=== PATIENT | female | born 1955 | race Caucasian/White ===

== ENCOUNTER → 2016-07-31 | Outpatient (CLI) | payer MEDICARE, BC ==
[2016-07-31 10:52] LABS: Basophils % (A) 1 %; CH 30.1; CHCM 34.2; Eosinophils # (A) 0.4 k/uL (0-0.7); Eosinophils % (A) 6 %; HDW 2.97; HGB 13.2 gm/dL (11.4-16.0); Luc # (Auto) 0.14; Luc % (Auto) 2; Lymphocytes # (A) 2.1 k/uL (1.0-4.8); Lymphocytes % (A) 29 %; MCH 29.8 pg (25.0-35.0); MCHC 33.7 g/dL (31.0-37.0); MCV 88.4 fL (80.0-100.0); Mean Platelet Volume 8.1; Monocytes # (A) 0.2 k/uL (0-1.0); Monocytes % (A) 3 %; Neutrophils # (A) 4.4 k/uL (1.3-7.7); Neutrophils % (A) 60 %; RBC 4.42 m/uL (3.80-5.40); RDW 14.3 % (11.5-15.5); WBC 7.4 k/uL (3.8-10.6); WBC (Perox) 8.04
[2016-07-31 11:22] LABS: ALT 29 U/L (9-52); AST 20 U/L (14-36); Alkaline Phosphatase 95 U/L (38-126); Anion Gap 12 mmol/L; Blood Urea Nitrogen 9 mg/dL (7-17); Calcium 9.2 mg/dL (8.4-10.2); Carbon Dioxide 29 mmol/L (22-30); Chloride 101 mmol/L (98-107); Cholesterol 177 mg/dL (<200); Glucose 114 mg/dL (74-99); HDL Cholesterol 38 mg/dL (40-60); Non-African American GFR(MDRD) >60 (>60 ml/min/1.73 sqM); Potassium 4.4 mmol/L (3.5-5.1); Sodium 142 mmol/L (137-145); Total Bilirubin 0.4 mg/dL (0.2-1.3); Total Protein 6.4 g/dL (6.3-8.2); Triglycerides 484 mg/dL (<150)
== END | disposition home or self-care (01) ==
LOC: LABWHC1 10:14
PROVIDERS: ATTEND Physician Assistant Medical
DX: M79.89 Other specified soft tissue disorders (principal); E11.40 Type 2 diabetes mellitus with diabetic neuropathy, unspecified; Z79.4 Long term (current) use of insulin; E03.9 Hypothyroidism, unspecified; K21.0 Gastro-esophageal reflux disease with esophagitis; I10 Essential (primary) hypertension; J02.9 Acute pharyngitis, unspecified; E55.9 Vitamin D deficiency, unspecified
CPT/HCPCS: 36415; 80053; 80061; 82306; 84439; 84443; 85025

== ENCOUNTER → 2016-08-27 | Outpatient (CLI) | payer MEDICARE, BC ==
[2016-08-27 14:16] LABS: Blood Urea Nitrogen 16 mg/dL (7-17); Non-African American GFR(MDRD) >60 (>60 ml/min/1.73 sqM)
--- NOTE | 2016-08-27 14:58 | CT ---
EXAMINATION TYPE: CT abdomen pelvis w con DATE OF EXAM: 08/27/2016 2:52 PM COMPARISON: 06/20/2015 HISTORY: 60-year-old female with right lower quadrant pain TECHNIQUE: Contiguous axial scanning of the abdomen and pelvis following administration of 100 ml Omn ipaque 300 IV contrast. Delayed images through the kidneys and coronal/sagittal reconstructions perf ormed. CT DLP: 1517.3 mGycm Automated exposure control for dose reduction was used. FINDINGS: Heart is upper limits of normal in size without pericardial effusion. Strandy atelectasis in the lowe r lungs without pleural effusion. The liver is enlarged measuring 27 cm craniocaudal, possibly secondary to a Kirit's lobe. No focal l iver lesion or biliary ductal dilatation. Portal venous system is patent. Cholecystectomy clips. Adrenal glands, kidneys, and pancreas show no gross abnormality. Spleen remains mildly enlarged measuring 14.4 cm, this is slightly improved from prior where it measu red 15.7 cm. Scattered nonenlarged mesenteric lymph nodes are present. Incidental circumaortic left renal vein. No dilated small bowel, free fluid, or free air. While the appendix is not clearly visualized, no focal inflammatory changes seen within the right low er quadrant. Oral contrast has progressed to the mid transverse colon. There is mild stool burden. No pericolonic inflammatory change seen. Limited visualization of the pelvis due to prominent metal hardware artifact related to the patient's left hip total arthroplasty. Numerous phleboliths are present. Bladder incompletely distended. Bones: Mild degenerative changes at the right hip. Additional degenerative changes mid to lower lumba r spine. No osseous destructive process. Asymmetric atrophy of the left iliopsoas musculature and elva e of the left-sided lateral gluteal musculature as well. IMPRESSION: 1. APPARENT HEPATOMEGALY MAY BE SECONDARY TO A KIRIT'S LOBE. CORRELATE TO EXCLUDE ANY UNDERLYING HEP ATOCELLULAR DISEASE. 2. MILD SPLENOMEGALY SHOW SOME IMPROVEMENT FROM 06/20/2015. 3. NO ACUTE INFLAMMATORY PROCESS IDENTIFIED TO EXPLAIN THE PATIENT'S SYMPTOMS.
== END | disposition home or self-care (01) ==
LOC: RADCTMAIN 12:40
PROVIDERS: ATTEND Physician Assistant Medical
DX: R16.1 Splenomegaly, not elsewhere classified (principal); R10.31 Right lower quadrant pain; R11.2 Nausea with vomiting, unspecified; R19.7 Diarrhea, unspecified; R10.829 Rebound abdominal tenderness, unspecified site
CPT/HCPCS: 82565; 84520; 74177; 36415; Q9967

== ENCOUNTER 2016-09-16 15:37 | Emergency (ER) | payer MEDICARE, BC ==
[2016-09-16 16:04] VITALS: BP 135/61; PULSE 57; RESP 18; TEMP 98.9
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
--- NOTE | 2016-09-16 16:33 | XR ---
EXAMINATION TYPE: XR finger RT DATE OF EXAM: 09/16/2016 4:29 PM COMPARISON: NONE HISTORY: Pain TECHNIQUE: 3 views FINDINGS: There is some spurring at the IP joints. I see no fracture nor dislocation. There are no er osions. There is calcification posterior to the DIP joint of the ring finger consistent with old inju ry. IMPRESSION: Osteoarthritis. No acute abnormality.
== END 2016-09-16 16:55 | disposition home or self-care (01) ==
LOC: EC 15:37
DX: S63.614A Unspecified sprain of right ring finger, initial encounter (principal); E11.9 Type 2 diabetes mellitus without complications; K21.9 Gastro-esophageal reflux disease without esophagitis; I10 Essential (primary) hypertension; E07.9 Disorder of thyroid, unspecified; Z87.891 Personal history of nicotine dependence; Z91.048 Other nonmedicinal substance allergy status; Z88.5 Allergy status to narcotic agent; Z91.018 Allergy to other foods; Z88.8 Allergy status to other drugs, medicaments and biological substances; Z79.4 Long term (current) use of insulin; Z79.84 Long term (current) use of oral hypoglycemic drugs; Z79.899 Other long term (current) drug therapy; W01.0XXA Fall on same level from slipping, tripping and stumbling without subsequent striking against object, initial encounter
CPT/HCPCS: 99283

== ENCOUNTER → 2016-10-23 | Outpatient (CLI) | payer MEDICARE, BC ==
[2016-10-23 09:48] LABS: Basophils # (A) 0.1 k/uL (0-0.2); Basophils % (A) 1 %; CH 31.2; CHCM 33.6; Eosinophils # (A) 0.5 k/uL (0-0.7); Eosinophils % (A) 6 %; HCT 41.6 % (34.0-46.0); HDW 2.72; HGB 13.7 gm/dL (11.4-16.0); Luc # (Auto) 0.25; Luc % (Auto) 3; Lymphocytes # (A) 2.9 k/uL (1.0-4.8); Lymphocytes % (A) 33 %; MCH 30.6 pg (25.0-35.0); MCHC 32.9 g/dL (31.0-37.0); MCV 93.2 fL (80.0-100.0); Mean Platelet Volume 9.2; Monocytes # (A) 0.3 k/uL (0-1.0); Monocytes % (A) 3 %; Neutrophils # (A) 4.9 k/uL (1.3-7.7); Neutrophils % (A) 55 %; RBC 4.46 m/uL (3.80-5.40); RDW 13.6 % (11.5-15.5); WBC 8.9 k/uL (3.8-10.6); WBC (Perox) 9.34
[2016-10-23 10:11] LABS: ALT 30 U/L (9-52); AST 25 U/L (14-36); Alkaline Phosphatase 96 U/L (38-126); Anion Gap 12 mmol/L; Blood Urea Nitrogen 14 mg/dL (7-17); Calcium 9.6 mg/dL (8.4-10.2); Carbon Dioxide 30 mmol/L (22-30); Chloride 100 mmol/L (98-107); Cholesterol 222 mg/dL (<200); Creatine Kinase 77 U/L (30-135); Glucose 112 mg/dL (74-99); HDL Cholesterol 48 mg/dL (40-60); Non-African American GFR(MDRD) >60 (>60 ml/min/1.73 sqM); Potassium 4.6 mmol/L (3.5-5.1); Sodium 142 mmol/L (137-145); Total Bilirubin 0.6 mg/dL (0.2-1.3); Total Protein 6.8 g/dL (6.3-8.2); Triglycerides 378 mg/dL (<150); Uric Acid 5.2 mg/dL (3.7-7.4)
== END | disposition home or self-care (01) ==
LOC: LABWHC1 09:13
PROVIDERS: ATTEND Family Medicine
DX: E03.9 Hypothyroidism, unspecified (principal); I10 Essential (primary) hypertension; E11.40 Type 2 diabetes mellitus with diabetic neuropathy, unspecified; E55.9 Vitamin D deficiency, unspecified; E11.65 Type 2 diabetes mellitus with hyperglycemia; D86.0 Sarcoidosis of lung; G47.33 Obstructive sleep apnea (adult) (pediatric); M10.9 Gout, unspecified; Z79.4 Long term (current) use of insulin
CPT/HCPCS: 36415; 80053; 80061; 82550; 84439; 84443; 84550; 85025

== ENCOUNTER 2017-01-10 09:34 | Emergency (ER) | payer MEDICARE, BC ==
[2017-01-10 09:51] VITALS: RESP 18
[2017-01-10 10:26] LABS: Appearance,Urine Clear (Clear); Bacteria,Urine Rare /hpf; Bilirubin,Urine Negative (Negative); Glucose,Urine (UA) Negative (Negative); Ketones,Urine Negative (Negative); Leukocyte Esterase,Urine Small (Negative); Mucus,Urine Rare /hpf; Nitrite,Urine Negative (Negative); Particle Count 386; Protein,Urine Negative (Negative); RBC,Urine <1 /hpf (0-5); Specific Gravity,Urine 1.005 (1.001-1.035); UA Billing (MACRO vs. MICRO) MICRO; Urobilinogen,Urine <2.0 mg/dL (<2.0); WBC,Urine 8 /hpf (0-5)
[2017-01-10] MEDS ORDERED: ACETAMINOPHEN IV (For NPO) 1,000 MG in SALINE 100 100ML.BAG IVPB STA (10:41)
[2017-01-10] MEDS ORDERED: ONDANSETRON 4 MG/2 ML VIAL IVP STA (10:41)
[2017-01-10 10:57] LABS: Basophils # (A) 0.1 k/uL (0-0.2); Basophils % (A) 1 %; CH 29.7; CHCM 33.9; Eosinophils # (A) 0.3 k/uL (0-0.7); Eosinophils % (A) 3 %; HCT 38.8 % (34.0-46.0); HDW 2.72; HGB 13.5 gm/dL (11.4-16.0); Luc # (Auto) 0.19; Luc % (Auto) 1; Lymphocytes # (A) 3.6 k/uL (1.0-4.8); Lymphocytes % (A) 27 %; MCH 30.5 pg (25.0-35.0); MCHC 34.7 g/dL (31.0-37.0); MCV 87.9 fL (80.0-100.0); Mean Platelet Volume 8.3; Monocytes # (A) 0.6 k/uL (0-1.0); Monocytes % (A) 4 %; Neutrophils # (A) 8.5 k/uL (1.3-7.7); Neutrophils % (A) 64 %; RBC 4.41 m/uL (3.80-5.40); RDW 12.9 % (11.5-15.5); WBC 13.2 k/uL (3.8-10.6)
[2017-01-10 11:06] LABS: ALT 26 U/L (9-52); AST 16 U/L (14-36); Alkaline Phosphatase 106 U/L (38-126); Anion Gap 8 mmol/L; Blood Urea Nitrogen 14 mg/dL (7-17); Calcium 9.3 mg/dL (8.4-10.2); Carbon Dioxide 33 mmol/L (22-30); Chloride 98 mmol/L (98-107); Glucose 125 mg/dL (74-99); Non-African American GFR(MDRD) >60 (>60 ml/min/1.73 sqM); Potassium 4.3 mmol/L (3.5-5.1); Sodium 139 mmol/L (137-145); Total Bilirubin 0.3 mg/dL (0.2-1.3); Total Protein 6.2 g/dL (6.3-8.2)
--- NOTE | 2017-01-10 11:15 | XR ---
EXAMINATION TYPE: XR KUB DATE OF EXAM: 01/10/2017 11:04 AM CLINICAL HISTORY: Difficulty urinating and abdominal pain. TECHNIQUE: 2 upright KUB images of the abdomen are obtained. COMPARISON: CT abdomen and pelvis August 27, 2016.. FINDINGS: There is some paucity of bowel gas. Visualized gas is noted in nondistended small and large bowel loops scattered throughout the abdomen and pelvis. Cardiomegaly is redemonstrated. Cholecystectomy clips are again seen. There is slight scoliotic curva ture with multilevel spurring and disc space narrowing throughout the visualized thoracolumbar spine. There are scattered pelvic phleboliths. Prominent right lobe of liver is redemonstrated. Metallic fontana rdware from left hip surgery is partially imaged. IMPRESSION: Overall nonspecific strongly favor nonobstructive bowel gas pattern. No significant change from prior CT.
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
[2017-01-10 12:15] VITALS: BP 150/67; PULSE 60; TEMP 97.1
== END 2017-01-10 12:14 | disposition home or self-care (01) ==
LOC: EC 09:34
DX: N39.0 Urinary tract infection, site not specified (principal); R10.9 Unspecified abdominal pain; R11.2 Nausea with vomiting, unspecified; J45.909 Unspecified asthma, uncomplicated; E11.9 Type 2 diabetes mellitus without complications; K21.9 Gastro-esophageal reflux disease without esophagitis; I10 Essential (primary) hypertension; M19.90 Unspecified osteoarthritis, unspecified site; E07.9 Disorder of thyroid, unspecified; H91.3 Deaf nonspeaking, not elsewhere classified; Z87.891 Personal history of nicotine dependence; Z90.49 Acquired absence of other specified parts of digestive tract; Z79.4 Long term (current) use of insulin; Z79.1 Long term (current) use of non-steroidal anti-inflammatories (NSAID); Z79.891 Long term (current) use of opiate analgesic; Z79.899 Other long term (current) drug therapy; Z88.5 Allergy status to narcotic agent; Z88.6 Allergy status to analgesic agent; Z88.8 Allergy status to other drugs, medicaments and biological substances; Z91.018 Allergy to other foods; Z91.048 Other nonmedicinal substance allergy status
CPT/HCPCS: 36415; 80053; 83690; 85025; 81001; 87086; 74000; 99284; 96365; 96367; 96375; J2405; J0696; J0131

== ENCOUNTER 2017-02-01 07:23 | Day surgery (SDC) | payer MEDICARE, BC ==
[2017-01-29 11:31] VITALS: BMI 37.1
[~2017-02-01 07:23] MED LIST: LACTATED RINGERS 1,000 ML IV SCH; LIDOCAINE 1% 20 ML VIAL (10MG/ML) FOR IV START INTRADERMA PRN
[2017-02-01] MEDS ORDERED: LACTATED RINGERS 1,000 ML IV ONE (07:50)
[2017-02-01 08:03] LABS: Glucose,Whole Blood 150 mg/dL (75-99)
[2017-02-01 08:07] VITALS: TEMP 97.4
[2017-02-01] MEDS ORDERED: LIDOCAINE 1% INJ 10MG/ML (20 ML MDV) ONE (08:38)
[2017-02-01] MEDS ORDERED: PROPOFOL 10 MG/ML 20 ML VIAL IV ONE (08:38)
[2017-02-01] MEDS ORDERED: ONDANSETRON 4 MG/2 ML VIAL ONE (08:38)
[2017-02-01] MEDS ORDERED: MIDAZOLAM 2 MG/2 ML VIAL ONE (08:38)
[2017-02-01] MEDS ORDERED: IV FLUID CONTINUATION 550 ML IV ONE (08:56)
[2017-02-01 08:58] VITALS: RESP 18
--- NOTE | 2017-02-01 09:08 | P.PCN ---
Date of Procedure: 02/01/17 Procedure(s) Performed: Procedure: Esophagogastroduodenoscopy and biopsy. Preoperative diagnosis: Vomiting and diarrhea, patient has history of reflux disease. Postoperative diagnosis: 1. Very small sliding hiatal hernia with no obvious esophagitis or complicated reflux disease. 2. Mild antral gastritis. 3. Multiple biopsies obtained from the duodenum, antrum and esophagus. Preparation sedation: Was provided by anesthesia. Brief clinical history: The patient is a 61-year-old female with history of chronic reflux who was evaluated in the past, there is no referred for vomiting and diarrhea. The patient is legally deaf/mute. This evaluation is to assess for complicated reflux disease or other pathology. Procedure: With the patient on her left lateral decubitus position and after informed consent and adequate sedation, I passed the Olympus-GIF 160 video upper endoscope through the cricopharyngeus down the esophagus. GE junction was around 40 cm from the incisors and there was a very small sliding hiatal hernia. There was no obvious esophagitis or complicated reflux disease. The endoscope was then passed into the stomach which was insufflated with air and inspected in detail including the retroflex view in the cardia. There was some mottling and erythema in the antrum but no ulcers or erosions. Pyloric channel , duodenal bulb, post bulbar area and descending duodenum appeared within normal limits. Because of her symptoms, I obtained biopsies from the duodenum, antrum and esophagus then the endoscope was withdrawn. The patient tolerated the procedure well. Plan: The patient was reassured. I discussed with her sister. Will await biopsy results. She will follow-up with you as planned and we would be happy to see in the future if her symptoms persist.
[2017-02-01 09:14] VITALS: BP 126/71; PULSE 62
== END 2017-02-01 09:50 | disposition home or self-care (01) ==
LOC: ORWHC2ENDO 07:23
DX: K29.50 Unspecified chronic gastritis without bleeding (principal); K21.0 Gastro-esophageal reflux disease with esophagitis; K44.9 Diaphragmatic hernia without obstruction or gangrene; H91.3 Deaf nonspeaking, not elsewhere classified; I25.10 Atherosclerotic heart disease of native coronary artery without angina pectoris; I10 Essential (primary) hypertension; J45.909 Unspecified asthma, uncomplicated; G47.33 Obstructive sleep apnea (adult) (pediatric); E07.9 Disorder of thyroid, unspecified; M19.90 Unspecified osteoarthritis, unspecified site; E11.9 Type 2 diabetes mellitus without complications; Z79.4 Long term (current) use of insulin; Z79.899 Other long term (current) drug therapy; Z88.5 Allergy status to narcotic agent; Z88.8 Allergy status to other drugs, medicaments and biological substances
CPT/HCPCS: 88305; 88342; 43239; J2250; J2405; J2001; J2704

== ENCOUNTER 2017-03-26 18:47 | Emergency (ER) | payer MEDICARE, BC ==
[2017-03-26 19:06] VITALS: RESP 18
[2017-03-26] MEDS ORDERED: DIAZEPAM 5 MG TAB PO STA (20:06)
[2017-03-26] MEDS ORDERED: MORPHINE SULFATE 4 MG/ML SYRINGE IV STA (20:06)
[2017-03-26] MEDS ORDERED: MORPHINE SULFATE 4 MG/ML SYRINGE IM STA ×2 (20:20→22:15)
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
--- NOTE | 2017-03-26 20:41 | XR ---
EXAMINATION TYPE: XR cervical spine comp DATE OF EXAM: 03/26/2017 COMPARISON: 01/09/2015 HISTORY: Neck pain TECHNIQUE: 6 views FINDINGS: There is old anterior cervical fusion at C4 C5 C6. Vertebra have normal alignment. Atlantoa xial facet joint is normal. There are no cervical ribs. Posterior elements appear intact. IMPRESSION: Previous surgery. No acute abnormality of the cervical spine. No change.
--- NOTE | 2017-03-26 21:48 | CT ---
EXAMINATION TYPE: CT brain cspine wo con DATE OF EXAM: 03/26/2017 COMPARISON: Head CT scan 01/18/2011. HISTORY: Patient woke up with stiffness to back of neck and headache. CT DLP: 1681.00 mGycm Automated exposure control for dose reduction was used. TECHNIQUE: CT scan of the head and cervical spine are performed without contrast. FINDINGS: Ventricles have normal size. There is no mass effect nor midline shift. There is no sign of intracranial hemorrhage. The calvarium is intact. There is old anterior fusion surgery at C4 C5 C6. There is narrowing of disc spaces from C3 to T1. Th ere is spurring of the endplates. Posterior elements appear intact. The skull base appears intact. Th ere is no evidence of a fracture. IMPRESSION: Negative CT scan of the brain. No change compared to old exam. Spondylotic changes in the cervical spine with multilevel fusion surgery. No fracture.
[2017-03-26] MEDS ORDERED: KETOROLAC 60 MG/2 ML VIAL IM STA (22:15)
[2017-03-26] MEDS ORDERED: diphenhydrAMINE 50 MG CAP PO STA (23:01)
[2017-03-26] MEDS ORDERED: METOCLOPRAMIDE 10 MG TAB PO STA (23:01)
[2017-03-26] MEDS ORDERED: methylPREDNISolone SOD SUCCI 125 MG/2 ML VIAL IM STA (23:01)
[2017-03-27 00:46] VITALS: BP 123/56; PULSE 69; TEMP 98.4
== END 2017-03-27 00:45 | disposition home or self-care (01) ==
LOC: EC 18:47
DX: S29.012A Strain of muscle and tendon of back wall of thorax, initial encounter (principal); R51 Headache; M54.2 Cervicalgia; G89.29 Other chronic pain; E11.9 Type 2 diabetes mellitus without complications; K21.9 Gastro-esophageal reflux disease without esophagitis; I10 Essential (primary) hypertension; E07.9 Disorder of thyroid, unspecified; M10.9 Gout, unspecified; Z98.1 Arthrodesis status; Z53.8 Procedure and treatment not carried out for other reasons; Z88.1 Allergy status to other antibiotic agents; Z88.5 Allergy status to narcotic agent; Z88.8 Allergy status to other drugs, medicaments and biological substances; Z91.048 Other nonmedicinal substance allergy status; Z91.018 Allergy to other foods; Z91.013 Allergy to seafood; Z79.4 Long term (current) use of insulin; Z79.84 Long term (current) use of oral hypoglycemic drugs; Z79.899 Other long term (current) drug therapy; X58.XXXA Exposure to other specified factors, initial encounter
CPT/HCPCS: 99284; 96372 ×4; 72050; 72125; 70450; J2270; J2930; J1885

== ENCOUNTER → 2017-04-08 | Outpatient (CLI) | payer MEDICARE, BC ==
[2017-04-08 17:19] LABS: Appearance,Urine Clear (Clear); Bacteria,Urine Rare /hpf; Bilirubin,Urine Negative (Negative); Glucose,Urine (UA) Negative (Negative); Ketones,Urine Negative (Negative); Leukocyte Esterase,Urine Trace (Negative); Mucus,Urine Rare /hpf; Nitrite,Urine Negative (Negative); Particle Count 1148; Protein,Urine 1+ (Negative); RBC,Urine 1 /hpf (0-5); Specific Gravity,Urine 1.018 (1.001-1.035); Squamous Epithelial Cell,Urine 3 /hpf (0-4); UA Billing (MACRO vs. MICRO) MICRO; Urobilinogen,Urine <2.0 mg/dL (<2.0); WBC,Urine 2 /hpf (0-5)
[2017-04-08 17:35] LABS: Partial Thromboplastin Time 23.2 sec (22.0-30.0)
[2017-04-08 17:58] LABS: Anion Gap 9 mmol/L; Blood Urea Nitrogen 11 mg/dL (7-17); Calcium 9.4 mg/dL (8.4-10.2); Carbon Dioxide 27 mmol/L (22-30); Chloride 101 mmol/L (98-107); Glucose 168 mg/dL (74-99); Non-African American GFR(MDRD) >60 (>60 ml/min/1.73 sqM); Potassium 4.6 mmol/L (3.5-5.1); Sodium 137 mmol/L (137-145)
[2017-04-08 18:01] LABS: Basophils % (A) 1 %; CH 28.9; CHCM 33.2; Eosinophils # (A) 0.3 k/uL (0-0.7); Eosinophils % (A) 4 %; HCT 39.3 % (34.0-46.0); HDW 2.83; Luc # (Auto) 0.19; Luc % (Auto) 3; Lymphocytes # (A) 1.7 k/uL (1.0-4.8); Lymphocytes % (A) 22 %; MCV 87.7 fL (80.0-100.0); Mean Platelet Volume 8.6; Monocytes # (A) 0.3 k/uL (0-1.0); Monocytes % (A) 4 %; Neutrophils # (A) 5.1 k/uL (1.3-7.7); Neutrophils % (A) 67 %; RBC 4.48 m/uL (3.80-5.40); RDW 13.3 % (11.5-15.5); WBC 7.7 k/uL (3.8-10.6); WBC (Perox) 8.22
== END | disposition home or self-care (01) ==
LOC: LABWHC1 16:38
PROVIDERS: ATTEND Orthopaedic Surgery
DX: Z01.812 Encounter for preprocedural laboratory examination (principal)
CPT/HCPCS: 36415; 80048; 81001; 85025; 85610; 85730; 87077; 87086; 87186

== ENCOUNTER → 2017-05-25 | Outpatient (CLI) | payer MEDICARE, BC ==
[2017-05-25 09:33] LABS: Blood Urea Nitrogen 16 mg/dL (7-17)
== END | disposition home or self-care (01) ==
LOC: LABWHC1 08:28
PROVIDERS: ATTEND Orthopaedic Surgery
DX: N28.9 Disorder of kidney and ureter, unspecified (principal)
CPT/HCPCS: 36415; 82565; 84520

== ENCOUNTER → 2017-09-08 | Outpatient (CLI) | payer MEDICARE, BC ==
[2017-09-08 11:10] LABS: Basophils # (A) 0.1 k/uL (0-0.2); Basophils % (A) 1 %; Eosinophils # (A) 0.4 k/uL (0-0.7); Eosinophils % (A) 5 %; HGB 12.8 gm/dL (11.4-16.0); Lymphocytes # (A) 2.8 k/uL (1.0-4.8); Lymphocytes % (A) 35 %; MCH 28.9 pg (25.0-35.0); MCHC 33.6 g/dL (31.0-37.0); MCV 85.8 fL (80.0-100.0); Mean Platelet Volume 8.6; Monocytes # (A) 0.3 k/uL (0-1.0); Monocytes % (A) 4 %; Neutrophils # (A) 4.1 k/uL (1.3-7.7); Neutrophils % (A) 53 %; Platelet Count 202 k/uL (150-450); RBC 4.42 m/uL (3.80-5.40); RDW 13.8 % (11.5-15.5); WBC 7.8 k/uL (3.8-10.6)
[2017-09-08 11:29] LABS: ALT 22 U/L (9-52); AST 26 U/L (14-36); Albumin 4.2 g/dL (3.5-5.0); Alkaline Phosphatase 98 U/L (38-126); Anion Gap 15 mmol/L; Blood Urea Nitrogen 15 mg/dL (7-17); Calcium 9.1 mg/dL (8.4-10.2); Carbon Dioxide 28 mmol/L (22-30); Chloride 103 mmol/L (98-107); Cholesterol 170 mg/dL (<200); Creatine Kinase 168 U/L (30-135); Glucose 133 mg/dL (74-99); HDL Cholesterol 39 mg/dL (40-60); LDL Cholesterol,Calculated 71 mg/dL (0-99); Potassium 4.5 mmol/L (3.5-5.1); Sodium 146 mmol/L (137-145); Total Bilirubin 0.2 mg/dL (0.2-1.3); Total Protein 6.3 g/dL (6.3-8.2); Triglycerides 300 mg/dL (<150); Uric Acid 4.1 mg/dL (3.7-7.4)
== END | disposition home or self-care (01) ==
LOC: LABWHC1 10:16
PROVIDERS: ATTEND Physician Assistant Medical
DX: E11.65 Type 2 diabetes mellitus with hyperglycemia (principal); E78.2 Mixed hyperlipidemia; I10 Essential (primary) hypertension; E55.9 Vitamin D deficiency, unspecified; G47.00 Insomnia, unspecified; M1A.00X0 Idiopathic chronic gout, unspecified site, without tophus (tophi); E03.9 Hypothyroidism, unspecified; D86.9 Sarcoidosis, unspecified
CPT/HCPCS: 36415; 80053; 80061; 82306; 82550; 84439; 84443; 84550; 85025

== ENCOUNTER → 2017-10-22 | Outpatient (CLI) | payer MEDICARE, BC ==
--- NOTE | 2017-10-23 03:41 | MR ---
EXAMINATION TYPE: MR brain wo/w con DATE OF EXAM: 10/22/2017 COMPARISON: NONE HISTORY: Rt sided chest/arm pain, TIA TECHNIQUE: Multiplanar, multisequence images of the brain and brainstem is performed without and with IV contras t, utilizing 10 mL intravenous Gadavist . FINDINGS: Ventricles of normal size. There is no mass effect nor midline shift. There is no sign of intracrania l hemorrhage. On the FLAIR images there are scattered foci of increased signal at the crowell-white tolu er junction of both parietal lobes. The largest measures 1 cm. Total number is less than 20. Most of these measure less than 5 mm. The brainstem is intact. Cerebellum appears normal. Sella turcica appea rs normal. Corpus callosum appears normal. The contrast images show no pathologic enhancement. IMPRESSION: Bilateral parietal white matter changes. This probably relates to small vessel ischemia. Demyelinating disease is less likely. No evidence of cortical infarct.
== END | disposition home or self-care (01) ==
LOC: RADMRIMAIN 16:49
PROVIDERS: ATTEND Family Medicine
DX: R90.89 Other abnormal findings on diagnostic imaging of central nervous system (principal)
CPT/HCPCS: 70553; A9581

== ENCOUNTER 2017-12-04 22:08 | Emergency (ER) | payer MEDICARE, BC ==
[2017-12-04 22:29] VITALS: RESP 20
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
[2017-12-04 22:52] LABS: Basophils # (A) 0.1 k/uL (0-0.2); Basophils % (A) 1 %; Eosinophils # (A) 0.4 k/uL (0-0.7); Eosinophils % (A) 4 %; HCT 38.5 % (34.0-46.0); HGB 12.7 gm/dL (11.4-16.0); Lymphocytes # (A) 3.6 k/uL (1.0-4.8); Lymphocytes % (A) 31 %; MCV 87.7 fL (80.0-100.0); Mean Platelet Volume 8.1; Monocytes # (A) 0.3 k/uL (0-1.0); Monocytes % (A) 3 %; Neutrophils # (A) 6.8 k/uL (1.3-7.7); Neutrophils % (A) 60 %; Platelet Count 223 k/uL (150-450); RBC 4.39 m/uL (3.80-5.40); RDW 13.8 % (11.5-15.5); WBC 11.3 k/uL (3.8-10.6)
[2017-12-04 23:07] LABS: ALT 31 U/L (9-52); AST 26 U/L (14-36); Albumin 4.4 g/dL (3.5-5.0); Alkaline Phosphatase 93 U/L (38-126); Amylase 73 U/L (30-110); Anion Gap 13 mmol/L; Blood Urea Nitrogen 21 mg/dL (7-17); Carbon Dioxide 25 mmol/L (22-30); Chloride 102 mmol/L (98-107); Glucose 149 mg/dL (74-99); Lipase 160 U/L (23-300); Magnesium 1.4 mg/dL (1.6-2.3); Potassium 4.2 mmol/L (3.5-5.1); Sodium 140 mmol/L (137-145); Total Bilirubin 0.2 mg/dL (0.2-1.3); Total Protein 6.7 g/dL (6.3-8.2)
[2017-12-04 23:08] LABS: INR 0.9 (<1.2); Partial Thromboplastin Time 23.1 sec (22.0-30.0); Prothrombin Time 9.3 sec (9.0-12.0)
--- NOTE | 2017-12-04 23:11 | XR ---
EXAMINATION TYPE: XR chest 1V portable DATE OF EXAM: 12/04/2017 COMPARISON: 01/20/2016 HISTORY: Chest pain TECHNIQUE: Single frontal view of the chest is obtained. FINDINGS: Heart and mediastinum are normal. Lungs are clear. Diaphragm is normal. There are chest le ads. IMPRESSION: Normal chest. There is clearing of mild interstitial density compared to old exam.
[2017-12-04 23:14] LABS: Creatine Kinase 83 U/L (30-135)
[2017-12-04 23:16] LABS: D-Dimer 0.77 mg/L FEU (<0.60)
[2017-12-04] MEDS ORDERED: MAGNESIUM SULFATE-D5W PMX 1 GM in DEXTROSE/WATER 1 100ML.BAG IVPB ONE (23:17)
[2017-12-04 23:26] LABS: Creatine Kinase MB 0.6 ng/mL (0.0-2.4); Troponin I <0.012 ng/mL (0.000-0.034)
--- NOTE | 2017-12-04 23:58 | CT ---
EXAMINATION TYPE: CT chest angio for PE DATE OF EXAM: 12/04/2017 COMPARISON: None HISTORY: chest pain that goes into right arm and dizziness all day today, elevated d-dimer R/O PE, hi story of angina, asthma, hypertension and DM CT DLP: 564.50 mGycm Automated exposure control for dose reduction was used. CONTRAST: CT Chest for pulmonary embolism performed with with IV Contrast, patient injected with 80 mL of Isovu e 370. FINDINGS: There are 3-D post processed images. The lungs are clear of consolidation. There is no evidence of a pulmonary mass. There is no pleural e ffusion. Heart appears slightly enlarged. There is no pericardial effusion. Thoracic aorta appears normal without evidence of aneurysm or disse ction. There is normal contrast opacification of the pulmonary arteries. I see no filling defect. The re is no mediastinal adenopathy. There are no hilar masses. The bony thorax is intact. IMPRESSION: Borderline cardiomegaly. No evidence of pulmonary embolism.
[2017-12-05 01:44] VITALS: BP 144/100; PULSE 71; TEMP 97.8
== END 2017-12-05 01:44 | disposition home or self-care (01) ==
LOC: EC 22:08
DX: E83.42 Hypomagnesemia (principal); R07.2 Precordial pain; I20.9 Angina pectoris, unspecified; E11.9 Type 2 diabetes mellitus without complications; K21.9 Gastro-esophageal reflux disease without esophagitis; H91.90 Unspecified hearing loss, unspecified ear; I10 Essential (primary) hypertension; M19.90 Unspecified osteoarthritis, unspecified site; G47.30 Sleep apnea, unspecified; E07.9 Disorder of thyroid, unspecified; M10.9 Gout, unspecified; Z99.89 Dependence on other enabling machines and devices; Z96.642 Presence of left artificial hip joint; Z96.651 Presence of right artificial knee joint; Z98.1 Arthrodesis status; Z98.890 Other specified postprocedural states; Z79.4 Long term (current) use of insulin; Z79.891 Long term (current) use of opiate analgesic; Z79.899 Other long term (current) drug therapy; Z88.1 Allergy status to other antibiotic agents; Z88.5 Allergy status to narcotic agent; Z88.6 Allergy status to analgesic agent; Z88.8 Allergy status to other drugs, medicaments and biological substances; Z91.013 Allergy to seafood; Z91.018 Allergy to other foods; Z91.048 Other nonmedicinal substance allergy status
CPT/HCPCS: 36415; 93005; 85379; 80053; 82150; 82550; 82553; 83690; 83735; 84484; 85025; 85610; 85730; 71045; 71275; 99285; 96365; J3475; Q9967

== ENCOUNTER → 2017-12-20 | Day surgery (SDC) | payer MEDICARE, BC ==
[2017-12-16 14:46] VITALS: BMI 38.0
[~2017-12-20] MED LIST changes: +ALPRAZolam 0.25 MG TAB PO PRN; +ALPRAZolam 0.5 MG TAB PO PRN; +ASPIRIN 325 MG TAB PO ONE; +ATORVASTATIN 20 MG TAB PO SCH; +ATORVASTATIN 80 MG TAB PO ONE; +INSULIN ASPART 100 UNIT/ML 1 ML 10 ML VIAL SQ SCH; +IOPAMIDOL-370 125ML BTL INJ ONE; -LACTATED RINGERS 1,000 ML IV SCH; -LIDOCAINE 1% 20 ML VIAL (10MG/ML) FOR IV START INTRADERMA PRN; +LIDOCAINE 1% INJ 10MG/ML (20 ML MDV) SQ ONE; +MIDAZOLAM 2 MG/2 ML VIAL IV ONE; +NITROGLYCERIN SL TABS 0.4 MG TAB SUBLINGUAL PRN; +RX INFO: IV CONTRAST WAS GIVEN 1 EACH MISC MISCELLANE PRN; +SODIUM CHLORIDE 0.9% 1,000 ML IV SCH; +SODIUM CHLORIDE 0.9% 1,000 ML in EMPTY BAG 1 BAG IV ONE; +fentaNYL (PF) 50 MCG/ML 2 ML AMP IV ONE
[2017-12-20 07:19] VITALS: RESP 18; TEMP 98
[2017-12-20 07:27] LABS: Glucose,Whole Blood 182 mg/dL (75-99)
--- NOTE | 2017-12-20 08:18 | CC ---
CARDIAC CATHETERIZATION REPORT INDICATION: Chest pain with abnormal stress test. PROCEDURE NOTE: After obtaining informed consent, left heart catheterization and coronary angiogram were performed via the right femoral artery using standard Steve catheters. The patient tolerated the procedure well without any obvious immediate complications. A femoral angiogram was performed and Angio-Seal will be deployed for hemostasis. Patient received moderate conscious sedation and total sedation time was 19 minutes. FINDINGS: 1. HEMODYNAMICS: Left ventricular end-diastolic pressure is 12 to 14 mm. There is no significant gradient across the aortic valve. 2. LEFT VENTRICULOGRAM: Left ventriculogram is not performed. 3. ANGIOGRAPHIC DATA: 4. Left main coronary artery: Left main coronary artery is a normal-sized vessel and is free of stenosis. Divides into left anterior descending coronary artery and circumflex coronary artery. LAD shows a mild atherosclerotic plaque in its midportion. There are no focal hemodynamically significant lesions. Circumflex coronary artery and the distal AV groove circumflex shows a 60% to 70% focal stenosis, but past the stenosis there is a very small area that the vessel is actually supplying. Right coronary artery is a large dominant vessel shows a mild atherosclerotic sclerotic plaque in the midportion. CONCLUSIONS: A single-vessel coronary artery disease as described above. While patient has coronary risk factors and symptoms, the area of ischemia does not correlate with the lesion noted in the cardiac cath and the circumflex itself is a very small vessel. I reviewed angiographic data with Dr. Jake Braxton the on-call turf manager and the patient was advised medical therapy at this time. The patient has speech impairment and I have communicated through patient's sister. Will treat with optimal and aggressive medical therapy. MMODL / IJN: [id number] /
[2017-12-20 11:42] VITALS: PULSE 60
[2017-12-20 12:09] LABS: Glucose,Whole Blood 218 mg/dL (75-99)
[2017-12-20 13:18] VITALS: BP 135/62
== END ==
LOC: CATHCVL 06:38
PROVIDERS: ATTEND Internal Medicine Cardiovascular Disease
DX: I25.10 Atherosclerotic heart disease of native coronary artery without angina pectoris (principal); I10 Essential (primary) hypertension; E11.9 Type 2 diabetes mellitus without complications; Z79.4 Long term (current) use of insulin; Z79.890 Hormone replacement therapy; Z79.51 Long term (current) use of inhaled steroids; Z79.899 Other long term (current) drug therapy; Z88.5 Allergy status to narcotic agent; Z88.8 Allergy status to other drugs, medicaments and biological substances
CPT/HCPCS: 93458; C1760; C1894; C1769; J2250; J2001; J3010; Q9967

== ENCOUNTER → 2018-01-13 | Outpatient (CLI) | payer MEDICARE, BC ==
[2018-01-13 11:54] LABS: HCT 36.3 % (34.0-46.0); MCH 28.9 pg (25.0-35.0); MCV 87.7 fL (80.0-100.0); Mean Platelet Volume 8.5; Platelet Count 175 k/uL (150-450); RBC 4.14 m/uL (3.80-5.40); RDW 13.6 % (11.5-15.5)
[2018-01-13 12:18] LABS: Anion Gap 11 mmol/L; Blood Urea Nitrogen 16 mg/dL (7-17); Carbon Dioxide 30 mmol/L (22-30); Chloride 99 mmol/L (98-107); Glucose 248 mg/dL (74-99); Potassium 4.6 mmol/L (3.5-5.1); Sodium 140 mmol/L (137-145)
== END | disposition home or self-care (01) ==
LOC: LABPAT 11:25
PROVIDERS: ATTEND Internal Medicine Interventional Cardiology
DX: Z01.812 Encounter for preprocedural laboratory examination (principal); I25.118 Atherosclerotic heart disease of native coronary artery with other forms of angina pectoris; I10 Essential (primary) hypertension; E11.8 Type 2 diabetes mellitus with unspecified complications
CPT/HCPCS: 36415; 80051; 82565; 82947; 84520; 85027

== ENCOUNTER 2018-01-16 17:50 | Inpatient (IN) | payer MEDICARE, BC ==
[2018-01-16] MEDS ORDERED: NITROGLYCERIN OINT 1 INCH/GM PACKET TOPICAL STA (18:04)
[2018-01-16] MEDS ORDERED: ASPIRIN 81 MG PO STA (18:04)
--- NOTE | 2018-01-16 18:08 | ED ---
General Adult HPI - General Chief complaint: Chest Pain Stated complaint: Chest Pain Time Seen by Provider: 01/16/18 17:50 Source: patient, RN notes reviewed Mode of arrival: wheelchair Limitations: language barrier - History of Present Illness Initial comments: This is a 8-year-old female with past medical history significant for coronary artery disease. Patient is deaf and MEDICATIONS are by writing. Patient states she started having chest pain at [employer] today at 12:00 then had another episode of chest pain 3 another episode at 5 and another episode when she was walking into the emergency department. Patient states all the pain goes from her chest down her arms and she's also short of breath and it occurs. Patient also states the pain lasted about 5 minutes at a time. Patient states currently she is chest pain-free. Patient states it feels like a brick is hitting her in the chest when this occurs. Patient denies any diaphoresis. Patient denies any nausea vomiting diarrhea. Patient denies any lightheadedness dizziness or nursing about so. Patient denies headache patient denies numbness weakness. Patient denies any recent fever chills or cough. Patient denies any swelling to the legs or calf tenderness. - Related Data Home Medications Medication Instructions Recorded Confirmed Allopurinol [Zyloprim] 100 mg PO BID 01/04/15 01/16/18 Bumetanide [BUMEX] 0.5 mg PO BID PRN 01/04/15 01/16/18 Gabapentin 600 mg PO BID@,2100 01/04/15 01/16/18 Potassium Chloride [Klor-Con 20] 20 meq PO DAILY PRN 01/04/15 01/16/18 Cetirizine HCl [Zyrtec] 10 mg PO BID 01/09/15 01/16/18 Latanoprost Ophth [Xalatan 0.005%] 1 drops BOTH EYES HS 06/28/15 01/16/18 INSULIN LISPRO (HumaLOG) [HumaLOG] 30 units SQ TID-W/MEALS 11/17/15 01/16/18 Ondansetron HCl [Zofran] 4 mg PO TID PRN 11/17/15 01/16/18 INSULIN LISPRO (HumaLOG) [HumaLOG] See Protocol SQ TID-W/MEALS 01/07/16 01/16/18 metFORMIN HCL 1,000 mg PO BID 01/07/16 01/16/18 Atenolol 25 mg PO HS 01/29/17 01/16/18 Hydroxychloroquine Sulfate 200 mg PO BID 01/29/17 01/16/18 [Plaquenil] Insulin Glargine [Lantus] 80 unit SQ BID 01/29/17 01/16/18 Omeprazole 20 mg PO DAILY 01/29/17 01/16/18 amLODIPine BESYLATE [Norvasc] 10 mg PO DAILY 01/29/17 01/16/18 oxyCODONE-APAP 10-325MG [Percocet 1 tab PO TID 01/29/17 01/16/18 10-325 mg] Levothyroxine Sodium [Synthroid] 200 mcg PO DAILY 03/26/17 01/16/18 Meloxicam 15 mg PO DAILY 12/20/17 01/16/18 Ergocalciferol (Vitamin D2) 50,000 unit PO Q7D 01/16/18 01/16/18 [Vitamin D2] Gabapentin 1,200 mg PO DAILY@1400 01/16/18 01/16/18 Magnesium Oxide 400 mg PO DAILY 01/16/18 01/16/18 Turmeric Root Extract [Turmeric] 500 mg PO DAILY 01/16/18 01/16/18 Vit C/Ascorb Sod/Multivit-Min 1,000 mg PO DAILY 01/16/18 01/16/18 [Emergen-C 500 mg Chewable Tab] Allergies Allergy/AdvReac Type Severity Reaction Status Date / Time albuterol Allergy Severe Chest Verified 01/16/18 18:23 Pain, left arm pain, jaw tightness adhesive tape Allergy Itching, Verified 01/16/18 18:23 RED SKIN, PAPER TAPE BEST celecoxib [From Celebrex] Allergy Anaphylaxis Verified 01/16/18 18:23 ,rash/hives ciprofloxacin [From Cipro] Allergy TENDON Verified 01/16/18 18:23 PROBLEMS hydromorphone HCl Allergy Rash/Hives Verified 01/16/18 18:23 [From Dilaudid] rofecoxib [From Vioxx] Allergy anaphylaxis,Rash/Hives, Verified 01/16/18 18:23 palpitations Fish Containing Products AdvReac Nausea & Verified 01/16/18 18:23 [Fish] Vomiting carrots AdvReac Nausea & Uncoded 01/16/18 17:55 Vomiting Review of Systems ROS Statement: Those systems with pertinent positive or pertinent negative responses have been documented in the HPI. ROS Other: All systems not noted in ROS Statement are negative. Past Medical History Past Medical History: Asthma, Chest Pain / Angina, Diabetes Mellitus, GERD/ Reflux, Hearing Disorder / Deafness, Hypertension, Osteoarthritis (OA), Renal Disease, Sleep Apnea/CPAP/BIPAP, Thyroid Disorder Additional Past Medical History / Comment(s): Hx. of Sarcoidosis- LUNG Gout, pt. is deaf, SOB WITH EXERTION, History of Any Multi-Drug Resistant Organisms: None Reported Past Surgical History: Back Surgery, Heart Catheterization, Hysterectomy, Joint Replacement Additional Past Surgical History / Comment(s): left hip(mult) and rt knee replacements, rt hip arthroscopy, jaw surgery, rt shoulder, theo oophorectomy, rt hip decompression/bone graft, left knee arthroscopy x 2, CERVICAL DECOMPRESSION AND FUSION OF C4-C6 Past Anesthesia/Blood Transfusion Reactions: Motion Sickness, Postoperative Nausea & Vomiting (PONV) Past Psychological History: No Psychological Hx Reported Smoking Status: Never smoker Past Alcohol Use History: None Reported Past Drug Use History: None Reported - Past Family History Father Family Medical History: Congestive Heart Failure (CHF), Coronary Artery Disease (CAD), Diabetes Mellitus, Liver Disease, Renal Disease Additional Family Medical History / Comment(s): CABG Mother Family Medical History: Cancer General Exam - General Exam Comments Initial Comments: GENERAL: Patient is well-developed and well-nourished. Patient is nontoxic and well- hydrated and is in mild distress. ENT: Neck is soft and supple. No significant lymphadenopathy is noted. Oropharynx is clear. Moist mucous membranes. Neck has full range of motion without eliciting any pain. EYES: The sclera were anicteric and conjunctiva were pink and moist. Extraocular movements were intact and pupils were equal round and reactive to light. Eyelids were unremarkable. PULMONARY: Unlabored respirations. Good breath sounds bilaterally. No audible rales rhonchi or wheezing was noted. CARDIOVASCULAR: There is a regular rate and rhythm without any murmurs gallops or rubs. ABDOMEN: Soft and nontender with normal bowel sounds. No palpable organomegaly was noted. There is no palpable pulsatile mass. SKIN: Skin is clear with no lesions or rashes and otherwise unremarkable. NEUROLOGIC: Patient is alert and oriented x3. Cranial nerves II through XII are grossly intact. Motor and sensory are also intact. Normal speech, volume and content. Symmetrical smile. Cerebellar exam grossly intact. MUSCULOSKELETAL: Normal extremities with adequate strength and full range of motion. No lower extremity swelling or edema. No calf tenderness. LYMPHATICS: No significant lymphadenopathy is noted PSYCHIATRIC: Normal psychiatric evaluation. Normal interpersonal interactions appears functionally intact in deals appropriately with others. No signs of depression. No signs of anxiety. Limitations: language barrier Course Vital Signs 01/16/18 17:52 Temperature 98.4 F Pulse Rate 74 Respiratory 20 Rate Blood Pressure 136/75 O2 Sat by Pulse 98 Oximetry Medical Decision Making - Medical Decision Making EKG shows normal sinus rhythm at 60 bpm MD interval 172 QRS is 80 QT interval 400 QTC is 425. Patient's EKG shows some T-wave inversions in V1 and V2 Chest x-ray shows no acute abnormality. I started the patient heparin because patient states she supposed be getting a stent in the near future. And her clinical symptoms indicates she was having unstable angina. I spoke with Dr. Lawrence he agreed to admit the patient. I admitted the patient to Dr. Sharp in. I consult cardiology. I continued heparin and aspirin and Nitropaste on the floor. Critical Care Time Critical Care Time: Yes Total Critical Care Time: 35 Disposition Clinical Impression: Unstable angina pectoris Disposition: ADMITTED IP TO THIS HOSP Referrals: Nonstaff,Physician [Primary Care Provider] - 1-2 days Time of Disposition: 18:35
[2018-01-16] MEDS ORDERED: HEPARIN SOD,PORK IN 0.45% NACL 25,000 UNIT in 0.45% NACL 1 500ML.BAG IV SCH (18:30)
[2018-01-16] MEDS ORDERED: HEPARIN SODIUM,PORCINE 5,000 UNIT/ML 1 ML VIAL IV ONE (18:30)
[2018-01-16] MEDS ORDERED: NITROGLYCERIN SL TABS 0.4 MG TAB SUBLINGUAL PRN (18:35)
[2018-01-16 18:49] LABS: Basophils # (A) 0.1 k/uL (0-0.2); Basophils % (A) 1 %; Eosinophils # (A) 0.3 k/uL (0-0.7); Eosinophils % (A) 3 %; HCT 36.1 % (34.0-46.0); HGB 12.3 gm/dL (11.4-16.0); Lymphocytes # (A) 3.2 k/uL (1.0-4.8); Lymphocytes % (A) 31 %; MCH 29.2 pg (25.0-35.0); MCV 85.7 fL (80.0-100.0); Mean Platelet Volume 8.5; Monocytes # (A) 0.4 k/uL (0-1.0); Monocytes % (A) 4 %; Neutrophils % (A) 59 %; Platelet Count 198 k/uL (150-450); RBC 4.21 m/uL (3.80-5.40); RDW 13.6 % (11.5-15.5); WBC 10.1 k/uL (3.8-10.6)
--- NOTE | 2018-01-16 18:51 | XR ---
EXAMINATION TYPE: XR chest 2V DATE OF EXAM: 01/16/2018 COMPARISON: Chest x-ray and CT chest December 04, 2017. HISTORY: Chest and left arm pain today. TECHNIQUE: Frontal and lateral views of the chest are obtained. FINDINGS: There is no focal air space opacity, pleural effusion, or pneumothorax seen. The cardiac silhouette size is enlarged. Anterior fusion plate lower cervical spine is redemonstrated. Cholecyste ctomy clips are seen on the lateral view. IMPRESSION: Cardiomegaly without acute pulmonary process.
[2018-01-16 19:10] LABS: ALT 31 U/L (9-52); AST 27 U/L (14-36); Alkaline Phosphatase 106 U/L (38-126); Anion Gap 10 mmol/L; Blood Urea Nitrogen 21 mg/dL (7-17); Calcium 9.4 mg/dL (8.4-10.2); Carbon Dioxide 27 mmol/L (22-30); Chloride 102 mmol/L (98-107); Glucose 147 mg/dL (74-99); INR 0.9 (<1.2); Magnesium 1.4 mg/dL (1.6-2.3); Partial Thromboplastin Time 22.8 sec (22.0-30.0); Potassium 4.6 mmol/L (3.5-5.1); Prothrombin Time 9.4 sec (9.0-12.0); Sodium 139 mmol/L (137-145); Total Bilirubin 0.3 mg/dL (0.2-1.3); Total Protein 6.4 g/dL (6.3-8.2)
[2018-01-16 19:19] LABS: Creatine Kinase 104 U/L (30-135)
[2018-01-16 19:32] LABS: Creatine Kinase MB 0.8 ng/mL (0.0-2.4); Troponin I <0.012 ng/mL (0.000-0.034)
[2018-01-16 21:48] LABS: Glucose,Whole Blood 150 mg/dL (75-99)
[2018-01-16] MEDS ORDERED: BUMETANIDE 0.5 MG TABLET PO PRN (22:00)
[2018-01-16] MEDS ORDERED: ONDANSETRON 4 MG TAB PO PRN (22:00)
[2018-01-16] MEDS: oxyCODONE-APAP 10-325MG 1 EACH TAB PO SCH (22:16)
[2018-01-16] MEDS ORDERED: HEPARIN SODIUM,PORCINE 5,000 UNIT/ML 1 ML VIAL IV PRN (22:41)
[2018-01-16] MEDS: INSULIN DETEMIR 100 UNIT/ML 10 ML VIAL SQ SCH (23:14)
[2018-01-16] MEDS: HYDROXYCHLOROQUINE SULFATE 200 MG TAB PO SCH (23:20)
[2018-01-16] MEDS: GABAPENTIN 300 MG CAP PO SCH (23:20)
[2018-01-16] MEDS: ALLOPURINOL 100 MG TAB PO SCH (23:20)
[2018-01-16] MEDS: ATENOLOL 25 MG TAB PO SCH (23:21)
[2018-01-17] MEDS: LATANOPROST 0.005% OPHTH DROPS 2.5 ML BTL BOTH EYES SCH ×2 (01:30→21:15)
[2018-01-17 01:55] LABS: Creatine Kinase 105 U/L (30-135)
[2018-01-17 02:08] LABS: Creatine Kinase MB 0.9 ng/mL (0.0-2.4); Troponin I <0.012 ng/mL (0.000-0.034)
[2018-01-17] MEDS: NITROGLYCERIN OINT 1 INCH/GM PACKET TOPICAL SCH ×4 (04:31→18:53)
[2018-01-17] MEDS: LEVOTHYROXINE 100 MCG TAB PO SCH (06:49)
[2018-01-17 06:59] LABS: Glucose,Whole Blood 115 mg/dL (75-99)
[2018-01-17 07:56] LABS: Cholesterol 219 mg/dL (<200); HDL Cholesterol 35 mg/dL (40-60)
[2018-01-17 07:58] LABS: Creatine Kinase 104 U/L (30-135)
[2018-01-17 08:05] LABS: Triglycerides 1046 mg/dL (<150)
[2018-01-17 08:10] LABS: Creatine Kinase MB 0.8 ng/mL (0.0-2.4); Troponin I <0.012 ng/mL (0.000-0.034)
[2018-01-17] MEDS ORDERED: SODIUM CHLORIDE 0.9% 1,000 ML in EMPTY BAG 1 BAG IV ONE (09:00)
[2018-01-17] MEDS ORDERED: ASPIRIN 325 MG TAB PO SCH (09:00)
[2018-01-17] MEDS: INSULIN ASPART 100 UNIT/ML 1 ML 10 ML VIAL SQ SCH ×4 (10:14→21:15)
[2018-01-17] MEDS: ASPIRIN 81 MG PO SCH (10:18)
[2018-01-17] MEDS: ALLOPURINOL 100 MG TAB PO SCH ×2 (10:18→21:14)
[2018-01-17] MEDS: GABAPENTIN 300 MG CAP PO SCH ×2 (10:18→21:14)
[2018-01-17] MEDS: oxyCODONE-APAP 10-325MG 1 EACH TAB PO SCH ×2 (10:19→18:17)
[2018-01-17] MEDS: FENOFIBRATE 54 MG TAB PO SCH (11:28)
[2018-01-17] MEDS: ATORVASTATIN 40 MG TAB PO SCH (11:28)
[2018-01-17] MEDS: HYDROXYCHLOROQUINE SULFATE 200 MG TAB PO SCH ×2 (11:29→21:14)
[2018-01-17] MEDS: INSULIN DETEMIR 100 UNIT/ML 10 ML VIAL SQ SCH ×2 (11:29→21:14)
[2018-01-17] MEDS ORDERED: Magnesium Replacement Protocol 1 EACH MISC MISCELLANE PRN (11:32)
--- NOTE | 2018-01-17 11:35 | P.CRDCN ---
History of Present Illness History of present illness: Mrs. Montes is a pleasant 62-year-old female past medical history significant for hypertension, diabetes mellitus, hypertriglyceridemia, sarcoidosis, sleep apnea and she is deaf. She follows with Dr. Blas in the office. We have been asked to see her in consultation for chest pain. She underwent a diagnostic catheterization 12/20/17 that revealed a 60-70% focal stenosis of circumflex artery which is very small and non-dominant. At the time medical management was recommended. Since that time she has been having increased pain in the chest with radiation down the arms and into the neck and jaw. She has seen Dr. Braxton in consultation and he has set her up for angioplasty of the circumflex lesion tomorrow as an outpatient. However, over the weekend her symptoms of chest pain have become much more frequent occurring 5-6 times yesterday at [employer]. She also felt more short of breath recently. Her pain is continuing to radiate down the left arm and into the neck and her jaw feels sore. She denies dizziness, nausea, vomiting, diaphoresis or palpitations. EKG reveals sinus mechanism with non-specific T-wave flattening noted. Chest xray negative for an acute cardiopulmonary process. Laboratory data reviewed, hemoglobin 12.3, platelets 198, sodium 139, potassium 4.6, magnesium 1.4, creatinine 0.71, cardiac enzymes negative 3, triglycerides 1046, HDL 35. Current cardiac medications include atenolol 25 mg daily, Bumex 0.5 mg twice a day when necessary, amlodipine 10 mg daily. She also takes Percocet, metformin , tumor, Zofran, omeprazole, meloxicam, Synthroid, Xalatan, insulin, Plaquenil, gabapentin, Zyrtec and allopurinol. Most recent echo in the office 12/16/2017 reveals preserved LV systolic function with EF 55%, mild LVH, mildly dilated LA and mild MR. Review of Systems At the time of my exam: CONSTITUTIONAL: Denies fever. Denies chills. EYES: Denies blurred vision. Denies vision changes. Denies eye pain. EARS, NOSE, MOUTH & THROAT: Denies headache. Denies sore throat. Denies ear pain. CARDIOVASCULAR: Denies chest pain. Denies shortness of breath. Denies orthopnea. Denies PND. Denies palpitations. RESPIRATORY: Denies cough. GASTROINTESTINAL: Denies abdominal pain. Denies diarrhea. Denies constipation. Denies nausea. Denies vomiting. MUSCULOSKELETAL: Denies myalgias. INTEGUMENTARY: Denies pruitis. Denies rash. NEUROLOGIC: Denies numbness. Denies tingling. Denies weakness. PSYCHIATRIC: Denies anxiety. Denies depression. ENDOCRINE: Denies fatigue. Denies weight change. Denies polydipsia. Denies polyurina. GENITOURINARY: Denies burning, hematuria or urgency with micturation. HEMATOLOGIC: Denies history of anemia. Denies bleeding. Past Medical History Past Medical History: Asthma, Chest Pain / Angina, Diabetes Mellitus, GERD/ Reflux, Hearing Disorder / Deafness, Hypertension, Osteoarthritis (OA), Sleep Apnea/CPAP/BIPAP, Thyroid Disorder Additional Past Medical History / Comment(s): Hx. of Sarcoidosis- LUNG Gout, pt. is deaf, SOB WITH EXERTION, History of Any Multi-Drug Resistant Organisms: None Reported Past Surgical History: Back Surgery, Heart Catheterization, Hysterectomy, Joint Replacement Additional Past Surgical History / Comment(s): left hip(mult) and rt knee replacements, rt hip arthroscopy, jaw surgery, rt shoulder, theo oophorectomy, rt hip decompression/bone graft, left knee arthroscopy x 2, CERVICAL DECOMPRESSION AND FUSION OF C4-C6 Past Anesthesia/Blood Transfusion Reactions: Motion Sickness, Postoperative Nausea & Vomiting (PONV) Past Psychological History: No Psychological Hx Reported Smoking Status: Never smoker Past Alcohol Use History: None Reported Additional Past Alcohol Use History / Comment(s): social smoker as a teenager 20 or 21. Past Drug Use History: None Reported Additional Drug Use History / Comment(s): EDIBLE MARIJUANA- PRN PAIN, INSTRUCTED TO HOLD 24 HRS PRIOR TO PROCEDURE - Past Family History Father Family Medical History: Congestive Heart Failure (CHF), Coronary Artery Disease (CAD), Diabetes Mellitus, Liver Disease, Renal Disease Additional Family Medical History / Comment(s): CABG Mother Family Medical History: Cancer Medications and Allergies Home Medications Medication Instructions Recorded Confirmed Type Allopurinol [Zyloprim] 100 mg PO BID 01/04/15 01/16/18 History Bumetanide [BUMEX] 0.5 mg PO BID PRN 01/04/15 01/16/18 History Gabapentin 600 mg PO BID@01/04/1501/16/18 History Potassium Chloride [Klor-Con 20] 20 meq PO DAILY PRN 01/04/15 01/16/18 History Cetirizine HCl [Zyrtec] 10 mg PO BID 01/09/15 01/16/18 History Latanoprost Ophth [Xalatan 0.005%] 1 drops BOTH EYES HS 06/28/15 01/16/18 History INSULIN LISPRO (HumaLOG) [HumaLOG] 30 units SQ TID-W/MEALS 11/17/15 01/16/18 History Ondansetron HCl [Zofran] 4 mg PO TID PRN 11/17/15 01/16/18 History INSULIN LISPRO (HumaLOG) [HumaLOG] See Protocol SQ TID-W/MEALS 01/07/16 History metFORMIN HCL 1,000 mg PO BID 01/07/16 01/16/18 History Atenolol 25 mg PO HS 01/29/17 01/16/18 History Hydroxychloroquine Sulfate 200 mg PO BID 01/29/17 01/16/18 History [Plaquenil] Insulin Glargine [Lantus] 80 unit SQ BID 01/29/17 01/16/18 History Omeprazole 20 mg PO DAILY 01/29/17 01/16/18 History amLODIPine BESYLATE [Norvasc] 10 mg PO DAILY 01/29/17 01/16/18 History oxyCODONE-APAP 10-325MG [Percocet 1 tab PO TID 01/29/17 01/16/18 History 10-325 mg] Levothyroxine Sodium [Synthroid] 200 mcg PO DAILY 03/26/17 01/16/18 History Meloxicam 15 mg PO DAILY 12/20/17 01/16/18 History Ergocalciferol (Vitamin D2) 50,000 unit PO Q7D 01/16/18 01/16/18 History [Vitamin D2] Gabapentin 1,200 mg PO DAILY@1400 01/16/18 01/16/18 History Magnesium Oxide 400 mg PO DAILY 01/16/18 01/16/18 History Turmeric Root Extract [Turmeric] 500 mg PO DAILY 01/16/18 01/16/18 History Vit C/Ascorb Sod/Multivit-Min 1,000 mg PO DAILY 01/16/18 01/16/18 History [Emergen-C 500 mg Chewable Tab] Allergies Allergy/AdvReac Type Severity Reaction Status Date / Time albuterol Allergy Severe Chest Verified 01/16/18 18:23 Pain, left arm pain, jaw tightness adhesive tape Allergy Itching, Verified 01/16/18 18:23 RED SKIN, PAPER TAPE BEST celecoxib [From Celebrex] Allergy Anaphylaxis Verified 01/16/18 18:23 ,rash/hives ciprofloxacin [From Cipro] Allergy TENDON Verified 01/16/18 18:23 PROBLEMS hydromorphone HCl Allergy Rash/Hives Verified 01/16/18 18:23 [From Dilaudid] rofecoxib [From Vioxx] Allergy anaphylaxis,Rash/Hives, Verified 01/16/18 18:23 palpitations Fish Containing Products AdvReac Nausea & Verified 01/16/18 18:23 [Fish] Vomiting carrots AdvReac Nausea & Uncoded 01/16/18 17:55 Vomiting Physical Exam Vitals: Vital Signs Temp Pulse Pulse Resp BP BP BP 01/17/18 08:00 98.3 F 61 16 126/67 01/17/18 04:28 58 L 16 01/17/18 04:06 97.7 F 59 L 16 132/66 01/17/18 00:34 98.1 F 66 16 147/88 01/16/18 22:00 57 L 16 01/16/18 21:06 97.5 F L 89 16 165/100 01/16/18 19:09 65 18 132/61 01/16/18 18:39 71 18 175/81 01/16/18 17:52 98.4 F 74 20 136/75 Pulse Ox 01/17/18 08:00 98 01/17/18 04:28 01/17/18 04:06 93 L 01/17/18 00:34 94 L 01/16/18 22:00 01/16/18 21:06 98 01/16/18 19:09 67 L 01/16/18 18:39 100 01/16/18 17:52 98 Intake and Output 01/16/18 01/17/18 01/17/18 22:59 06:59 14:59 Intake Total 150 190.676 Balance 150 190.676 Intake: Amount of Fluid Infused ( 150 ml) Intake, IV Titration 190.676 Amount Heparin Sod,Pork in 0.45% 190.676 NaCl 25,000 unit In 0.45 % NaCl 1 500ml.bag @ 9 UNITS/KG/HR 19.59 mls/hr IV .Q24H [facility] Rx#: [id number] Other: Voiding Method Toilet Toilet Weight 108.862 kg Blood pressure 126/67 heart rate 61 afebrile maintaining oxygen saturation on room air GENERAL: This is a 62-year-old female in no apparent distress at the time of my examination. HEENT: Head is atraumatic, normocephalic. Pupils are equal, round. Sclerae anicteric. Conjunctivae are clear. Mucous membranes of the mouth are moist. Neck is supple. There is no jugular venous distention. No carotid bruit is heard. LUNGS: Clear to auscultation no wheezes, rales or rhonchi. No chest wall tenderness is noted on palpation or with deep breathing. HEART: Regular rate and rhythm without murmurs, rubs or gallops. S1 and S2 heard. ABDOMEN: Soft, nontender. Bowel sounds are heard. No organomegaly noted. EXTREMITIES: No evidence of peripheral edema and no calf tenderness noted. VASCULAR: Radial and dorsalis pedis pulses palpated, no evidence of clubbing. NEUROLOGIC: Patient is awake, alert and oriented x3. Results 01/16/18 18:33 01/16/18 18:33 Cardiac Enzymes 01/16/18 01/16/18 01/17/18 Range/Units 18:33 18:33 00:41 AST 27 (14-36) U/L CK-MB (CK-2) 0.8 0.9 (0.0-2.4) ng/mL Troponin I <0.012 <0.012 (0.000-0.034) ng/mL 01/17/18 Range/Units 06:43 AST (14-36) U/L CK-MB (CK-2) 0.8 (0.0-2.4) ng/mL Troponin I <0.012 (0.000-0.034) ng/mL Coagulation 01/16/18 01/17/18 Range/Units 18:33 00:41 PT 9.4 (9.0-12.0) sec APTT 22.8 27.2 (22.0-30.0) sec Lipids 01/17/18 Range/Units 06:43 Triglycerides 1046 H (<150) mg/dL Cholesterol 219 H (<200) mg/dL HDL Cholesterol 35 L (40-60) mg/dL CBC 01/16/18 Range/Units 18:33 WBC 10.1 (3.8-10.6) k/uL RBC 4.21 (3.80-5.40) m/uL Hgb 12.3 (11.4-16.0) gm/dL Hct 36.1 (34.0-46.0) % Plt Count 198 (150-450) k/uL Comprehensive Metabolic Panel 01/16/18 Range/Units 18:33 Sodium 139 (137-145) mmol/L Potassium 4.6 (3.5-5.1) mmol/L Chloride 102 (98-107) mmol/L Carbon Dioxide 27 (22-30) mmol/L BUN 21 H (7-17) mg/dL Creatinine 0.71 (0.52-1.04) mg/dL Glucose 147 H (74-99) mg/dL Calcium 9.4 (8.4-10.2) mg/dL AST 27 (14-36) U/L ALT 31 (9-52) U/L Alkaline Phosphatase 106 (38-126) U/L Total Protein 6.4 (6.3-8.2) g/dL Albumin 4.0 (3.5-5.0) g/dL Current Medications Generic Name Dose Route Start Last Admin Trade Name Freq PRN Reason Stop Dose Admin Allopurinol 100 mg 01/16/18 22:15 01/16/18 23:20 Zyloprim PO 100 mg BID LILY Administration Aspirin 81 mg 01/17/18 09:00 Aspirin PO DAILY [facility] Atenolol 25 mg 01/16/18 22:15 01/16/18 23:21 Tenormin PO 25 mg HS LILY Administration Bumetanide 0.5 mg 01/16/18 22:00 Bumetanide PO BID PRN Edema Gabapentin 600 mg 01/16/18 22:15 01/16/18 23:20 Neurontin PO 600 mg BID@09,2100 LILY Administration Gabapentin 1,200 mg 01/17/18 14:00 Neurontin PO DAILY@1400 [facility] Heparin Sodium (Porcine) 0 unit 01/16/18 22:41 01/17/18 04:49 Heparin IV 4,000 unit PER PROTOCOL PRN Administration Low PTT Protocol Hydroxychloroquine Sulfate 200 mg 01/16/18 22:15 01/16/18 23:20 Plaquenil PO 200 mg BID LILY Administration Heparin Sodium/Sodium Chloride 500 mls @ 19.59 mls/hr 01/16/18 18:30 04:50 25,000 unit/ Sodium Chloride IV 12.03 units/kg/hr .Q24H LILY 26.2 mls/hr Titration Protocol 9 UNITS/KG/HR Insulin Aspart 0 unit 01/17/18 07:30 Novolog SQ ACHS LILY Protocol Insulin Detemir 80 unit 01/16/18 22:15 01/16/18 23:14 Levemir SQ 64 unit BID LILY Administration Latanoprost 1 drops 01/16/18 22:15 01/17/18 01:30 Xalatan 0.005% BOTH EYES 1 drops HS [facility] Administration Levothyroxine Sodium 200 mcg 01/17/18 06:30 01/17/18 06:49 Synthroid PO 200 mcg DAILY@0630 [facility] Administration Nitroglycerin 1 inch 01/17/18 00:00 01/17/18 06:45 Nitro-Bid Oint TOPICAL Not Given Q6HR [facility] Nitroglycerin 0.4 mg 01/16/18 18:35 Nitrostat SUBLINGUAL Q5M PRN Chest Pain Ondansetron HCl 4 mg 01/16/18 22:00 Zofran PO TID PRN Nausea Oxycodone/Acetaminophen 1 each 01/16/18 22:00 01/16/18 22:16 Percocet 10-325 PO 1 each TID LILY Administration Intake and Output 01/16/18 01/17/18 01/17/18 22:59 06:59 14:59 Intake Total 150 190.676 Balance 150 190.676 Intake: Amount of Fluid Infused ( 150 ml) Intake, IV Titration 190.676 Amount Heparin Sod,Pork in 0.45% 190.676 NaCl 25,000 unit In 0.45 % NaCl 1 500ml.bag @ 9 UNITS/KG/HR 19.59 mls/hr IV .Q24H [facility] Rx#: [id number] Other: Voiding Method Toilet Toilet Weight 108.862 kg 01/16/18 18:33 01/16/18 18:33 Assessment and Plan Assessment: ASSESSMENT Unstable angina Coronary artery disease with lesion in circumflex artery Hypomagnesemia Hypertension Dyslipidemia Hypertriglyceridemia Diabetes mellitus PLAN We will continue the patient on IV heparin infusion and prepare for planned intervention of circumflex artery per Dr. Braxton tomorrow morning at 1030. Replace magnesium per protocol. Add on fenofibrate 54 mg daily and atorvastatin 40 mg daily. Orders have been placed for procedure tomorrow. Thank you kindly for this consultation. Nurse Practitioner note has been reviewed, I agree with a documented findings and plan of care. Patient was seen and examined.
[2018-01-17 12:21] LABS: Glucose,Whole Blood 177 mg/dL (75-99)
[2018-01-17] MEDS: MAGNESIUM SULFATE-D5W PMX 1 GM in DEXTROSE/WATER 1 100ML.BAG IVPB SCH ×3 (12:39→15:24)
--- NOTE | 2018-01-17 12:40 | P.HPIM ---
History of Present Illness This is a pleasant 62 years old female with past medical history of asthma, angina, diabetes mellitus, GERD, hearing disorder/deafness using the sign language. Hypertension. Osteoarthritis. Sleep apnea on BiPAP. Hypothyroidism. History of sarcoidosis including pulmonary disease. History of gout. She's the patient DR. Ramsay. Patient uses the sign language, medication was done with the help of the sister at bedside using the sign language. Patient presents with progressively worsening chest pain over the weekend. Patient has recent cath on 12/2017 showing less than 70% stenosis and no stent was placed at that time. However another small artery was thought to be 90% narrowed, so the plan for her to have stent placement tomorrow as an outpatient by Dr. Braxton , however patient was developing more severe chest pain over the weekend so she was admitted to the hospital. Patient has evaluated by vulcanized fiber unit operator already plan for cardiac cath on 01/18/2018. Lipid profile showing significantly elevated lipids, therapy was started with Lipitor and fenofibrate as per cardiology. Currently she is chest pain is/10 in severity, improved Patient suffered from a few scratches in the lower extremity which were mild, about 4 on both legs with no surrounding cellulitis or lymphadenopathy, healing Review of Systems CONSTITUTIONAL: No fever, no malaise, no fatigue. HEENT: No recent visual problems or hearing problems. Denied any sore throat. CARDIOVASCULAR: No orthopnea, PND, no palpitations, no syncope. PULMONARY: No shortness of breath, no cough, no hemoptysis. GASTROINTESTINAL: No diarrhea, no nausea, no vomiting, no abdominal pain. Normoactive bowel sounds. NEUROLOGICAL: No headaches, no weakness, no numbness. HEMATOLOGICAL: Denies any bleeding or petechiae. GENITOURINARY: Denies any burning micturition, frequency, or urgency. MUSCULOSKELETAL/RHEUMATOLOGICAL: Denies any joint pain, swelling, or any muscle pain. ENDOCRINE: Denies any polyuria or polydipsia. Past Medical History Past Medical History: Asthma, Chest Pain / Angina, Diabetes Mellitus, GERD/ Reflux, Hearing Disorder / Deafness, Hypertension, Osteoarthritis (OA), Sleep Apnea/CPAP/BIPAP, Thyroid Disorder Additional Past Medical History / Comment(s): Hx. of Sarcoidosis- LUNG Gout, pt. is deaf, SOB WITH EXERTION, History of Any Multi-Drug Resistant Organisms: None Reported Past Surgical History: Back Surgery, Heart Catheterization, Hysterectomy, Joint Replacement Additional Past Surgical History / Comment(s): left hip(mult) and rt knee replacements, rt hip arthroscopy, jaw surgery, rt shoulder, theo oophorectomy, rt hip decompression/bone graft, left knee arthroscopy x 2, CERVICAL DECOMPRESSION AND FUSION OF C4-C6 Past Anesthesia/Blood Transfusion Reactions: Motion Sickness, Postoperative Nausea & Vomiting (PONV) Past Psychological History: No Psychological Hx Reported Smoking Status: Never smoker Past Alcohol Use History: None Reported Additional Past Alcohol Use History / Comment(s): social smoker as a teenager 20 or 21. Past Drug Use History: None Reported Additional Drug Use History / Comment(s): EDIBLE MARIJUANA- PRN PAIN, INSTRUCTED TO HOLD 24 HRS PRIOR TO PROCEDURE - Past Family History Father Family Medical History: Congestive Heart Failure (CHF), Coronary Artery Disease (CAD), Diabetes Mellitus, Liver Disease, Renal Disease Additional Family Medical History / Comment(s): CABG Mother Family Medical History: Cancer Medications and Allergies Home Medications Medication Instructions Recorded Confirmed Type Allopurinol [Zyloprim] 100 mg PO BID 01/04/15 01/16/18 History Bumetanide [BUMEX] 0.5 mg PO BID PRN 01/04/15 01/16/18 History Gabapentin 600 mg PO BID@01/04/15 01/16/18 History Potassium Chloride [Klor-Con 20] 20 meq PO DAILY PRN 01/04/15 01/16/18 History Cetirizine HCl [Zyrtec] 10 mg PO BID 01/09/15 01/16/18 History Latanoprost Ophth [Xalatan 0.005%] 1 drops BOTH EYES HS 06/28/15 01/16/18 History INSULIN LISPRO (HumaLOG) [HumaLOG] 30 units SQ TID-W/MEALS 11/17/15 01/16/18 History Ondansetron HCl [Zofran] 4 mg PO TID PRN 11/17/15 01/16/18 History INSULIN LISPRO (HumaLOG) [HumaLOG] See Protocol SQ TID-W/MEALS 01/07/16 History metFORMIN HCL 1,000 mg PO BID 01/07/16 01/16/18 History Atenolol 25 mg PO HS 01/29/17 01/16/18 History Hydroxychloroquine Sulfate 200 mg PO BID 01/29/17 01/16/18 History [Plaquenil] Insulin Glargine [Lantus] 80 unit SQ BID 01/29/17 01/16/18 History Omeprazole 20 mg PO DAILY 01/29/17 01/16/18 History amLODIPine BESYLATE [Norvasc] 10 mg PO DAILY 01/29/17 01/16/18 History oxyCODONE-APAP 10-325MG [Percocet 1 tab PO TID 01/29/17 01/16/18 History 10-325 mg] Levothyroxine Sodium [Synthroid] 200 mcg PO DAILY 03/26/17 01/16/18 History Meloxicam 15 mg PO DAILY 12/20/17 01/16/18 History Ergocalciferol (Vitamin D2) 50,000 unit PO Q7D 01/16/18 01/16/18 History [Vitamin D2] Gabapentin 1,200 mg PO DAILY@1400 01/16/18 01/16/18 History Magnesium Oxide 400 mg PO DAILY 01/16/18 01/16/18 History Turmeric Root Extract [Turmeric] 500 mg PO DAILY 01/16/18 01/16/18 History Vit C/Ascorb Sod/Multivit-Min 1,000 mg PO DAILY 01/16/18 01/16/18 History [Emergen-C 500 mg Chewable Tab] Allergies Allergy/AdvReac Type Severity Reaction Status Date / Time albuterol Allergy Severe Chest Verified 01/16/18 18:23 Pain, left arm pain, jaw tightness adhesive tape Allergy Itching, Verified 01/16/18 18:23 RED SKIN, PAPER TAPE BEST celecoxib [From Celebrex] Allergy Anaphylaxis Verified 01/16/18 18:23 ,rash/hives ciprofloxacin [From Cipro] Allergy TENDON Verified 01/16/18 18:23 PROBLEMS hydromorphone HCl Allergy Rash/Hives Verified 01/16/18 18:23 [From Dilaudid] rofecoxib [From Vioxx] Allergy anaphylaxis,Rash/Hives, Verified 01/16/18 18:23 palpitations Fish Containing Products AdvReac Nausea & Verified 01/16/18 18:23 [Fish] Vomiting carrots AdvReac Nausea & Uncoded 01/16/18 17:55 Vomiting Physical Exam Vitals: Vital Signs Temp Pulse Pulse Resp BP BP BP 01/17/18 08:59 01/17/18 08:00 98.3 F 61 16 126/67 01/17/18 04:28 58 L 16 01/17/18 04:06 97.7 F 59 L 16 132/66 01/17/18 00:34 98.1 F 66 16 147/88 01/16/18 22:00 57 L 16 01/16/18 21:06 97.5 F L 89 16 165/100 01/16/18 19:09 65 18 132/61 01/16/18 18:39 71 18 175/81 01/16/18 17:52 98.4 F 74 20 136/75 Pulse Ox 01/17/18 08:59 96 01/17/18 08:00 98 01/17/18 04:28 01/17/18 04:06 93 L 01/17/18 00:34 94 L 01/16/18 22:00 01/16/18 21:06 98 01/16/18 19:09 67 L 01/16/18 18:39 100 01/16/18 17:52 98 Intake and Output 01/16/18 01/17/18 01/17/18 22:59 06:59 14:59 Intake Total 150 190.676 Balance 150 190.676 Intake: Amount of Fluid Infused ( 150 ml) Intake, IV Titration 190.676 Amount Heparin Sod,Pork in 0.45% 190.676 NaCl 25,000 unit In 0.45 % NaCl 1 500ml.bag @ 9 UNITS/KG/HR 19.59 mls/hr IV .Q24H [facility] Rx#: [id number] Other: Voiding Method Toilet Toilet Toilet Weight 108.862 kg GENERAL: The patient is alert and oriented x3, not in any acute distress. Well developed, well nourished. HEENT: Pupils are round and equally reacting to light. EOMI. No scleral icterus. No conjunctival pallor. Normocephalic, atraumatic. No pharyngeal erythema. No thyromegaly. CARDIOVASCULAR: S1 and S2 present. No murmurs, rubs, or gallops. PULMONARY: Chest is clear to auscultation, no wheezing or crackles. ABDOMEN: Soft, nontender, nondistended, normoactive bowel sounds. No palpable organomegaly. MUSCULOSKELETAL: No joint swelling or deformity. EXTREMITIES: No cyanosis, clubbing, or pedal edema. NEUROLOGICAL: Gross neurological examination did not reveal any focal deficits. SKIN: No rashes. Results CBC & Chem 7: 01/16/18 18:33 01/16/18 18:33 Labs: Abnormal Lab Results - Last 24 Hours (Table) 01/16/18 01/16/18 01/17/18 Range/Units 18:33 21:44 06:37 BUN 21 H (7-17) mg/dL Glucose 147 H (74-99) mg/dL POC Glucose (mg/dL) 150 H 115 H (75-99) mg/dL Magnesium 1.4 L (1.6-2.3) mg/dL Triglycerides (<150) mg/dL Cholesterol (<200) mg/dL HDL Cholesterol (40-60) mg/dL 01/17/18 Range/Units 06:43 BUN (7-17) mg/dL Glucose (74-99) mg/dL POC Glucose (mg/dL) (75-99) mg/dL Magnesium (1.6-2.3) mg/dL Triglycerides 1046 H (<150) mg/dL Cholesterol 219 H (<200) mg/dL HDL Cholesterol 35 L (40-60) mg/dL Thrombosis Risk Factor Assmnt - Choose All That Apply Each Factor Represents 1 point: Age 41-60 years Thrombosis Risk Factor Assessment Total Risk Factor Score: 1 Thrombosis Risk Factor Assessment Level: Low Risk Assessment and Plan Assessment: Chest pain, rule out cardiac cause. Patient is going for a heart cath on 2017 asthma History of CAD diabetes mellitus GERD hearing disorder/deafness using the sign language Hypertension Osteoarthritis Sleep apnea on BiPAP Hypothyroidism History of sarcoidosis including pulmonary disease History of gout Plan: This is a pleasant 62 years old female who presents with chest pain, and going for cardiac cath on 01/18/2018. Continue same treatment. Continue symptomatic treatment. Patient is already on aspirin. Cardiology consultation is appreciated. Continue with insulin. Metformin was put on HOLD ON ADMISSION GI and DVT prophylaxis. Monitor lytes and vitals. Further recommendations based on the clinical course of the patient DVT prophylaxis subcutaneous heparin GI prophylaxis on omeprazole Patient needs bedrest for now Prognosis is guarded
[2018-01-17] MEDS: HEPARIN SODIUM,PORCINE 5,000 UNIT/ML 1 ML VIAL SQ SCH ×2 (13:25→21:15)
[2018-01-17] MEDS: GABAPENTIN 400 MG CAP PO SCH (13:27)
[2018-01-17 13:42] LABS: Hemoglobin A1C 7.8 % (4.0-6.0)
--- NOTE | 2018-01-17 16:50 | PN ---
PROGRESS NOTE CHIEF COMPLAINT: Chest pain. HISTORY OF PRESENT ILLNESS: This lady is currently doing very well. She is not having any chest pain. She has been seen by Cardiology and she may be going for a cardiac cath which was scheduled for tomorrow. PHYSICAL EXAM: Cardiac exam seems normal. The chest is clear. The abdomen is soft. IMPRESSION: Chest pain-probable angina pectoris. PLAN: 1. Cardiac cath by Cardiology. 2. She apparently has a different primary and will be transferred to that service today. MMODL / IJN: [id number] /
[2018-01-17 18:10] LABS: Glucose,Whole Blood 244 mg/dL (75-99)
--- NOTE | 2018-01-17 19:14 | HP ---
HISTORY AND PHYSICAL CHIEF COMPLAINT: Chest pain. HISTORY OF PRESENT ILLNESS: This is apparently another admission for this 62-year-old female who is deaf. She was to come in on the for cardiac cath. She started to have pain again and she was brought in and admitted. Review of systems obtained with family. She apparently did not have diaphoresis, nausea, significant shortness of breath, etc. REVIEW OF SYSTEMS: Not additionally obtained. She has had no vomiting. She has apparently otherwise been healthy. She does have a history of diabetes, hypertension, asthma, and sarcoid. Medications can be found in the medication list in the record. ALLERGIES: SHE IS ALLERGIC TO BIAXIN, ALBUTEROL AND CELEBREX. PHYSICAL EXAMINATION: Blood pressure 143/85 with an 88, pulse and 30, respiration. She is afebrile. In general, she appeared to be well developed, well nourished and overweight. Skin color is normal. Skin is warm, dry. Head, ears, eyes, nose, mouth, and throat were normal. Chest is clear. Cardiac exam demonstrated sinus rhythm and no murmur or extra sounds being heard. Abdomen is soft, nontender. EXTREMITIES: Normal and other than her deafness, she is intact. IMPRESSION: 1. Unstable angina pectoris. 2. Coronary artery disease. 3. Diabetes mellitus. 4. Hypertension. 5. Asthmatic bronchitis. 6. Sarcoid. PLAN: 1. Bed rest. 2. IV fluids. 3. Cardiology consult. HUGO / JOE: [id number] /
[2018-01-17 20:34] LABS: Glucose,Whole Blood 256 mg/dL (75-99)
[2018-01-17] MEDS: ATENOLOL 25 MG TAB PO SCH (21:14)
[2018-01-17 22:54] LABS: Amorphous Sediment,Urine Rare /hpf; Appearance,Urine Cloudy (Clear); Bacteria,Urine Few /hpf; Bilirubin,Urine Negative (Negative); Blood,Urine Negative (Negative); Color,Urine Yellow; Glucose,Urine (UA) Trace (Negative); Ketones,Urine Negative (Negative); Leukocyte Esterase,Urine Large (Negative); Mucus,Urine Rare /hpf; Nitrite,Urine Positive (Negative); Protein,Urine Trace (Negative); RBC,Urine 9 /hpf (0-5); Specific Gravity,Urine 1.015 (1.001-1.035); Squamous Epithelial Cell,Urine 1 /hpf (0-4); Urobilinogen,Urine <2.0 mg/dL (<2.0); WBC,Urine 181 /hpf (0-5)
[2018-01-18] MEDS: oxyCODONE-APAP 10-325MG 1 EACH TAB PO SCH ×4 (01:31→21:03)
[2018-01-18] MEDS: NITROGLYCERIN OINT 1 INCH/GM PACKET TOPICAL SCH ×4 (06:35→18:02)
[2018-01-18 06:43] LABS: Glucose,Whole Blood 139 mg/dL (75-99)
[2018-01-18] MEDS ORDERED: ASPIRIN 325 MG TAB PO STA (06:51)
[2018-01-18] MEDS: GABAPENTIN 300 MG CAP PO SCH ×2 (07:16→21:03)
[2018-01-18] MEDS: FENOFIBRATE 54 MG TAB PO SCH (07:16)
[2018-01-18] MEDS: HYDROXYCHLOROQUINE SULFATE 200 MG TAB PO SCH ×2 (07:16→21:03)
[2018-01-18] MEDS: ALLOPURINOL 100 MG TAB PO SCH ×2 (07:16→21:03)
[2018-01-18] MEDS: LEVOTHYROXINE 100 MCG TAB PO SCH (07:16)
[2018-01-18] MEDS: ATORVASTATIN 40 MG TAB PO SCH (07:16)
[2018-01-18] MEDS: HEPARIN SODIUM,PORCINE 5,000 UNIT/ML 1 ML VIAL SQ SCH ×2 (07:17→21:03)
[2018-01-18] MEDS: INSULIN DETEMIR 100 UNIT/ML 10 ML VIAL SQ SCH ×2 (07:17→21:05)
[2018-01-18] MEDS: INSULIN ASPART 100 UNIT/ML 1 ML 10 ML VIAL SQ SCH ×4 (07:18→22:17)
[2018-01-18] MEDS ORDERED: PANTOPRAZOLE 40 MG TABLET PO SCH (07:30)
[2018-01-18 08:55] LABS: Anion Gap 8 mmol/L; Blood Urea Nitrogen 17 mg/dL (7-17); Carbon Dioxide 28 mmol/L (22-30); Chloride 105 mmol/L (98-107); Glucose 120 mg/dL (74-99); Magnesium 1.8 mg/dL (1.6-2.3); Potassium 4.6 mmol/L (3.5-5.1); Sodium 141 mmol/L (137-145)
[2018-01-18] MEDS: ASPIRIN 81 MG PO SCH (11:00)
[2018-01-18] MEDS ORDERED: LIDOCAINE 1% INJ 10MG/ML (20 ML MDV) SQ ONE (11:38)
[2018-01-18] MEDS ORDERED: MIDAZOLAM 2 MG/2 ML VIAL IVP ONE (11:41)
[2018-01-18] MEDS ORDERED: diphenhydrAMINE 50 MG/ML 1 ML VIAL IVP ONE (11:42)
[2018-01-18] MEDS ORDERED: MIDAZOLAM 2 MG/2 ML VIAL IV ONE (11:44)
[2018-01-18] MEDS ORDERED: VERAPAMIL SYRINGE (5 MG/10 ML) INTRAARTER ONE (11:44)
[2018-01-18] MEDS ORDERED: BIVALIRUDIN BOLUS 250 MG/50 ML IV ONE (12:01)
[2018-01-18] MEDS ORDERED: IV FLUID CONTINUATION 1,000 ML IV ONE (12:01)
[2018-01-18] MEDS ORDERED: BIVALIRUDIN 250 MG in SODIUM CHLORIDE 0.9% 50 ML IV ONE (12:02)
[2018-01-18] MEDS ORDERED: IOPAMIDOL-370 100ML BTL INJ ONE (12:11)
[2018-01-18] MEDS ORDERED: NITROGLYCERIN 1000MCG/10ML SYRINGE INTRACORON ONE (12:14)
[2018-01-18] MEDS ORDERED: MORPHINE SULFATE 4 MG/ML SYRINGE IV ONE (12:19)
[2018-01-18] MEDS ORDERED: IOPAMIDOL-300 50ML BTL INJ ONE (12:20)
[2018-01-18] MEDS ORDERED: TICAGRELOR 90 MG TAB PO ONE (12:31)
[2018-01-18] MEDS ORDERED: RX INFO: IV CONTRAST WAS GIVEN 1 EACH MISC MISCELLANE PRN (13:11)
--- NOTE | 2018-01-18 15:54 | CC ---
CARDIAC CATHETERIZATION REPORT DATE OF SERVICE: 01/18/2018 PROCEDURE PERFORMED: PTCA and stenting of mid circumflex coronary artery. PERFORMED BY: Dr. Deon Braxton. ANESTHESIA: Moderate conscious sedation time was 46 minutes. Patient was administered Benadryl and Versed and her oxygen saturation and hemodynamics were monitored closely. CLINICAL INFORMATION: Mrs. Ruth Montes is a 62-year-old lady with type 2 diabetes, hypertension, hyperlipidemia, who is very hard of hearing and communicates by sign language and therefore we needed her sister to be in the room to help facilitate the procedure. She has significant symptoms of angina with a significant lesion of 70-80 percent involving the mid circumflex after a good-sized obtuse marginal branch. The amount of myocardium is moderate and she was advised medical therapy, but in spite of medical therapy, she continued to have chest pain and therefore she was advised intervention of this vessel after due discussion with the patient and daughter and her sister regarding risks, benefits, and options. PROCEDURE NOTE: Under local anesthesia and strict aseptic precautions, a 6-Kyrgyz introducer was placed in the right radial artery. There was extreme tortuosity involving the arch of the aorta and therefore I used a Glidewire and a right diagnostic catheter. With this, I was able to get into the ascending aorta. I then over a long regular wire, I switched over to a JL3.5 catheter. This catheter was used to cannulate the left coronary artery. This was a 3.5 left Steve guide catheter. I used a Whisper wire to cross the lesion and wire was kept distally. Predilatation of the lesion was performed with a 2.25 caliber 8 mm long Trek balloon at 8 atmospheres. I then deployed a 12 mm long 2.25 caliber Xience stent at 12 atmospheres. Patient had chest pain, but no EKG changes. Excellent angiographic result was achieved. No complications were noted. Results were excellent. The pictures were reviewed with the patient and her sister. She had mild chest discomfort that seemed to persist for a while, but EKG was unremarkable. Angiogram revealed widely patent vessel. Finally symptoms were resolved in about 10 minutes. The patient is asymptomatic. Good EKG. No symptoms and hemodynamically stable. She was sent to the room in a stable condition after taking the sheath out and applying a TR band as per protocol. The saturation in the fingers of the right hand of 97%. Results were discussed with the patient and I also reviewed the findings with the patient's sister as well. I expect that she will be discharged later on today and she will see Dr. Blas on this Wednesday at 10:45 am. Discharge instructions regarding activity, diet and medications were also given. HUGO / JOE: [id number] /
[2018-01-18 16:14] LABS: Glucose,Whole Blood 253 mg/dL (75-99)
[2018-01-18] MEDS: GABAPENTIN 400 MG CAP PO SCH (16:26)
[2018-01-18] MEDS: SODIUM CHLORIDE 0.9% 1,000 ML IV SCH (16:26)
[2018-01-18 21:06] LABS: Glucose,Whole Blood 158 mg/dL (75-99)
--- NOTE | 2018-01-18 21:47 | P.PN ---
Subjective This is a pleasant 62 years old female with past medical history of asthma, angina, diabetes mellitus, GERD, hearing disorder/deafness using the sign language. Hypertension. Osteoarthritis. Sleep apnea on BiPAP. Hypothyroidism. History of sarcoidosis including pulmonary disease. History of gout. She's the patient DR. Ramsay. Patient uses the sign language, medication was done with the help of the sister at bedside using the sign language. Patient presents with progressively worsening chest pain over the weekend. Patient has recent cath on 12/2017 showing less than 70% stenosis and no stent was placed at that time. However another small artery was thought to be 90% narrowed, so the plan for her to have stent placement tomorrow as an outpatient by Dr. Braxton , however patient was developing more severe chest pain over the weekend so she was admitted to the hospital. Patient has evaluated by speaking unit assembler already plan for cardiac cath on 01/18/2018. Lipid profile showing significantly elevated lipids, therapy was started with Lipitor and fenofibrate as per cardiology. Currently she is chest pain is/10 in severity, improved 01/18/2018 pt presents with chest pain , which was progressive prior to admission . pt is status post cardiac cath today. pt has UA that is suspicious for infection , send UC and start ceftriaxone. pt has some lower abd pressure and discomfort upon urination. pt also complaint from dyspnea and epigastric discomfort , pt is on protnoix, we will check CXR. cardiology team are following the pt cardiology team put discharge order by mistake , discussed with staff to DC this order and hold any discharge Objective - Vital Signs Vital signs: Vital Signs Temp 97.9 F 01/18/18 16:00 Pulse 63 01/18/18 16:00 Resp 16 01/18/18 16:00 BP 130/79 01/18/18 16:00 Pulse Ox 98 01/18/18 16:00 Intake & Output 01/18/18 01/18/18 01/19/18 06:59 18:59 06:59 Intake Total 357 Balance 357 Intake: IV 135 Oral 222 Other: Voiding Method Toilet Toilet # Voids 1 1 - Exam GENERAL: The patient is alert and oriented x3, not in any acute distress. Well developed, well nourished. HEENT: Pupils are round and equally reacting to light. EOMI. No scleral icterus. No conjunctival pallor. Normocephalic, atraumatic. No pharyngeal erythema. No thyromegaly. CARDIOVASCULAR: S1 and S2 present. No murmurs, rubs, or gallops. PULMONARY: Chest is clear to auscultation, no wheezing or crackles. ABDOMEN: Soft, nontender, nondistended, normoactive bowel sounds. No palpable organomegaly. MUSCULOSKELETAL: No joint swelling or deformity. EXTREMITIES: No cyanosis, clubbing, or pedal edema. NEUROLOGICAL: Gross neurological examination did not reveal any focal deficits. SKIN: No rashes. - Labs CBC & Chem 7: 01/16/18 18:33 01/18/18 07:44 Labs: Abnormal Lab Results - Last 24 Hours (Table) 01/17/18 01/18/18 01/18/18 Range/Units 22:40 06:33 07:44 Glucose 120 H (74-99) mg/dL POC Glucose (mg/dL) 139 H (75-99) mg/dL Urine Appearance Cloudy H (Clear) Urine Protein Trace H (Negative) Urine Glucose (UA) Trace H (Negative) Urine Nitrite Positive H (Negative) Ur Leukocyte Esterase Large H (Negative) Urine RBC 9 H (0-5) /hpf Urine WBC 181 H (0-5) /hpf Urine WBC Clumps Many H (None) /hpf Amorphous Sediment Rare H (None) /hpf Urine Bacteria Few H (None) /hpf Urine Mucus Rare H (None) /hpf 01/18/18 01/18/18 Range/Units 16:12 21:04 Glucose (74-99) mg/dL POC Glucose (mg/dL) 253 H 158 H (75-99) mg/dL Urine Appearance (Clear) Urine Protein (Negative) Urine Glucose (UA) (Negative) Urine Nitrite (Negative) Ur Leukocyte Esterase (Negative) Urine RBC (0-5) /hpf Urine WBC (0-5) /hpf Urine WBC Clumps (None) /hpf Amorphous Sediment (None) /hpf Urine Bacteria (None) /hpf Urine Mucus (None) /hpf Assessment and Plan Assessment: Chest pain, rule out cardiac cause. s/p heart cath on 01/18/2018 UTI asthma History of CAD diabetes mellitus GERD hearing disorder/deafness using the sign language Hypertension Osteoarthritis Sleep apnea on BiPAP Hypothyroidism History of sarcoidosis including pulmonary disease History of gout Plan: This is a pleasant 62 years old female who presents with chest pain, and going for cardiac cath on 01/18/2018. Continue same treatment. Continue symptomatic treatment. Patient is already on aspirin. Cardiology consultation is appreciated. Continue with insulin. Metformin was put on HOLD ON ADMISSION GI and DVT prophylaxis. Monitor lytes and vitals. Further recommendations based on the clinical course of the patient start ceftriaxone . DVT prophylaxis subcutaneous heparin GI prophylaxis on omeprazole Patient needs bedrest for now Prognosis is guarded
[2018-01-18] MEDS ORDERED: cefTRIAXone IN SWFI 1,000 MG/10 ML SYRINGE IVP SCH (22:00)
--- NOTE | 2018-01-18 22:18 | XR ---
EXAMINATION TYPE: XR chest 2V DATE OF EXAM: 01/18/2018 COMPARISON: 01/16/2018 HISTORY: Short of breath TECHNIQUE: Frontal and lateral views of the chest are obtained. FINDINGS: There is no heart failure nor confluent pneumonic infiltrate. Heart and mediastinum are no rmal. There are chest leads. Bony thorax appears intact. IMPRESSION: Normal chest. No change.
[2018-01-18] MEDS: PANTOPRAZOLE 40 MG/10 ML VIAL IVP SCH (22:21)
[2018-01-18] MEDS: TICAGRELOR 90 MG TAB PO SCH (22:28)
[2018-01-18] MEDS: ATENOLOL 25 MG TAB PO SCH (22:28)
[2018-01-18] MEDS: LATANOPROST 0.005% OPHTH DROPS 2.5 ML BTL BOTH EYES SCH (22:29)
[2018-01-19] MEDS: NITROGLYCERIN OINT 1 INCH/GM PACKET TOPICAL SCH ×2 (00:05→06:04)
[2018-01-19] MEDS: LEVOTHYROXINE 100 MCG TAB PO SCH (06:04)
[2018-01-19] MEDS: SODIUM CHLORIDE 0.9% 1,000 ML IV SCH (06:04)
[2018-01-19 06:08] LABS: Glucose,Whole Blood 151 mg/dL (75-99)
[2018-01-19 06:32] LABS: Basophils % (A) 1 %; Eosinophils # (A) 0.3 k/uL (0-0.7); Eosinophils % (A) 3 %; HCT 38.2 % (34.0-46.0); Lymphocytes # (A) 2.4 k/uL (1.0-4.8); Lymphocytes % (A) 27 %; MCHC 31.4 g/dL (31.0-37.0); MCV 89.2 fL (80.0-100.0); Mean Platelet Volume 8.1; Monocytes # (A) 0.4 k/uL (0-1.0); Monocytes % (A) 4 %; Neutrophils # (A) 5.5 k/uL (1.3-7.7); Neutrophils % (A) 63 %; Platelet Count 181 k/uL (150-450); RBC 4.29 m/uL (3.80-5.40); RDW 13.8 % (11.5-15.5); WBC 8.7 k/uL (3.8-10.6)
[2018-01-19 06:44] LABS: Anion Gap 10 mmol/L; Blood Urea Nitrogen 13 mg/dL (7-17); Calcium 9.3 mg/dL (8.4-10.2); Carbon Dioxide 29 mmol/L (22-30); Chloride 102 mmol/L (98-107); Glucose 151 mg/dL (74-99); Potassium 4.3 mmol/L (3.5-5.1); Sodium 141 mmol/L (137-145)
[2018-01-19] MEDS: INSULIN ASPART 100 UNIT/ML 1 ML 10 ML VIAL SQ SCH (06:59)
[2018-01-19] MEDS: PANTOPRAZOLE 40 MG/10 ML VIAL IVP SCH (08:23)
[2018-01-19] MEDS: TICAGRELOR 90 MG TAB PO SCH (08:24)
[2018-01-19] MEDS: ATORVASTATIN 40 MG TAB PO SCH ×2 (08:24→09:27)
[2018-01-19] MEDS: HYDROXYCHLOROQUINE SULFATE 200 MG TAB PO SCH ×2 (08:24→09:25)
[2018-01-19] MEDS: FENOFIBRATE 54 MG TAB PO SCH ×2 (08:24→09:26)
[2018-01-19] MEDS: GABAPENTIN 300 MG CAP PO SCH ×2 (08:24→09:26)
[2018-01-19] MEDS: amLODIPine 10 MG TAB PO SCH ×2 (08:24→09:26)
[2018-01-19] MEDS: HEPARIN SODIUM,PORCINE 5,000 UNIT/ML 1 ML VIAL SQ SCH (08:24)
[2018-01-19] MEDS: ALLOPURINOL 100 MG TAB PO SCH ×2 (08:24→09:26)
[2018-01-19] MEDS: ASPIRIN 81 MG PO SCH ×2 (08:24→09:26)
[2018-01-19] MEDS: oxyCODONE-APAP 10-325MG 1 EACH TAB PO SCH (08:38)
[2018-01-19] MEDS ORDERED: CLOPIDOGREL 75 MG TAB PO SCH (09:00)
[2018-01-19] MEDS ORDERED: ATENOLOL 25 MG TAB PO SCH (09:00)
[2018-01-19] MEDS: INSULIN DETEMIR 100 UNIT/ML 10 ML VIAL SQ SCH (09:25)
[2018-01-19 09:33] VITALS: BP 145/85; PULSE 59; RESP 20; TEMP 98.1
[2018-01-19 10:58] VITALS: BMI 38.9
[2018-01-19] MEDS ORDERED: FLUCONAZOLE 150 MG TAB PO STA (11:14)
[2018-01-19 11:29] LABS: Glucose,Whole Blood 213 mg/dL (75-99)
--- NOTE | 2018-01-19 12:31 | PN ---
PROGRESS NOTE Mrs. Montes is doing well today. She stayed back yesterday with some shortness of breath, probably related to Brilinta. I will switch her to Plavix 75 mg daily, aspirin 81 mg daily. She is not comfortable taking Lipitor. She had myalgias. We will try Crestor 5 mg daily. Increase activity. Her right radial cath site is clean and dry with a good pulse. We will increase activity and see if she can be discharged today and see Dr. Blas this Wednesday at 10:45. Vitals are stable. S1, S2 heard normally. Lungs are clear. Abdomen and lower extremity exam unchanged. EKG and labs are good. MMODL / IJN: [id number] /
--- NOTE | 2018-01-19 19:52 | P.DS ---
Providers Date of admission: 01/17/18 18:30 Attending physician: Marcela Lawrence Consults: 01/16/18 18:35 Consult Physician Urgent Consulting Provider: Cardiology Izabela Consult Reason/Comments: Unstable angina Do you want consulting provider notified?: Yes 01/18/18 13:12 Consult Physician Routine Consulting Provider: Eulalia Gurrola Consult Reason/Comments: Post Interventional patient Do you want consulting provider notified?: Already Contacted Primary care physician: [facility] Course: This is a pleasant 62 years old female with past medical history of asthma, angina, diabetes mellitus, GERD, hearing disorder/deafness using the sign language. Hypertension. Osteoarthritis. Sleep apnea on BiPAP. Hypothyroidism. History of sarcoidosis including pulmonary disease. History of gout. She's the patient DR. Ramsay. Patient uses the sign language, communication was done with the help of the sister at bedside using the sign language. Patient presents with progressively worsening chest pain over the weekend. Patient has recent cath on 12/2017 showing less than 70% stenosis and no stent was placed at that time. However another small artery was thought to be 90% narrowed, so the plan for her to have stent placement tomorrow as an outpatient by Dr. Braxton , however patient was developing more severe chest pain over the weekend so she was admitted to the hospital. Patient has evaluated by office services representative with cardiac cath on 01/18/2018. Lipid profile showing significantly elevated lipids, therapy was started with Lipitor and fenofibrate as per cardiology.on the day of discharge she is significantly improved and y she is chest pain free. no dyspena , no change in urine or bowel habits , no fever. pt also found to have UTI, and was started on ceftriaxone yesterday and she felt some improvement today. UC is pending , pt with without fever, or leukocytosis. pt did not want to wait for the culture resutls , pt is DC on keflex which has taken before but cause her fungal infection so fluconazole one dose is provided for the pt I reviewed the medicaion with the pt one by one in the presence of her sister. she agreed to all medications including lipitor and fenofibrate and keflex, pt informed to take asa and plavix together and f/u with cardiology and she agrees. pt was cleared by cardiology team for discharged Pt was instructed about the problems and management plan and Pt verbalized understanding and acceptance Pt is found stable and can be discharged to the community but needs follow up as outpt. pt agrees to the appointments and their timing CARDIOVASCULAR: S1 and S2 present. No murmurs, rubs, or gallops. PULMONARY: Chest is clear to auscultation, no wheezing or crackles. ABDOMEN: Soft, nontender, nondistended, normoactive bowel sounds. No palpable organomegaly. MUSCULOSKELETAL: No joint swelling or deformity. EXTREMITIES: No cyanosis, clubbing, or pedal edema. NEUROLOGICAL: Gross neurological examination did not reveal any focal deficits. SKIN: No rashes. time spent more than 35 min Plan - Discharge Summary New Discharge Prescriptions: New Aspirin 81 mg PO DAILY chew Atorvastatin [Lipitor] 40 mg PO DAILY #0 tab Clopidogrel [Plavix] 75 mg PO DAILY #30 tablet Cephalexin [Keflex] 500 mg PO Q6HR 7 Days #28 cap Fenofibrate [Lofibra] 54 mg PO DAILY #30 tab Nitroglycerin Sl Tabs [Nitrostat] 0.4 mg SUBLINGUAL Q5M PRN tab PRN Reason: Chest Pain Clopidogrel [Plavix] 75 mg PO DAILY #30 tab Rosuvastatin Calcium [Crestor] 5 mg PO DAILY #30 tab Continue Potassium Chloride [Klor-Con 20] 20 meq PO DAILY PRN PRN Reason: "WHEN TAKING WATER PILL" Allopurinol [Zyloprim] 100 mg PO BID Bumetanide [BUMEX] 0.5 mg PO BID PRN PRN Reason: Edema Gabapentin 600 mg PO BID@,2100 Cetirizine HCl [Zyrtec] 10 mg PO BID Latanoprost Ophth [Xalatan 0.005%] 1 drops BOTH EYES HS INSULIN LISPRO (HumaLOG) [humaLOG] 30 units SQ TID-W/MEALS INSULIN LISPRO (HumaLOG) [humaLOG] See Protocol SQ TID-W/MEALS Insulin Glargine [Lantus] 80 unit SQ BID oxyCODONE-APAP 10-325MG [Percocet 10-325 mg] 1 tab PO TID Omeprazole 20 mg PO DAILY Hydroxychloroquine Sulfate [Plaquenil] 200 mg PO BID amLODIPine BESYLATE [Norvasc] 10 mg PO DAILY Levothyroxine Sodium [Synthroid] 200 mcg PO DAILY Magnesium Oxide 400 mg PO DAILY Ergocalciferol (Vitamin D2) [Vitamin D2] 50,000 unit PO Q7D Vit C/Ascorb Sod/Multivit-Min [Emergen-C 500 mg Chewable Tab] 1,000 mg PO DAILY Gabapentin 1,200 mg PO DAILY@1400 Turmeric Root Extract [Turmeric] 500 mg PO DAILY metFORMIN HCL 1,000 mg PO BID #0 Changed Atenolol 25 mg PO BID #0 Discontinued Ondansetron HCl [Zofran] 4 mg PO TID PRN PRN Reason: Nausea Meloxicam 15 mg PO DAILY Discharge Medication List Allopurinol [Zyloprim] 100 mg PO BID 01/04/15 [History] Bumetanide [BUMEX] 0.5 mg PO BID PRN 01/04/15 [History] Gabapentin 600 mg PO BID@01/04/15 [History] Potassium Chloride [Klor-Con 20] 20 meq PO DAILY PRN 01/04/15 [History] Cetirizine HCl [Zyrtec] 10 mg PO BID 01/09/15 [History] Latanoprost Ophth [Xalatan 0.005%] 1 drops BOTH EYES HS 06/28/15 [History] INSULIN LISPRO (HumaLOG) [humaLOG] 30 units SQ TID-W/MEALS 11/17/15 [History] INSULIN LISPRO (HumaLOG) [humaLOG] See Protocol SQ TID-W/MEALS 01/07/16 [History ] Hydroxychloroquine Sulfate [Plaquenil] 200 mg PO BID 01/29/17 [History] Insulin Glargine [Lantus] 80 unit SQ BID 01/29/17 [History] Omeprazole 20 mg PO DAILY 01/29/17 [History] amLODIPine BESYLATE [Norvasc] 10 mg PO DAILY 01/29/17 [History] oxyCODONE-APAP 10-325MG [Percocet 10-325 mg] 1 tab PO TID 01/29/17 [History] Levothyroxine Sodium [Synthroid] 200 mcg PO DAILY 03/26/17 [History] Ergocalciferol (Vitamin D2) [Vitamin D2] 50,000 unit PO Q7D 01/16/18 [History] Gabapentin 1,200 mg PO DAILY@1400 01/16/18 [History] Magnesium Oxide 400 mg PO DAILY 01/16/18 [History] Turmeric Root Extract [Turmeric] 500 mg PO DAILY 01/16/18 [History] Vit C/Ascorb Sod/Multivit-Min [Emergen-C 500 mg Chewable Tab] 1,000 mg PO DAILY 01/16/18 [History] Aspirin 81 mg PO DAILY chew 01/18/18 [Rx] Atenolol 25 mg PO BID #0 01/18/18 [Rx] Atorvastatin [Lipitor] 40 mg PO DAILY #0 tab 01/18/18 [Rx] Clopidogrel [Plavix] 75 mg PO DAILY #30 tablet 01/18/18 [Rx] metFORMIN HCL 1,000 mg PO BID #0 01/18/18 [Rx] Cephalexin [Keflex] 500 mg PO Q6HR 7 Days #28 cap 01/19/18 [Rx] Clopidogrel [Plavix] 75 mg PO DAILY #30 tab 01/19/18 [Rx] Fenofibrate [Lofibra] 54 mg PO DAILY #30 tab 01/19/18 [Rx] Nitroglycerin Sl Tabs [Nitrostat] 0.4 mg SUBLINGUAL Q5M PRN tab 01/19/18 [Rx] Rosuvastatin Calcium [Crestor] 5 mg PO DAILY #30 tab 01/19/18 [Rx] Follow up Appointment(s)/Referral(s): Nonstaff,Physician [REFERRING] - 1-2 days Jaswant Witt DO [Primary Care Provider] - 01/21/18 2:20 pm (your appointment is with Inge this time please follow up your urine culture ) Quincy lBas MD [STAFF PHYSICIAN] - 01/21/18 10:45 am (Wednesday) Patient Instructions/Handouts: *Surgery [facility] - After Heart Catheterization - Plaster Tender Instructions, Left Heart Catheterization (DC) Activity/Diet/Wound Care/Special Instructions: diet: cardiac and diabetic [address] per day activity: limited till follow up with your doctor Discharge Disposition: HOME SELF-CARE
--- NOTE | 2018-01-20 15:13 | P.EN ---
i called and spoke with Inge the events and promotions assistant for , and discussed the case with her. With recommendation to follow-up urine culture which is so far showing only gram-negative bacilli with no sensitivity. I informed Inge that she's been discharged on Keflex and she currently took note of that
== END 2018-01-19 13:22 | disposition home or self-care (01) | DRG 247 ==
LOC: EC 17:50 → 3OBS 18:35 → OBSVTOIN 01-17 18:30 → 6SEL 01-18 11:11
PROVIDERS: ADMIT Hospitalist; ATTEND Hospitalist
PROC: 027034Z Dilation of Coronary Artery, One Artery with Drug-eluting Intraluminal Device, Percutaneous Approach (ICD-10-PCS; principal; 2018-01-18 11:00)
DX: I25.110 Atherosclerotic heart disease of native coronary artery with unstable angina pectoris (principal); N39.0 Urinary tract infection, site not specified; D86.9 Sarcoidosis, unspecified; E03.9 Hypothyroidism, unspecified; E11.9 Type 2 diabetes mellitus without complications; E78.1 Pure hyperglyceridemia; E78.5 Hyperlipidemia, unspecified; E83.42 Hypomagnesemia; G47.30 Sleep apnea, unspecified; H91.93 Unspecified hearing loss, bilateral; I10 Essential (primary) hypertension; J45.909 Unspecified asthma, uncomplicated; K21.9 Gastro-esophageal reflux disease without esophagitis; M19.90 Unspecified osteoarthritis, unspecified site; M10.9 Gout, unspecified; Z79.4 Long term (current) use of insulin; Z79.899 Other long term (current) drug therapy; Z79.890 Hormone replacement therapy; Z88.1 Allergy status to other antibiotic agents; Z88.8 Allergy status to other drugs, medicaments and biological substances; Z88.5 Allergy status to narcotic agent; Z91.013 Allergy to seafood; Z91.018 Allergy to other foods; Z87.891 Personal history of nicotine dependence; Z90.710 Acquired absence of both cervix and uterus; Z90.722 Acquired absence of ovaries, bilateral; Z96.642 Presence of left artificial hip joint; Z96.651 Presence of right artificial knee joint; Z98.1 Arthrodesis status; Z82.49 Family history of ischemic heart disease and other diseases of the circulatory system; Z83.3 Family history of diabetes mellitus; Z80.9 Family history of malignant neoplasm, unspecified; Z80.51 Family history of malignant neoplasm of kidney
CPT/HCPCS: 36415; 71046; 80048; 80053; 80061; 81001; 82550; 82553; 83036; 83735; 84484; 85025; 85610; 85730; 87077; 87086; 87186; 93005; 96365; 96366; 96376; 99291

== ENCOUNTER → 2018-09-27 | Outpatient (CLI) | payer MEDICARE, BC ==
[2018-09-27 14:46] LABS: Basophils # (A) 0.1 k/uL (0-0.2); Basophils % (A) 1 %; Eosinophils # (A) 0.3 k/uL (0-0.7); Eosinophils % (A) 3 %; HCT 36.2 % (34.0-46.0); HGB 11.6 gm/dL (11.4-16.0); Hypochromasia Slight; Lymphocytes # (A) 2.9 k/uL (1.0-4.8); Lymphocytes % (A) 32 %; MCH 26.7 pg (25.0-35.0); MCV 83.5 fL (80.0-100.0); Monocytes # (A) 0.4 k/uL (0-1.0); Monocytes % (A) 4 %; Neutrophils # (A) 5.2 k/uL (1.3-7.7); Neutrophils % (A) 59 %; Platelet Count 216 k/uL (150-450); RBC 4.34 m/uL (3.80-5.40); RDW 14.5 % (11.5-15.5); WBC 8.9 k/uL (3.8-10.6)
[2018-09-27 15:51] LABS: Erythrocyte Sedimentation Rate 11 mm/hr (0-20)
[2018-09-27 21:04] LABS: C Reactive Protein 0.9 mg/dL (0.0-0.8); Uric Acid 4.1 mg/dL (2.9-7.7)
== END | disposition home or self-care (01) ==
LOC: LABWHC1 13:43
PROVIDERS: ATTEND Orthopaedic Surgery
DX: E11.9 Type 2 diabetes mellitus without complications (principal); M25.571 Pain in right ankle and joints of right foot; M25.572 Pain in left ankle and joints of left foot; M76.61 Achilles tendinitis, right leg; M76.62 Achilles tendinitis, left leg; M76.71 Peroneal tendinitis, right leg; M76.72 Peroneal tendinitis, left leg; G89.4 Chronic pain syndrome; R26.89 Other abnormalities of gait and mobility; G57.90 Unspecified mononeuropathy of unspecified lower limb; M24.576 Contracture, unspecified foot
CPT/HCPCS: 36415; 82550; 84550; 85025; 85652; 86140

== ENCOUNTER → 2018-10-04 | Outpatient (CLI) | payer MEDICARE, BC ==
[2018-10-04 12:18] LABS: Basophils # (A) 0.1 k/uL (0-0.2); Basophils % (A) 1 %; Eosinophils # (A) 0.3 k/uL (0-0.7); Eosinophils % (A) 4 %; HCT 37.3 % (34.0-46.0); HGB 11.8 gm/dL (11.4-16.0); Hypochromasia Slight; Lymphocytes # (A) 2.3 k/uL (1.0-4.8); Lymphocytes % (A) 29 %; MCH 26.3 pg (25.0-35.0); MCHC 31.7 g/dL (31.0-37.0); MCV 82.9 fL (80.0-100.0); Mean Platelet Volume 8.9; Monocytes # (A) 0.3 k/uL (0-1.0); Monocytes % (A) 3 %; Neutrophils # (A) 4.7 k/uL (1.3-7.7); Neutrophils % (A) 61 %; Platelet Count 204 k/uL (150-450); RBC 4.49 m/uL (3.80-5.40); RDW 14.4 % (11.5-15.5); WBC 7.7 k/uL (3.8-10.6)
[2018-10-04 15:58] LABS: Albumin 4.6 g/dL (3.80-4.90); Albumin/Globulin Ratio 3.07 (1.60-3.17); Anion Gap 7.4 mmol/L (4.00-12.00); Calcium 9.8 mg/dL (8.7-10.3); Carbon Dioxide 29.6 mmol/L (21.6-31.8); Globulin 1.5 g/dL (1.6-3.3); LDL Cholesterol,Calculated 105.2 mg/dL (0.0-131.0); Potassium 4.8 mmol/L (3.5-5.5); Total Bilirubin 0.3 mg/dL (0.2-1.2); Total Protein 6.1 g/dL (6.2-8.2); Uric Acid 3.8 mg/dL (2.9-7.7); VLDL Calculation 31.8 mg/dL (5.00-40.00)
[2018-10-04 16:04] LABS: T4, Free (Free Thyroxine) 1.1 ng/dL (0.80-1.80)
== END | disposition home or self-care (01) ==
LOC: LABWHC1 10:09
PROVIDERS: ATTEND Family Medicine
DX: E11.65 Type 2 diabetes mellitus with hyperglycemia (principal); E78.2 Mixed hyperlipidemia; E55.9 Vitamin D deficiency, unspecified; G47.00 Insomnia, unspecified; I10 Essential (primary) hypertension; E03.9 Hypothyroidism, unspecified; D86.9 Sarcoidosis, unspecified; M1A.00X0 Idiopathic chronic gout, unspecified site, without tophus (tophi)
CPT/HCPCS: 36415; 80053; 80061; 82306; 82550; 84439; 84443; 84550; 85025

== ENCOUNTER → 2018-12-08 | Outpatient (CLI) | payer MEDICARE, BC ==
[~2018-12-08] MED LIST changes: -ALPRAZolam 0.25 MG TAB PO PRN; -ALPRAZolam 0.5 MG TAB PO PRN; -ASPIRIN 325 MG TAB PO ONE; -ATORVASTATIN 20 MG TAB PO SCH; -ATORVASTATIN 80 MG TAB PO ONE; -INSULIN ASPART 100 UNIT/ML 1 ML 10 ML VIAL SQ SCH; +IODINE/POTASS IOD (LUGOLS) 8 ML BTL TOPICAL ONE; -IOPAMIDOL-370 125ML BTL INJ ONE; -LIDOCAINE 1% INJ 10MG/ML (20 ML MDV) SQ ONE; -MIDAZOLAM 2 MG/2 ML VIAL IV ONE; -NITROGLYCERIN SL TABS 0.4 MG TAB SUBLINGUAL PRN; -RX INFO: IV CONTRAST WAS GIVEN 1 EACH MISC MISCELLANE PRN; -SODIUM CHLORIDE 0.9% 1,000 ML IV SCH; -SODIUM CHLORIDE 0.9% 1,000 ML in EMPTY BAG 1 BAG IV ONE; -fentaNYL (PF) 50 MCG/ML 2 ML AMP IV ONE
[2018-12-08 11:02] LABS: HCT 35.3 % (34.0-46.0); HGB 11.3 gm/dL (11.4-16.0); MCH 26.6 pg (25.0-35.0); MCV 82.9 fL (80.0-100.0); Mean Platelet Volume 8.9; Platelet Count 207 k/uL (150-450); RBC 4.26 m/uL (3.80-5.40); RDW 14.4 % (11.5-15.5); WBC 8.4 k/uL (3.8-10.6)
[2018-12-08 11:20] LABS: ALT 23 U/L (9-52); AST 31 U/L (14-36); African American GFR (CKD) >90 (>60 ml/min/1.73 sqM); Albumin 4.1 g/dL (3.5-5.0); Alkaline Phosphatase 99 U/L (38-126); Anion Gap 10 mmol/L; Blood Urea Nitrogen 18 mg/dL (7-17); Calcium 9.5 mg/dL (8.4-10.2); Carbon Dioxide 29 mmol/L (22-30); Chloride 101 mmol/L (98-107); Glucose 230 mg/dL (74-99); Potassium 4.7 mmol/L (3.5-5.1); Sodium 140 mmol/L (137-145); Total Bilirubin 0.2 mg/dL (0.2-1.3); Total Protein 6.4 g/dL (6.3-8.2)
[2018-12-08 11:35] LABS: T4, Free (Free Thyroxine) 1.19 ng/dL (0.78-2.19)
--- NOTE | 2018-12-09 09:03 | NM ---
EXAMINATION TYPE: NM DatScan Brain SPECT DATE OF EXAM: 12/08/2018 COMPARISON: NONE HISTORY: Tremors TECHNIQUE: 10 drops of Lugol's solution was administered 1 hour prior to injection as a thyroid bloc isabel agent. After the administration of 4.02 mCi I-123 Ioflupane DaTscan. Images obtained 3 hours p ost injection. SPECT images of the brain were acquired with axial and coronal reconstructions. FINDINGS: The axial SPECT images demonstrate normal background activity. Accounting for head tilt, t here appears to be slight asymmetrically blunted comma-shaped appearance of the left corpus striatum. IMPRESSION: Slightly blunted striatal activity on the left may indicate early changes of idiopathic P arkinson's disease or Parkinsonian syndrome.
== END | disposition home or self-care (01) ==
LOC: RADNMMAIN 10:29
PROVIDERS: ATTEND Psychiatry & Neurology Neurology
DX: R25.1 Tremor, unspecified (principal); E03.9 Hypothyroidism, unspecified; E11.9 Type 2 diabetes mellitus without complications
CPT/HCPCS: 84207; 84439; 84481; 80053; 82607; 84443; 85027; 78607; A9584

== ENCOUNTER 2019-01-31 18:55 | Observation (INO) | payer MEDICARE, BC ==
[2019-01-31] MEDS ORDERED: NALOXONE 0.4 MG/ML 1 ML VIAL IV PRN (21:39)
[2019-01-31] MEDS ORDERED: ACETAMINOPHEN TAB 500 MG TAB PO STA (23:50)
[2019-02-01] MEDS ORDERED: POTASSIUM CHLORIDE ER 20 MEQ TAB.ER PO PRN (00:55)
[2019-02-01] MEDS ORDERED: LEVALBUTEROL INHALATION PRN (00:55)
[2019-02-01] MEDS ORDERED: ONDANSETRON ODT 4 MG TAB PO PRN (00:55)
[2019-02-01] MEDS ORDERED: BUMETANIDE 0.5 MG TABLET PO PRN (00:55)
[2019-02-01] MEDS ORDERED: ASPIRIN 81 MG PO SCH (01:00)
[2019-02-01] MEDS ORDERED: GABAPENTIN 300 MG CAP PO STA (01:09)
[2019-02-01] MEDS: ATENOLOL 25 MG TAB PO SCH ×5 (01:26→21:20)
[2019-02-01] MEDS: CLOTRIMAZOLE 1% CREAM 15 GM TUBE TOPICAL SCH ×2 (01:27→11:20)
[2019-02-01] MEDS: LORATADINE 10 MG TAB PO SCH ×3 (01:27→21:20)
[2019-02-01] MEDS: AMITRIPTYLINE HCL 25 MG TAB PO SCH ×2 (01:35→21:20)
[2019-02-01] MEDS: HYDROXYCHLOROQUINE SULFATE 200 MG TAB PO SCH ×3 (01:35→21:20)
[2019-02-01] MEDS: oxyCODONE-APAP 10-325MG 1 EACH TAB PO SCH ×4 (01:37→21:21)
[2019-02-01] MEDS: LATANOPROST 0.005% OPHTH DROPS 2.5 ML BTL BOTH EYES SCH (01:38)
--- NOTE | 2019-02-01 01:42 | ED ---
Neuro HPI - General Chief Complaint: Neuro Symptoms/Deficit Stated Complaint: facial numbness, blurred vision Time Seen by Provider: 01/31/19 19:10 Source: patient Mode of arrival: wheelchair Limitations: physical limitation - History of Present Illness Is the patient presenting with stroke symptoms?: Yes Initial Comments: The patient is a 63-year-old female who presents to the emergency room as a transfer from [facility]. The history is provided by the patient's family, with her permission, as she is deaf. Family reports that the patient had onset of left-sided facial numbness and tingling which started around 8 PM last night. The patient also reports to blurred vision in her left eye. She denies any numbness or tingling in her upper or lower extremity. She does report to weakness in her left lower extremity which is chronic from previous surgery. There is no reported confusion or altered consciousness from the patient. She does see Dr. Bush for chronic pain management. She was at his office today and he did recommend that she go to the emergency room for evaluation. At [facility] she did have laboratory studies conduct as well as a CT of her brain. Everything was unremarkable however they did recommend that she be evaluated by neurology and therefore was sent to our hospital for further evaluation. She denies any nausea or vomiting. No chest pain or shortness of breath. No fevers, chills or neck pain. There are no other alleviating, precipitating or modifying factors - Related Data Home Medications: Home Medications Medication Instructions Recorded Confirmed Allopurinol [Zyloprim] 100 mg PO BID 01/04/15 01/31/19 Gabapentin 600 mg PO BID@0900,2100 01/04/15 01/31/19 Potassium Chloride [Klor-Con 20] 20 meq PO DAILY PRN 01/04/15 01/31/19 Cetirizine HCl [Zyrtec] 10 mg PO BID 01/09/15 01/31/19 Latanoprost Ophth [Xalatan 0.005%] 1 drops BOTH EYES HS 06/28/15 01/31/19 INSULIN LISPRO (HumaLOG) [humaLOG] 30 units SQ TID-W/MEALS 11/17/15 01/31/19 INSULIN LISPRO (HumaLOG) [humaLOG] See Protocol SQ TID-W/MEALS 01/07/16 01/31/19 Hydroxychloroquine Sulfate 200 mg PO BID 01/29/17 01/31/19 [Plaquenil] Insulin Glargine [Lantus] 80 unit SQ BID 01/29/17 01/31/19 Omeprazole 20 mg PO BID 01/29/17 01/31/19 oxyCODONE-APAP 10-325MG [Percocet 1 tab PO TID 01/29/17 01/31/19 10-325 mg] Levothyroxine Sodium [Synthroid] 200 mcg PO DAILY@0700 03/26/17 01/31/19 Ergocalciferol (Vitamin D2) 50,000 unit PO Q7D 01/16/18 01/31/19 [Vitamin D2] Gabapentin 1,200 mg PO DAILY@1400 01/16/18 01/31/19 Magnesium Oxide 400 mg PO DAILY 01/16/18 01/31/19 Vit C/Ascorb Sod/Multivit-Min 1,000 mg PO DAILY 01/16/18 01/31/19 [Emergen-C 500 mg Chewable Tab] Amitriptyline HCl 25 mg PO HS 01/31/19 01/31/19 Ketoconazole 2% Cream [Nizoral 2%] 1 applic TOPICAL BID 01/31/19 01/31/19 Levalbuterol Hfa Inhaler [Xopenex 1 puff INHALATION Q6HR PRN 01/31/19 01/31/19 Hfa Inhaler] Meloxicam 15 mg PO DAILY 01/31/19 01/31/19 Ondansetron HCl [Zofran] 4 mg PO TID PRN 01/31/19 01/31/19 Previous Rx's Medication Instructions Recorded Atenolol 25 mg PO BID #0 01/18/18 metFORMIN HCL 1,000 mg PO BID #0 01/18/18 Fenofibrate [Lofibra] 54 mg PO DAILY #30 tab 01/19/18 Aspirin 325 mg PO DAILY 30 Days #30 tab 02/02/19 Allergies/Adverse Reactions: Allergies Allergy/AdvReac Type Severity Reaction Status Date / Time albuterol Allergy Severe Chest Verified 01/31/19 21:53 Pain, left arm pain, jaw tightness adhesive tape Allergy Itching, Verified 01/31/19 21:53 RED SKIN, PAPER TAPE BEST celecoxib [From Celebrex] Allergy Anaphylaxis Verified 01/31/19 21:53 ,rash/hives ciprofloxacin [From Cipro] Allergy TENDON Verified 01/31/19 21:53 PROBLEMS diphenhydramine Allergy Itching Verified 01/31/19 21:53 [From Benadryl] hydromorphone HCl Allergy Rash/Hives Verified 01/31/19 21:53 [From Dilaudid] rofecoxib [From Vioxx] Allergy anaphylaxis,Rash/Hives, Verified 01/31/19 21:53 palpitations Fish Containing Products AdvReac Nausea & Verified 01/31/19 21:53 [Fish] Vomiting carrots AdvReac Nausea & Uncoded 01/16/18 17:55 Vomiting Review of Systems ROS Statement: Those systems with pertinent positive or pertinent negative responses have been documented in the HPI. ROS Other: All systems not noted in ROS Statement are negative. General Exam Limitations: physical limitation General appearance: alert, in no apparent distress Head exam: Present: atraumatic, normocephalic, normal inspection Eye exam: Present: normal appearance, PERRL, EOMI. Absent: scleral icterus, conjunctival injection, periorbital swelling ENT exam: Present: normal exam, mucous membranes moist Neck exam: Present: normal inspection. Absent: tenderness, meningismus, lymphadenopathy Respiratory exam: Present: normal lung sounds bilaterally. Absent: respiratory distress, wheezes, rales, rhonchi, stridor Cardiovascular Exam: Present: regular rate, normal rhythm, normal heart sounds. Absent: systolic murmur, diastolic murmur, rubs, gallop, clicks GI/Abdominal exam: Present: soft, normal bowel sounds. Absent: distended, tenderness, guarding, rebound, rigid Extremities exam: Present: normal inspection, full ROM, normal capillary refill, other (4/5 muscle strength in lle which patient states is chronic). Absent: tenderness, pedal edema, joint swelling, calf tenderness Back exam: Present: normal inspection Neurological exam: Present: alert, oriented X3, CN II-XII intact Psychiatric exam: Present: normal affect, normal mood Skin exam: Present: warm, dry, intact, normal color. Absent: rash Stroke MDM - Lab Data Result diagrams: 02/01/19 06:32 02/01/19 06:32 - Medical Decision Making Upon arrival the patient is placed into room 2. A thorough history and physical exam is performed. I did perform NIH stroke scaling on the patient. She does receive a score of 1 because of her sensory deficit. I did review the patient's packet. She did have laboratory studies completed. White blood cell count 8.9, hemoglobin 11.7, hematocrit 35.5, platelets 219. Sodium was 144, potassium prolonged, chloride 106, CO2 26.8, feeling 15, creatinine 2.9, glucose 94, lipase 164, troponin less than 0.017. Chest x-ray demonstrates heart size mildly prominent. Pulmonary vasculature normal. No suspicious infiltrates. CT of the brain demonstrates no acute findings. I did discuss the diagnosis, differential treatment options. I did recommend that the patient be hospitalized for neurology evaluation she still has persistent symptoms. Patient did agree to this. Bridging orders were placed. The patient is awaiting bed on the floor Past Medical History Past Medical History: Asthma, Chest Pain / Angina, Diabetes Mellitus, GERD/Reflux, Hearing Disorder / Deafness, Hypertension, Osteoarthritis (OA), Sleep Apnea/CPAP/BIPAP, Thyroid Disorder Additional Past Medical History / Comment(s): Hx. of Sarcoidosis- LUNG Gout, pt. is deaf, SOB WITH EXERTION, History of Any Multi-Drug Resistant Organisms: None Reported Past Surgical History: Back Surgery, Heart Catheterization, Hysterectomy, Joint Replacement Additional Past Surgical History / Comment(s): left hip(mult) and rt knee replac ements, rt hip arthroscopy, jaw surgery, rt shoulder, theo oophorectomy, rt hip decompression/bone graft, left knee arthroscopy x 2, CERVICAL DECOMPRESSION AND FUSION OF C4-C6 Past Anesthesia/Blood Transfusion Reactions: Motion Sickness, Postoperative Nausea & Vomiting (PONV) Past Psychological History: No Psychological Hx Reported Smoking Status: Never smoker Past Alcohol Use History: None Reported Past Drug Use History: Marijuana - Past Family History Father Family Medical History: Congestive Heart Failure (CHF), Coronary Artery Disease (CAD), Diabetes Mellitus, Liver Disease, Renal Disease Additional Family Medical History / Comment(s): CABG Mother Family Medical History: Cancer Course Vital Signs 01/31/19 01/31/19 01/31/19 19:06 23:13 23:44 Temperature 98.6 F 98 F Pulse Rate 63 64 59 L Respiratory 18 16 18 Rate Blood Pressure 117/61 122/78 103/50 O2 Sat by Pulse 95 99 98 Oximetry 09/02/01/19 02/01/19 06:41 09:00 11:00 Temperature 98 F 97.9 F Pulse Rate 55 L 60 68 Respiratory 18 18 18 Rate Blood Pressure 115/57 126/68 118/57 O2 Sat by Pulse 94 L 96 97 Oximetry Disposition Clinical Impression: Left facial numbness Disposition: ADMITTED IP TO THIS HOSP Condition: Stable Is patient prescribed a controlled substance at d/c from ED?: No Decision to Admit Reason: Admit from EC Decision Date: 02/01/19 Decision Time: 18:00
[2019-02-01 01:55] LABS: Glucose,Whole Blood 194 mg/dL (75-99)
[2019-02-01] MEDS: ALLOPURINOL 100 MG TAB PO SCH ×3 (02:04→21:20)
[2019-02-01 06:39] LABS: Basophils # (A) 0.1 k/uL (0-0.2); Basophils % (A) 1 %; Eosinophils # (A) 0.4 k/uL (0-0.7); Eosinophils % (A) 4 %; HCT 33.4 % (34.0-46.0); HGB 10.9 gm/dL (11.4-16.0); Hypochromasia Slight; Lymphocytes # (A) 3.4 k/uL (1.0-4.8); Lymphocytes % (A) 40 %; MCH 26.3 pg (25.0-35.0); MCHC 32.6 g/dL (31.0-37.0); MCV 80.7 fL (80.0-100.0); Mean Platelet Volume 9.3; Monocytes # (A) 0.3 k/uL (0-1.0); Monocytes % (A) 4 %; Neutrophils # (A) 4.3 k/uL (1.3-7.7); Neutrophils % (A) 50 %; Platelet Count 211 k/uL (150-450); RBC 4.14 m/uL (3.80-5.40); RDW 15.5 % (11.5-15.5); WBC 8.7 k/uL (3.8-10.6)
[2019-02-01 06:58] LABS: African American GFR (CKD) >90 (>60 ml/min/1.73 sqM); Anion Gap 10 mmol/L; Blood Urea Nitrogen 16 mg/dL (7-17); Calcium 9.1 mg/dL (8.4-10.2); Carbon Dioxide 27 mmol/L (22-30); Chloride 102 mmol/L (98-107); Glucose 168 mg/dL (74-99); Non-African American GFR(CKD) >90 (>60 ml/min/1.73 sqM); Potassium 4.2 mmol/L (3.5-5.1); Sodium 139 mmol/L (137-145)
[2019-02-01] MEDS: INSULIN ASPART (NovoLOG) 100 UNIT/ML VIAL SQ SCH ×3 (08:01→18:49)
[2019-02-01] MEDS: INSULIN DETEMIR (LEVEMIR) 100 UNIT/ML SYR SQ SCH ×2 (08:02→21:21)
[2019-02-01] MEDS: PANTOPRAZOLE 40 MG TABLET PO SCH (08:04)
[2019-02-01] MEDS: LEVOTHYROXINE 100 MCG TAB PO SCH (08:04)
[2019-02-01] MEDS ORDERED: amLODIPine 10 MG TAB PO SCH (09:00)
[2019-02-01] MEDS: GABAPENTIN 300 MG CAP PO SCH ×2 (09:05→21:20)
[2019-02-01] MEDS: FENOFIBRATE 54 MG TAB PO SCH (09:05)
[2019-02-01] MEDS: MAGNESIUM OXIDE 400 MG TAB PO SCH (09:06)
[2019-02-01] MEDS: MELOXICAM 7.5 MG TAB PO SCH (09:06)
[2019-02-01 12:43] LABS: Glucose,Whole Blood 150 mg/dL (75-99)
[2019-02-01] MEDS ORDERED: CLOPIDOGREL 75 MG TAB PO SCH (12:45)
--- NOTE | 2019-02-01 12:57 | P.CNNES ---
History of Present Illness Consult date: 02/01/19 Requesting physician: Carmen Monzon Reason for Consult: CVA Chief complaint: Left facial numbness and droop History of Present Illness: This is a 63 RH female whose main vascular risk factor is DM. There is no report of HTN, HL or tobacco use. Patient yesterday had abrupt onset of left facial nu mbness and droop and blurred vision in the left eye at 8pm 01/31/19. Of note, her outpatient neurologist is Dr. Lowe who manages her chronic pain. She initially presented to [facility] where CT Head was negative. She was not deemed an acute vascular intervention candidate, and was transferred to our facility for a neurological evaluation. Patient states she had been compliant with aspirin 81mg/day prior to her neuro symptoms above. Neurologically, denies decreased level or loss of consciousness, headache, diplopia, vertigo, dysphagia, other focal numbness/weaknes not mentioned above, tremors, bowel/bladder incontinence or ataxia. Review of Systems I have performed a 14-point organ ROS with patient; pertinents are as per HPI. Past Medical History Past Medical History: Asthma, Chest Pain / Angina, Diabetes Mellitus, Eye Disorder, GERD/Reflux, Hearing Disorder / Deafness, Hypertension, Liver Disease, Osteoarthritis (OA), Respiratory Disorder, Sleep Apnea/CPAP/BIPAP, Thyroid Disorder Additional Past Medical History / Comment(s): Pt recently admitted to [facility] [place] with bilateral foot infection. Other hx: Pt is deaf/communicates with sign language, IDDM type II, neuropathy bilateral feet, chronic generalized pain-sees Dr. 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 History of Any Multi-Drug Resistant Organisms: None Reported Past Surgical History: Back Surgery, Bladder Surgery, Cholecystectomy, Heart Catheterization, Heart Catheterization With Stent, Hysterectomy, Joint Replacement, Orthopedic Surgery, Tonsillectomy Additional Past Surgical History / Comment(s): Total L hip with 2 bone grafts, L total hip replacements/locking devices, total R knee replacements, back surgery L4/L5, cervical fusion C4-C6 and bone graft, R distal clavicle excision/repair, jaw surgery with 3 screws each side, R rotator cuff repair, R hip decompressed with 2 bone grafts d/t necrosis, L knee arthroscopy, R hip arthroscopy, R knee arthroscopies, L ovary removed/scar tissue removed and bladder sling, R ovary removed, bilateral cataract removals, L eye retinal membrane repair, EGD, colonoscopy, cardiac cath with stent. Past Anesthesia/Blood Transfusion Reactions: Motion Sickness, Postoperative Nausea & Vomiting (PONV) Date of Last Stent Placement:: 01/17/18 Smoking Status: Never smoker - Past Family History Father Family Medical History: Congestive Heart Failure (CHF), Coronary Artery Disease (CAD), Diabetes Mellitus, Liver Disease, Renal Disease Additional Family Medical History / Comment(s): CABG Mother Family Medical History: Cancer Medications and Allergies Home Medications Medication Instructions Recorded Confirmed Type Allopurinol [Zyloprim] 100 mg PO BID 01/04/15 01/31/19 History Bumetanide [BUMEX] 0.5 mg PO BID PRN 01/04/15 01/31/19 History Gabapentin 600 mg PO BID@0900,2100 01/04/15 01/31/19 History Potassium Chloride [Klor-Con 20] 20 meq PO DAILY PRN 01/04/15 01/31/19 History Cetirizine HCl [Zyrtec] 10 mg PO BID 01/09/15 01/31/19 History Latanoprost Ophth [Xalatan 0.005%] 1 drops BOTH EYES HS 06/28/15 01/31/19 History INSULIN LISPRO (HumaLOG) [humaLOG] 30 units SQ TID-W/MEALS 11/17/15 01/31/19 History INSULIN LISPRO (HumaLOG) [humaLOG] See Protocol SQ TID-W/MEALS 01/07/16 01/31/19 History Hydroxychloroquine Sulfate 200 mg PO BID 01/29/17 01/31/19 History [Plaquenil] Insulin Glargine [Lantus] 80 unit SQ BID 01/29/17 01/31/19 History Omeprazole 20 mg PO BID 01/29/17 01/31/19 History amLODIPine BESYLATE [Norvasc] 10 mg PO DAILY 01/29/17 01/31/19 History oxyCODONE-APAP 10-325MG [Percocet 1 tab PO TID 01/29/17 01/31/19 History 10-325 mg] Levothyroxine Sodium [Synthroid] 200 mcg PO DAILY@0700 03/26/17 01/31/19 History Ergocalciferol (Vitamin D2) 50,000 unit PO Q7D 01/16/18 01/31/19 History [Vitamin D2] Gabapentin 1,200 mg PO DAILY@1400 01/16/18 01/31/19 History Magnesium Oxide 400 mg PO DAILY 01/16/18 01/31/19 History Vit C/Ascorb Sod/Multivit-Min 1,000 mg PO DAILY 01/16/18 01/31/19 History [Emergen-C 500 mg Chewable Tab] Atenolol 25 mg PO BID #0 01/18/18 01/31/19 Rx metFORMIN HCL 1,000 mg PO BID #0 01/18/18 01/31/19 Rx Fenofibrate [Lofibra] 54 mg PO DAILY #30 tab 01/19/18 01/31/19 Rx Amitriptyline HCl 25 mg PO HS 01/31/19 01/31/19 History Aspirin 81 mg PO HS 01/31/19 01/31/19 History Ketoconazole 2% Cream [Nizoral 2%] 1 applic TOPICAL BID 01/31/19 01/31/19 History Levalbuterol Hfa Inhaler [Xopenex 1 puff INHALATION Q6HR PRN 01/31/19 01/31/19 History Hfa Inhaler] Meloxicam 15 mg PO DAILY 01/31/19 01/31/19 History Ondansetron HCl [Zofran] 4 mg PO TID PRN 01/31/19 01/31/19 History Allergies Allergy/AdvReac Type Severity Reaction Status Date / Time albuterol Allergy Severe Chest Verified 01/31/19 21:53 Pain, left arm pain, jaw tightness adhesive tape Allergy Itching, Verified 01/31/19 21:53 RED SKIN, PAPER TAPE BEST celecoxib [From Celebrex] Allergy Anaphylaxis Verified 01/31/19 21:53 ,rash/hives ciprofloxacin [From Cipro] Allergy TENDON Verified 01/31/19 21:53 PROBLEMS diphenhydramine Allergy Itching Verified 01/31/19 21:53 [From Benadryl] hydromorphone HCl Allergy Rash/Hives Verified 01/31/19 21:53 [From Dilaudid] rofecoxib [From Vioxx] Allergy anaphylaxis,Rash/Hives, Verified 01/31/19 21:53 palpitations Fish Containing Products AdvReac Nausea & Verified 01/31/19 21:53 [Fish] Vomiting carrots AdvReac Nausea & Uncoded 01/16/18 17:55 Vomiting Physical Examination - Vital Signs Vital Signs: Vital Signs Temp Pulse Resp BP Pulse Ox 02/01/19 11:00 97.9 F 68 18 118/57 97 02/01/19 09:00 60 18 126/68 96 02/01/19 06:41 98 F 55 L 18 115/57 94 L 01/31/19 23:44 98 F 59 L 18 103/50 98 01/31/19 23:13 64 16 122/78 99 01/31/19 19:06 98.6 F 63 18 117/61 95 Intake and Output 01/31/19 02/01/19 02/01/19 22:59 06:59 14:59 Other: Weight 114.759 kg Gen NAD Pleasant and cooperative HEENT NCAT Sclera without icterus O/P clear Neck Supple No carotid bruit Cor RRR no m/r/g Lungs CTAB Abd Soft NTND +BS Ext Warm to touch No edema Neuro MS A+Ox4 Patient is deaf and non-verbal She is able to communicate fully via writing and sign language CN PERRL VFF no APD EOMI no nystagmus or CINTHYA Decreased sensation to LT left V1-3 No facial asymmetry Smile is symmetric Masseter's symmetric Hearing intact to normal voice bilaterally No speech output Equal elevation of palate Tongue midline Sym shrug and SCM bilaterally Motor Normal bulk/tone No pronator or leg drift No tremors Strength 5/5 sym throughout Sens Intact to LT x4 No neglect Coord No dysmetria on FTN bilaterally DTRs Tr to 1+/4 sym throughout Toes downgoing bilaterally No clonus at achilles Gait Able to stand up without assistance She is unable to stand with her feet together and eyes closed NIHSS 8=1 total 1 Results - Laboratory Findings CBC and BMP: 02/01/19 06:32 02/01/19 06:32 Abnormal Lab Findings: Abnormal Labs 02/01/19 02/01/19 02/01/19 01:48 06:32 06:32 Hgb 10.9 L Hct 33.4 L Glucose 168 H POC Glucose (mg/dL) 194 H - Diagnostic Findings Additional findings: CT Head wo cont 01/31/19. No ICH. Nil acute. Assessment and Plan Assessment: Left facial numbness and droop. Motor deficit has resolved but sensory deficit remains, concerning for small vessel CVA given her long-term DM. Plan: -Since she had been on aspirin prior to her CVA sx, will switch to clopidogrel 75mg/day -Permissive HTN <220/120 for another day then may treat BP to normotensirve range but avoid hypotension -MRI Brain, CTA Head/Neck and TTE already ordered by primary team; will follow up -Fasting lipids in am goal LDL <70 -PT/OT/SP per protocol -Stroke education given to patient -DVT prophylaxis -d/w patient and RN in detail. All questions answered. Thank you for this consultation. Please call with ?. Time with Patient: Greater than 30 (Time spent in direct patient care, greater than 50% of which was spent in [id number] counseling and coordination of care: 70 minutes)
--- NOTE | 2019-02-01 13:50 | P.HPIM ---
History of Present Illness 63-year-old pleasant female came in with complaints of numbness on the rest of the face along with facial droop facial droop resolved. Patient weakness resolved but she still has numbness on the left side of the face patient does fontana ve some chronic weakness. Minimal on the left hand and leg since her cervical spine surgery. Patient did take 81 mg of aspirin at home. Patient denied any fever chills patient denied any other neuro deficits denied any headache or diplopia vertigo patient does have some blurry vision in the left eye as well. Patient was admitted for workup for CVA we'll obtain a CT angios the head and neck along with the [place] of the brain echocardiogram in the LDL levels. Patient was switched to Plavix amlodipine and Bumex will be held for permissive hypertension for stroke although beta alma will be continued to avoid reflex tachycardia. Review of Systems REVIEW OF SYSTEMS: CONSTITUTIONAL: No fever, no malaise, no fatigue. HEENT: No recent visual problems or hearing problems. Denied any sore throat. CARDIOVASCULAR: No chest pain, orthopnea, PND, no palpitations, no syncope. PULMONARY: No shortness of breath, no cough, no hemoptysis. GASTROINTESTINAL: No diarrhea, no nausea, no vomiting, no abdominal pain. NEUROLOGICAL: As mentioned above HEMATOLOGICAL: Denies any bleeding or petechiae. GENITOURINARY: Denies any burning micturition, frequency, or urgency. MUSCULOSKELETAL/RHEUMATOLOGICAL: Denies any joint pain, swelling, or any muscle pain. ENDOCRINE: Denies any polyuria or polydipsia. The rest of the 14-point review of systems is negative. Past Medical History Past Medical History: Asthma, Chest Pain / Angina, Diabetes Mellitus, Eye Disorder, GERD/Reflux, Hearing Disorder / Deafness, Hypertension, Liver Disease, Osteoarthritis (OA), Respiratory Disorder, Sleep Apnea/CPAP/BIPAP, Thyroid Disorder Additional Past Medical History / Comment(s): Pt recently admitted to [facility] with bilateral foot infection. Other hx: Pt is deaf/communicates with sign language, IDDM type II, neuropathy bilateral feet, chronic generalized pain-sees Dr. 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 History of Any Multi-Drug Resistant Organisms: None Reported Past Surgical History: Back Surgery, Bladder Surgery, Cholecystectomy, Heart Catheterization, Heart Catheterization With Stent, Hysterectomy, Joint Replacement, Orthopedic Surgery, Tonsillectomy Additional Past Surgical History / Comment(s): Total L hip with 2 bone grafts, L total hip replacements/locking devices, total R knee replacements, back surgery L4/L5, cervical fusion C4-C6 and bone graft, R distal clavicle excision/repair, jaw surgery with 3 screws each side, R rotator cuff repair, R hip decompressed with 2 bone grafts d/t necrosis, L knee arthroscopy, R hip arthroscopy, R knee arthroscopies, L ovary removed/scar tissue removed and bladder sling, R ovary removed, bilateral cataract removals, L eye retinal membrane repair, EGD, colonoscopy, cardiac cath with stent. Past Anesthesia/Blood Transfusion Reactions: Motion Sickness, Postoperative Nausea & Vomiting (PONV) Date of Last Stent Placement:: 01/17/18 Smoking Status: Never smoker - Past Family History Father Family Medical History: Congestive Heart Failure (CHF), Coronary Artery Disease (CAD), Diabetes Mellitus, Liver Disease, Renal Disease Additional Family Medical History / Comment(s): CABG Mother Family Medical History: Cancer Medications and Allergies Home Medications Medication Instructions Recorded Confirmed Type Allopurinol [Zyloprim] 100 mg PO BID 01/04/15 01/31/19 History Bumetanide [BUMEX] 0.5 mg PO BID PRN 01/04/15 01/31/19 History Gabapentin 600 mg PO BID@0900,2100 01/04/15 01/31/19 History Potassium Chloride [Klor-Con 20] 20 meq PO DAILY PRN 01/04/15 01/31/19 History Cetirizine HCl [Zyrtec] 10 mg PO BID 01/09/15 01/31/19 History Latanoprost Ophth [Xalatan 0.005%] 1 drops BOTH EYES HS 06/28/15 01/31/19 History INSULIN LISPRO (HumaLOG) [humaLOG] 30 units SQ TID-W/MEALS 11/17/15 01/31/19 History INSULIN LISPRO (HumaLOG) [humaLOG] See Protocol SQ TID-W/MEALS 01/07/16 01/31/19 History Hydroxychloroquine Sulfate 200 mg PO BID 01/29/17 01/31/19 History [Plaquenil] Insulin Glargine [Lantus] 80 unit SQ BID 01/29/17 01/31/19 History Omeprazole 20 mg PO BID 01/29/17 01/31/19 History amLODIPine BESYLATE [Norvasc] 10 mg PO DAILY 01/29/17 01/31/19 History oxyCODONE-APAP 10-325MG [Percocet 1 tab PO TID 01/29/17 01/31/19 History 10-325 mg] Levothyroxine Sodium [Synthroid] 200 mcg PO DAILY@0700 03/26/17 01/31/19 History Ergocalciferol (Vitamin D2) 50,000 unit PO Q7D 01/16/18 01/31/19 History [Vitamin D2] Gabapentin 1,200 mg PO DAILY@1400 01/16/18 01/31/19 History Magnesium Oxide 400 mg PO DAILY 01/16/18 01/31/19 History Vit C/Ascorb Sod/Multivit-Min 1,000 mg PO DAILY 01/16/18 01/31/19 History [Emergen-C 500 mg Chewable Tab] Atenolol 25 mg PO BID #0 01/18/18 01/31/19 Rx metFORMIN HCL 1,000 mg PO BID #0 01/18/18 01/31/19 Rx Fenofibrate [Lofibra] 54 mg PO DAILY #30 tab 01/19/18 01/31/19 Rx Amitriptyline HCl 25 mg PO HS 01/31/19 01/31/19 History Aspirin 81 mg PO HS 01/31/19 01/31/19 History Ketoconazole 2% Cream [Nizoral 2%] 1 applic TOPICAL BID 01/31/19 01/31/19 History Levalbuterol Hfa Inhaler [Xopenex 1 puff INHALATION Q6HR PRN 01/31/19 01/31/19 History Hfa Inhaler] Meloxicam 15 mg PO DAILY 01/31/19 01/31/19 History Ondansetron HCl [Zofran] 4 mg PO TID PRN 01/31/19 01/31/19 History Allergies Allergy/AdvReac Type Severity Reaction Status Date / Time albuterol Allergy Severe Chest Verified 01/31/19 21:53 Pain, left arm pain, jaw tightness adhesive tape Allergy Itching, Verified 01/31/19 21:53 RED SKIN, PAPER TAPE BEST celecoxib [From Celebrex] Allergy Anaphylaxis Verified 01/31/19 21:53 ,rash/hives ciprofloxacin [From Cipro] Allergy TENDON Verified 01/31/19 21:53 PROBLEMS diphenhydramine Allergy Itching Verified 01/31/19 21:53 [From Benadryl] hydromorphone HCl Allergy Rash/Hives Verified 01/31/19 21:53 [From Dilaudid] rofecoxib [From Vioxx] Allergy anaphylaxis,Rash/Hives, Verified 01/31/19 21:53 palpitations Fish Containing Products AdvReac Nausea & Verified 01/31/19 21:53 [Fish] Vomiting carrots AdvReac Nausea & Uncoded 01/16/18 17:55 Vomiting Physical Exam Vitals: Vital Signs Temp Pulse Resp BP Pulse Ox 02/01/19 11:00 97.9 F 68 18 118/57 97 02/01/19 09:00 60 18 126/68 96 02/01/19 06:41 98 F 55 L 18 115/57 94 L 01/31/19 23:44 98 F 59 L 18 103/50 98 01/31/19 23:13 64 16 122/78 99 01/31/19 19:06 98.6 F 63 18 117/61 95 Intake and Output 01/31/19 02/01/19 02/01/19 22:59 06:59 14:59 Other: Weight 114.759 kg PHYSICAL EXAMINATION: GENERAL: The patient is alert and oriented x3, not in any acute distress. Well developed, well nourished. HEENT: Pupils are round and equally reacting to light. EOMI. No scleral icterus. No conjunctival pallor. Normocephalic, atraumatic. No pharyngeal erythema. No thyromegaly. CARDIOVASCULAR: S1 and S2 present. No murmurs, rubs, or gallops. PULMONARY: Chest is clear to auscultation, no wheezing or crackles. ABDOMEN: Soft, nontender, nondistended, normoactive bowel sounds. No palpable organomegaly. MUSCULOSKELETAL: No joint swelling or deformity. EXTREMITIES: No cyanosis, clubbing, or pedal edema. NEUROLOGICAL: Sensory deficits in the left side of the face as mentioned above SKIN: No rashes. Results CBC & Chem 7: 02/01/19 06:32 02/01/19 06:32 Labs: Abnormal Lab Results - Last 24 Hours (Table) 02/01/19 02/01/19 02/01/19 Range/Units 01:48 06:32 06:32 Hgb 10.9 L (11.4-16.0) gm/dL Hct 33.4 L (34.0-46.0) % Glucose 168 H (74-99) mg/dL POC Glucose (mg/dL) 194 H (75-99) mg/dL 02/01/19 Range/Units 12:42 Hgb (11.4-16.0) gm/dL Hct (34.0-46.0) % Glucose (74-99) mg/dL POC Glucose (mg/dL) 150 H (75-99) mg/dL Thrombosis Risk Factor Assmnt - Choose All That Apply Any of the Below Risk Factors Present?: Yes Each Factor Represents 1 point: Obesity (BMI >25) Other Risk Factors: Yes Each Risk Factor Represents 2 Points: Age 61-74 years Other congenital or acquired thrombophilia - If yes, enter type in comment: No Thrombosis Risk Factor Assessment Total Risk Factor Score: 3 Thrombosis Risk Factor Assessment Level: Moderate Risk Assessment and Plan Plan: Possible cerebrovascular accident ischemic small vessel disease: Stroke workup as mentioned above and patient will be monitored with neuro checks. -Hypertension: will hold amlodipine and Bumex because of her possible CVA. Continuous beta alma as mentioned above -Type 2 diabetes mellitus patient will be resumed on home regimen along with sliding scale depending on her blood sugars were titrate insulin -Asthma without any acute exacerbation -Gastroesophageal reflux disease -Obstructive sleep apnea obesity: Continue CPAP machine -Hypothyroidism
[2019-02-01] MEDS ORDERED: GABAPENTIN 300 MG CAP PO SCH (14:00)
[2019-02-01 17:13] LABS: Glucose,Whole Blood 219 mg/dL (75-99)
--- NOTE | 2019-02-01 18:30 | MR ---
EXAMINATION TYPE: MR brain wo con DATE OF EXAM: 02/01/2019 COMPARISON: CT angiotech head and neck of the same date and outside CT dated 01/31/2019 HISTORY: CVA. Altered mental status. TECHNIQUE: Multiplanar, multisequence images of the brain and brainstem is performed without intravenous contras t. FINDINGS: Diffusion weighted images demonstrate no evidence of a recent infarct or other diffusion ab normality. There is no extra-axial fluid collection. There are few scattered foci of T2/FLAIR hyperi ntensity within the periventricular and subcortical white matter. Overall there is moderate burden fo r the patient's age. These are predominantly periventricular and juxtacortical. The ventricular syste m and cisternal spaces are normal in size and appearance. The brain volume is age appropriate. A nor mal variant tiny cavum septum pellucidum is seen. Small Rathke cleft cyst is also incidentally noted. Midline structures demonstrate normal morphology. The craniocervical junction appears within normal limits.. The globes are symmetric. Nasal turbinate mucosal hypertrophy is seen on the left. Scant muc osal thickening of the ethmoid sinuses. Paranasal sinuses and mastoid air cells are well aerated. IMPRESSION: 1. No acute infarct, midline shift or mass effect. 2. Moderate burden nonspecific white matter change. Considerations in this patient's age or prior for chronic microangiopathy or demyelinating disease given the distribution.
[2019-02-01 18:41] LABS: Glucose,Whole Blood 161 mg/dL (75-99)
[2019-02-01 20:15] LABS: Glucose,Whole Blood 184 mg/dL (75-99)
--- NOTE | 2019-02-01 20:36 | CT ---
EXAMINATION TYPE: CT angio head neck DATE OF EXAM: 02/01/2019 HISTORY: Neurologic defects. Altered mental status. COMPARISON: MRA brain dated 10/27/2017 CT DLP: 410.8 mGycm. Automated Exposure Control for Dose Reduction was Utilized. TECHNIQUE: CTA scan of the neck is performed with IV Contrast, patient injected with 65cc mL of Isov ue 370, axial images are obtained, coronal and sagittal reformatted images are reviewed. Three-D milagros nstructed images are created on an independent workstation and reviewed. FINDINGS: Carotid/Vascular Structures: The vertebral arteries are patent and vertebral basilar system also appe ars patent. There is a normal variant bovine aortic arch. Vertebral arteries have normal anatomic origins. There appears to be luminal narrowing of the common carotid artery secondary to eccentric soft plaquing how ever this appears to occupy less than 50% of the luminal diameter bilaterally is opacification is sim ilar but limited secondary to spray artifact from the cervical fusion device. Within the left common carotid artery and proximal left internal carotid artery there is some calcific atheromatous plaquing although this is less than 50% stenosis. Within the proximal right internal carotid artery there is also calcific plaquing that is less than 50% stenosis. No right posterior communicating artery is seen and there is a tortuous P1 segment on the right. Othe rwise major intracranial vasculature versus an unremarkable and appear patent. Some atherosclerosis i s seen of the cavernous and supraclinoid portions of the internal carotid arteries. Other: Geographic groundglass opacities in the lung apices favor fluid overload. This also can be see n in atypical pneumonitis. Extensive spray artifact is generated from multiple dental fillings and fr om an anterior cervical fusion device limiting visualization of the surrounding structures. Moderate multilevel degenerative disc disease of the cervical spine. IMPRESSION: 1. No hemodynamically significant stenosis within the major arterial vasculature of the head and neck . Multifocal calcific atherosclerosis is seen of the left carotid bulb, bilateral proximal internal c arotid arteries, bilateral cavernous portions of the internal carotid arteries, and bilateral supracl inoid portions of the internal carotid arteries that is less than 50%. 2. Groundglass opacities within the lung apices that can be seen and fluid overload or atypical pneum onitis.
[2019-02-02] MEDS: CLOTRIMAZOLE 1% CREAM 15 GM TUBE TOPICAL SCH ×2 (00:29→09:22)
[2019-02-02] MEDS: LATANOPROST 0.005% OPHTH DROPS 2.5 ML BTL BOTH EYES SCH (00:29)
[2019-02-02] MEDS ORDERED: INSULIN DETEMIR (LEVEMIR) 100 UNIT/ML SYR SQ SCH (06:06)
[2019-02-02 06:49] LABS: Glucose,Whole Blood 168 mg/dL (75-99)
[2019-02-02] MEDS: PANTOPRAZOLE 40 MG TABLET PO SCH (06:51)
[2019-02-02] MEDS: LEVOTHYROXINE 100 MCG TAB PO SCH (06:51)
[2019-02-02] MEDS: INSULIN ASPART (NovoLOG) 100 UNIT/ML VIAL SQ SCH (06:52)
[2019-02-02 07:07] LABS: Cholesterol 177 mg/dL (<200); HDL Cholesterol 38 mg/dL (40-60); LDL Cholesterol,Calculated 107 mg/dL (0-99); Triglycerides 159 mg/dL (<150)
--- NOTE | 2019-02-02 08:04 | P.PN ---
Subjective Progress Note Date: 02/02/19 Principal diagnosis: Left facial numbness and droop MRI Brain. CTA Head/Neck. Facial droop resolved. Numbness and swelling have improved according to patient. No new neuro c/o. Yesterday I attempted to switch her antiplatelet to clopidogrel but patient c/o arthralgias with previous clopidogrel use, so she was maintained on aspirin only. Objective - Vital Signs Vital signs: Vital Signs Temp 96.2 F L 02/02/19 04:00 Pulse 55 L 02/02/19 04:00 Resp 18 02/02/19 04:00 BP 122/58 02/02/19 04:00 Pulse Ox 97 02/02/19 04:00 Intake & Output 02/01/19 02/02/19 02/02/19 18:59 06:59 18:59 Intake Total 200 Balance 200 Weight 113.8 kg Intake: Oral 200 Other: Voiding Method Toilet # Voids 2 1 - Exam Gen NAD Pleasant and cooperative MS A+Ox4 Non-verbal but able to communicate fully via writing CN Decreased sensation to LT in left V2-3 no decreased NLF or other facial asymmetry smile is symmetric with equal elevation of eyebrows Motor Normal bulk/tone No tremors Strength 5/5 sym throughout Sens Intact to LT x4 Coord No dysmetria on FTN bilaterally DTRs 1+/4 sym throughout Gait Deferred NIHSS 8=1 total 1 - Labs CBC & Chem 7: 02/01/19 06:32 02/01/19 06:32 Labs: Abnormal Lab Results - Last 24 Hours (Table) 02/01/19 02/01/19 02/01/19 Range/Units 12:42 16:58 18:38 POC Glucose (mg/dL) 150 H 219 H 161 H (75-99) mg/dL Triglycerides (<150) mg/dL LDL Cholesterol, Calc (0-99) mg/dL HDL Cholesterol (40-60) mg/dL 02/01/19 02/02/19 02/02/19 Range/Units 20:13 06:00 06:47 POC Glucose (mg/dL) 184 H 168 H (75-99) mg/dL Triglycerides 159 H (<150) mg/dL LDL Cholesterol, Calc 107 H (0-99) mg/dL HDL Cholesterol 38 L (40-60) mg/dL - Imaging and Cardiology MRI Brain wo khalif 02/01/19. No area of restricted diffusion to suggest ongoing acute intracranial ischemia. Moderate vascular burden/chronic microvascular disease. No ICH. No other acute intracranial abnormalities. CTA Head/Neck 02/01/19. BICA <50% stenosis. No LVO. I have reviewed neuroimages myself. Assessment and Plan Assessment: Left facial numbness and droop. Motor deficit has resolved but sensory deficit remains. I would still be concerned about a small vessel TIA given her moderate vascular burden on MRI. There is no facial droop that would have point towards LMN facial droop/Dotson's palsy as the other main differential consideration. Plan: -Continue aspirin given adverse reaction to clopidogrel in the past -May treat BP to normotensive range -LDL >70; would suggest starting atorvastatin 10mg po qhs after clarifying with patient via inside sales advertising executive whether she has previous adverse reaction to statin. She is on fenofibrate as well -TTE pending -PT/OT/SP per protocol -Stroke education given to patient -DVT prophylaxis -d/w patient (via writing) and RN in detail. All questions answered -May discharge from acute neuro standpoint after TTE and plan for outpatient neuro follow-up in 1-2 weeks. Thank you again for this consultation. Please call with ?. Time with Patient: Less than 30 (Time spent in direct patient care, greater than 50% of which was spent in [id number] counseling and coordination of care: 25 minutes)
[2019-02-02] MEDS: LORATADINE 10 MG TAB PO SCH (08:54)
[2019-02-02] MEDS: MAGNESIUM OXIDE 400 MG TAB PO SCH (08:56)
[2019-02-02] MEDS: ATENOLOL 25 MG TAB PO SCH (08:56)
[2019-02-02] MEDS: GABAPENTIN 300 MG CAP PO SCH (08:56)
[2019-02-02] MEDS: ALLOPURINOL 100 MG TAB PO SCH (08:56)
[2019-02-02] MEDS: MELOXICAM 7.5 MG TAB PO SCH (08:57)
[2019-02-02] MEDS: FENOFIBRATE 54 MG TAB PO SCH (08:57)
[2019-02-02] MEDS: oxyCODONE-APAP 10-325MG 1 EACH TAB PO SCH (08:58)
[2019-02-02] MEDS: HYDROXYCHLOROQUINE SULFATE 200 MG TAB PO SCH (08:59)
[2019-02-02] MEDS ORDERED: ASPIRIN 325 MG TAB PO SCH (09:00)
--- NOTE | 2019-02-02 11:16 | ECHOF ---
Referral Reason:cva MEASUREMENTS -------- HEIGHT: 167.6 cm WEIGHT: 114.8 kg BP: RVIDd: 3.8 cm (< 3.3) IVSd: 1.7 cm (0.6 - 1.1) LVIDd: 4.5 cm (3.9 - 5.3) LVPWd: 1.4 cm (0.6 - 1.1) IVSs: 2.2 cm LVIDs: 2.8 cm LVPWs: 2.0 cm LAESV Index (A-L): 30.61 ml/m Ao Diam: 3.5 cm (2.0 - 3.7) AV Cusp: 2.4 cm (1.5 - 2.6) LA Diam: 5.4 cm (2.7 - 3.8) MV E Sage: 1.13 m/s MV DecT: 261 ms MV A Sage: 0.75 m/s MV E/A Ratio: 1.51 RAP: 5.00 mmHg RVSP: 41.12 mmHg FINDINGS -------- Sinus rhythm. This was a technically adequate study. The left ventricular size is normal. There is moderate concentric left ventricular hypertrophy. O verall left ventricular systolic function is normal with, an EF between 55 - 60 %. The right ventricle is mildly enlarged. Left atrium is mildly dilated by volume. The right atrial size is normal. Interatrial and interventricular septum intact. The aortic valve is trileaflet, and appears structurally normal. No aortic stenosis or regurgitation. The mitral valve leaflets are mildly thickened. There is trace to mild mitral regurgitation. Mild tricuspid regurgitation present. There is mild pulmonary hypertension. The right ventricular systolic pressure, as measured by Doppler, is 41.12mmHg. The pulmonic valve was not well visualized. There is no pulmonic regurgitation present. The aortic root size is normal. IVC not well visualized There is no pericardial effusion. CONCLUSIONS -------- 1. Sinus rhythm. 2. The left ventricular size is normal. 3. There is moderate concentric left ventricular hypertrophy. 4. Overall left ventricular systolic function is normal with, an EF between 55 - 60 %. 5. The right ventricle is mildly enlarged. 6. Left atrium is mildly dilated by volume. 7. The aortic valve is trileaflet, and appears structurally normal. No aortic stenosis or regurgitati on. 8. The mitral valve leaflets are mildly thickened. 9. There is trace to mild mitral regurgitation. 10. Mild tricuspid regurgitation present. 11. There is mild pulmonary hypertension. 12. There is no pulmonic regurgitation present. 13. The aortic root size is normal. 14. IVC not well visualized 15. There is no pericardial effusion. SOCK MENDER: Tami Collins RDCS
[2019-02-02 11:41] LABS: Glucose,Whole Blood 163 mg/dL (75-99)
[2019-02-02 12:11] VITALS: BP 97/52; PULSE 92; RESP 20; TEMP 97.9
--- NOTE | 2019-02-02 16:03 | P.DS ---
Providers Date of admission: 01/31/19 21:39 Expected date of discharge: 02/02/19 Attending physician: Marcela Lawrence Consults: 01/31/19 21:40 Consult Physician Urgent Consulting Provider: Ministerio Dorantes Consult Reason/Comments: possible CVA/TIA Do you want consulting provider notified?: Yes Primary care physician: [facility] Course: Final diagnosis -Possible cerebrovascular accident ischemic small vessel disease -Hypertension -Type 2 diabetes mellitus -Asthma without any acute exacerbation -Gastroesophageal reflux disease -Obstructive sleep apnea -Hypothyroidism Discharge disposition Patient is being discharged in a stable condition with guarded prognosis to home and will follow-up with her neurologist Dr. Bush in one week. Patient is continue taking her aspirin and fenofibrate she is unable to tolerate a statin and Plavix. Will discuss this with neurologist upon follow-up appointment. Total time taken is 35 minutes. History of present illness As is a 63-year-old female who was recently admitted for numbness and facial droop of the left side and was being closely monitored. Patient also experienced some weakness that it resolved prior to coming to the ER. Neurology was following. Patient underwent an MRI of the brain showing no acute infarct, midline shift, or mass effect. Patient states that she is unable to take Plavix as she has tried in the past and causes too many body aches and joint aches as well as a statin. Patient an echo done during hospitalization showing an EF of 55-60%. Patient is taking aspirin and will continue upon discharge as well as her fenofibrate that she has been taking. She will follow-up with her neurologist in 1-2 weeks time. Patient would like to be discharged today she has an appointment with her clasp machine operator at 1:30 PM. Patient denies any chest pain, shortness of breath, or palpitations at this time. Patient does have some left-sided facial numbness of the cheek but states it has improved since yesterday. Patient denies any nausea or vomiting and has been tolerating diet. Currently patient's condition is stable and able for discharge today. On exam vital signs are stable. Temp is 97.6F, pulse is 60, respirations are 18, blood pressure is 120/60, oxygen saturation is 96% on room air. Cardio S1 and S2 are heard. Respiratory system shows clear to auscultation. Abdomen is soft, obese, nontender. Nervous system shows no focal deficits and gait is steady. Please refer to medication reconciliation sheet for a list of medications. Patient Condition at Discharge: Stable Plan - Discharge Summary Discharge Rx Participant: No New Discharge Prescriptions: New Aspirin 325 mg PO DAILY 30 Days #30 tab Continue Potassium Chloride [Klor-Con 20] 20 meq PO DAILY PRN PRN Reason: "WHEN TAKING WATER PILL" Allopurinol [Zyloprim] 100 mg PO BID Gabapentin 600 mg PO BID@0900,2100 Cetirizine HCl [Zyrtec] 10 mg PO BID Latanoprost Ophth [Xalatan 0.005%] 1 drops BOTH EYES HS INSULIN LISPRO (HumaLOG) [humaLOG] 30 units SQ TID-W/MEALS INSULIN LISPRO (HumaLOG) [humaLOG] See Protocol SQ TID-W/MEALS Insulin Glargine [Lantus] 80 unit SQ BID oxyCODONE-APAP 10-325MG [Percocet 10-325 mg] 1 tab PO TID Omeprazole 20 mg PO BID Hydroxychloroquine Sulfate [Plaquenil] 200 mg PO BID Levothyroxine Sodium [Synthroid] 200 mcg PO DAILY@0700 Magnesium Oxide 400 mg PO DAILY Ergocalciferol (Vitamin D2) [Vitamin D2] 50,000 unit PO Q7D Vit C/Ascorb Sod/Multivit-Min [Emergen-C 500 mg Chewable Tab] 1,000 mg PO DAILY Gabapentin 1,200 mg PO DAILY@1400 Atenolol 25 mg PO BID #0 metFORMIN HCL 1,000 mg PO BID #0 Fenofibrate [Lofibra] 54 mg PO DAILY #30 tab Levalbuterol Hfa Inhaler [Xopenex Hfa Inhaler] 1 puff INHALATION Q6HR PRN PRN Reason: Shortness Of Breath Ketoconazole 2% Cream [Nizoral 2%] 1 applic TOPICAL BID Ondansetron HCl [Zofran] 4 mg PO TID PRN PRN Reason: Nausea Meloxicam 15 mg PO DAILY Amitriptyline HCl 25 mg PO HS Discontinued Bumetanide [BUMEX] 0.5 mg PO BID PRN PRN Reason: Edema amLODIPine BESYLATE [Norvasc] 10 mg PO DAILY Aspirin 81 mg PO HS Discharge Medication List Allopurinol [Zyloprim] 100 mg PO BID 01/04/15 [History] Gabapentin 600 mg PO BID@0900,2100 01/04/15 [History] Potassium Chloride [Klor-Con 20] 20 meq PO DAILY PRN 01/04/15 [History] Cetirizine HCl [Zyrtec] 10 mg PO BID 01/09/15 [History] Latanoprost Ophth [Xalatan 0.005%] 1 drops BOTH EYES HS 06/28/15 [History] INSULIN LISPRO (HumaLOG) [humaLOG] 30 units SQ TID-W/MEALS 11/17/15 [History] INSULIN LISPRO (HumaLOG) [humaLOG] See Protocol SQ TID-W/MEALS 01/07/16 [History] Hydroxychloroquine Sulfate [Plaquenil] 200 mg PO BID 01/29/17 [History] Insulin Glargine [Lantus] 80 unit SQ BID 01/29/17 [History] Omeprazole 20 mg PO BID 01/29/17 [History] oxyCODONE-APAP 10-325MG [Percocet 10-325 mg] 1 tab PO TID 01/29/17 [History] Levothyroxine Sodium [Synthroid] 200 mcg PO DAILY@0700 03/26/17 [History] Ergocalciferol (Vitamin D2) [Vitamin D2] 50,000 unit PO Q7D 01/16/18 [History] Gabapentin 1,200 mg PO DAILY@1400 01/16/18 [History] Magnesium Oxide 400 mg PO DAILY 01/16/18 [History] Vit C/Ascorb Sod/Multivit-Min [Emergen-C 500 mg Chewable Tab] 1,000 mg PO DAILY 01/16/18 [History] Atenolol 25 mg PO BID #0 01/18/18 [Rx] metFORMIN HCL 1,000 mg PO BID #0 01/18/18 [Rx] Fenofibrate [Lofibra] 54 mg PO DAILY #30 tab 01/19/18 [Rx] Amitriptyline HCl 25 mg PO HS 01/31/19 [History] Ketoconazole 2% Cream [Nizoral 2%] 1 applic TOPICAL BID 01/31/19 [History] Levalbuterol Hfa Inhaler [Xopenex Hfa Inhaler] 1 puff INHALATION Q6HR PRN 01/31/19 [History] Meloxicam 15 mg PO DAILY 01/31/19 [History] Ondansetron HCl [Zofran] 4 mg PO TID PRN 01/31/19 [History] Aspirin 325 mg PO DAILY 30 Days #30 tab 02/02/19 [Rx] Follow up Appointment(s)/Referral(s): Jenni Bush MD [Medical Doctor] - 1 Week (Neurologist.) Jaswant Witt DO [Primary Care Provider] - 02/09/19 2:20 pm Patient Instructions/Handouts: Transient Ischemic Attack (DC), Heart Healthy Diet (DC) Activity/Diet/Wound Care/Special Instructions: Activity limited until follow up continue heart healthy/diabetic diet continue with Aspirin 325mg until follow up with neurologist follow up with neuro in one week follow up with pcp this week Discharge Disposition: HOME SELF-CARE
== END 2019-02-02 12:35 | disposition home or self-care (01) ==
LOC: EC 18:55 → 1SOBS 21:39 → 3SCARD 02-01 06:22
PROVIDERS: ADMIT Hospitalist; ATTEND Hospitalist
DX: R20.0 Anesthesia of skin (principal); R20.2 Paresthesia of skin; R29.810 Facial weakness; R53.1 Weakness; H53.8 Other visual disturbances; H91.90 Unspecified hearing loss, unspecified ear; J45.909 Unspecified asthma, uncomplicated; K21.9 Gastro-esophageal reflux disease without esophagitis; E11.40 Type 2 diabetes mellitus with diabetic neuropathy, unspecified; G47.33 Obstructive sleep apnea (adult) (pediatric); M10.9 Gout, unspecified; E03.9 Hypothyroidism, unspecified; T45.526A Underdosing of antithrombotic drugs, initial encounter; E66.9 Obesity, unspecified; Z68.41 Body mass index [BMI] 40.0-44.9, adult; I11.9 Hypertensive heart disease without heart failure; R29.701 NIHSS score 1; M19.90 Unspecified osteoarthritis, unspecified site; G89.29 Other chronic pain; K76.0 Fatty (change of) liver, not elsewhere classified; H40.9 Unspecified glaucoma; M50.21 Other cervical disc displacement, high cervical region; Z99.89 Dependence on other enabling machines and devices; Z90.49 Acquired absence of other specified parts of digestive tract; Z95.5 Presence of coronary angioplasty implant and graft; Z98.1 Arthrodesis status; Z79.899 Other long term (current) drug therapy; Z79.4 Long term (current) use of insulin; Z79.890 Hormone replacement therapy; Z79.891 Long term (current) use of opiate analgesic; Z79.82 Long term (current) use of aspirin; Z79.1 Long term (current) use of non-steroidal anti-inflammatories (NSAID); Z88.1 Allergy status to other antibiotic agents; Z88.5 Allergy status to narcotic agent; Z91.013 Allergy to seafood; Z88.8 Allergy status to other drugs, medicaments and biological substances; Z91.018 Allergy to other foods; Z88.6 Allergy status to analgesic agent; Z91.048 Other nonmedicinal substance allergy status; Z83.3 Family history of diabetes mellitus; Z82.49 Family history of ischemic heart disease and other diseases of the circulatory system; Z84.1 Family history of disorders of kidney and ureter; Z83.49 Family history of other endocrine, nutritional and metabolic diseases; Z80.9 Family history of malignant neoplasm, unspecified
CPT/HCPCS: 99285; 93306; 97161; 97165; 92610; 80048; 80061; 85025; 70496; 70498; 70551; G0378 ×4; Q9967

== ENCOUNTER 2019-04-25 18:41 | Emergency (ER) | payer MEDICARE, BC ==
[2019-04-25 18:52] VITALS: TEMP 98.2
[2019-04-25] MEDS ORDERED: KETOROLAC 30 MG/ML 1 ML VIAL IVP STA (19:06)
[2019-04-25] MEDS ORDERED: ONDANSETRON 4 MG/2 ML VIAL IVP STA ×2 (19:06→21:58)
[2019-04-25] MEDS ORDERED: SODIUM CHLORIDE 0.9% 1,000 ML IV STA (19:06)
--- NOTE | 2019-04-25 19:46 | ED ---
General Adult HPI - General Chief complaint: Abdominal Pain Stated complaint: vomiting/diarrhea Time Seen by Provider: 04/25/19 18:53 Source: patient, family, RN notes reviewed Mode of arrival: wheelchair - History of Present Illness Initial comments: 63-year-old female with a past medical history of diabetes mellitus, GERD, hysterectomy, cholecystectomy presents to the emergency department for nausea vomiting diarrhea. Patient has had nausea vomiting diarrhea for about 4 hours. States that she has had right sided abdominal pain as well. States that this comes and goes and is sharp in nature. Denies fevers or chills. Denies any other sick contacts. Patient denies melena or hematochezia. Patient has no other complaints at this time including shortness of breath, chest pain, headache, or visual changes. - Related Data Home Medications Medication Instructions Recorded Confirmed Allopurinol [Zyloprim] 100 mg PO BID 01/04/15 01/31/19 Gabapentin 600 mg PO BID@0900,2100 01/04/15 01/31/19 Potassium Chloride [Klor-Con 20] 20 meq PO DAILY PRN 01/04/15 01/31/19 Cetirizine HCl [Zyrtec] 10 mg PO BID 01/09/15 01/31/19 Latanoprost Ophth [Xalatan 0.005%] 1 drops BOTH EYES HS 06/28/15 01/31/19 INSULIN LISPRO (HumaLOG) [humaLOG] 30 units SQ TID-W/MEALS 11/17/15 01/31/19 INSULIN LISPRO (HumaLOG) [humaLOG] See Protocol SQ TID-W/MEALS 01/07/16 01/31/19 Hydroxychloroquine Sulfate 200 mg PO BID 01/29/17 01/31/19 [Plaquenil] Insulin Glargine [Lantus] 80 unit SQ BID 01/29/17 01/31/19 Omeprazole 20 mg PO BID 01/29/17 01/31/19 oxyCODONE-APAP 10-325MG [Percocet 1 tab PO TID 01/29/17 01/31/19 10-325 mg] Levothyroxine Sodium [Synthroid] 200 mcg PO DAILY@0700 03/26/17 01/31/19 Ergocalciferol (Vitamin D2) 50,000 unit PO Q7D 01/16/18 01/31/19 [Vitamin D2] Gabapentin 1,200 mg PO DAILY@1400 01/16/18 01/31/19 Magnesium Oxide 400 mg PO DAILY 01/16/18 01/31/19 Vit C/Ascorb Sod/Multivit-Min 1,000 mg PO DAILY 01/16/18 01/31/19 [Emergen-C 500 mg Chewable Tab] Amitriptyline HCl 25 mg PO HS 01/31/19 01/31/19 Ketoconazole 2% Cream [Nizoral 2%] 1 applic TOPICAL BID 01/31/19 01/31/19 Levalbuterol Hfa Inhaler [Xopenex 1 puff INHALATION Q6HR PRN 01/31/19 01/31/19 Hfa Inhaler] Meloxicam 15 mg PO DAILY 01/31/19 01/31/19 Ondansetron HCl [Zofran] 4 mg PO TID PRN 01/31/19 01/31/19 Previous Rx's Medication Instructions Recorded Atenolol 25 mg PO BID #0 01/18/18 metFORMIN HCL 1,000 mg PO BID #0 01/18/18 Fenofibrate [Lofibra] 54 mg PO DAILY #30 tab 01/19/18 Aspirin 325 mg PO DAILY 30 Days #30 tab 02/02/19 Cephalexin [Keflex] 500 mg PO Q6HR 7 Days #28 cap 04/25/19 Ondansetron [Zofran ODT] 4 mg PO Q8HR PRN #15 tab 04/25/19 Allergies Allergy/AdvReac Type Severity Reaction Status Date / Time albuterol Allergy Severe Chest Verified 04/25/19 18:47 Pain, left arm pain, jaw tightness adhesive tape Allergy Itching, Verified 04/25/19 18:47 RED SKIN, PAPER TAPE BEST celecoxib [From Celebrex] Allergy Anaphylaxis Verified 04/25/19 18:47 ,rash/hives ciprofloxacin [From Cipro] Allergy TENDON Verified 04/25/19 18:47 PROBLEMS diphenhydramine Allergy Itching Verified 04/25/19 18:47 [From Benadryl] hydromorphone HCl Allergy Rash/Hives Verified 04/25/19 18:47 [From Dilaudid] rofecoxib [From Vioxx] Allergy anaphylaxis,Rash/Hives, Verified 04/25/19 18:47 palpitations Fish Containing Products AdvReac Nausea & Verified 04/25/19 18:47 [Fish] Vomiting carrots AdvReac Nausea & Uncoded 04/25/19 18:47 Vomiting Review of Systems ROS Statement: Those systems with pertinent positive or pertinent negative responses have been documented in the HPI. ROS Other: All systems not noted in ROS Statement are negative. Past Medical History Past Medical History: Asthma, Chest Pain / Angina, Diabetes Mellitus, GERD/Reflux, Hearing Disorder / Deafness, Hypertension, Osteoarthritis (OA), Sleep Apnea/CPAP/BIPAP, Thyroid Disorder Additional Past Medical History / Comment(s): Hx. of Sarcoidosis- LUNG Gout, pt. is deaf, SOB WITH EXERTION, History of Any Multi-Drug Resistant Organisms: None Reported Past Surgical History: Back Surgery, Cholecystectomy, Heart Catheterization, Hysterectomy, Joint Replacement Additional Past Surgical History / Comment(s): left hip(mult) and rt knee replacements, rt hip arthroscopy, jaw surgery, rt shoulder, theo oophorectomy, rt hip decompression/bone graft, left knee arthroscopy x 2, CERVICAL DECOMPRESSION AND FUSION OF C4-C6 Past Anesthesia/Blood Transfusion Reactions: Motion Sickness, Postoperative Nausea & Vomiting (PONV) Date of Last Stent Placement:: 01/17/18 Past Psychological History: No Psychological Hx Reported Smoking Status: Never smoker Past Alcohol Use History: None Reported Past Drug Use History: Marijuana - Past Family History Father Family Medical History: Congestive Heart Failure (CHF), Coronary Artery Disease (CAD), Diabetes Mellitus, Liver Disease, Renal Disease Additional Family Medical History / Comment(s): CABG Mother Family Medical History: Cancer General Exam General appearance: alert, in no apparent distress Head exam: Present: atraumatic, normocephalic, normal inspection Eye exam: Present: normal appearance, PERRL, EOMI. Absent: scleral icterus, conjunctival injection, periorbital swelling ENT exam: Present: normal exam, mucous membranes moist Neck exam: Present: normal inspection. Absent: tenderness, meningismus, lymphadenopathy Respiratory exam: Present: normal lung sounds bilaterally. Absent: respiratory distress, wheezes, rales, rhonchi, stridor Cardiovascular Exam: Present: regular rate, normal rhythm, normal heart sounds. Absent: systolic murmur, diastolic murmur, rubs, gallop, clicks GI/Abdominal exam: Present: soft, tenderness (Tenderness noted to the right mid and right lower abdomen. Epigastric palpation elicits nausea but no pain. No left-sided abdominal tenderness. No guarding or rebound.), normal bowel sounds. Absent: distended, guarding, rebound, rigid Neurological exam: Present: alert Course Vital Signs 04/25/19 04/25/19 04/25/19 18:47 18:52 19:35 Temperature 98.2 F Pulse Rate 64 64 Respiratory 18 18 Rate Blood Pressure 139/75 O2 Sat by Pulse 97 97 97 Oximetry 04/25/19 04/25/19 04/25/19 19:40 19:50 19:52 Temperature Pulse Rate 70 Respiratory 18 Rate Blood Pressure 140/66 140/66 139/75 O2 Sat by Pulse 97 95 97 Oximetry 04/25/19 04/25/19 04/25/19 20:00 20:10 20:20 Temperature Pulse Rate Respiratory Rate Blood Pressure 140/66 138/58 138/58 O2 Sat by Pulse 95 95 95 Oximetry 04/25/19 04/25/19 04/25/19 20:30 20:40 20:50 Temperature Pulse Rate Respiratory Rate Blood Pressure 138/58 O2 Sat by Pulse 92 L 91 L 91 L Oximetry 04/25/19 04/25/19 04/25/19 20:52 21:00 22:00 Temperature Pulse Rate 72 Respiratory 18 18 18 Rate Blood Pressure O2 Sat by Pulse 97 97 97 Oximetry 04/25/19 22:11 Temperature Pulse Rate 67 Respiratory 20 Rate Blood Pressure 130/78 O2 Sat by Pulse Oximetry EKG Findings - EKG Comments: EKG Findings:: Normal sinus rhythm, ventricular rate 67, DC int 74, QTC 416 Medical Decision Making - Medical Decision Making 63-year-old female presents to the emergency department for a chief complaint of nausea vomiting diarrhea. This has only been ongoing for a few hours now. Vitals are stable. Patient is afebrile. She has not had any episodes of vomiting here in the emergency department. She was given Zofran for nausea which did help. CBC was obtained which did show white count of 18, this could be secondary to vomiting. CMP obtained showed mild dehydration, patient was given fluids. She also had a potassium of 5.8 which was treated. There is mild limitation in lipase and amylase however not 3 times normal limit at this point. CT was obtained which shows decreased contrast and renal collecting systems however GFR is within normal limits. There is new subcutaneous edema over the anterior mid abdomen compared to old exam. No evidence for cellulitis on physical exam however patient does have small contusions due to subcutaneous injections. I did offer patient admission to the hospital however she adamantly does not want to stay. I discussed that I could possibly repeat her potassium to make sure it is going down and she would prefer to do this Potassium was repeated and is 4.7. Possible hemolysis on prior draw. There is a possible urinary tract infection with positive nitrites. Culture is pending however patient will be started on Keflex. Recommended she follow up with pr imary care in 1-2 days for repeat blood work including repeat amylase and lipase as well as white blood cell count. I discussed strict return parameters because this could worsen and lipase could increase. She is aware of this and will return if she has worsening symptoms. Patient tolerating oral intake and feeling much better prior to discharge. - Lab Data Result diagrams: 04/25/19 19:40 04/25/19 Unknown Lab Results 04/25/19 04/25/19 04/25/19 Range/Units 19:40 19:40 21:17 WBC 18.0 H (3.8-10.6) k/uL RBC 4.77 (3.80-5.40) m/uL Hgb 12.6 (11.4-16.0) gm/dL Hct 38.6 (34.0-46.0) % MCV 81.0 (80.0-100.0) fL MCH 26.4 (25.0-35.0) pg MCHC 32.6 (31.0-37.0) g/dL RDW 14.6 (11.5-15.5) % Plt Count 280 (150-450) k/uL Neutrophils % 90 % Lymphocytes % 4 % Monocytes % 3 % Eosinophils % 2 % Basophils % 1 % Neutrophils # 16.3 H (1.3-7.7) k/uL Lymphocytes # 0.6 L (1.0-4.8) k/uL Monocytes # 0.6 (0-1.0) k/uL Eosinophils # 0.3 (0-0.7) k/uL Basophils # 0.2 (0-0.2) k/uL Hypochromasia Moderate Sodium 139 (137-145) mmol/L Potassium 5.8 H (3.5-5.1) mmol/L Chloride 98 (98-107) mmol/L Carbon Dioxide 28 (22-30) mmol/L Anion Gap 13 mmol/L BUN 22 H (7-17) mg/dL Creatinine 0.97 (0.52-1.04) mg/dL Est GFR (CKD-EPI)AfAm 73 (>60 ml/min/1.73 sqM) Est GFR (CKD-EPI)NonAf 64 (>60 ml/min/1.73 sqM) Glucose 170 H (74-99) mg/dL Calcium 10.2 (8.4-10.2) mg/dL Total Bilirubin 0.5 (0.2-1.3) mg/dL AST 36 (14-36) U/L ALT 22 (4-34) U/L Alkaline Phosphatase 111 (38-126) U/L Total Protein 8.0 (6.3-8.2) g/dL Albumin 5.0 (3.5-5.0) g/dL Amylase 136 H (30-110) U/L Lipase 645 H (23-300) U/L Urine Color Yellow Urine Appearance Clear (Clear) Urine pH 5.5 (5.0-8.0) Ur Specific [place] 1.017 (1.001-1.035) Urine Protein Trace H (Negative) Urine Glucose (UA) Negative (Negative) Urine Ketones Negative (Negative) Urine Blood Negative (Negative) Urine Nitrite Positive H (Negative) Urine Bilirubin Negative (Negative) Urine Urobilinogen <2.0 (<2.0) mg/dL Ur Leukocyte Esterase Small H (Negative) Urine RBC 1 (0-5) /hpf Urine WBC 4 (0-5) /hpf Ur Squamous Epith Cells 1 (0-4) /hpf Urine Bacteria Moderate H (None) /hpf Urine Mucus Rare H (None) /hpf 04/25/ Range/Units Unknown WBC (3.8-10.6) k/uL RBC (3.80-5.40) m/uL Hgb (11.4-16.0) gm/dL Hct (34.0-46.0) % MCV (80.0-100.0) fL MCH (25.0-35.0) pg MCHC (31.0-37.0) g/dL RDW (11.5-15.5) % Plt Count (150-450) k/uL Neutrophils % % Lymphocytes % % Monocytes % % Eosinophils % % Basophils % % Neutrophils # (1.3-7.7) k/uL Lymphocytes # (1.0-4.8) k/uL Monocytes # (0-1.0) k/uL Eosinophils # (0-0.7) k/uL Basophils # (0-0.2) k/uL Hypochromasia Sodium (137-145) mmol/L Potassium 4.7 (3.5-5.1) mmol/L Chloride (98-107) mmol/L Carbon Dioxide (22-30) mmol/L Anion Gap mmol/L BUN (7-17) mg/dL Creatinine (0.52-1.04) mg/dL Est GFR (CKD-EPI)AfAm (>60 ml/min/1.73 sqM) Est GFR (CKD-EPI)NonAf (>60 ml/min/1.73 sqM) Glucose (74-99) mg/dL Calcium (8.4-10.2) mg/dL Total Bilirubin (0.2-1.3) mg/dL AST (14-36) U/L ALT (4-34) U/L Alkaline Phosphatase (38-126) U/L Total Protein (6.3-8.2) g/dL Albumin (3.5-5.0) g/dL Amylase (30-110) U/L Lipase (23-300) U/L Urine Color Urine Appearance (Clear) Urine pH (5.0-8.0) Ur Specific [place] (1.001-1.035) Urine Protein (Negative) Urine Glucose (UA) (Negative) Urine Ketones (Negative) Urine Blood (Negative) Urine Nitrite (Negative) Urine Bilirubin (Negative) Urine Urobilinogen (<2.0) mg/dL Ur Leukocyte Esterase (Negative) Urine RBC (0-5) /hpf Urine WBC (0-5) /hpf Ur Squamous Epith Cells (0-4) /hpf Urine Bacteria (None) /hpf Urine Mucus (None) /hpf Disposition Clinical Impression: Abdominal pain, Elevated lipase, Nausea vomiting and diarrhea Disposition: HOME SELF-CARE Condition: Good Instructions (If sedation given, give patient instructions): Abdominal Pain (ED), Acute Nausea and Vomiting (ED) Additional Instructions: Please take antibiotics as directed. Take Zofran as needed for nausea. Please follow-up with primary care provider as soon as possible. You need to repeat your pancreatic enzymes as well as white blood cell count. If you have any worsening symptoms return to the emergency department for further evaluation. Prescriptions: Cephalexin [Keflex] 500 mg PO Q6HR 7 Days #28 cap Ondansetron [Zofran ODT] 4 mg PO Q8HR PRN #15 tab PRN Reason: Nausea Is patient prescribed a controlled substance at d/c from ED?: No Referrals: Jaswant Witt DO [Primary Care Provider] - 1-2 days Time of Disposition: 23:18
[2019-04-25 19:51] LABS: Basophils # (A) 0.2 k/uL (0-0.2); Basophils % (A) 1 %; Eosinophils # (A) 0.3 k/uL (0-0.7); Eosinophils % (A) 2 %; HCT 38.6 % (34.0-46.0); HGB 12.6 gm/dL (11.4-16.0); Hypochromasia Moderate; Lymphocytes # (A) 0.6 k/uL (1.0-4.8); Lymphocytes % (A) 4 %; MCH 26.4 pg (25.0-35.0); MCHC 32.6 g/dL (31.0-37.0); Mean Platelet Volume 9.7; Monocytes # (A) 0.6 k/uL (0-1.0); Monocytes % (A) 3 %; Neutrophils # (A) 16.3 k/uL (1.3-7.7); Neutrophils % (A) 90 %; Platelet Count 280 k/uL (150-450); RBC 4.77 m/uL (3.80-5.40); RDW 14.6 % (11.5-15.5)
[2019-04-25 20:00] LABS: Calcium 10.2 mg/dL (8.4-10.2); Potassium 5.8 mmol/L (3.5-5.1); Total Bilirubin 0.5 mg/dL (0.2-1.3)
[2019-04-25] MEDS ORDERED: INSULIN REGULAR 100 UNIT/ML VIAL IV ONE (20:30)
[2019-04-25] MEDS ORDERED: DEXTROSE 50% SYRINGE 50 ML IVP STA (20:31)
[2019-04-25] MEDS ORDERED: FUROSEMIDE 10 MG/ML 2 ML VIAL IV STA (20:31)
[2019-04-25] MEDS ORDERED: SODIUM CHLORIDE 0.9% 500 ML 500 ML IV STA (20:32)
[2019-04-25 21:46] LABS: Appearance,Urine Clear (Clear); Bacteria,Urine Moderate /hpf; Bilirubin,Urine Negative (Negative); Blood,Urine Negative (Negative); Color,Urine Yellow; Glucose,Urine (UA) Negative (Negative); Ketones,Urine Negative (Negative); Leukocyte Esterase,Urine Small (Negative); Mucus,Urine Rare /hpf; Nitrite,Urine Positive (Negative); PH, Urine 5.5 (5.0-8.0); Protein,Urine Trace (Negative); RBC,Urine 1 /hpf (0-5); Specific Gravity,Urine 1.017 (1.001-1.035); Squamous Epithelial Cell,Urine 1 /hpf (0-4); Urobilinogen,Urine <2.0 mg/dL (<2.0); WBC,Urine 4 /hpf (0-5)
--- NOTE | 2019-04-25 22:04 | CT ---
EXAMINATION TYPE: CT abdomen pelvis w con DATE OF EXAM: 04/25/2019 COMPARISON: 08/27/2016 HISTORY: abdominal pain and vomiting CT DLP: 2475.4 mGycm Automated exposure control for dose reduction was used. CONTRAST: Performed with IV Contrast, patient injected with 100 mL of Isovue 300. There is some mild atelectasis at the lung bases. Heart appears enlarged. There is no pleural effusio n. There is no pericardial effusion. There are clips from cholecystectomy. Liver spleen pancreas appe ar normal. Stomach is intact. Bile ducts are not dilated. There is no adrenal mass. Kidneys show no hydronephrosis. There is left psoas muscle significant atro phy. Ureters are not dilated. There is no retroperitoneal adenopathy. There is left hip prosthesis. B ladder distends smoothly. There is no inguinal hernia. There is no free fluid in the pelvis. Appendix is not seen. There is no sign of thickened appendix. There is no evidence of a bowel obstruction. There is no mesenteric edema. There is no ascites or reyna e air. There is multilevel degenerative disc narrowing in the lumbar spine from L2 to L5. There is right-sabino ed L4 laminectomy defect. There is mild spinal stenosis at L4-5 and L5-S1. There is no compression fr acture. I see no bony destructive process. Liver is enlarged and measures 29 cm in length. IMPRESSION: No evidence of renal stone or obstruction. Decreased contrast in the renal collecting systems on the delayed images suggestive of some degree of renal failure. No hydronephrosis. Cardiomegaly. Moderate hepatomegaly. Borderline splenomegaly. There is new subcutaneous edema over the anterior mid abdomen compared to old exam and could relate t o focal cellulitis. There is mild lateral abdominal subcutaneous edema that is increased compared to old exam.
[2019-04-25 22:11] VITALS: BP 130/78; PULSE 67; RESP 20
[2019-04-25] MEDS ORDERED: CEPHALEXIN 500MG STARTER PACK 4 CAP BTL PO STA (23:19)
[2019-04-25] MEDS ORDERED: ONDANSETRON 4 MG ODT STARTER PACK 2 TAB BTL PO STA (23:19)
== END 2019-04-25 23:38 | disposition home or self-care (01) ==
LOC: EC 18:41
DX: R74.8 Abnormal levels of other serum enzymes (principal); R10.9 Unspecified abdominal pain; R11.2 Nausea with vomiting, unspecified; R19.7 Diarrhea, unspecified; E86.0 Dehydration; R60.0 Localized edema; T14.8XXA Other injury of unspecified body region, initial encounter; E11.9 Type 2 diabetes mellitus without complications; I10 Essential (primary) hypertension; M19.90 Unspecified osteoarthritis, unspecified site; G47.30 Sleep apnea, unspecified; E07.9 Disorder of thyroid, unspecified; M10.9 Gout, unspecified; Z79.4 Long term (current) use of insulin; Z79.1 Long term (current) use of non-steroidal anti-inflammatories (NSAID); Z79.899 Other long term (current) drug therapy; Z79.890 Hormone replacement therapy; Z96.651 Presence of right artificial knee joint; Z88.8 Allergy status to other drugs, medicaments and biological substances; Z91.048 Other nonmedicinal substance allergy status; Z88.6 Allergy status to analgesic agent; Z88.1 Allergy status to other antibiotic agents; Z88.5 Allergy status to narcotic agent; Z91.013 Allergy to seafood; Z91.018 Allergy to other foods; Z99.89 Dependence on other enabling machines and devices; Z96.642 Presence of left artificial hip joint; X58.XXXA Exposure to other specified factors, initial encounter
CPT/HCPCS: 99284; 96374; 96375 ×3; 96376; 96361 ×4; 36415; 93005; 80053; 82150; 83690; 84132; 85025; 81001; 87086; 74177; J1940; J2405; J1885; S0119; 87077; 87186

== ENCOUNTER → 2019-05-29 | Outpatient (CLI) | payer MEDICARE, BC ==
[2019-05-30 01:34] LABS: ALT 21 U/L (8-44); AST 23 U/L (13-35); Albumin/Globulin Ratio 3.54 (1.60-3.17); Alkaline Phosphatase 94 U/L (41-126); Amylase 57 U/L (23-121); Bilirubin, Conjugated <0.20 mg/dL (0.20-0.40); Globulin 1.3 g/dL (1.6-3.3); Total Bilirubin 0.2 mg/dL (0.2-1.2); Total Protein 5.9 g/dL (6.2-8.2)
== END | disposition home or self-care (01) ==
LOC: LABWHC1 15:36
PROVIDERS: ATTEND Family Medicine
DX: K85.80 Other acute pancreatitis without necrosis or infection (principal)
CPT/HCPCS: 36415; 80076; 82150; 83690

== ENCOUNTER → 2019-06-06 | Outpatient (CLI) | payer MEDICARE, BC ==
--- NOTE | 2019-06-06 15:16 | XR ---
AP pelvis HISTORY: Trauma and pain Single frontal view the pelvis Degenerative disc changes are noted at the lower lumbar spine. Patient is status post left hip arthro plasty. Bone mineralization is reduced. Alignment is maintained. There may be spinal curvature of the patient may be rotated. Probable vascular calcifications are present within the pelvis. Indeterminat e calcification of the left iliac wing is crescentic and may be due to injection granuloma or possibl y calcified diverticulum. IMPRESSION: No fracture or dislocation is evident.
--- NOTE | 2019-06-06 15:18 | XR ---
Left ankle HISTORY: Trauma and pain 3 views of the left ankle Bone mineralization, joint spaces and alignment are maintained. Enthesophyte present at the insertion of the Achilles tendon. Minimal plantar calcaneal spur present. There is mild soft tissue swelling p resent. IMPRESSION: No fracture or dislocation.
--- NOTE | 2019-06-06 15:21 | XR ---
Cervical spine HISTORY: Trauma and pain 5 views of the cervical spine, comparison prior exam 03/26/2017 Postop changes are noted incidentally in the interval. Patient is status post anterior cervical fusio n and discectomy at C4-C6. Multilevel facet arthropathy changes present. Gastrohepatic vascular calci fications noted distribution of the carotid arteries. Foraminal encroachment on the right suspected C3-4, C4-5 and C5-6, foraminal encroachment is suspecte d on the left at C4-5, C5-6, C6-7. C7-T1 is not included on lateral exam. IMPRESSION: No acute fracture or subluxation. Postop changes.. Spondylosis noted anteriorly at C3 is loss of disc height C3-4. Minimal anterolisthesis grade 1 C3-4. Limited exam.
== END | disposition home or self-care (01) ==
LOC: RADXRYALE 08:57
PROVIDERS: ATTEND Family Medicine
DX: M43.12 Spondylolisthesis, cervical region (principal); M47.812 Spondylosis without myelopathy or radiculopathy, cervical region; M25.572 Pain in left ankle and joints of left foot; M25.551 Pain in right hip; W01.10XA Fall on same level from slipping, tripping and stumbling with subsequent striking against unspecified object, initial encounter; Z98.890 Other specified postprocedural states
CPT/HCPCS: 72050; 72170

== ENCOUNTER 2019-11-23 19:34 | Inpatient (IN) | payer MEDICARE, BC ==
--- NOTE | 2019-11-23 20:21 | ED ---
SOB HPI - General Source: patient, manager planning Mode of arrival: ambulatory Limitations: language barrier <Stevie Lenz - Last Filed: 11/23/19 23:11> <Fabio Llanos - Last Filed: 11/24/19 01:40> - General Chief Complaint: Shortness of Breath Stated Complaint: Chest Pain,Diff Breathing Time Seen by Provider: 11/23/19 19:50 - History of Present Illness Initial Comments: Patient is 63-year-old male presenting to the emergency department with a chief complaint of shortness of breath. Patient states she's had a productive cough for the past 3 days. States this morning she woke up with shortness of breath and pleuritic chest pain that is exacerbated on full inspiration. Patient states the pain is located in her "left lung". States it is mostly located in the midsternal region and under her left breast. Patient does have history of angioplasty that was performed by Dr. Braxton approximately 2 years ago. She reports history of pneumonia and states this feels like it. She denies any night sweats or chills. Denies direct exposure to known Covid patient. (Stevie Lenz) - Related Data Home Medications Medication Instructions Recorded Confirmed Allopurinol [Zyloprim] 100 mg PO BID 01/04/15 11/23/19 Gabapentin 600 mg PO BID@0900,2100 01/04/15 11/23/19 Potassium Chloride [Klor-Con 20] 20 meq PO DAILY PRN 01/04/15 11/23/19 Cetirizine HCl [Zyrtec] 10 mg PO BID 01/09/15 11/23/19 Latanoprost Ophth [Xalatan 0.005%] 1 drops BOTH EYES HS 06/28/15 11/23/19 INSULIN LISPRO (HumaLOG) [humaLOG] 30 units SQ TID-W/MEALS 11/17/15 11/23/19 INSULIN LISPRO (HumaLOG) [humaLOG] See Protocol SQ TID-W/MEALS 01/07/16 11/23/19 Hydroxychloroquine Sulfate 200 mg PO BID 01/29/17 11/23/19 [Plaquenil] Insulin Glargine [Lantus] 80 unit SQ BID 01/29/17 11/23/19 oxyCODONE-APAP 10-325MG [Percocet 1 tab PO TID 01/29/17 11/23/19 10-325 mg] Levothyroxine Sodium [Synthroid] 200 mcg PO DAILY@0700 03/26/17 11/23/19 Ergocalciferol (Vitamin D2) 50,000 unit PO Q7D 01/16/18 11/23/19 [Vitamin D2] Gabapentin 1,200 mg PO DAILY@1400 01/16/18 11/23/19 Magnesium Oxide 400 mg PO DAILY 01/16/18 11/23/19 Vit C/Ascorb Sod/Multivit-Min 1,000 mg PO DAILY 01/16/18 11/23/19 [Emergen-C 500 mg Chewable Tab] Amitriptyline HCl 25 mg PO HS 01/31/19 11/23/19 Levalbuterol Hfa Inhaler [Xopenex 1 puff INHALATION RT-QID PRN 01/31/19 11/23/19 Hfa Inhaler] Meloxicam 15 mg PO DAILY 01/31/19 11/23/19 Atenolol [Tenormin] 50 mg PO BID 11/23/19 11/23/19 Baclofen 10 mg PO TID 11/23/19 11/23/19 Bumetanide [BUMEX] 0.5 mg PO BID PRN 11/23/19 11/23/19 Omeprazole [PriLOSEC] 40 mg PO BID 11/23/19 11/23/19 amLODIPine [Norvasc] 10 mg PO DAILY 11/23/19 11/23/19 Previous Rx's Medication Instructions Recorded metFORMIN HCL 1,000 mg PO BID #0 01/18/18 Fenofibrate [Lofibra] 54 mg PO DAILY #30 tab 01/19/18 Aspirin 325 mg PO DAILY 30 Days #30 tab 02/02/19 Ondansetron [Zofran ODT] 4 mg PO Q8HR PRN #15 tab 04/25/19 Allergies Allergy/AdvReac Type Severity Reaction Status Date / Time albuterol Allergy Severe Chest Verified 11/23/19 21:42 Pain, left arm pain, jaw tightness adhesive tape Allergy Itching, Verified 11/23/19 21:42 RED SKIN, PAPER TAPE BEST celecoxib [From Celebrex] Allergy Anaphylaxis Verified 11/23/19 21:42 ,rash/hives ciprofloxacin [From Cipro] Allergy TENDON Verified 11/23/19 21:42 PROBLEMS diphenhydramine Allergy Itching Verified 11/23/19 21:42 [From Benadryl] hydromorphone HCl Allergy Rash/Hives Verified 11/23/19 21:42 [From Dilaudid] rofecoxib [From Vioxx] Allergy anaphylaxis,Rash/Hives, Verified 11/23/19 21:42 palpitations Fish Containing Products AdvReac Nausea & Verified 11/23/19 21:42 [Fish] Vomiting carrots AdvReac Nausea & Uncoded 11/23/19 19:45 Vomiting Review of Systems ROS Other: All systems not noted in ROS Statement are negative. <Stevie Lenz - Last Filed: 11/23/19 23:11> ROS Other: All systems not noted in ROS Statement are negative. <Fabio Llanos - Last Filed: 11/24/19 01:40> ROS Statement: Those systems with pertinent positive or pertinent negative responses have been documented in the HPI. Past Medical History Past Medical History: Asthma, Chest Pain / Angina, Diabetes Mellitus, GERD/Reflux, Hearing Disorder / Deafness, Hypertension, Osteoarthritis (OA), Sleep Apnea/CPAP/BIPAP, Thyroid Disorder Additional Past Medical History / Comment(s): Hx. of Sarcoidosis- LUNG Gout, pt. is deaf, SOB WITH EXERTION. IRON DEFICIENCY ANEMIA. History of Any Multi-Drug Resistant Organisms: ESBL Date of last positivie culture/infection: 07/25/19 MDRO Source:: ESBL URINE Past Surgical History: Back Surgery, Cholecystectomy, Heart Catheterization, Hysterectomy, Joint Replacement Additional Past Surgical History / Comment(s): left hip(mult) and rt knee replacements, rt hip arthroscopy, jaw surgery, rt shoulder, theo oophorectomy, rt hip decompression/bone graft, left knee arthroscopy x 2, CERVICAL DECOMPRESSION AND FUSION OF C4-C6 Past Anesthesia/Blood Transfusion Reactions: Motion Sickness, Postoperative Nausea & Vomiting (PONV) Date of Last Stent Placement:: 01/17/18 Past Psychological History: No Psychological Hx Reported Smoking Status: Former smoker Past Alcohol Use History: None Reported Past Drug Use History: Marijuana - Past Family History Father Family Medical History: Congestive Heart Failure (CHF), Coronary Artery Disease (CAD), Diabetes Mellitus, Liver Disease, Renal Disease Additional Family Medical History / Comment(s): CABG Mother Family Medical History: Cancer, CVA/TIA Additional Family Medical History / Comment(s): Mother is . She had cervical cancer <Stevie Lenz - Last Filed: 11/23/19 23:11> General Exam Limitations: language barrier <Stevie Lenz - Last Filed: 11/23/19 23:11> Course Vital Signs 11/23/19 11/23/19 11/23/19 19:40 20:00 22:00 Temperature 99 F Pulse Rate 59 L 56 L Respiratory 18 18 18 Rate Blood Pressure 114/56 O2 Sat by Pulse 95 91 L Oximetry 11/23/19 23:44 Temperature 97.6 F Pulse Rate 62 Respiratory 18 Rate Blood Pressure 142/69 O2 Sat by Pulse 96 Oximetry Medical Decision Making - Lab Data Result diagrams: 11/23/19 20:24 11/23/19 20:24 <Stevie Lenz - Last Filed: 11/23/19 23:11> - Lab Data Result diagrams: 11/23/19 20:24 11/23/19 20:24 <Fabio Llanos - Last Filed: 11/24/19 01:40> - Medical Decision Making Patient is 63-year-old female presenting to emergency Department with chief complaint of shortness of breath. She does have history of angioplasty, diabetes, obesity, sarcoidosis which is currently in remission. Pleuritic chest pain localized to the left side. Patient does not have leukocytosis. Patient does use oxygen at home. Troponin negative. D-dimer elevated. CT angiogram performed shows no signs of a PE, however it is positive for bilateral interstitial pneumonia with groundglass opacities. I do suspect: This patient considering she has had a nonproductive cough for the past 3 days. Covid testing pending. EKG shows sinus bradycardia. O2 saturation at 91. Considering her risk factors, Patient will be admitted for further medical management. Delay in reading of the computed tomography scan due to technological error, delayed the admission time. Case discussed with . Abdomen physician is Patient is deaf and she is requesting her to be present as an int erpreter. (Stevie Lenz) I saw this patient in conjunction with the physician triage assistant. I performed independent history and physical exam. Agree with case management. (Fabio Llanos) - Lab Data Lab Results 11/23/19 11/23/19 11/23/19 Range/Units 20:24 20:24 20:24 WBC 9.1 (3.8-10.6) k/uL RBC 4.13 (3.80-5.40) m/uL Hgb 10.3 L (11.4-16.0) gm/dL Hct 33.1 L (34.0-46.0) % MCV 80.0 (80.0-100.0) fL MCH 24.9 L (25.0-35.0) pg MCHC 31.2 (31.0-37.0) g/dL RDW 19.2 H (11.5-15.5) % Plt Count 198 (150-450) k/uL Neutrophils % 58 % Lymphocytes % 33 % Monocytes % 3 % Eosinophils % 4 % Basophils % 1 % Neutrophils # 5.3 (1.3-7.7) k/uL Lymphocytes # 3.0 (1.0-4.8) k/uL Monocytes # 0.3 (0-1.0) k/uL Eosinophils # 0.4 (0-0.7) k/uL Basophils # 0.0 (0-0.2) k/uL Hypochromasia Marked Anisocytosis Slight Microcytosis Slight PT 9.6 (9.0-12.0) sec INR 0.9 (<1.2) APTT 23.0 (22.0-30.0) sec D-Dimer 1.03 H (<0.60) mg/L FEU Sodium 138 (137-145) mmol/L Potassium 4.3 (3.5-5.1) mmol/L Chloride 103 (98-107) mmol/L Carbon Dioxide 27 (22-30) mmol/L Anion Gap 8 mmol/L BUN 19 H (7-17) mg/dL Creatinine 0.70 (0.52-1.04) mg/dL Est GFR (CKD-EPI)AfAm >90 (>60 ml/min/1.73 sqM) Est GFR (CKD-EPI)NonAf >90 (>60 ml/min/1.73 sqM) Glucose 231 H (74-99) mg/dL Calcium 9.2 (8.4-10.2) mg/dL Total Bilirubin 0.3 (0.2-1.3) mg/dL AST 38 H (14-36) U/L ALT 24 (4-34) U/L Alkaline Phosphatase 88 (38-126) U/L Troponin I (0.000-0.034) ng/mL Total Protein 6.3 (6.3-8.2) g/dL Albumin 4.3 (3.5-5.0) g/dL 11/23/19 Range/Units 20:24 WBC (3.8-10.6) k/uL RBC (3.80-5.40) m/uL Hgb (11.4-16.0) gm/dL Hct (34.0-46.0) % MCV (80.0-100.0) fL MCH (25.0-35.0) pg MCHC (31.0-37.0) g/dL RDW (11.5-15.5) % Plt Count (150-450) k/uL Neutrophils % % Lymphocytes % % Monocytes % % Eosinophils % % Basophils % % Neutrophils # (1.3-7.7) k/uL Lymphocytes # (1.0-4.8) k/uL Monocytes # (0-1.0) k/uL Eosinophils # (0-0.7) k/uL Basophils # (0-0.2) k/uL Hypochromasia Anisocytosis Microcytosis PT (9.0-12.0) sec INR (<1.2) APTT (22.0-30.0) sec D-Dimer (<0.60) mg/L FEU Sodium (137-145) mmol/L Potassium (3.5-5.1) mmol/L Chloride (98-107) mmol/L Carbon Dioxide (22-30) mmol/L Anion Gap mmol/L BUN (7-17) mg/dL Creatinine (0.52-1.04) mg/dL Est GFR (CKD-EPI)AfAm (>60 ml/min/1.73 sqM) Est GFR (CKD-EPI)NonAf (>60 ml/min/1.73 sqM) Glucose (74-99) mg/dL Calcium (8.4-10.2) mg/dL Total Bilirubin (0.2-1.3) mg/dL AST (14-36) U/L ALT (4-34) U/L Alkaline Phosphatase (38-126) U/L Troponin I <0.012 (0.000-0.034) ng/mL Total Protein (6.3-8.2) g/dL Albumin (3.5-5.0) g/dL Disposition Is patient prescribed a controlled substance at d/c from ED?: No Time of Disposition: 23:21 <Stevie Lenz - Last Filed: 11/23/19 23:11> <Fabio Llanos - Last Filed: 11/24/19 01:40> Clinical Impression: Shortness of breath, Nonproductive cough Disposition: ADMITTED IP TO THIS HOSP Condition: Good
[2019-11-23 20:39] LABS: Anisocytosis Slight; Basophils % (A) 1 %; Eosinophils # (A) 0.4 k/uL (0-0.7); Eosinophils % (A) 4 %; HCT 33.1 % (34.0-46.0); HGB 10.3 gm/dL (11.4-16.0); Hypochromasia Marked; Lymphocytes % (A) 33 %; MCH 24.9 pg (25.0-35.0); MCHC 31.2 g/dL (31.0-37.0); Microcytosis Slight; Monocytes # (A) 0.3 k/uL (0-1.0); Monocytes % (A) 3 %; Neutrophils # (A) 5.3 k/uL (1.3-7.7); Neutrophils % (A) 58 %; Platelet Count 198 k/uL (150-450); RBC 4.13 m/uL (3.80-5.40); RDW 19.2 % (11.5-15.5); WBC 9.1 k/uL (3.8-10.6)
[2019-11-23 20:46] LABS: ALT 24 U/L (4-34); AST 38 U/L (14-36); African American GFR (CKD) >90 (>60 ml/min/1.73 sqM); Albumin 4.3 g/dL (3.5-5.0); Alkaline Phosphatase 88 U/L (38-126); Anion Gap 8 mmol/L; Blood Urea Nitrogen 19 mg/dL (7-17); Calcium 9.2 mg/dL (8.4-10.2); Carbon Dioxide 27 mmol/L (22-30); Chloride 103 mmol/L (98-107); Glucose 231 mg/dL (74-99); Non-African American GFR(CKD) >90 (>60 ml/min/1.73 sqM); Potassium 4.3 mmol/L (3.5-5.1); Sodium 138 mmol/L (137-145); Total Bilirubin 0.3 mg/dL (0.2-1.3); Total Protein 6.3 g/dL (6.3-8.2)
[2019-11-23 20:52] LABS: INR 0.9 (<1.2); Prothrombin Time 9.6 sec (9.0-12.0)
[2019-11-23 20:55] LABS: D-Dimer 1.03 mg/L FEU (<0.60)
--- NOTE | 2019-11-23 21:05 | XR ---
EXAMINATION TYPE: XR chest 2V DATE OF EXAM: 11/23/2019 COMPARISON: Prior chest x-ray dated 01/18/2018 HISTORY: Difficulty breathing, chest pain and shortness of breath TECHNIQUE: Frontal and lateral views of the chest are obtained. FINDINGS: There is no focal air space opacity, pleural effusion, or pneumothorax seen. The cardiac silhouette size is stable. The osseous structures are intact. IMPRESSION: No acute cardiopulmonary disease
--- NOTE | 2019-11-23 22:42 | CT ---
EXAMINATION TYPE: CT chest angio for PE DATE OF EXAM: 11/23/2019 COMPARISON: 11/26/2017 HISTORY: Elevated D-dimer, KEYONNA, chest pain. Hx angina, HTN, asthma. CT DLP: 661.8 mGycm Automated exposure control for dose reduction was used. CONTRAST: Performed with IV Contrast, patient injected with 100 mL of Isovue 370. There are 3-D post processed images. There is some patchy groundglass interstitial infiltrate in both lungs. Heart is enlarged. There is n o pericardial effusion. There is no pleural effusion. There is no evidence of a pulmonary mass. Upper abdominal soft tissues are intact. There are no hilar masses. There is no mediastinal adenopathy. There is normal contrast opacification of the pulmonary arteries. There are no filling defects. Thora cic aorta shows no sign of aneurysm or dissection. The ascending aorta measures 3.6 cm. Thoracic vertebra have fairly normal alignment. There is no compression fracture. There is mild spurr ing of the endplates in the thoracic spine. The ribs appear intact. Sternum is intact. IMPRESSION: No evidence of pulmonary embolism. Patchy groundglass pulmonary interstitial pneumonia. Cardiomegaly. Interstitial pneumonia appears new compared to old exam.
[2019-11-24] MEDS ORDERED: POTASSIUM CHLORIDE ER 20 MEQ TAB.ER PO PRN (01:04)
[2019-11-24] MEDS ORDERED: ONDANSETRON ODT 4 MG TAB PO PRN (01:04)
[2019-11-24] MEDS ORDERED: LEVALBUTEROL INHALATION PRN (01:04)
[2019-11-24] MEDS ORDERED: BUMETANIDE 0.5 MG TABLET PO PRN (01:04)
[2019-11-24] MEDS ORDERED: PNEUMONIA PROTOCOL UTILIZED 1 EACH MISC PO PRN (01:08)
[2019-11-24] MEDS ORDERED: AZITHROMYCIN 500 MG TAB PO STA (01:13)
[2019-11-24] MEDS: SODIUM CHLORIDE 0.9% 1,000 ML IV SCH (01:44)
[2019-11-24] MEDS: MAGNESIUM OXIDE 400 MG TAB PO SCH (07:44)
[2019-11-24] MEDS: LEVOTHYROXINE 100 MCG TAB PO SCH (07:44)
[2019-11-24] MEDS: ATENOLOL 50 MG TAB PO SCH ×2 (07:44→20:45)
[2019-11-24] MEDS: amLODIPine 10 MG TAB PO SCH (07:44)
[2019-11-24] MEDS: PANTOPRAZOLE 40 MG TABLET PO SCH ×2 (07:44→20:45)
[2019-11-24] MEDS: BACLOFEN 10 MG TAB PO SCH ×3 (07:44→21:41)
[2019-11-24] MEDS: ALLOPURINOL 100 MG TAB PO SCH ×2 (07:44→20:45)
[2019-11-24] MEDS: GABAPENTIN 300 MG CAP PO SCH ×2 (07:44→20:45)
[2019-11-24] MEDS: metFORMIN 500 MG TAB PO SCH ×2 (07:44→20:45)
[2019-11-24] MEDS: ASPIRIN 81 MG PO SCH (07:44)
[2019-11-24] MEDS: MELOXICAM 7.5 MG TAB PO SCH (07:44)
[2019-11-24] MEDS: oxyCODONE-APAP 10-325MG 1 EACH TAB PO SCH ×3 (07:46→21:40)
[2019-11-24] MEDS: FENOFIBRATE 54 MG TAB PO SCH (08:19)
[2019-11-24 08:32] LABS: Glucose,Whole Blood 243 mg/dL (75-99)
[2019-11-24] MEDS ORDERED: HYDROXYCHLOROQUINE SULFATE 200 MG TAB PO SCH (09:00)
[2019-11-24 09:30] LABS: Anisocytosis Slight; Basophils % (A) 1 %; Eosinophils # (A) 0.3 k/uL (0-0.7); Eosinophils % (A) 4 %; HCT 30.4 % (34.0-46.0); HGB 9.4 gm/dL (11.4-16.0); Hypochromasia Marked; Lymphocytes % (A) 30 %; MCH 24.9 pg (25.0-35.0); MCHC 30.9 g/dL (31.0-37.0); MCV 80.5 fL (80.0-100.0); Mean Platelet Volume 10.4; Microcytosis Slight; Monocytes # (A) 0.3 k/uL (0-1.0); Monocytes % (A) 4 %; Neutrophils # (A) 4.1 k/uL (1.3-7.7); Neutrophils % (A) 60 %; Platelet Count 165 k/uL (150-450); RBC 3.78 m/uL (3.80-5.40); RDW 19.4 % (11.5-15.5); WBC 6.7 k/uL (3.8-10.6)
[2019-11-24 09:46] LABS: African American GFR (CKD) >90 (>60 ml/min/1.73 sqM); Anion Gap 7 mmol/L; Blood Urea Nitrogen 17 mg/dL (7-17); C Reactive Protein 18.9 mg/L (<10.0); Carbon Dioxide 28 mmol/L (22-30); Chloride 102 mmol/L (98-107); Glucose 220 mg/dL (74-99); LDH 352 U/L (313-618); Non-African American GFR(CKD) >90 (>60 ml/min/1.73 sqM); Potassium 4.4 mmol/L (3.5-5.1); Sodium 137 mmol/L (137-145)
[2019-11-24] MEDS: INSULIN DETEMIR (LEVEMIR) 100 UNIT/ML SYR SQ SCH ×2 (11:19→20:45)
[2019-11-24 12:22] LABS: Glucose,Whole Blood 155 mg/dL (75-99)
--- NOTE | 2019-11-24 13:14 | P.HPIM ---
History of Present Illness this is a pleasant 63 years old female with past medical history of asthma, diabetes mellitus, GERD, hypertension, osteoarthritis, sleep apnea on CPAP/BiPAP, hypothyroidism, history of sarcoidosis . she is a patient of Dr. Witt.presents because of dyspneaat coughing for 3 days duration. She is diabetic with history of osteoarthritis status post hip and knee surgery and replacement, she is having increasing shortness of breath with intermittent cough with clear phlegm but no chest pain, she does not seem in significant re spiratory distress. She is deaf and her to staff as well but there is electronic able seaman at bedside on admission she is afebrile and she saturating 96% on room air, rest of vital signs stable.d-dimer is elevated at 1.0, BMP unremarkable, AST is mildly high at 38, rest of liver tests is unremarkable. We checked inflammatory markers showing increased C-reactive protein of 18.9, lactate dehydrogenase normal 355, ferritin still pending. D-dimer is elevated as above Troponin is less than 0.012, EKG: Sinus bradycardia at 57, no ST T changes, QTC 4:30 chest x-ray no acute process, CTA of the chest: No PE, patchy ground glass interstitial infiltrates in both lung, no evidence of a mass on admission she was started on Zithromax and Rocephin Review of Systems CONSTITUTIONAL: No fever, no malaise, no fatigue. HEENT: No recent visual problems or hearing problems. Denied any sore throat. CARDIOVASCULAR: No orthopnea, PND, no palpitations, no syncope. PULMONARY: No shortness of breath, no cough, no hemoptysis. GASTROINTESTINAL: No diarrhea, no nausea, no vomiting, no abdominal pain. Normoactive bowel sounds. NEUROLOGICAL: No headaches, no weakness, no numbness. HEMATOLOGICAL: Denies any bleeding or petechiae. GENITOURINARY: Denies any burning micturition, frequency, or urgency. MUSCULOSKELETAL/RHEUMATOLOGICAL: Denies any joint pain, swelling, or any muscle pain. ENDOCRINE: Denies any polyuria or polydipsia. Past Medical History Past Medical History: Asthma, Chest Pain / Angina, Diabetes Mellitus, GERD/Reflux, Hearing Disorder / Deafness, Hypertension, Osteoarthritis (OA), Sleep Apnea/CPAP/BIPAP, Thyroid Disorder Additional Past Medical History / Comment(s): Hx. of Sarcoidosis- LUNG Gout, pt. is deaf, SOB WITH EXERTION. IRON DEFICIENCY ANEMIA. History of Any Multi-Drug Resistant Organisms: ESBL Date of last positivie culture/infection: 07/25/19 MDRO Source:: ESBL URINE Past Surgical History: Back Surgery, Cholecystectomy, Heart Catheterization, Hysterectomy, Joint Replacement Additional Past Surgical History / Comment(s): left hip(mult) and rt knee replacements, rt hip arthroscopy, jaw surgery, rt shoulder, theo oophorectomy, r t hip decompression/bone graft, left knee arthroscopy x 2, CERVICAL DECOMPRESSION AND FUSION OF C4-C6 Past Anesthesia/Blood Transfusion Reactions: Motion Sickness, Postoperative Nausea & Vomiting (PONV) Date of Last Stent Placement:: 01/17/18 Past Psychological History: No Psychological Hx Reported Additional Psychological History / Comment(s): Pt resides with her spouse who is also deaf. She uses a walker if she needs to walk distances. She drives. Smoking Status: Former smoker Past Alcohol Use History: None Reported Additional Past Alcohol Use History / Comment(s): social smoker as a teenager 20 or 21. Past Drug Use History: Marijuana Additional Drug Use History / Comment(s): EDIBLE MARIJUANA- PRN PAIN, - Past Family History Father Family Medical History: Congestive Heart Failure (CHF), Coronary Artery Disease (CAD), Diabetes Mellitus, Liver Disease, Renal Disease Additional Family Medical History / Comment(s): CABG Mother Family Medical History: Cancer, CVA/TIA Additional Family Medical History / Comment(s): Mother is . She had cervical cancer Medications and Allergies Home Medications Medication Instructions Recorded Confirmed Type Allopurinol [Zyloprim] 100 mg PO BID 01/04/15 11/23/19 History Gabapentin 600 mg PO BID@0900,2100 01/04/15 11/23/19 History Potassium Chloride [Klor-Con 20] 20 meq PO DAILY PRN 01/04/15 11/23/19 History Cetirizine HCl [Zyrtec] 10 mg PO BID 01/09/15 11/23/19 History Latanoprost Ophth [Xalatan 0.005%] 1 drops BOTH EYES HS 06/28/15 11/23/19 History INSULIN LISPRO (HumaLOG) [humaLOG] 30 units SQ TID-W/MEALS 11/17/15 11/23/19 History INSULIN LISPRO (HumaLOG) [humaLOG] See Protocol SQ TID-W/MEALS 01/07/16 11/23/19 History Hydroxychloroquine Sulfate 200 mg PO BID 01/29/17 11/23/19 History [Plaquenil] Insulin Glargine [Lantus] 80 unit SQ BID 01/29/17 11/23/19 History oxyCODONE-APAP 10-325MG [Percocet 1 tab PO TID 01/29/17 11/23/19 History 10-325 mg] Levothyroxine Sodium [Synthroid] 200 mcg PO DAILY@0700 03/26/17 11/23/19 History Ergocalciferol (Vitamin D2) 50,000 unit PO Q7D 01/16/18 11/23/19 History [Vitamin D2] Gabapentin 1,200 mg PO DAILY@1400 01/16/18 11/23/19 History Magnesium Oxide 400 mg PO DAILY 01/16/18 11/23/19 History Vit C/Ascorb Sod/Multivit-Min 1,000 mg PO DAILY 01/16/18 11/23/19 History [Emergen-C 500 mg Chewable Tab] metFORMIN HCL 1,000 mg PO BID #0 01/18/18 11/23/19 Rx Fenofibrate [Lofibra] 54 mg PO DAILY #30 tab 01/19/18 11/23/19 Rx Amitriptyline HCl 25 mg PO HS 01/31/19 11/23/19 History Levalbuterol Hfa Inhaler [Xopenex 1 puff INHALATION RT-QID PRN 01/31/19 11/23/19 History Hfa Inhaler] Meloxicam 15 mg PO DAILY 01/31/19 11/23/19 History Aspirin 325 mg PO DAILY 30 Days #30 tab 02/02/19 11/23/19 Rx Ondansetron [Zofran ODT] 4 mg PO Q8HR PRN #15 tab 04/25/19 11/23/19 Rx Atenolol [Tenormin] 50 mg PO BID 11/23/19 11/23/19 History Baclofen 10 mg PO TID 11/23/19 11/23/19 History Bumetanide [BUMEX] 0.5 mg PO BID PRN 11/23/19 11/23/19 History Omeprazole [PriLOSEC] 40 mg PO BID 11/23/19 11/23/19 History amLODIPine [Norvasc] 10 mg PO DAILY 11/23/19 11/23/19 History Allergies Allergy/AdvReac Type Severity Reaction Status Date / Time albuterol Allergy Severe Chest Verified 11/23/19 21:42 Pain, left arm pain, jaw tightness adhesive tape Allergy Itching, Verified 11/23/19 21:42 RED SKIN, PAPER TAPE BEST celecoxib [From Celebrex] Allergy Anaphylaxis Verified 11/23/19 21:42 ,rash/hives ciprofloxacin [From Cipro] Allergy TENDON Verified 11/23/19 21:42 PROBLEMS diphenhydramine Allergy Itching Verified 11/23/19 21:42 [From Benadryl] hydromorphone HCl Allergy Rash/Hives Verified 11/23/19 21:42 [From Dilaudid] rofecoxib [From Vioxx] Allergy anaphylaxis,Rash/Hives, Verified 11/23/19 21:42 palpitations Fish Containing Products AdvReac Nausea & Verified 11/23/19 21:42 [Fish] Vomiting carrots AdvReac Nausea & Uncoded 11/23/19 19:45 Vomiting Physical Exam Vitals: Vital Signs Temp Pulse Pulse Resp BP BP Pulse Ox 11/24/19 11:55 16 11/24/19 10:55 98 F 53 L 18 116/69 96 11/24/19 10:38 97.7 F 58 L 18 125/54 100 11/24/19 08:00 97.4 F L 69 18 115/60 97 11/24/19 01:45 62 19 133/66 98 11/23/19 23:44 97.6 F 62 18 142/69 96 11/23/19 22:00 56 L 18 91 L 11/23/19 20:00 18 11/23/19 19:40 99 F 59 L 18 114/56 95 Intake and Output 11/23/19 11/24/19 11/24/19 22:59 06:59 14:59 Other: Weight 117.934 kg 117.934 kg GENERAL: The patient is alert and oriented x3, not in any acute distress. Well developed, well nourished. HEENT: Pupils are round and equally reacting to light. EOMI. No scleral icterus. No conjunctival pallor. Normocephalic, atraumatic. No pharyngeal erythema. No thyromegaly. CARDIOVASCULAR: S1 and S2 present. No murmurs, rubs, or gallops. -PULMONARY: Chest is clear to auscultation, no wheezing or crackles. scattered rales ABDOMEN: Soft, nontender, nondistended, normoactive bowel sounds. No palpable organomegaly. MUSCULOSKELETAL: No joint swelling or deformity. EXTREMITIES: No cyanosis, clubbing, or pedal edema. NEUROLOGICAL: Gross neurological examination did not reveal any focal deficits. SKIN: No rashes. No petechiae Results CBC & Chem 7: 11/24/19 09:08 11/24/19 09:08 Labs: Abnormal Lab Results - Last 24 Hours (Table) 11/23/19 11/23/19 11/23/19 Range/Units 20:24 20:24 20:24 RBC (3.80-5.40) m/uL Hgb 10.3 L (11.4-16.0) gm/dL Hct 33.1 L (34.0-46.0) % MCH 24.9 L (25.0-35.0) pg MCHC (31.0-37.0) g/dL RDW 19.2 H (11.5-15.5) % D-Dimer 1.03 H (<0.60) mg/L FEU BUN 19 H (7-17) mg/dL Glucose 231 H (74-99) mg/dL POC Glucose (mg/dL) (75-99) mg/dL AST 38 H (14-36) U/L C-Reactive Protein (<10.0) mg/L 11/24/19 11/24/19 11/24/19 Range/Units 08:24 09:08 09:08 RBC 3.78 L (3.80-5.40) m/uL Hgb 9.4 L (11.4-16.0) gm/dL Hct 30.4 L (34.0-46.0) % MCH 24.9 L (25.0-35.0) pg MCHC 30.9 L (31.0-37.0) g/dL RDW 19.4 H (11.5-15.5) % D-Dimer 0.70 H (<0.60) mg/L FEU BUN (7-17) mg/dL Glucose (74-99) mg/dL POC Glucose (mg/dL) 243 H (75-99) mg/dL AST (14-36) U/L C-Reactive Protein (<10.0) mg/L 11/24/19 11/24/19 Range/Units 09:08 12:20 RBC (3.80-5.40) m/uL Hgb (11.4-16.0) gm/dL Hct (34.0-46.0) % MCH (25.0-35.0) pg MCHC (31.0-37.0) g/dL RDW (11.5-15.5) % D-Dimer (<0.60) mg/L FEU BUN (7-17) mg/dL Glucose 220 H (74-99) mg/dL POC Glucose (mg/dL) 155 H (75-99) mg/dL AST (14-36) U/L C-Reactive Protein 18.9 H (<10.0) mg/L Thrombosis Risk Factor Assmnt - Choose All That Apply Any of the Below Risk Factors Present?: Yes Each Factor Represents 1 point: Obesity (BMI >25) Other Risk Factors: Yes Each Risk Factor Represents 2 Points: Age 61-74 years Thrombosis Risk Factor Assessment Total Risk Factor Score: 3 Thrombosis Risk Factor Assessment Level: Moderate Risk Assessment and Plan Assessment: bilateral interstitial pneumonia with groundglass appearance, rule out covert, could be related to sarcoidosis Diabetes mellitus Hypertension GERD/asthma Osteoarthritisstatus post knee and hip arthroplasty Sleep apnea on CPAP/BiPAP Hypothyroidism History of sarcoidosis Plan: this is a pleasant 63 years old female who presented for pneumonia with suspected, bit. Continue with Zithromax and Rocephin, follow-up culture results. And consult pulmonary service, continue with oxygen bronchodilator as needed Labs and medication were reviewed.. Continue same treatment. Continue with symptomatic treatment. Resume home medication. Monitor lytes and vitals. DVT and GI prophylaxis. Further recommendations of the clinical course of the patient DVT prophylaxis: Subcutaneous Lovenox GI Prophylaxis: Pepcid Prognosis is guarded
[2019-11-24] MEDS ORDERED: FAMOTIDINE 20 MG/2 ML VIAL IV SCH (13:15)
[2019-11-24] MEDS: INSULIN ASPART (NovoLOG) 100 UNIT/ML VIAL SQ SCH ×5 (13:23→21:26)
--- NOTE | 2019-11-24 13:30 | P.CNPUL ---
History of Present Illness Consult date: 11/24/19 Reason for consult: dyspnea History of present illness: 63-year-old female patient, obese, mute and deaf, has history of sarcoidosis and has history of Perthes disease in addition multiple other comorbidities including diabetes mellitus, obstructive sleep apnea maintained on CPAP, hypertension and hypothyroidism and acid reflux. The patient came into the hospital because of daily work of increased shortness of breath and cough. No documented fever. On admission, the patient was afebrile and the patient's pulse ox was 96% on room air oxygen. A computed tomography scan of the chest was done in the emergency department that showed some diffuse bilateral ground glass pulmonary infiltrates and for that reason the patient was started on antibiotics and the patient was admitted to the hospital for further evaluation. EKG showed sinus bradycardia with a heart rate of 57. Troponins of 0.012. C- reactive protein was 18.9. LDH was 355. Ferritin is still pending for now. D- dimer is elevated mildly at 1.03. The patient was a count is at 9.1 with a hemoglobin of 10.3. No significant lymphopenia. The alston virus Covid 19 evaluation still pending for now. He went, the patient was given accommodation of Rocephin and Zithromax and she was admitted to the floor for further evaluation. Currently she is in droplet isolation. Review of Systems CONSTITUTIONAL: No fever, no malaise, no fatigue. HEENT: No recent visual problems or hearing problems. Denied any sore throat. CARDIOVASCULAR: No orthopnea, PND, no palpitations, no syncope. PULMONARY: No shortness of breath, no cough, no hemoptysis. GASTROINTESTINAL: No diarrhea, no nausea, no vomiting, no abdominal pain. Normoactive bowel sounds. NEUROLOGICAL: No headaches, no weakness, no numbness. HEMATOLOGICAL: Denies any bleeding or petechiae. GENITOURINARY: Denies any burning micturition, frequency, or urgency. MUSCULOSKELETAL/RHEUMATOLOGICAL: Denies any joint pain, swelling, or any muscle pain. ENDOCRINE: Denies any polyuria or polydipsia. Past Medical History Past Medical History: Asthma, Chest Pain / Angina, Diabetes Mellitus, GERD/Reflux, Hearing Disorder / Deafness, Hypertension, Osteoarthritis (OA), Sleep Apnea/CPAP/BIPAP, Thyroid Disorder Additional Past Medical History / Comment(s): Hx. of Sarcoidosis- LUNG Gout, pt. is deaf, SOB WITH EXERTION. IRON DEFICIENCY ANEMIA. History of Any Multi-Drug Resistant Organisms: ESBL Date of last positivie culture/infection: 07/25/19 MDRO Source:: ESBL URINE Past Surgical History: Back Surgery, Cholecystectomy, Heart Catheterization, Hysterectomy, Joint Replacement Additional Past Surgical History / Comment(s): left hip(mult) and rt knee replacements, rt hip arthroscopy, jaw surgery, rt shoulder, theo oophorectomy, rt hip decompression/bone graft, left knee arthroscopy x 2, CERVICAL DECOMPRESSION AND FUSION OF C4-C6 Past Anesthesia/Blood Transfusion Reactions: Motion Sickness, Postoperative Nausea & Vomiting (PONV) Date of Last Stent Placement:: 01/17/18 Past Psychological History: No Psychological Hx Reported Additional Psychological History / Comment(s): Pt resides with her spouse who is also deaf. She uses a walker if she needs to walk distances. She drives. Smoking Status: Former smoker Past Alcohol Use History: None Reported Additional Past Alcohol Use History / Comment(s): social smoker as a teenager 20 or 21. Past Drug Use History: Marijuana Additional Drug Use History / Comment(s): EDIBLE MARIJUANA- PRN PAIN, - Past Family History Father Family Medical History: Congestive Heart Failure (CHF), Coronary Artery Disease (CAD), Diabetes Mellitus, Liver Disease, Renal Disease Additional Family Medical History / Comment(s): CABG Mother Family Medical History: Cancer, CVA/TIA Additional Family Medical History / Comment(s): Mother is . She had cervical cancer Medications and Allergies Home Medications Medication Instructions Recorded Confirmed Type Allopurinol [Zyloprim] 100 mg PO BID 01/04/15 11/23/19 History Gabapentin 600 mg PO BID@0900,2100 01/04/15 11/23/19 History Potassium Chloride [Klor-Con 20] 20 meq PO DAILY PRN 01/04/15 11/23/19 History Cetirizine HCl [Zyrtec] 10 mg PO BID 01/09/15 11/23/19 History Latanoprost Ophth [Xalatan 0.005%] 1 drops BOTH EYES HS 06/28/15 11/23/19 History INSULIN LISPRO (HumaLOG) [humaLOG] 30 units SQ TID-W/MEALS 11/17/15 11/23/19 History INSULIN LISPRO (HumaLOG) [humaLOG] See Protocol SQ TID-W/MEALS 01/07/16 11/23/19 History Hydroxychloroquine Sulfate 200 mg PO BID 01/29/17 11/23/19 History [Plaquenil] Insulin Glargine [Lantus] 80 unit SQ BID 01/29/17 11/23/19 History oxyCODONE-APAP 10-325MG [Percocet 1 tab PO TID 01/29/17 11/23/19 History 10-325 mg] Levothyroxine Sodium [Synthroid] 200 mcg PO DAILY@0700 03/26/17 11/23/19 History Ergocalciferol (Vitamin D2) 50,000 unit PO Q7D 01/16/18 11/23/19 History [Vitamin D2] Gabapentin 1,200 mg PO DAILY@1400 01/16/18 11/23/19 History Magnesium Oxide 400 mg PO DAILY 01/16/18 11/23/19 History Vit C/Ascorb Sod/Multivit-Min 1,000 mg PO DAILY 01/16/18 11/23/19 History [Emergen-C 500 mg Chewable Tab] metFORMIN HCL 1,000 mg PO BID #0 01/18/18 11/23/19 Rx Fenofibrate [Lofibra] 54 mg PO DAILY #30 tab 01/19/18 11/23/19 Rx Amitriptyline HCl 25 mg PO HS 01/31/19 11/23/19 History Levalbuterol Hfa Inhaler [Xopenex 1 puff INHALATION RT-QID PRN 01/31/19 11/23/19 History Hfa Inhaler] Meloxicam 15 mg PO DAILY 01/31/19 11/23/19 History Aspirin 325 mg PO DAILY 30 Days #30 tab 02/02/19 11/23/19 Rx Ondansetron [Zofran ODT] 4 mg PO Q8HR PRN #15 tab 04/25/19 11/23/19 Rx Atenolol [Tenormin] 50 mg PO BID 11/23/19 11/23/19 History Baclofen 10 mg PO TID 11/23/19 11/23/19 History Bumetanide [BUMEX] 0.5 mg PO BID PRN 11/23/19 11/23/19 History Omeprazole [PriLOSEC] 40 mg PO BID 11/23/19 11/23/19 History amLODIPine [Norvasc] 10 mg PO DAILY 11/23/19 11/23/19 History Allergies Allergy/AdvReac Type Severity Reaction Status Date / Time albuterol Allergy Severe Chest Verified 11/23/19 21:42 Pain, left arm pain, jaw tightness adhesive tape Allergy Itching, Verified 11/23/19 21:42 RED SKIN, PAPER TAPE BEST celecoxib [From Celebrex] Allergy Anaphylaxis Verified 11/23/19 21:42 ,rash/hives ciprofloxacin [From Cipro] Allergy TENDON Verified 11/23/19 21:42 PROBLEMS diphenhydramine Allergy Itching Verified 11/23/19 21:42 [From Benadryl] hydromorphone HCl Allergy Rash/Hives Verified 11/23/19 21:42 [From Dilaudid] rofecoxib [From Vioxx] Allergy anaphylaxis,Rash/Hives, Verified 11/23/19 21:42 palpitations Fish Containing Products AdvReac Nausea & Verified 11/23/19 21:42 [Fish] Vomiting carrots AdvReac Nausea & Uncoded 11/23/19 19:45 Vomiting Physical Exam Vitals: Vital Signs Temp Pulse Pulse Resp BP BP Pulse Ox 11/24/19 11:55 16 11/24/19 10:55 98 F 53 L 18 116/69 96 11/24/19 10:38 97.7 F 58 L 18 125/54 100 11/24/19 08:00 97.4 F L 69 18 115/60 97 11/24/19 01:45 62 19 133/66 98 11/23/19 23:44 97.6 F 62 18 142/69 96 11/23/19 22:00 56 L 18 91 L 11/23/19 20:00 18 11/23/19 19:40 99 F 59 L 18 114/56 95 Intake and Output 11/23/19 11/24/19 11/24/19 22:59 06:59 14:59 Other: Weight 117.934 kg 117.934 kg GENERAL: The patient is alert and oriented x3, not in any acute distress. Well developed, well nourished. HEENT: Pupils are round and equally reacting to light. EOMI. No scleral icterus. No conjunctival pallor. Normocephalic, atraumatic. No pharyngeal erythema. No thyromegaly. CARDIOVASCULAR: S1 and S2 present. No murmurs, rubs, or gallops. -PULMONARY: Chest is clear to auscultation, no wheezing or crackles. scattered rales ABDOMEN: Soft, nontender, nondistended, normoactive bowel sounds. No palpable organomegaly. MUSCULOSKELETAL: No joint swelling or deformity. EXTREMITIES: No cyanosis, clubbing, or pedal edema. NEUROLOGICAL: Gross neurological examination did not reveal any focal deficits. SKIN: No rashes. No petechiae Results - Laboratory Findings CBC and BMP: 11/24/19 09:08 11/24/19 09:08 PT/INR, D-dimer PT 9.6 sec (9.0-12.0) 11/23/19 20:24 INR 0.9 (<1.2) 11/23/19 20:24 D-Dimer 0.70 mg/L FEU (<0.60) H 11/24/19 09:08 Abnormal lab findings: Abnormal Labs 11/23/19 11/23/19 11/23/19 20:24 20:24 20:24 RBC Hgb 10.3 L Hct 33.1 L MCH 24.9 L MCHC RDW 19.2 H D-Dimer 1.03 H BUN 19 H Glucose 231 H POC Glucose (mg/dL) AST 38 H C-Reactive Protein 11/24/19 11/24/19 11/24/19 08:24 09:08 09:08 RBC 3.78 L Hgb 9.4 L Hct 30.4 L MCH 24.9 L MCHC 30.9 L RDW 19.4 H D-Dimer 0.70 H BUN Glucose POC Glucose (mg/dL) 243 H AST C-Reactive Protein 11/24/19 11/24/19 09:08 12:20 RBC Hgb Hct MCH MCHC RDW D-Dimer BUN Glucose 220 H POC Glucose (mg/dL) 155 H AST C-Reactive Protein 18.9 H - Diagnostic Findings CT scan - chest: image reviewed Assessment and Plan Plan: 1 acute bilateral interstitial pneumonia with diffuse but the groundglass changes. I'll these felt to be less likely. Sarcoidosis felt to be less likely. Consider viral pneumonia. Consider alston virus Covid 19 infection of the lungs. Consider interstitial edema/CHF. 2 shortness of breath secondary to above 3 sarcoidosis by history, treated and her last CAT scan from 2018 was within normal limits 4 obstructive sleep apnea 5 diabetes mellitus 6 hypertension 7 Perthes disease 8 hypothyroidism 9 deaf and mute. Plan Check alston virus Covid 19 nasal swab Check proBNP level Check pro-calcitonin level Continue same antibiotic coverage Continue BiPAP for respiratory support Resume indications Levemir insulin in addition to sliding scale coverage We'll continue to follow
[2019-11-24] MEDS ORDERED: GABAPENTIN 300 MG CAP PO SCH (14:00)
[2019-11-24 16:06] LABS: Ferritin 542.6 ng/mL (10.0-291.0)
[2019-11-24] MEDS ORDERED: ONDANSETRON 4 MG TAB PO PRN (16:19)
[2019-11-24] MEDS ORDERED: SENNOSIDES 8.6 MG TAB PO PRN (16:20)
[2019-11-24 17:03] LABS: Glucose,Whole Blood 147 mg/dL (75-99)
[2019-11-24] MEDS ORDERED: LATANOPROST 0.005% OPHTH DROPS 2.5 ML BTL BOTH EYES SCH (21:00)
[2019-11-24] MEDS ORDERED: AMITRIPTYLINE HCL 25 MG TAB PO SCH (21:00)
[2019-11-24 21:02] LABS: Glucose,Whole Blood 187 mg/dL (75-99)
[2019-11-25 01:26] LABS: Glucose,Whole Blood 107 mg/dL (75-99)
[2019-11-25] MEDS: SODIUM CHLORIDE 0.9% 1,000 ML IV SCH (01:31)
[2019-11-25] MEDS ORDERED: AZITHROMYCIN 500 MG TAB PO SCH (02:00)
[2019-11-25 02:12] VITALS: TEMP 97.8
[2019-11-25] MEDS: LEVOTHYROXINE 100 MCG TAB PO SCH (06:06)
[2019-11-25 07:17] LABS: Glucose,Whole Blood 84 mg/dL (75-99)
[2019-11-25] MEDS: INSULIN ASPART (NovoLOG) 100 UNIT/ML VIAL SQ SCH ×4 (07:30→12:18)
[2019-11-25] MEDS: metFORMIN 500 MG TAB PO SCH (08:05)
[2019-11-25] MEDS: ASPIRIN 81 MG PO SCH (08:05)
[2019-11-25] MEDS: FENOFIBRATE 54 MG TAB PO SCH (08:05)
[2019-11-25] MEDS: oxyCODONE-APAP 10-325MG 1 EACH TAB PO SCH (08:05)
[2019-11-25] MEDS: MAGNESIUM OXIDE 400 MG TAB PO SCH (08:05)
[2019-11-25] MEDS: INSULIN DETEMIR (LEVEMIR) 100 UNIT/ML SYR SQ SCH (08:05)
[2019-11-25] MEDS: GABAPENTIN 300 MG CAP PO SCH (08:06)
[2019-11-25] MEDS: BACLOFEN 10 MG TAB PO SCH (08:06)
[2019-11-25] MEDS: MELOXICAM 7.5 MG TAB PO SCH (08:07)
[2019-11-25] MEDS: PANTOPRAZOLE 40 MG TABLET PO SCH (08:08)
[2019-11-25] MEDS: ALLOPURINOL 100 MG TAB PO SCH (08:08)
[2019-11-25] MEDS: ATENOLOL 50 MG TAB PO SCH (08:08)
[2019-11-25] MEDS: amLODIPine 10 MG TAB PO SCH (08:08)
[2019-11-25 08:18] VITALS: BP 138/73; PULSE 55; RESP 19
[2019-11-25] MEDS ORDERED: FAMOTIDINE 20 MG TAB PO SCH (09:00)
[2019-11-25] MEDS ORDERED: MULTIVITAMINS, THERA 1 EACH TAB PO SCH (09:00)
[2019-11-25 10:00] LABS: African American GFR (CKD) >90 (>60 ml/min/1.73 sqM); Anion Gap 7 mmol/L; Blood Urea Nitrogen 19 mg/dL (7-17); C Reactive Protein 19.4 mg/L (<10.0); Calcium 9.2 mg/dL (8.4-10.2); Carbon Dioxide 28 mmol/L (22-30); Chloride 101 mmol/L (98-107); Glucose 166 mg/dL (74-99); LDH 399 U/L (313-618); Non-African American GFR(CKD) 84 (>60 ml/min/1.73 sqM); Potassium 4.6 mmol/L (3.5-5.1); Sodium 136 mmol/L (137-145)
[2019-11-25 10:16] LABS: Anisocytosis Slight; Basophils % (A) 0 %; Eosinophils # (A) 0.3 k/uL (0-0.7); Eosinophils % (A) 4 %; HCT 33.1 % (34.0-46.0); HGB 10.2 gm/dL (11.4-16.0); Hypochromasia Marked; Lymphocytes # (A) 2.2 k/uL (1.0-4.8); Lymphocytes % (A) 33 %; MCHC 30.8 g/dL (31.0-37.0); MCV 81.2 fL (80.0-100.0); Mean Platelet Volume 10.2; Microcytosis Slight; Monocytes # (A) 0.3 k/uL (0-1.0); Monocytes % (A) 5 %; Neutrophils # (A) 3.7 k/uL (1.3-7.7); Neutrophils % (A) 56 %; Platelet Count 179 k/uL (150-450); RBC 4.08 m/uL (3.80-5.40); RDW 19.5 % (11.5-15.5); WBC 6.6 k/uL (3.8-10.6)
[2019-11-25 11:08] LABS: Glucose,Whole Blood 133 mg/dL (75-99)
--- NOTE | 2019-11-25 13:10 | P.PN ---
Subjective Progress Note Date: 11/25/19 Principal diagnosis: Acute bilateral interstitial pneumonia. Coronavirus ruled out 63-year-old female patient, obese, mute and deaf, has history of sarcoidosis and has history of Perthes disease in addition multiple other comorbidities including diabetes mellitus, obstructive sleep apnea maintained on CPAP, hypertension and hypothyroidism and acid reflux. The patient came into the hospital because of daily work of increased shortness of breath and cough. No documented fever. On admission, the patient was afebrile and the patient's pulse ox was 96% on room air oxygen. A computed tomography scan of the chest was done in the emergency department that showed some diffuse bilateral ground glass pulmonary infiltrates and for that reason the patient was started on antibiotics and the patient was admitted to the hospital for further evaluation. EKG showed sinus bradycardia with a heart rate of 57. Troponins of 0.012. C- reactive protein was 18.9. LDH was 355. Ferritin is still pending for now. D- dimer is elevated mildly at 1.03. The patient was a count is at 9.1 with a hemoglobin of 10.3. No significant lymphopenia. The alston virus Covid 19 evaluation still pending for now. He went, the patient was given accommodation of Rocephin and Zithromax and she was admitted to the floor for further evaluation. Currently she is in droplet isolation. The patient is seen today 11/25/2019 in follow-up on the regular medical floor. She is currently sitting up at the bedside. Her sister is with her who is interpreting for her today. She denies any worsening shortness of breath, cough or congestion. Maintaining O2 saturation in the 90s on room air. She's afebrile. Hemodynamically stable. Blood cultures reveal no growth to date. White count 6.6. Hemoglobin 10.2. Sodium 136. Potassium 4.6. Creatinine 0.77. LDH 399. C-reactive protein 19.4. Objective - Vital Signs Vital signs: Vital Signs Temp 97.8 F 11/25/19 07:00 Pulse 55 L 11/25/19 07:00 Resp 19 11/25/19 08:05 BP 138/73 11/25/19 07:00 Pulse Ox 91 L 11/25/19 07:00 Intake & Output 11/24/19 11/25/19 11/25/19 18:59 06:59 18:59 Intake Total 100 200 Balance 100 200 Intake: Intake, IV Titration 100 Amount cefTRIAXone 1 gm In 100 Sodium Chloride 0.9% 50 ml @ 100 mls/hr IVPB Q24H [facility] Rx#:[id number] Oral 200 Other: Voiding Method Toilet # Voids 1 1 - Exam GENERAL: The patient is alert and oriented x3, pleasant 63-year-old female patient, not in any acute distress. Well developed, well nourished. HEENT: Pupils are round and equally reacting to light. EOMI. No scleral icterus. No conjunctival pallor. Normocephalic, atraumatic. No pharyngeal erythema. No thyromegaly. CARDIOVASCULAR: S1 and S2 present. No murmurs, rubs, or gallops. -PULMONARY: Chest is clear to auscultation, no wheezing or crackles. Few scattered rales ABDOMEN: Soft, nontender, nondistended, normoactive bowel sounds. No palpable organomegaly. MUSCULOSKELETAL: No joint swelling or deformity. EXTREMITIES: No cyanosis, clubbing, or pedal edema. NEUROLOGICAL: Gross neurological examination did not reveal any focal deficits. SKIN: No rashes. No petechiae - Labs CBC & Chem 7: 11/25/19 09:25 11/25/19 09:25 Labs: Abnormal Lab Results - Last 24 Hours (Table) 11/24/19 11/24/19 11/24/19 Range/Units 09:08 17:01 20:12 Hgb (11.4-16.0) gm/dL Hct (34.0-46.0) % MCHC (31.0-37.0) g/dL RDW (11.5-15.5) % Sodium (137-145) mmol/L BUN (7-17) mg/dL Glucose (74-99) mg/dL POC Glucose (mg/dL) 147 H 187 H (75-99) mg/dL Ferritin 542.6 H (10.0-291.0) ng/mL C-Reactive Protein (<10.0) mg/L 11/25/19 11/25/19 11/25/19 Range/Units 01:12 09:25 09:25 Hgb 10.2 L (11.4-16.0) gm/dL Hct 33.1 L (34.0-46.0) % MCHC 30.8 L (31.0-37.0) g/dL RDW 19.5 H (11.5-15.5) % Sodium 136 L (137-145) mmol/L BUN 19 H (7-17) mg/dL Glucose 166 H (74-99) mg/dL POC Glucose (mg/dL) 107 H (75-99) mg/dL Ferritin (10.0-291.0) ng/mL C-Reactive Protein 19.4 H (<10.0) mg/L 11/25/19 Range/Units 11:03 Hgb (11.4-16.0) gm/dL Hct (34.0-46.0) % MCHC (31.0-37.0) g/dL RDW (11.5-15.5) % Sodium (137-145) mmol/L BUN (7-17) mg/dL Glucose (74-99) mg/dL POC Glucose (mg/dL) 133 H (75-99) mg/dL Ferritin (10.0-291.0) ng/mL C-Reactive Protein (<10.0) mg/L Microbiology - Last 24 Hours (Table) 11/24/19 02:01 Blood Culture - Preliminary Blood No Growth after 24 hours 11/24/19 01:34 Blood Culture - Preliminary Blood No Growth after 24 hours Assessment and Plan Assessment: 1 acute bilateral interstitial pneumonia with diffuse but the groundglass changes. I'll these felt to be less likely. Sarcoidosis felt to be less likely. Consider viral pneumonia. Coronavirus ruled out. Consider interstitial edema/CHF. 2 shortness of breath secondary to above 3 sarcoidosis by history, treated and her last CAT scan from 2018 was within normal limits 4 obstructive sleep apnea 5 diabetes mellitus 6 hypertension 7 Perthes disease 8 hypothyroidism 9 deaf and mute. Plan The patient was seen and evaluated by Dr. Haider She is cleared for discharge from the pulmonary standpoint Encouraged to self quarantine despite the negative Covid screening Complete a course of antibiotics Follow-up in our office in 1-2 weeks' time I, the cosigning physician, performed a history & physical examination of the patient. Lungs sounds are clear anteriorly with few scattered rales. Maintaining good O2 saturations in the 90s on room air. I discussed the assessment and plan of care with my nurse practitioner, Bere Ashlee. I attest to the above note as dictated by her.
--- NOTE | 2019-11-25 15:48 | P.DS ---
Providers Date of admission: 11/23/19 23:10 Attending physician: Marcela Lawrence Consults: 11/24/19 08:58 Consult Physician Routine Consulting Provider: Allan Haider Consult Reason/Comments: pna , possible covid Do you want consulting provider notified?: Yes [facility] Course: Patient with a history of obstructive sleep apnea and COPD came in with complains of shortness of breath, no significant fever may have mild low-grade fever on admission found to have groundglass T's patient the was suspected to have COVID 19 as of groundglass T is on the chest x-ray and Covid 19 was subsequently ruled out. PCR testing. Patient may have atypical pneumonia patient was treated for pneumonia patient is ALLERGIC to fluoroquinolones patient is being discharged on Ceftin and azithromycin patient is feeling better and is at her baseline. PHYSICAL EXAMINATION: GENERAL: The patient is alert and oriented x3, not in any acute distress. Obese HEENT: Pupils are round and equally reacting to light. EOMI. No scleral icterus. No conjunctival pallor. Normocephalic, atraumatic. No pharyngeal erythema. No thyromegaly. CARDIOVASCULAR: S1 and S2 present. No murmurs, rubs, or gallops. PULMONARY: Chest is clear to auscultation, no wheezing or crackles. ABDOMEN: Soft, nontender, nondistended, normoactive bowel sounds. No palpable organomegaly. MUSCULOSKELETAL: No joint swelling or deformity. EXTREMITIES: No cyanosis, clubbing, or pedal edema. NEUROLOGICAL: Gross neurological examination did not reveal any focal deficits. SKIN: No rashes. For rest of the medical problems medical problems and hospitalization course please refer to the H&P from Dr. watts Patient Condition at Discharge: Good Plan - Discharge Summary Discharge Rx Participant: No New Discharge Prescriptions: New Azithromycin [Zithromax] 500 mg PO Q24H #5 tab Cefuroxime Axetil [Ceftin] 500 mg PO BID 7 Days #14 tab Continue Potassium Chloride [Klor-Con 20] 20 meq PO DAILY PRN PRN Reason: "WHEN TAKING WATER PILL" Allopurinol [Zyloprim] 100 mg PO BID Gabapentin 600 mg PO BID@0900,2100 Cetirizine HCl [Zyrtec] 10 mg PO BID Latanoprost Ophth [Xalatan 0.005%] 1 drops BOTH EYES HS INSULIN LISPRO (HumaLOG) [humaLOG] 30 units SQ TID-W/MEALS INSULIN LISPRO (HumaLOG) [humaLOG] See Protocol SQ TID-W/MEALS Insulin Glargine [Lantus] 80 unit SQ BID oxyCODONE-APAP 10-325MG [Percocet 10-325 mg] 1 tab PO TID Hydroxychloroquine Sulfate [Plaquenil] 200 mg PO BID Levothyroxine Sodium [Synthroid] 200 mcg PO DAILY@0700 Magnesium Oxide 400 mg PO DAILY Ergocalciferol (Vitamin D2) [Vitamin D2] 50,000 unit PO Q7D Vit C/Ascorb Sod/Multivit-Min [Emergen-C 500 mg Chewable Tab] 1,000 mg PO DAILY Gabapentin 1,200 mg PO DAILY@1400 metFORMIN HCL 1,000 mg PO BID #0 Fenofibrate [Lofibra] 54 mg PO DAILY #30 tab Levalbuterol Hfa Inhaler [Xopenex Hfa Inhaler] 1 puff INHALATION RT-QID PRN PRN Reason: Shortness Of Breath Meloxicam 15 mg PO DAILY Amitriptyline HCl 25 mg PO HS Aspirin 325 mg PO DAILY 30 Days #30 tab Ondansetron [Zofran ODT] 4 mg PO Q8HR PRN #15 tab PRN Reason: Nausea Bumetanide [BUMEX] 0.5 mg PO BID PRN PRN Reason: Edema Baclofen 10 mg PO TID amLODIPine [Norvasc] 10 mg PO DAILY Omeprazole [PriLOSEC] 40 mg PO BID Atenolol [Tenormin] 50 mg PO BID Discharge Medication List Allopurinol [Zyloprim] 100 mg PO BID 01/04/15 [History] Gabapentin 600 mg PO BID@0900,2100 01/04/15 [History] Potassium Chloride [Klor-Con 20] 20 meq PO DAILY PRN 01/04/15 [History] Cetirizine HCl [Zyrtec] 10 mg PO BID 01/09/15 [History] Latanoprost Ophth [Xalatan 0.005%] 1 drops BOTH EYES HS 06/28/15 [History] INSULIN LISPRO (HumaLOG) [humaLOG] 30 units SQ TID-W/MEALS 11/17/15 [History] INSULIN LISPRO (HumaLOG) [humaLOG] See Protocol SQ TID-W/MEALS 01/07/16 [Histor y] Hydroxychloroquine Sulfate [Plaquenil] 200 mg PO BID 01/29/17 [History] Insulin Glargine [Lantus] 80 unit SQ BID 01/29/17 [History] oxyCODONE-APAP 10-325MG [Percocet 10-325 mg] 1 tab PO TID 01/29/17 [History] Levothyroxine Sodium [Synthroid] 200 mcg PO DAILY@0700 03/26/17 [History] Ergocalciferol (Vitamin D2) [Vitamin D2] 50,000 unit PO Q7D 01/16/18 [History] Gabapentin 1,200 mg PO DAILY@1400 01/16/18 [History] Magnesium Oxide 400 mg PO DAILY 01/16/18 [History] Vit C/Ascorb Sod/Multivit-Min [Emergen-C 500 mg Chewable Tab] 1,000 mg PO DAILY 01/16/18 [History] metFORMIN HCL 1,000 mg PO BID #0 01/18/18 [Rx] Fenofibrate [Lofibra] 54 mg PO DAILY #30 tab 01/19/18 [Rx] Amitriptyline HCl 25 mg PO HS 01/31/19 [History] Levalbuterol Hfa Inhaler [Xopenex Hfa Inhaler] 1 puff INHALATION RT-QID PRN 0 01/31/19 [History] Meloxicam 15 mg PO DAILY 01/31/19 [History] Aspirin 325 mg PO DAILY 30 Days #30 tab 02/02/19 [Rx] Ondansetron [Zofran ODT] 4 mg PO Q8HR PRN #15 tab 04/25/19 [Rx] Atenolol [Tenormin] 50 mg PO BID 11/23/19 [History] Baclofen 10 mg PO TID 11/23/19 [History] Bumetanide [BUMEX] 0.5 mg PO BID PRN 11/23/19 [History] Omeprazole [PriLOSEC] 40 mg PO BID 11/23/19 [History] amLODIPine [Norvasc] 10 mg PO DAILY 11/23/19 [History] Azithromycin [Zithromax] 500 mg PO Q24H #5 tab 11/25/19 [Rx] Cefuroxime Axetil [Ceftin] 500 mg PO BID 7 Days #14 tab 11/25/19 [Rx] Follow up Appointment(s)/Referral(s): Jaswant Witt DO [Primary Care Provider] - 3 Days Allan Haider MD [STAFF PHYSICIAN] - 1 Week Patient Instructions/Handouts: Viral Pneumonia (DC) Activity/Diet/Wound Care/Special Instructions: She will be admitted Discharge Disposition: HOME SELF-CARE
[2019-12-01] MEDS ORDERED: ERGOCALCIFEROL 50,000 UNIT CAP PO SCH (09:00)
== END 2019-11-25 13:38 | disposition home or self-care (01) | DRG 194 ==
LOC: EC 19:34 → 4SSUR 23:10
PROVIDERS: ADMIT Hospitalist; ATTEND Hospitalist
DX: J18.9 Pneumonia, unspecified organism (principal); J44.0 Chronic obstructive pulmonary disease with (acute) lower respiratory infection; Z20.828 Contact with and (suspected) exposure to other viral communicable diseases; D86.9 Sarcoidosis, unspecified; E03.9 Hypothyroidism, unspecified; E11.9 Type 2 diabetes mellitus without complications; E66.9 Obesity, unspecified; G47.33 Obstructive sleep apnea (adult) (pediatric); H91.3 Deaf nonspeaking, not elsewhere classified; I10 Essential (primary) hypertension; K21.9 Gastro-esophageal reflux disease without esophagitis; M91.10 Juvenile osteochondrosis of head of femur [Legg-Calve-Perthes], unspecified leg; D50.9 Iron deficiency anemia, unspecified; M10.9 Gout, unspecified; M19.90 Unspecified osteoarthritis, unspecified site; R00.1 Bradycardia, unspecified; Z79.1 Long term (current) use of non-steroidal anti-inflammatories (NSAID); Z79.4 Long term (current) use of insulin; Z79.82 Long term (current) use of aspirin; Z79.890 Hormone replacement therapy; Z79.899 Other long term (current) drug therapy; Z98.1 Arthrodesis status; Z90.710 Acquired absence of both cervix and uterus; Z87.891 Personal history of nicotine dependence; Z87.01 Personal history of pneumonia (recurrent); Z88.1 Allergy status to other antibiotic agents; Z88.5 Allergy status to narcotic agent; Z88.8 Allergy status to other drugs, medicaments and biological substances; Z91.018 Allergy to other foods; Z90.49 Acquired absence of other specified parts of digestive tract; Z96.642 Presence of left artificial hip joint; Z96.651 Presence of right artificial knee joint; Z90.722 Acquired absence of ovaries, bilateral; Z80.49 Family history of malignant neoplasm of other genital organs; Z82.49 Family history of ischemic heart disease and other diseases of the circulatory system; Z83.3 Family history of diabetes mellitus; Z82.3 Family history of stroke; Z83.79 Family history of other diseases of the digestive system; Z84.1 Family history of disorders of kidney and ureter; Z99.89 Dependence on other enabling machines and devices
CPT/HCPCS: 36415; 71046; 71275; 80048; 80053; 82728; 83615; 83880; 84145; 84484; 85025; 85379; 85610; 85730; 86140; 87040; 87070; 87205; 93005; 96361; 96365; 99285

== ENCOUNTER 2019-11-29 16:22 | Inpatient (IN) | payer MEDICARE, BC ==
--- NOTE | 2019-11-29 17:09 | ED ---
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 She also stated that she was told she probably had cold even though the test was negative. Patient states that she's got home or difficulty breathing is gotten worse since she's had some worsening chest pain with some pain down the left arm. Patient states she's also been spiking a fever since Wednesday. Patient denies any abdominal pain. Patient denies any headache patient denies numbness weakness. Patient denies any nausea vomiting however she does have diarrhea. - Related Data Home Medications Medication Instructions Recorded Confirmed Allopurinol [Zyloprim] 100 mg PO BID 01/04/15 11/23/19 Gabapentin 600 mg PO BID@0900,2100 01/04/15 11/23/19 Potassium Chloride [Klor-Con 20] 20 meq PO DAILY PRN 01/04/15 11/23/19 Cetirizine HCl [Zyrtec] 10 mg PO BID 01/09/15 11/23/19 Latanoprost Ophth [Xalatan 0.005%] 1 drops BOTH EYES HS 06/28/15 11/23/19 INSULIN LISPRO (HumaLOG) [humaLOG] 30 units SQ TID-W/MEALS 11/17/15 11/23/19 INSULIN LISPRO (HumaLOG) [humaLOG] See Protocol SQ TID-W/MEALS 01/07/16 11/23/19 Hydroxychloroquine Sulfate 200 mg PO BID 01/29/17 11/23/19 [Plaquenil] Insulin Glargine [Lantus] 80 unit SQ BID 01/29/17 11/23/19 oxyCODONE-APAP 10-325MG [Percocet 1 tab PO TID 01/29/17 11/23/19 10-325 mg] Levothyroxine Sodium [Synthroid] 200 mcg PO DAILY@0700 03/26/17 11/23/19 Ergocalciferol (Vitamin D2) 50,000 unit PO Q7D 01/16/18 11/23/19 [Vitamin D2] Gabapentin 1,200 mg PO DAILY@1400 01/16/18 11/23/19 Magnesium Oxide 400 mg PO DAILY 01/16/18 11/23/19 Vit C/Ascorb Sod/Multivit-Min 1,000 mg PO DAILY 01/16/18 11/23/19 [Emergen-C 500 mg Chewable Tab] Amitriptyline HCl 25 mg PO HS 01/31/19 11/23/19 Levalbuterol Hfa Inhaler [Xopenex 1 puff INHALATION RT-QID PRN 01/31/19 11/23/19 Hfa Inhaler] Meloxicam 15 mg PO DAILY 01/31/19 11/23/19 Baclofen 10 mg PO TID 11/23/19 11/23/19 Bumetanide [BUMEX] 0.5 mg PO BID PRN 11/23/19 11/23/19 Omeprazole [PriLOSEC] 40 mg PO BID 11/23/19 11/23/19 amLODIPine [Norvasc] 10 mg PO DAILY 11/23/19 11/23/19 atenoloL [Tenormin] 50 mg PO BID 11/23/19 11/23/19 Previous Rx's Medication Instructions Recorded metFORMIN HCL 1,000 mg PO BID #0 01/18/18 Fenofibrate [Lofibra] 54 mg PO DAILY #30 tab 01/19/18 Aspirin 325 mg PO DAILY 30 Days #30 tab 02/02/19 Ondansetron [Zofran ODT] 4 mg PO Q8HR PRN #15 tab 04/25/19 Azithromycin [Zithromax] 500 mg PO Q24H #5 tab 11/25/19 Cefuroxime Axetil [Ceftin] 500 mg PO BID 7 Days #14 tab 11/25/19 Allergies Allergy/AdvReac Type Severity Reaction Status Date / Time albuterol Allergy Severe Chest Verified 11/29/19 19:34 Pain, left arm pain, jaw tightness adhesive tape Allergy Itching, Verified 11/29/19 19:34 RED SKIN, PAPER TAPE BEST celecoxib [From Celebrex] Allergy Anaphylaxis Verified 11/29/19 19:34 ,rash/hives ciprofloxacin [From Cipro] Allergy TENDON Verified 11/29/19 19:34 PROBLEMS diphenhydramine Allergy Itching Verified 11/29/19 19:34 [From Benadryl] hydromorphone HCl Allergy Rash/Hives Verified 11/29/19 19:34 [From Dilaudid] rofecoxib [From Vioxx] Allergy anaphylaxis,Rash/Hives, Verified 11/29/19 19:34 palpitations Fish Containing Products AdvReac Nausea & Verified 11/29/19 19:34 [Fish] Vomiting carrots AdvReac Nausea & Uncoded 11/23/19 19:45 Vomiting Review of Systems ROS Statement: Those systems with pertinent positive or pertinent negative responses have been documented in the HPI. ROS Other: All systems not noted in ROS Statement are negative. Past Medical History Past Medical History: Asthma, Chest Pain / Angina, Diabetes Mellitus, GERD/Reflux, Hearing Disorder / Deafness, Hypertension, Osteoarthritis (OA), Sleep Apnea/CPAP/BIPAP, Thyroid Disorder Additional Past Medical History / Comment(s): Hx. of Sarcoidosis- LUNG Gout, pt. is deaf, SOB WITH EXERTION. IRON DEFICIENCY ANEMIA. History of Any Multi-Drug Resistant Organisms: ESBL Date of last positivie culture/infection: 07/25/19 MDRO Source:: ESBL URINE Past Surgical History: Back Surgery, Cholecystectomy, Heart Catheterization, Hysterectomy, Joint Replacement Additional Past Surgical History / Comment(s): left hip(mult) and rt knee replacements, rt hip arthroscopy, jaw surgery, rt shoulder, theo oophorectomy, rt hip decompression/bone graft, left knee arthroscopy x 2, CERVICAL DECOMPRESSION AND FUSION OF C4-C6 Past Anesthesia/Blood Transfusion Reactions: Motion Sickness, Postoperative Nausea & Vomiting (PONV) Date of Last Stent Placement:: 01/17/18 Past Psychological History: No Psychological Hx Reported Smoking Status: Former smoker Past Alcohol Use History: None Reported Past Drug Use History: Marijuana - Past Family History Father Family Medical History: Congestive Heart Failure (CHF), Coronary Artery Disease (CAD), Diabetes Mellitus, Liver Disease, Renal Disease Additional Family Medical History / Comment(s): CABG Mother Family Medical History: Cancer, CVA/TIA Additional Family Medical History / Comment(s): Mother is . She had cervical cancer General Exam - General Exam Comments Initial Comments: GENERAL: Patient is well-developed and well-nourished. Patient is nontoxic and well- hydrated and is in mild distress. ENT: Neck is soft and supple. No significant lymphadenopathy is noted. Oropharynx is clear. Moist mucous membranes. Neck has full range of motion without eliciting any pain. EYES: The sclera were anicteric and conjunctiva were pink and moist. Extraocular movements were intact and pupils were equal round and reactive to light. Eyelids were unremarkable. PULMONARY: Unlabored respirations. Good breath sounds bilaterally. No audible rales rhonchi or wheezing was noted. CARDIOVASCULAR: There is a regular rate and rhythm without any murmurs gallops or rubs. ABDOMEN: Soft and nontender with normal bowel sounds. SKIN: Skin is clear with no lesions or rashes and otherwise unremarkable. NEUROLOGIC: Patient is alert and oriented x3. Cranial nerves II through XII are grossly intact. Motor and sensory are also intact. Normal speech, volume and content. Symmetrical smile. MUSCULOSKELETAL: Normal extremities with adequate strength and full range of motion. No lower e xtremity swelling or edema. No calf tenderness. LYMPHATICS: No significant lymphadenopathy is noted PSYCHIATRIC: Normal psychiatric evaluation. Limitations: language barrier Course Vital Signs 11/29/19 11/29/19 11/29/19 16:25 17:17 18:28 Temperature 98.9 F Pulse Rate 61 53 L Pulse Rate [ 58 L On Site Services Specialist ] Respiratory 20 18 Rate Blood Pressure 142/63 124/57 O2 Sat by Pulse 93 L 99 Oximetry Medical Decision Making - Medical Decision Making EKG shows sinus bradycardia 50 bpm MS interval 188 QRS is 90 QT interval 442 QTC is 433. Patient's EKG shows no ST segment elevation or depression or T wave abnormalities are noted. CT of the chest shows no pulmonary embolism shows similar findings from the previous CT she had in her last visit. Patient continues to complain of some chest pain going down her left arm. Dr. benoit took agreed to admit the patient admitted the patient wrote admitting orders. - Lab Data Result diagrams: 11/29/19 17:35 11/29/19 17:35 Lab Results 11/29/19 11/29/19 11/29/19 Range/Units 17:35 17:35 17:35 WBC 8.6 (3.8-10.6) k/uL RBC 4.28 (3.80-5.40) m/uL Hgb 10.8 L (11.4-16.0) gm/dL Hct 35.3 (34.0-46.0) % MCV 82.6 (80.0-100.0) fL MCH 25.1 (25.0-35.0) pg MCHC 30.4 L (31.0-37.0) g/dL RDW 20.3 H (11.5-15.5) % Plt Count 187 (150-450) k/uL Neutrophils % 59 % Lymphocytes % 29 % Monocytes % 5 % Eosinophils % 5 % Basophils % 1 % Neutrophils # 5.1 (1.3-7.7) k/uL Lymphocytes # 2.5 (1.0-4.8) k/uL Monocytes # 0.4 (0-1.0) k/uL Eosinophils # 0.4 (0-0.7) k/uL Basophils # 0.1 (0-0.2) k/uL Hypochromasia Marked Anisocytosis Moderate Microcytosis Slight PT 9.6 (9.0-12.0) sec INR 0.9 (<1.2) APTT 22.9 (22.0-30.0) sec D-Dimer 0.98 H (<0.60) mg/L FEU Sodium 137 (137-145) mmol/L Potassium 4.6 (3.5-5.1) mmol/L Chloride 100 (98-107) mmol/L Carbon Dioxide 29 (22-30) mmol/L Anion Gap 8 mmol/L BUN 18 H (7-17) mg/dL Creatinine 0.78 (0.52-1.04) mg/dL Est GFR (CKD-EPI)AfAm >90 (>60 ml/min/1.73 sqM) Est GFR (CKD-EPI)NonAf 83 (>60 ml/min/1.73 sqM) Glucose 150 H (74-99) mg/dL Plasma Lactic Acid Peter (0.7-2.0) mmol/L Calcium 9.3 (8.4-10.2) mg/dL Magnesium 1.6 (1.6-2.3) mg/dL Total Bilirubin 0.2 (0.2-1.3) mg/dL AST 33 (14-36) U/L ALT 21 (4-34) U/L Alkaline Phosphatase 77 (38-126) U/L Lactate Dehydrogenase 373 (313-618) U/L C-Reactive Protein 23.2 H (<10.0) mg/L Total Protein 6.1 L (6.3-8.2) g/dL Albumin 4.1 (3.5-5.0) g/dL 11/29/19 Range/Units 17:35 WBC (3.8-10.6) k/uL RBC (3.80-5.40) m/uL Hgb (11.4-16.0) gm/dL Hct (34.0-46.0) % MCV (80.0-100.0) fL MCH (25.0-35.0) pg MCHC (31.0-37.0) g/dL RDW (11.5-15.5) % Plt Count (150-450) k/uL Neutrophils % % Lymphocytes % % Monocytes % % Eosinophils % % Basophils % % Neutrophils # (1.3-7.7) k/uL Lymphocytes # (1.0-4.8) k/uL Monocytes # (0-1.0) k/uL Eosinophils # (0-0.7) k/uL Basophils # (0-0.2) k/uL Hypochromasia Anisocytosis Microcytosis PT (9.0-12.0) sec INR (<1.2) APTT (22.0-30.0) sec D-Dimer (<0.60) mg/L FEU Sodium (137-145) mmol/L Potassium (3.5-5.1) mmol/L Chloride (98-107) mmol/L Carbon Dioxide (22-30) mmol/L Anion Gap mmol/L BUN (7-17) mg/dL Creatinine (0.52-1.04) mg/dL Est GFR (CKD-EPI)AfAm (>60 ml/min/1.73 sqM) Est GFR (CKD-EPI)NonAf (>60 ml/min/1.73 sqM) Glucose (74-99) mg/dL Plasma Lactic Acid Peter 1.7 (0.7-2.0) mmol/L Calcium (8.4-10.2) mg/dL Magnesium (1.6-2.3) mg/dL Total Bilirubin (0.2-1.3) mg/dL AST (14-36) U/L ALT (4-34) U/L Alkaline Phosphatase (38-126) U/L Lactate Dehydrogenase (313-618) U/L C-Reactive Protein (<10.0) mg/L Total Protein (6.3-8.2) g/dL Albumin (3.5-5.0) g/dL Disposition Clinical Impression: Chest pain Disposition: ADMITTED IP TO THIS HOSP Referrals: Jaswant Witt DO [Primary Care Provider] - 1-2 days Time of Disposition: 21:07
[2019-11-29] MEDS ORDERED: ONDANSETRON 4 MG/2 ML VIAL IVP STA (17:44)
[2019-11-29 17:52] LABS: Anisocytosis Moderate; Basophils # (A) 0.1 k/uL (0-0.2); Basophils % (A) 1 %; Eosinophils # (A) 0.4 k/uL (0-0.7); Eosinophils % (A) 5 %; HCT 35.3 % (34.0-46.0); HGB 10.8 gm/dL (11.4-16.0); Hypochromasia Marked; Lymphocytes # (A) 2.5 k/uL (1.0-4.8); Lymphocytes % (A) 29 %; MCH 25.1 pg (25.0-35.0); MCHC 30.4 g/dL (31.0-37.0); MCV 82.6 fL (80.0-100.0); Mean Platelet Volume 10.3; Microcytosis Slight; Monocytes # (A) 0.4 k/uL (0-1.0); Monocytes % (A) 5 %; Neutrophils # (A) 5.1 k/uL (1.3-7.7); Neutrophils % (A) 59 %; Platelet Count 187 k/uL (150-450); RBC 4.28 m/uL (3.80-5.40); RDW 20.3 % (11.5-15.5); WBC 8.6 k/uL (3.8-10.6)
[2019-11-29 18:04] LABS: ALT 21 U/L (4-34); AST 33 U/L (14-36); African American GFR (CKD) >90 (>60 ml/min/1.73 sqM); Albumin 4.1 g/dL (3.5-5.0); Alkaline Phosphatase 77 U/L (38-126); Anion Gap 8 mmol/L; Blood Urea Nitrogen 18 mg/dL (7-17); C Reactive Protein 23.2 mg/L (<10.0); Calcium 9.3 mg/dL (8.4-10.2); Carbon Dioxide 29 mmol/L (22-30); Chloride 100 mmol/L (98-107); Glucose 150 mg/dL (74-99); LDH 373 U/L (313-618); Magnesium 1.6 mg/dL (1.6-2.3); Non-African American GFR(CKD) 83 (>60 ml/min/1.73 sqM); Potassium 4.6 mmol/L (3.5-5.1); Sodium 137 mmol/L (137-145); Total Bilirubin 0.2 mg/dL (0.2-1.3); Total Protein 6.1 g/dL (6.3-8.2)
--- NOTE | 2019-11-29 18:08 | XR ---
EXAMINATION TYPE: XR chest 1V portable DATE OF EXAM: 11/29/2019 COMPARISON: 11/23/2019 HISTORY: Chest pain TECHNIQUE: Single view FINDINGS: There is no heart failure nor confluent pneumonic infiltrate. There are chest leads. Costop hrenic angles are clear. IMPRESSION: No active cardiopulmonary disease. No change.
[2019-11-29 18:17] LABS: INR 0.9 (<1.2); Partial Thromboplastin Time 22.9 sec (22.0-30.0); Prothrombin Time 9.6 sec (9.0-12.0)
[2019-11-29 18:22] LABS: D-Dimer 0.98 mg/L FEU (<0.60)
--- NOTE | 2019-11-29 20:52 | CT ---
EXAMINATION TYPE: CT chest angio for PE DATE OF EXAM: 11/29/2019 COMPARISON: 11/23/2019 HISTORY: elevated d-dimer CT DLP: 864.1 mGycm Automated exposure control for dose reduction was used. CONTRAST: Performed with IV Contrast, patient injected with 83cc mL of Isovue 370. There is some patchy groundglass interstitial infiltrates in both lungs. There is a few paratracheal lymph nodes that measure less than 1 cm. There are no hilar masses. Heart appears slightly enlarged. There is no pericardial effusion. There is some patchy atelectasis at the lung bases. There is some f atty infiltration of the liver. There is contrast reflux into the inferior vena cava. Thoracic aorta is intact. I see no aneurysm or dissection. There are no filling defects in the pulmonary arteries. B anushka thorax is intact. IMPRESSION: No evidence of pulmonary embolism. Patchy groundglass interstitial pulmonary infiltrates similar to old exam and could relate to interst itial fibrosis. Mild congestive heart failure is possible.
[2019-11-29] MEDS ORDERED: ASPIRIN 81 MG PO STA (21:08)
[2019-11-29] MEDS ORDERED: NITROGLYCERIN SL TABS 0.4 MG TAB SUBLINGUAL PRN (21:08)
[2019-11-29] MEDS ORDERED: MORPHINE SULFATE 2 MG/ML SYRINGE IVP STA (21:11)
[2019-11-29] MEDS ORDERED: LEVALBUTEROL INHALATION PRN (23:31)
[2019-11-30] MEDS ORDERED: ONDANSETRON ODT 4 MG TAB PO PRN
[2019-11-30] MEDS: oxyCODONE-APAP 10-325MG 1 EACH TAB PO PRN ×3 (00:17→21:16)
[2019-11-30] MEDS: LATANOPROST 0.005% OPHTH DROPS 2.5 ML BTL BOTH EYES SCH ×2 (00:18→22:27)
[2019-11-30 00:26] LABS: Ferritin 309.3 ng/mL (10.0-291.0)
[2019-11-30] MEDS: AMITRIPTYLINE HCL 25 MG TAB PO SCH (01:14)
[2019-11-30 02:54] LABS: Cholesterol 160 mg/dL (<200); HDL Cholesterol 36 mg/dL (40-60); LDL Cholesterol,Calculated 68 mg/dL (0-99); Triglycerides 280 mg/dL (<150)
[2019-11-30] MEDS: NITROGLYCERIN OINT 1 INCH/GM PACKET TOPICAL SCH ×2 (03:19→06:44)
[2019-11-30] MEDS: LEVOTHYROXINE 100 MCG TAB PO SCH (06:29)
[2019-11-30 06:34] LABS: Glucose,Whole Blood 106 mg/dL (75-99)
--- NOTE | 2019-11-30 07:58 | P.HPIM ---
History of Present Illness Encounter done through the video broke beater as patient is deaf and can make it through hand signs This is a pleasant 63 years old female with past medical history of chronic asthma, diabetes mellitus, sleep apnea on CPAP, GERD, hearing difficulty and , hypertension, hypothyroidism, sarcoidosis of the lung, gout she is a patient of Dr. Witt. She was recently the hospital for short stay for viral pneumonia. Presents because of chest pain. Patient states that she was sent to the hospital under the recommendation of Dr. Haider. presents because of multiple complaints, she was complaining from sore throat, multiple joint pains, nausea, headache, feeling tired, lower abdominal pain and diarrhea for 2 days Patient says that yesterday she has left chest pain radiating to the left arm with difficulty raising her left arm, the pain was not severe and is better today associated with some tenderness in the sternal area and around the left shoulder but there is no swelling or deformity, patient says that the pain increased with deep breathing Also complaining from mild lower abdominal pain and mild tenderness with no rebound tenderness, several bouts of diarrhea She denies smoking, alcohol or illicit drugs Vitals are stable, she saturating 95% on 2 L oxygen, CBC, BMP, liver enzymes were unremarkable, severe troponins are negative with less than 0.012. D-dimer is elevated at 0.98, as well as [id number] mildly high of 0.10 CTA of the chest. No PE, patchy ground glass interstitial pulmonary infiltrates similar to old exam EKG: Sinus bradycardia at [address]-T changes, QTC 433 Review of Systems CONSTITUTIONAL: No fever, no malaise, no fatigue. HEENT: No recent visual problems or hearing problems. Denied any sore throat. CARDIOVASCULAR: No orthopnea, PND, no palpitations, no syncope. PULMONARY: No shortness of breath, no cough, no hemoptysis. GASTROINTESTINAL: No diarrhea, no nausea, no vomiting, no abdominal pain. Normoactive bowel sounds. NEUROLOGICAL: No headaches, no weakness, no numbness. HEMATOLOGICAL: Denies any bleeding or petechiae. GENITOURINARY: Denies any burning micturition, frequency, or urgency. MUSCULOSKELETAL/RHEUMATOLOGICAL: Denies any joint pain, swelling, or any muscle pain. ENDOCRINE: Denies any polyuria or polydipsia. Past Medical History Past Medical History: Asthma, Chest Pain / Angina, Diabetes Mellitus, GERD/Reflux, Hearing Disorder / Deafness, Hypertension, Osteoarthritis (OA), Sleep Apnea/CPAP/BIPAP, Thyroid Disorder Additional Past Medical History / Comment(s): Hx. of Sarcoidosis- LUNG Gout, pt. is deaf, SOB WITH EXERTION. IRON DEFICIENCY ANEMIA. History of Any Multi-Drug Resistant Organisms: ESBL Date of last positivie culture/infection: 07/25/19 MDRO Source:: ESBL URINE Past Surgical History: Back Surgery, Cholecystectomy, Heart Catheterization, Hysterectomy, Joint Replacement Additional Past Surgical History / Comment(s): left hip(mult) and rt knee replacements, rt hip arthroscopy, jaw surgery, rt shoulder, theo oophorectomy, rt hip decompression/bone graft, left knee arthroscopy x 2, CERVICAL DECOMPRESSION AND FUSION OF C4-C6 Past Anesthesia/Blood Transfusion Reactions: Motion Sickness, Postoperative Nausea & Vomiting (PONV) Date of Last Stent Placement:: 01/17/18 Past Psychological History: No Psychological Hx Reported Additional Psychological History / Comment(s): Pt resides with her spouse who is also deaf. She uses a walker if she needs to walk distances. She drives. Smoking Status: Former smoker Past Alcohol Use History: None Reported Additional Past Alcohol Use History / Comment(s): social smoker as a teenager 20 or 21. Past Drug Use History: Marijuana Additional Drug Use History / Comment(s): EDIBLE MARIJUANA- PRN PAIN, - Past Family History Father Family Medical History: Congestive Heart Failure (CHF), Coronary Artery Disease (CAD), Diabetes Mellitus, Liver Disease, Renal Disease Additional Family Medical History / Comment(s): CABG Mother Family Medical History: Cancer, CVA/TIA Additional Family Medical History / Comment(s): Mother is . She had cervical cancer Medications and Allergies Home Medications Medication Instructions Recorded Confirmed Type Allopurinol [Zyloprim] 100 mg PO BID 01/04/15 11/29/19 History Gabapentin 600 mg PO BID@0900,2100 01/04/15 11/29/19 History Potassium Chloride [Klor-Con 20] 20 meq PO DAILY PRN 01/04/15 11/29/19 History Cetirizine HCl [Zyrtec] 10 mg PO BID 01/09/15 11/29/19 History Latanoprost Ophth [Xalatan 0.005%] 1 drops BOTH EYES HS 06/28/15 11/29/19 History INSULIN LISPRO (HumaLOG) [humaLOG] 30 units SQ TID-W/MEALS 11/17/15 11/29/19 History INSULIN LISPRO (HumaLOG) [humaLOG] See Protocol SQ TID-W/MEALS 01/07/16 11/29/19 History Hydroxychloroquine Sulfate 200 mg PO BID 01/29/17 11/29/19 History [Plaquenil] Insulin Glargine [Lantus] 80 unit SQ BID 01/29/17 11/29/19 History oxyCODONE-APAP 10-325MG [Percocet 1 tab PO TID 01/29/17 11/29/19 History 10-325 mg] Levothyroxine Sodium [Synthroid] 200 mcg PO DAILY@0700 03/26/17 11/29/19 History Ergocalciferol (Vitamin D2) 50,000 unit PO Q7D 01/16/18 11/29/19 History [Vitamin D2] Gabapentin 1,200 mg PO DAILY@1400 01/16/18 11/29/19 History Magnesium Oxide 400 mg PO DAILY 01/16/18 11/29/19 History Vit C/Ascorb Sod/Multivit-Min 1,000 mg PO DAILY 01/16/18 11/29/19 History [Emergen-C 500 mg Chewable Tab] metFORMIN HCL 1,000 mg PO BID #0 01/18/18 11/29/19 Rx Fenofibrate [Lofibra] 54 mg PO DAILY #30 tab 01/19/18 11/29/19 Rx Amitriptyline HCl 25 mg PO HS 01/31/19 11/29/19 History Levalbuterol Hfa Inhaler [Xopenex 1 puff INHALATION RT-QID PRN 01/31/19 11/29/19 History Hfa Inhaler] Meloxicam 15 mg PO DAILY 01/31/19 11/29/19 History Aspirin 325 mg PO DAILY 30 Days #30 tab 02/02/19 11/29/19 Rx Ondansetron [Zofran ODT] 4 mg PO Q8HR PRN #15 tab 04/25/19 11/29/19 Rx Baclofen 10 mg PO TID 11/23/19 11/29/19 History Bumetanide [BUMEX] 0.5 mg PO BID PRN 07/16/20 07/22/20 History Omeprazole [PriLOSEC] 40 mg PO BID 11/23/19 11/29/19 History amLODIPine [Norvasc] 10 mg PO DAILY 11/23/19 11/29/19 History atenoloL [Tenormin] 50 mg PO BID 11/23/19 11/29/19 History Azithromycin [Zithromax] 500 mg PO Q24H #5 tab 11/25/19 11/29/19 Rx Cefuroxime Axetil [Ceftin] 500 mg PO BID 7 Days #14 tab 11/25/19 11/29/19 Rx Allergies Allergy/AdvReac Type Severity Reaction Status Date / Time albuterol Allergy Severe Chest Verified 11/29/19 21:16 Pain, left arm pain, jaw tightness adhesive tape Allergy Itching, Verified 11/29/19 21:16 RED SKIN, PAPER TAPE BEST celecoxib [From Celebrex] Allergy Anaphylaxis Verified 11/29/19 21:16 ,rash/hives ciprofloxacin [From Cipro] Allergy TENDON Verified 11/29/19 21:16 PROBLEMS diphenhydramine Allergy Itching Verified 11/29/19 21:16 [From Benadryl] hydromorphone HCl Allergy Rash/Hives Verified 11/29/19 21:16 [From Dilaudid] rofecoxib [From Vioxx] Allergy anaphylaxis,Rash/Hives, Verified 11/29/19 21:16 palpitations Fish Containing Products AdvReac Nausea & Verified 11/29/19 21:16 [Fish] Vomiting carrots AdvReac Nausea & Uncoded 11/29/19 21:16 Vomiting Physical Exam Vitals: Vital Signs Temp Pulse Pulse Resp BP BP Pulse Ox 11/30/19 02:34 57 L 18 11/30/19 02:32 98 F 57 L 18 104/57 95 11/30/19 01:07 95 11/30/19 00:05 61 18 11/29/19 23:08 98.2 F 61 18 110/50 94 L 11/29/19 22:00 98.1 F 56 L 16 113/68 98 11/29/19 18:28 53 L 18 124/57 99 11/29/19 17:17 58 L 11/29/19 16:25 98.9 F 61 20 142/63 93 L Intake and Output 11/29/19 11/30/19 11/30/19 22:59 06:59 14:59 Other: Voiding Method Toilet # Voids 1 Weight 117.934 kg GENERAL: The patient is alert and oriented x3, not in any acute distress. Well developed, well nourished. HEENT: Pupils are round and equally reacting to light. EOMI. No scleral icterus. No conjunctival pallor. Normocephalic, atraumatic. No pharyngeal erythema. No thyromegaly. CARDIOVASCULAR: S1 and S2 present. No murmurs, rubs, or gallops. PULMONARY: Chest is clear to auscultation, no wheezing or crackles. ABDOMEN: Soft, nontender, nondistended, normoactive bowel sounds. No palpable organomegaly. MUSCULOSKELETAL: No joint swelling or deformity. EXTREMITIES: No cyanosis, clubbing, or pedal edema. NEUROLOGICAL: Gross neurological examination did not reveal any focal deficits. SKIN: No rashes. No petechiae Results CBC & Chem 7: 11/29/19 17:35 11/29/19 17:35 Labs: Abnormal Lab Results - Last 24 Hours (Table) 11/29/19 11/29/19 11/29/19 Range/Units 17:35 17:35 17:35 Hgb 10.8 L (11.4-16.0) gm/dL MCHC 30.4 L (31.0-37.0) g/dL RDW 20.3 H (11.5-15.5) % D-Dimer 0.98 H (<0.60) mg/L FEU BUN 18 H (7-17) mg/dL Glucose 150 H (74-99) mg/dL POC Glucose (mg/dL) (75-99) mg/dL Ferritin 309.3 H (10.0-291.0) ng/mL C-Reactive Protein 23.2 H (<10.0) mg/L Total Protein 6.1 L (6.3-8.2) g/dL Triglycerides (<150) mg/dL HDL Cholesterol (40-60) mg/dL Procalcitonin (0.02-0.09) ng/mL 11/29/19 11/30/19 11/30/19 Range/Units 17:35 02:11 06:28 Hgb (11.4-16.0) gm/dL MCHC (31.0-37.0) g/dL RDW (11.5-15.5) % D-Dimer (<0.60) mg/L FEU BUN (7-17) mg/dL Glucose (74-99) mg/dL POC Glucose (mg/dL) 106 H (75-99) mg/dL Ferritin (10.0-291.0) ng/mL C-Reactive Protein (<10.0) mg/L Total Protein (6.3-8.2) g/dL Triglycerides 280 H (<150) mg/dL HDL Cholesterol 36 L (40-60) mg/dL Procalcitonin 0.10 H (0.02-0.09) ng/mL Assessment and Plan Assessment: Chest pain, rule out cardiac causes Possible viral infection could be gastroenteritis or systemic viral infection, no suspicion for bacterial infection Diabetes mellitus Hypertension GERD/asthma Recent history of bilateral pneumonia Osteoarthritisstatus post knee and hip arthroplasty Sleep apnea on CPAP/BiPAP Hypothyroidism History of sarcoidosis Plan: This is a pleasant 63 years old female who presents with chest pain, we'll do serial troponins, EKG cardiology consult. Also we'll start patient on IV fluid, Augmentin and nausea medicine with Zofran . Also we'll consult pulmonary for abnormal CT of the chest findings .Check for C. diff. Also we'll check influenza and rapid strep test Labs and medication were reviewed.. Continue same treatment. Continue with symptomatic treatment. Resume home medication. Monitor lytes and vitals. DVT and GI prophylaxis. Further recommendations of the clinical course of the patient DVT prophylaxis: Subcutaneous heparin GI Prophylaxis: Pepcid
[2019-11-30] MEDS ORDERED: DEXTROSE 5%-0.45% NACL 1,000 ML IV SCH (08:00)
[2019-11-30] MEDS: INSULIN ASPART (NovoLOG) 100 UNIT/ML VIAL SQ SCH ×3 (08:37→17:07)
[2019-11-30] MEDS ORDERED: ASPIRIN 325 MG TAB PO SCH (09:00)
[2019-11-30] MEDS ORDERED: BUMETANIDE 0.5 MG TABLET PO PRN (09:00)
[2019-11-30] MEDS ORDERED: AMOXIC-POT CLAV 500-125 MG 1 EACH TAB PO SCH (09:00)
[2019-11-30] MEDS ORDERED: HEPARIN SODIUM,PORCINE 5,000 UNIT/ML 1 ML VIAL SQ SCH (09:00)
[2019-11-30] MEDS ORDERED: FAMOTIDINE 20 MG/2 ML VIAL IV SCH (09:00)
[2019-11-30] MEDS: atenoloL 50 MG TAB PO SCH ×2 (09:01→21:03)
[2019-11-30] MEDS: amLODIPine 10 MG TAB PO SCH (09:01)
[2019-11-30] MEDS: allopurinoL 100 MG TAB PO SCH ×2 (09:01→21:03)
[2019-11-30] MEDS: GABAPENTIN 300 MG CAP PO SCH ×2 (09:02→21:07)
[2019-11-30] MEDS: FENOFIBRATE 54 MG TAB PO SCH (09:03)
[2019-11-30] MEDS: HYDROXYCHLOROQUINE SULFATE 200 MG TAB PO SCH ×2 (09:03→21:11)
--- NOTE | 2019-11-30 11:13 | P.CRDCN ---
History of Present Illness History of present illness: HISTORY OF PRESENTING ILLNESS This is a pleasant 63-year-old female past medical history significant for coronary artery disease status post PCI, sarcoidosis, hypertension, diabetes mellitus, asthma, obstructive sleep apnea and she is deaf. She is follows in the office with Dr. Braxton. We have been asked to see in consultation for chest pain. Examination is completed using the bedside design engineer products. She states for the previous one week she has been experiencing body aches, cough, shortness of breath and chest discomfort. She follows regularly with Dr. Haider was sent to the hospital for further evaluation to rule out Covid. She is seen and examined resting comfortably in no acute distress. She has been initiated on IV antibiotics for bilateral pneumonia. She states her chest discomfort is in the midsternal region and is worse with breathing or deep inspiration. At times it radiates through to her back. She has some associated shortness of breath. She denies nausea, vomiting, diaphoresis or palpitations. She has been running low-grade temperatures at home. She underwent cardiac catheterization January 2018 and successful PCI of the circumflex artery at that time. Most recent echocardiogram obtained January 2019 revealed preserved LV systolic function with ejection fraction 55-60%. DIAGNOSTICS EKG reveals sinus bradycardia heart rate of 58 T-wave inversions noted in the anterior leads. Compared to previous EKGs this is a chronic finding. No acute ischemic changes noted. Chest xray negative for an acute cardiopulmonary process. CTA of the chest is negative for pulmonary embolism with evidence of patchy groundglass interstitial pulmonary infiltrates. Laboratory reviewed, WBC 8.6, hemoglobin 10.8, platelets 187, d-dimer 0.98, sodium 137, potassium 4.6, creatinine 0.78, cardiac enzymes negative 3, magnesium 1.6, C-reactive protein 23.2, lactate 373, LDL 68, pro-calcitonin 0.10. Covid pending, influenza A, B and rapid strep negative Current cardiac medications include aspirin 325 mg daily, amlodipine 10 mg daily, Bumex 0.5 mg twice a day as needed for lower extremity swelling and atenolol 50 mg twice a day. REVIEW OF SYSTEMS At the time of my exam: CONSTITUTIONAL: Denies fever or chills. CARDIOVASCULAR: Complains of shortness of breath. Denies chest pain orthopnea, PND or palpitations. RESPIRATORY: Complains of cough. GASTROINTESTINAL: Denies abdominal pain, diarrhea, constipation, nausea or vomiting. MUSCULOSKELETAL: Complains of generalized body aches. NEUROLOGIC: Denies numbness, tingling or weakness. ENDOCRINE: Denies fatigue, weight change, polydipsia or polyurina. GENITOURINARY: Denies burning, hematuria or urgency with micturation. HEMATOLOGIC: Denies history of anemia or bleeding. PHYSICAL EXAMINATION Blood pressure 104/57 heart rate 57 afebrile and maintaining oxygen saturation on nasal cannula. CONSTITUTIONAL: No apparent distress. HEENT: Head is normocephalic. Pupils are equal, round. Sclerae anicteric. Mucous membranes of the mouth are moist. No JVD. No carotid bruit. CHEST EXAMINATION: Lungs are clear to auscultation. No chest wall tenderness is noted on palpation or with deep breathing. HEART EXAMINATION: Regular rate and rhythm. S1, S2 heard. No murmurs, gallops or rub. ABDOMEN: Soft, nontender. Positive bowel sounds. EXTREMITIES: 2+ peripheral pulses, no lower extremity edema and no calf tenderness. NEUROLOGIC EXAMINATION: Patient is awake, alert and oriented x3. ASSESSMENT Chest pain, atypical for angina. Likely related to pulmonary process. An acute coronary event has been ruled out. History of coronary artery disease status post PCI of the circumflex artery in 2018 Hypertension Diabetes mellitus Obstructive sleep apnea PLAN An acute coronary event has been ruled out. Pain is atypical to be related to angina, likely secondary to underlying pulmonary process. Decrease aspirin to 81 mg daily. Initiate atorvastatin 40 mg daily. Continue ongoing medical management for pneumonia and possible suspected COVD. Nurse Practitioner note has been reviewed, I agree with a documented findings and plan of care. Patient was seen and examined. Past Medical History Past Medical History: Asthma, Chest Pain / Angina, Diabetes Mellitus, GERD/Reflux, Hearing Disorder / Deafness, Hypertension, Osteoarthritis (OA), Sle ep Apnea/CPAP/BIPAP, Thyroid Disorder Additional Past Medical History / Comment(s): Hx. of Sarcoidosis- LUNG Gout, pt. is deaf, SOB WITH EXERTION. IRON DEFICIENCY ANEMIA. History of Any Multi-Drug Resistant Organisms: ESBL Date of last positivie culture/infection: 07/25/19 MDRO Source:: ESBL URINE Past Surgical History: Back Surgery, Cholecystectomy, Heart Catheterization, Hysterectomy, Joint Replacement Additional Past Surgical History / Comment(s): left hip(mult) and rt knee replacements, rt hip arthroscopy, jaw surgery, rt shoulder, theo oophorectomy, rt hip decompression/bone graft, left knee arthroscopy x 2, CERVICAL DECOMPRESSION AND FUSION OF C4-C6 Past Anesthesia/Blood Transfusion Reactions: Motion Sickness, Postoperative Nausea & Vomiting (PONV) Date of Last Stent Placement:: 01/17/18 Past Psychological History: No Psychological Hx Reported Additional Psychological History / Comment(s): Pt resides with her spouse who is also deaf. She uses a walker if she needs to walk distances. She drives. Smoking Status: Former smoker Past Alcohol Use History: None Reported Additional Past Alcohol Use History / Comment(s): social smoker as a teenager 20 or 21. Past Drug Use History: Marijuana Additional Drug Use History / Comment(s): EDIBLE MARIJUANA- PRN PAIN, - Past Family History Father Family Medical History: Congestive Heart Failure (CHF), Coronary Artery Disease (CAD), Diabetes Mellitus, Liver Disease, Renal Disease Additional Family Medical History / Comment(s): CABG Mother Family Medical History: Cancer, CVA/TIA Additional Family Medical History / Comment(s): Mother is . She had cervical cancer Medications and Allergies Home Medications Medication Instructions Recorded Confirmed Type Allopurinol [Zyloprim] 100 mg PO BID 01/04/15 11/29/19 History Gabapentin 600 mg PO BID@0900,2100 01/04/15 11/29/19 History Potassium Chloride [Klor-Con 20] 20 meq PO DAILY PRN 01/04/15 11/29/19 History Cetirizine HCl [Zyrtec] 10 mg PO BID 01/09/15 11/29/19 History Latanoprost Ophth [Xalatan 0.005%] 1 drops BOTH EYES HS 06/28/15 11/29/19 History INSULIN LISPRO (HumaLOG) [humaLOG] 30 units SQ TID-W/MEALS 11/17/15 11/29/19 History INSULIN LISPRO (HumaLOG) [humaLOG] See Protocol SQ TID-W/MEALS 01/07/16 11/29/19 History Hydroxychloroquine Sulfate 200 mg PO BID 01/29/17 11/29/19 History [Plaquenil] Insulin Glargine [Lantus] 80 unit SQ BID 01/29/17 11/29/19 History oxyCODONE-APAP 10-325MG [Percocet 1 tab PO TID 01/29/17 11/29/19 History 10-325 mg] Levothyroxine Sodium [Synthroid] 200 mcg PO DAILY@0700 03/26/17 11/29/19 History Ergocalciferol (Vitamin D2) 50,000 unit PO Q7D 01/16/18 11/29/19 History [Vitamin D2] Gabapentin 1,200 mg PO DAILY@1400 01/16/18 11/29/19 History Magnesium Oxide 400 mg PO DAILY 01/16/18 11/29/19 History Vit C/Ascorb Sod/Multivit-Min 1,000 mg PO DAILY 01/16/18 11/29/19 History [Emergen-C 500 mg Chewable Tab] metFORMIN HCL 1,000 mg PO BID #0 01/18/18 11/29/19 Rx Fenofibrate [Lofibra] 54 mg PO DAILY #30 tab 01/19/18 11/29/19 Rx Amitriptyline HCl 25 mg PO HS 01/31/19 11/29/19 History Levalbuterol Hfa Inhaler [Xopenex 1 puff INHALATION RT-QID PRN 01/31/19 11/29/19 History Hfa Inhaler] Meloxicam 15 mg PO DAILY 01/31/19 11/29/19 History Aspirin 325 mg PO DAILY 30 Days #30 tab 02/02/19 11/29/19 Rx Ondansetron [Zofran ODT] 4 mg PO Q8HR PRN #15 tab 04/25/19 11/29/19 Rx Baclofen 10 mg PO TID 11/23/19 11/29/19 History Bumetanide [BUMEX] 0.5 mg PO BID PRN 11/23/19 11/29/19 History Omeprazole [PriLOSEC] 40 mg PO BID 11/23/19 11/29/19 History amLODIPine [Norvasc] 10 mg PO DAILY 11/23/19 11/29/19 History atenoloL [Tenormin] 50 mg PO BID 11/23/19 11/29/19 History Azithromycin [Zithromax] 500 mg PO Q24H #5 tab 11/25/19 11/29/19 Rx Cefuroxime Axetil [Ceftin] 500 mg PO BID 7 Days #14 tab 11/25/19 11/29/19 Rx Allergies Allergy/AdvReac Type Severity Reaction Status Date / Time albuterol Allergy Severe Chest Verified 11/29/19 21:16 Pain, left arm pain, jaw tightness adhesive tape Allergy Itching, Verified 11/29/19 21:16 RED SKIN, PAPER TAPE BEST celecoxib [From Celebrex] Allergy Anaphylaxis Verified 11/29/19 21:16 ,rash/hives ciprofloxacin [From Cipro] Allergy TENDON Verified 11/29/19 21:16 PROBLEMS diphenhydramine Allergy Itching Verified 11/29/19 21:16 [From Benadryl] hydromorphone HCl Allergy Rash/Hives Verified 11/29/19 21:16 [From Dilaudid] rofecoxib [From Vioxx] Allergy anaphylaxis,Rash/Hives, Verified 11/29/19 21:16 palpitations Fish Containing Products AdvReac Nausea & Verified 11/29/19 21:16 [Fish] Vomiting carrots AdvReac Nausea & Uncoded 11/29/19 21:16 Vomiting Physical Exam Vitals: Vital Signs Temp Pulse Pulse Resp BP BP Pulse Ox 11/30/19 02:34 57 L 18 11/30/19 02:32 98 F 57 L 18 104/57 95 11/30/19 01:07 95 11/30/19 00:05 61 18 11/29/19 23:08 98.2 F 61 18 110/50 94 L 11/29/19 22:00 98.1 F 56 L 16 113/68 98 11/29/19 18:28 53 L 18 124/57 99 11/29/19 17:17 58 L 11/29/19 16:25 98.9 F 61 20 142/63 93 L Intake and Output 11/29/19 11/30/19 11/30/19 22:59 06:59 14:59 Other: Voiding Method Toilet # Voids 1 Weight 117.934 kg Results 11/29/19 17:35 11/29/19 17:35 Cardiac Enzymes 11/29/19 11/29/19 11/29/19 Range/Units 17:25 17:35 22:50 AST 33 (14-36) U/L Lactate Dehydrogenase 373 (313-618) U/L Troponin I <0.012 <0.012 (0.000-0.034) ng/mL 11/30/19 Range/Units 02:11 AST (14-36) U/L Lactate Dehydrogenase (313-618) U/L Troponin I <0.012 (0.000-0.034) ng/mL Coagulation 11/29/19 Range/Units 17:35 PT 9.6 (9.0-12.0) sec APTT 22.9 (22.0-30.0) sec Lipids 11/30/19 Range/Units 02:11 Triglycerides 280 H (<150) mg/dL Cholesterol 160 (<200) mg/dL HDL Cholesterol 36 L (40-60) mg/dL CBC 11/29/19 Range/Units 17:35 WBC 8.6 (3.8-10.6) k/uL RBC 4.28 (3.80-5.40) m/uL Hgb 10.8 L (11.4-16.0) gm/dL Hct 35.3 (34.0-46.0) % Plt Count 187 (150-450) k/uL Comprehensive Metabolic Panel 11/29/19 Range/Units 17:35 Sodium 137 (137-145) mmol/L Potassium 4.6 (3.5-5.1) mmol/L Chloride 100 (98-107) mmol/L Carbon Dioxide 29 (22-30) mmol/L BUN 18 H (7-17) mg/dL Creatinine 0.78 (0.52-1.04) mg/dL Glucose 150 H (74-99) mg/dL Calcium 9.3 (8.4-10.2) mg/dL AST 33 (14-36) U/L ALT 21 (4-34) U/L Alkaline Phosphatase 77 (38-126) U/L Total Protein 6.1 L (6.3-8.2) g/dL Albumin 4.1 (3.5-5.0) g/dL Current Medications Generic Name Dose Route Start Last Admin Trade Name Freq PRN Reason Stop Dose Admin Allopurinol 100 mg 11/30/19 09:00 Zyloprim PO BID [facility] Amitriptyline HCl 25 mg 11/30/19 21:00 11/30/19 01:14 Elavil PO 25 mg HS LILY Administration Amlodipine Besylate 10 mg 11/30/19 09:00 Norvasc PO DAILY [facility] Amoxicillin/Clavulanate Potassium 1 each 11/30/19 09:00 Augmentin 500-125 Mg PO 12/05/19 09:01 BID [facility] Aspirin 325 mg 11/30/19 09:00 Aspirin PO DAILY [facility] Atenolol 50 mg 11/30/19 09:00 Tenormin PO BID [facility] Bumetanide 0.5 mg 11/30/19 09:00 Bumetanide PO BID PRN Edema Famotidine 20 mg 11/30/19 09:00 Pepcid IV Q12HR [facility] Fenofibrate 54 mg 11/30/19 09:00 Lofibra PO DAILY [facility] Gabapentin 600 mg 11/30/19 09:00 Neurontin PO BID@0900,2100 [facility] Heparin Sodium (Porcine) 5,000 unit 11/30/19 09:00 Heparin SQ Q12HR [facility] Hydroxychloroquine Sulfate 200 mg 11/30/19 09:00 Plaquenil PO BID [facility] Dextrose/Sodium Chloride 1,000 mls @ 75 mls/hr 11/30/19 08:00 Dextrose 5%-1/2ns Iv Soln IV .[id number] [facility] Insulin Aspart 30 unit 11/30/19 07:30 Novolog SQ TID-W/MEALS [facility] Insulin Detemir 80 unit 11/30/19 09:00 Levemir SQ BID [facility] Latanoprost 1 drops 11/30/19 21:00 11/30/19 00:18 Xalatan 0.005% BOTH EYES 1 drops [facility] Administration Levothyroxine Sodium 200 mcg 11/30/19 07:00 11/30/19 06:29 Synthroid PO 200 mcg DAILY@0700 [facility] Administration Metformin HCl 1,000 mg 11/30/19 09:00 Glucophage PO BID [facility] Nitroglycerin 0.4 mg 11/29/19 21:08 Nitrostat SUBLINGUAL Q5M PRN Chest Pain Nitroglycerin 1 inch 11/30/19 00:00 11/30/19 06:44 Nitro-Bid Oint TOPICAL Not Given Q6HR [facility] Non-Formulary Medication 1 puff 11/29/19 23:31 Levalbuterol Hfa Inhaler INHALATION RT-QID PRN Shortness Of Breath Ondansetron HCl 4 mg 11/30/19 00:00 Zofran Odt PO Q8HR PRN Nausea Oxycodone/Acetaminophen 1 each 11/29/19 23:31 11/30/19 00:17 Percocet 10-325 PO 1 each TID PRN Administration Pain Intake and Output 11/29/19 11/30/19 11/30/19 22:59 06:59 14:59 Other: Voiding Method Toilet # Voids 1 Weight 117.934 kg 11/29/19 17:35 11/29/19 17:35
[2019-11-30 11:46] LABS: Glucose,Whole Blood 139 mg/dL (75-99)
--- NOTE | 2019-11-30 12:00 | P.CNPUL ---
History of Present Illness Consult date: 11/30/19 Requesting physician: Christiano E Sonia Reason for consult: dyspnea, abnormal CXR/CT Chief complaint: Weakness, body aches, diarrhea History of present illness: This is a pleasant 63-year-old female patient who has history of diabetes mellitus, hypertension, hypothyroidism, acid reflux disease, multiple orthopedic surgeries, hearing disorder/deafness. She also has a history of sarcoidosis and obstructive sleep apnea and follows with Dr. Haider in our office for the same. She was recently hospitalized here with bilateral interstitial pneumonia with diffuse groundglass changes. Bacterial pneumonia was felt less likely. Sarcoidosis less likely. Consider viral pneumonia however the al[place] virus CoVID 19 infection was negative. She subsequently recovered and was discharged home on Ceftin and azithromycin on 11/25/2019. She represented here to the emergency room yesterday with complaints of increasing shortness of breath, body aches, left chest discomfort left arm discomfort, nausea, vomiting, diarrhea. Chest x-ray revealed no acute pulmonary disease. CT angiogram ruled out pul monary embolism. However there was some patchy groundglass interstitial pulmonary infiltrates similar to previous CAT scan. Interstitial fibrosis versus congestive heart failure. Influenza screen negative. Group A rapid strep test negative. White count 8.6. Hemoglobin 10.8. D-dimer 0.98. Sodium 137. Potassium 4.6. Creatinine 0.78. Ferritin 309. C-reactive protein 23. LDH 373. Troponins negative 3. Pro-calcitonin 0.10. Second alston virus screen pending. She's been initiated on Augmentin. She is on hydroxychloroquine for her sarcoidosis. She was interviewed utilizing an inte rpreter. Symptoms as noted above. Review of Systems REVIEW OF SYSTEMS: Utilizing an certified court interpreter CONSTITUTIONAL: Denies any recent significant weight loss or weight gain. EYES: Denies change in vision. EARS, NOSE, MOUTH, THROAT: Denies headaches, positive for sore throat. CARDIOVASCULAR: Positive for chest pain, no palpitations or syncopal episodes. RESPIRATORY: Positive for shortness of breath, no cough, congestion or hemoptysis. GASTROINTESTINAL: Positive for nausea, vomiting, diarrhea GENITOURINARY: Denies hematuria, denies infections. MUSKULOSKELETAL: Denies pain, denies swelling. INTEGUMENTARY: Denies rash, denies eczema. NEUROLOGICAL: Denies recent memory loss, no recent seizure activity. PSYCHIATRIC: Denies anxiety, denies depression. HEMATOLOGIC/LYMPHATIC: Denies anemia, denies enlarged lymph nodes. Past Medical History Past Medical History: Asthma, Chest Pain / Angina, Diabetes Mellitus, GERD/Reflux, Hearing Disorder / Deafness, Hypertension, Osteoarthritis (OA), Sleep Apnea/CPAP/BIPAP, Thyroid Disorder Additional Past Medical History / Comment(s): Hx. of Sarcoidosis- LUNG Gout, pt. is deaf, SOB WITH EXERTION. IRON DEFICIENCY ANEMIA. History of Any Multi-Drug Resistant Organisms: ESBL Date of last positivie culture/infection: 07/25/19 MDRO Source:: ESBL URINE Past Surgical History: Back Surgery, Cholecystectomy, Heart Catheterization, Hysterectomy, Joint Replacement Additional Past Surgical History / Comment(s): left hip(mult) and rt knee replac ements, rt hip arthroscopy, jaw surgery, rt shoulder, theo oophorectomy, rt hip decompression/bone graft, left knee arthroscopy x 2, CERVICAL DECOMPRESSION AND FUSION OF C4-C6 Past Anesthesia/Blood Transfusion Reactions: Motion Sickness, Postoperative Nausea & Vomiting (PONV) Date of Last Stent Placement:: 01/17/18 Past Psychological History: No Psychological Hx Reported Additional Psychological History / Comment(s): Pt resides with her spouse who is also deaf. She uses a walker if she needs to walk distances. She drives. Smoking Status: Former smoker Past Alcohol Use History: None Reported Additional Past Alcohol Use History / Comment(s): social smoker as a teenager 20 or 21. Past Drug Use History: Marijuana Additional Drug Use History / Comment(s): EDIBLE MARIJUANA- PRN PAIN, - Past Family History Father Family Medical History: Congestive Heart Failure (CHF), Coronary Artery Disease (CAD), Diabetes Mellitus, Liver Disease, Renal Disease Additional Family Medical History / Comment(s): CABG Mother Family Medical History: Cancer, CVA/TIA Additional Family Medical History / Comment(s): Mother is . She had cervical cancer Medications and Allergies Home Medications Medication Instructions Recorded Confirmed Type Allopurinol [Zyloprim] 100 mg PO BID 01/04/15 11/29/19 History Gabapentin 600 mg PO BID@0900,2100 01/04/15 11/29/19 History Potassium Chloride [Klor-Con 20] 20 meq PO DAILY PRN 01/04/15 11/29/19 History Cetirizine HCl [Zyrtec] 10 mg PO BID 01/09/15 11/29/19 History Latanoprost Ophth [Xalatan 0.005%] 1 drops BOTH EYES HS 06/28/15 11/29/19 H istory INSULIN LISPRO (HumaLOG) [humaLOG] 30 units SQ TID-W/MEALS 11/17/15 11/29/19 History INSULIN LISPRO (HumaLOG) [humaLOG] See Protocol SQ TID-W/MEALS 01/07/16 11/29/19 History Hydroxychloroquine Sulfate 200 mg PO BID 01/29/17 11/29/19 History [Plaquenil] Insulin Glargine [Lantus] 80 unit SQ BID 01/29/17 11/29/19 History oxyCODONE-APAP 10-325MG [Percocet 1 tab PO TID 01/29/17 11/29/19 History 10-325 mg] Levothyroxine Sodium [Synthroid] 200 mcg PO DAILY@0700 03/26/17 11/29/19 History Ergocalciferol (Vitamin D2) 50,000 unit PO Q7D 01/16/18 11/29/19 History [Vitamin D2] Gabapentin 1,200 mg PO DAILY@1400 01/16/18 11/29/19 History Magnesium Oxide 400 mg PO DAILY 01/16/18 11/29/19 History Vit C/Ascorb Sod/Multivit-Min 1,000 mg PO DAILY 01/16/18 11/29/19 History [Emergen-C 500 mg Chewable Tab] metFORMIN HCL 1,000 mg PO BID #0 01/18/18 11/29/19 Rx Fenofibrate [Lofibra] 54 mg PO DAILY #30 tab 01/19/18 11/29/19 Rx Amitriptyline HCl 25 mg PO HS 01/31/19 11/29/19 History Levalbuterol Hfa Inhaler [Xopenex 1 puff INHALATION RT-QID PRN 01/31/19 11/29/19 History Hfa Inhaler] Meloxicam 15 mg PO DAILY 01/31/19 11/29/19 History Aspirin 325 mg PO DAILY 30 Days #30 tab 02/02/19 11/29/19 Rx Ondansetron [Zofran ODT] 4 mg PO Q8HR PRN #15 tab 04/25/19 11/29/19 Rx Baclofen 10 mg PO TID 11/23/19 11/29/19 History Bumetanide [BUMEX] 0.5 mg PO BID PRN 11/23/19 11/29/19 History Omeprazole [PriLOSEC] 40 mg PO BID 11/23/19 11/29/19 History amLODIPine [Norvasc] 10 mg PO DAILY 11/23/19 11/29/19 History atenoloL [Tenormin] 50 mg PO BID 11/23/19 11/29/19 History Azithromycin [Zithromax] 500 mg PO Q24H #5 tab 11/25/19 11/29/19 Rx Cefuroxime Axetil [Ceftin] 500 mg PO BID 7 Days #14 tab 11/25/19 11/29/19 Rx Allergies Allergy/AdvReac Type Severity Reaction Status Date / Time albuterol Allergy Severe Chest Verified 11/29/19 21:16 Pain, left arm pain, jaw tightness adhesive tape Allergy Itching, Verified 11/29/19 21:16 RED SKIN, PAPER TAPE BEST celecoxib [From Celebrex] Allergy Anaphylaxis Verified 11/29/19 21:16 ,rash/hives ciprofloxacin [From Cipro] Allergy TENDON Verified 11/29/19 21:16 PROBLEMS diphenhydramine Allergy Itching Verified 11/29/19 21:16 [From Benadryl] hydromorphone HCl Allergy Rash/Hives Verified 11/29/19 21:16 [From Dilaudid] rofecoxib [From Vioxx] Allergy anaphylaxis,Rash/Hives, Verified 11/29/19 21:16 palpitations Fish Containing Products AdvReac Nausea & Verified 11/29/19 21:16 [Fish] Vomiting carrots AdvReac Nausea & Uncoded 11/29/19 21:16 Vomiting Physical Exam Vitals: Vital Signs Temp Pulse Pulse Pulse Resp BP BP 11/30/19 09:00 57 L 62 14 11/30/19 08:32 98.5 F 62 14 153/78 11/30/19 02:34 57 L 18 11/30/19 02:32 98 F 57 L 18 104/57 11/30/19 01:07 11/30/19 00:05 61 18 11/29/19 23:08 98.2 F 61 18 110/50 11/29/19 22:00 98.1 F 56 L 16 113/68 11/29/19 18:28 53 L 18 124/57 11/29/19 17:17 58 L 11/29/19 16:25 98.9 F 61 20 142/63 Pulse Ox 11/30/19 09:00 11/30/19 08:32 94 L 11/30/19 02:34 11/30/19 02:32 95 11/30/19 01:07 95 11/30/19 00:05 11/29/19 23:08 94 L 11/29/19 22:00 98 11/29/19 18:28 99 11/29/19 17:17 11/29/19 16:25 93 L Intake and Output 11/29/19 11/30/19 11/30/19 22:59 06:59 14:59 Other: Voiding Method Toilet Toilet # Voids 1 1 Weight 117.934 kg GENERAL EXAM: Alert, pleasant 63-year-old female patient, on 2 L nasal cannula, comfortable in no apparent distress. HEAD: Normocephalic. EYES: Normal reaction of pupils, equal size. NOSE: Clear with pink turbinates. THROAT: No erythema or exudates. NECK: No masses, no JVD. CHEST: No chest wall deformity. LUNGS: Equal air entry with faint crackles in the posterior bases. CVS: S1 and S2 normal with no audible murmur, regular rhythm. ABDOMEN: No hepatosplenomegaly, normal bowel sounds, no guarding or rigidity. SPINE: No scoliosis or deformity SKIN: No rashes CENTRAL NERVOUS SYSTEM: No focal deficits, tone is normal in all 4 extremities. EXTREMITIES: There is no peripheral edema. No clubbing, no cyanosis. Peripheral pulses are intact. Results - Laboratory Findings CBC and BMP: 11/29/19 17:35 11/29/19 17:35 PT/INR, D-dimer PT 9.6 sec (9.0-12.0) 11/29/19 17:35 INR 0.9 (<1.2) 11/29/19 17:35 D-Dimer 0.98 mg/L FEU (<0.60) H 11/29/19 17:35 Abnormal lab findings: Abnormal Labs 11/29/19 11/29/19 11/29/19 17:35 17:35 17:35 Hgb 10.8 L MCHC 30.4 L RDW 20.3 H D-Dimer 0.98 H BUN 18 H Glucose 150 H POC Glucose (mg/dL) Ferritin 309.3 H C-Reactive Protein 23.2 H Total Protein 6.1 L Triglycerides HDL Cholesterol Procalcitonin 11/29/19 11/30/19 11/30/19 17:35 02:11 06:28 Hgb MCHC RDW D-Dimer BUN Glucose POC Glucose (mg/dL) 106 H Ferritin C-Reactive Protein Total Protein Triglycerides 280 H HDL Cholesterol 36 L Procalcitonin 0.10 H - Diagnostic Findings Chest x-ray: image reviewed CT scan - chest: image reviewed Assessment and Plan Assessment: 1 Atypical chest pain with left arm discomfort, generalized discomfort and weakness, nausea vomiting diarrhea related to underlying suspected viral infection. Still consider COVID 19 infection. Influenza screen negative. Group A rapid strep negative. 2 Dyspnea with evidence of patchy groundglass interstitial pulmonary infiltrates, suspect secondary to Covid 19 infection 3 Recent admission for the same, Covid 19 ruled out 4 History of sarcoidosis, currently inactive in stable 5 History of deafness, utilizing an certified court interpreter 6 Obstructive sleep apnea 7 Perthes disease 8 Hypothyroidism 9 Hypertension 10 Diabetes mellitus Plan: The patient was seen and evaluated by Dr. Mathew Chest x-ray, CAT scans and labs reviewed Covid 19 screen pending Add dexamethasone Continue Pepcid Lovenox 40 mg subcu twice a day Consult infectious disease We will continue to follow and make further recommendations based on her clinical status I, the cosigning physician, performed a history & physical examination of the patient. Lungs sounds with faint crackles in the posterior bases. Maintaining good O2 saturations in the 90s on room air. I discussed the assessment and plan of care with my nurse practitioner, Bere Rosado. I attest to the above c onsultation as dictated by her. Time with Patient: Greater than 30
[2019-11-30] MEDS: dexAMETHasone 2 MG TAB PO SCH (12:04)
[2019-11-30] MEDS: metFORMIN 500 MG TAB PO SCH ×2 (12:08→21:20)
[2019-11-30 14:17] LABS: ABG Base Excess 7.1 mmol/L; ABG HCO3 32 mmol/L (21-25); ABG Oxygen Saturation 90.8 % (94-97); ABG PCO2 52 mmHg (35-45); ABG PO2 61 mmHg (83-108); ABG TCO2 34 mmol/L (19-24)
[2019-11-30 14:20] LABS: Allen Test Performed? yes
[2019-11-30] MEDS: INSULIN DETEMIR (LEVEMIR) 100 UNIT/ML SYR SQ SCH ×2 (14:37→21:11)
[2019-11-30 16:37] LABS: Glucose,Whole Blood 326 mg/dL (75-99)
[2019-11-30 21:01] LABS: Glucose,Whole Blood 339 mg/dL (75-99)
[2019-11-30] MEDS: ATORVASTATIN 40 MG TAB PO SCH (21:04)
[2019-11-30] MEDS: ENOXAPARIN 40 MG/0.4 ML SYRINGE SQ SCH (21:06)
[2019-11-30] MEDS: DOXYCYCLINE 100 MG CAP PO SCH (21:06)
[2019-11-30] MEDS: FAMOTIDINE 20 MG TAB PO SCH (21:07)
[2019-12-01 05:51] LABS: Anisocytosis Slight; Basophils % (A) 0 %; Eosinophils % (A) 0 %; HCT 33.5 % (34.0-46.0); HGB 10.5 gm/dL (11.4-16.0); Hypochromasia Marked; Lymphocytes # (A) 1.1 k/uL (1.0-4.8); Lymphocytes % (A) 15 %; MCH 25.5 pg (25.0-35.0); MCHC 31.4 g/dL (31.0-37.0); MCV 81.2 fL (80.0-100.0); Mean Platelet Volume 9.9; Microcytosis Slight; Monocytes # (A) 0.3 k/uL (0-1.0); Monocytes % (A) 4 %; Neutrophils # (A) 5.7 k/uL (1.3-7.7); Neutrophils % (A) 79 %; Platelet Count 181 k/uL (150-450); RBC 4.12 m/uL (3.80-5.40); RDW 19.8 % (11.5-15.5); WBC 7.2 k/uL (3.8-10.6)
[2019-12-01 06:13] LABS: African American GFR (CKD) >90 (>60 ml/min/1.73 sqM); Anion Gap 8 mmol/L; Blood Urea Nitrogen 17 mg/dL (7-17); C Reactive Protein 22.2 mg/L (<10.0); Calcium 9.6 mg/dL (8.4-10.2); Carbon Dioxide 30 mmol/L (22-30); Chloride 98 mmol/L (98-107); Glucose 203 mg/dL (74-99); LDH 360 U/L (313-618); Non-African American GFR(CKD) >90 (>60 ml/min/1.73 sqM); Potassium 4.6 mmol/L (3.5-5.1); Sodium 136 mmol/L (137-145)
[2019-12-01 06:33] LABS: Glucose,Whole Blood 214 mg/dL (75-99)
[2019-12-01] MEDS: oxyCODONE-APAP 10-325MG 1 EACH TAB PO PRN ×2 (06:36→17:02)
[2019-12-01] MEDS: LEVOTHYROXINE 100 MCG TAB PO SCH (06:36)
[2019-12-01] MEDS: INSULIN ASPART (NovoLOG) 100 UNIT/ML VIAL SQ SCH ×3 (06:48→17:04)
--- NOTE | 2019-12-01 07:14 | P.CONS ---
History of Present Illness - Reason for Consult Consult date: 11/30/19 Covid 19 infection Requesting physician: Devan Mathew - Chief Complaint Shortness of breath and chest pain x few days - History of Present Illness Patient is a 63-year-old female with a past medical history significant for deafness, sarcoidosis ,recent admission to the hospital and the patient was treated for bilateral pneumonia subsequent discharged home on Ceftin and Zithromax which the patient has completed, patient is currently on Plaquenil for her sarcoidosis, patient is presenting back to the hospital with a chief complaints of left-sided chest pain with some radiation to the arm more of a sharp pain with associated shortness of breath she did have a cough which is mobile in intensity and is dry in nature patient denies having any nausea vomiting however did have some diarrhea before she came to hospital no diarrhea reported in the hospital no abdominal pain with these symptoms the patient was evaluated by the ER physician on arrival to the patient has been afebrile and no fever has been reported subsequently patient chest x-ray was negative CT angiogram was negative for PE however did shows bilateral groundglass opacities similar to her previous CAT scan no worsening patient did have a normal white count no lymphopenia , liver Enzymes are normal mildly elevated CRP as well as Procalcitonin level patient did have a nasopharyngeal swab for Colon virus which came back negative infection is concerned with concern for possible Covid 19 infection, history has been obtained through [facility] Review of Systems Positive point has been mentioned in the HPI rest of the systems are negative Past Medical History Past Medical History: Asthma, Chest Pain / Angina, Diabetes Mellitus, GERD/Reflux, Hearing Disorder / Deafness, Hypertension, Osteoarthritis (OA), Sl eep Apnea/CPAP/BIPAP, Thyroid Disorder Additional Past Medical History / Comment(s): Hx. of Sarcoidosis- LUNG Gout, pt. is deaf, SOB WITH EXERTION. IRON DEFICIENCY ANEMIA. History of Any Multi-Drug Resistant Organisms: ESBL Year Discovered:: 07/25/19 MDRO Source:: ESBL URINE Past Surgical History: Back Surgery, Cholecystectomy, Heart Catheterization, Hysterectomy, Joint Replacement Additional Past Surgical History / Comment(s): left hip(mult) and rt knee replacements, rt hip arthroscopy, jaw surgery, rt shoulder, theo oophorectomy, rt hip decompression/bone graft, left knee arthroscopy x 2, CERVICAL DECOMPRESSION AND FUSION OF C4-C6 Past Anesthesia/Blood Transfusion Reactions: Motion Sickness, Postoperative Nausea & Vomiting (PONV) Date of Last Stent Placement:: 01/17/18 Past Psychological History: No Psychological Hx Reported Additional Psychological History / Comment(s): Pt resides with her spouse who is also deaf. She uses a walker if she needs to walk distances. She drives. Smoking Status: Former smoker Past Alcohol Use History: None Reported Additional Past Alcohol Use History / Comment(s): social smoker as a teenager 20 or 21. Past Drug Use History: Marijuana Additional Drug Use History / Comment(s): EDIBLE MARIJUANA- PRN PAIN, - Past Family History Father Family Medical History: Congestive Heart Failure (CHF), Coronary Artery Disease (CAD), Diabetes Mellitus, Liver Disease, Renal Disease Additional Family Medical History / Comment(s): CABG Mother Family Medical History: Cancer, CVA/TIA Additional Family Medical History / Comment(s): Mother is . She had cervical cancer Medications and Allergies Home Medications Medication Instructions Recorded Confirmed Type Allopurinol [Zyloprim] 100 mg PO BID 01/04/15 11/29/19 History Gabapentin 600 mg PO BID@0900,2100 01/04/15 11/29/19 History Potassium Chloride [Klor-Con 20] 20 meq PO DAILY PRN 01/04/15 11/29/19 History Cetirizine HCl [Zyrtec] 10 mg PO BID 01/09/15 11/29/19 History Latanoprost Ophth [Xalatan 0.005%] 1 drops BOTH EYES HS 06/28/15 11/29/19 History INSULIN LISPRO (HumaLOG) [humaLOG] 30 units SQ TID-W/MEALS 11/17/15 11/29/19 History INSULIN LISPRO (HumaLOG) [humaLOG] See Protocol SQ TID-W/MEALS 01/07/16 11/29/19 History Hydroxychloroquine Sulfate 200 mg PO BID 01/29/17 11/29/19 History [Plaquenil] Insulin Glargine [Lantus] 80 unit SQ BID 01/29/17 11/29/19 History oxyCODONE-APAP 10-325MG [Percocet 1 tab PO TID 01/29/17 11/29/19 History 10-325 mg] Levothyroxine Sodium [Synthroid] 200 mcg PO DAILY@0700 03/26/17 11/29/19 History Ergocalciferol (Vitamin D2) 50,000 unit PO Q7D 01/16/18 11/29/19 History [Vitamin D2] Gabapentin 1,200 mg PO DAILY@1400 01/16/18 11/29/19 History Magnesium Oxide 400 mg PO DAILY 01/16/18 11/29/19 History Vit C/Ascorb Sod/Multivit-Min 1,000 mg PO DAILY 01/16/18 11/29/19 History [Emergen-C 500 mg Chewable Tab] metFORMIN HCL 1,000 mg PO BID #0 01/18/18 11/29/19 Rx Fenofibrate [Lofibra] 54 mg PO DAILY #30 tab 01/19/18 11/29/19 Rx Amitriptyline HCl 25 mg PO HS 01/31/19 11/29/19 History Levalbuterol Hfa Inhaler [Xopenex 1 puff INHALATION RT-QID PRN 01/31/19 11/29/19 History Hfa Inhaler] Meloxicam 15 mg PO DAILY 01/31/19 11/29/19 History Aspirin 325 mg PO DAILY 30 Days #30 tab 02/02/19 11/29/19 Rx Ondansetron [Zofran ODT] 4 mg PO Q8HR PRN #15 tab 04/25/19 11/29/19 Rx Baclofen 10 mg PO TID 11/23/19 11/29/19 History Bumetanide [BUMEX] 0.5 mg PO BID PRN 11/23/19 11/29/19 History Omeprazole [PriLOSEC] 40 mg PO BID 11/23/19 11/29/19 History amLODIPine [Norvasc] 10 mg PO DAILY 11/23/19 11/29/19 History atenoloL [Tenormin] 50 mg PO BID 11/23/19 11/29/19 History Azithromycin [Zithromax] 500 mg PO Q24H #5 tab 11/25/19 11/29/19 Rx Cefuroxime Axetil [Ceftin] 500 mg PO BID 7 Days #14 tab 11/25/19 11/29/19 Rx Allergies Allergy/AdvReac Type Severity Reaction Status Date / Time albuterol Allergy Severe Chest Verified 11/29/19 21:16 Pain, left arm pain, jaw tightness adhesive tape Allergy Itching, Verified 11/29/19 21:16 RED SKIN, PAPER TAPE BEST celecoxib [From Celebrex] Allergy Anaphylaxis Verified 11/29/19 21:16 ,rash/hives ciprofloxacin [From Cipro] Allergy TENDON Verified 11/29/19 21:16 PROBLEMS diphenhydramine Allergy Itching Verified 11/29/19 21:16 [From Benadryl] hydromorphone HCl Allergy Rash/Hives Verified 11/29/19 21:16 [From Dilaudid] rofecoxib [From Vioxx] Allergy anaphylaxis,Rash/Hives, Verified 11/29/19 21:16 palpitations Fish Containing Products AdvReac Nausea & Verified 11/29/19 21:16 [Fish] Vomiting carrots AdvReac Nausea & Uncoded 11/29/19 21:16 Vomiting Physical Exam Vitals: Vital Signs Temp Pulse Pulse Pulse Resp BP BP 11/30/19 15:00 98.0 F 57 L 63 16 143/74 11/30/19 09:00 57 L 62 14 11/30/19 08:32 98.5 F 62 14 153/78 11/30/19 02:34 57 L 18 11/30/19 02:32 98 F 57 L 18 104/57 11/30/19 01:07 11/30/19 00:05 61 18 11/29/19 23:08 98.2 F 61 18 110/50 11/29/19 22:00 98.1 F 56 L 16 113/68 11/29/19 18:28 53 L 18 124/57 Pulse Ox 11/30/19 15:00 91 L 11/30/19 09:00 11/30/19 08:32 94 L 11/30/19 02:34 11/30/19 02:32 95 11/30/19 01:07 95 11/30/19 00:05 11/29/19 23:08 94 L 11/29/19 22:00 98 11/29/19 18:28 99 Intake and Output 11/30/19 11/30/19 11/30/19 06:59 14:59 22:59 Other: Voiding Method Toilet Toilet Toilet # Voids 1 1 4 GENERAL DESCRIPTION: Middle-aged female lying in bed, no distress. No tachypnea or accessory muscle of respiration use. HEENT: Shows Pallor , no scleral icterus. Oral mucous membrane is dry. No pharyngeal erythema or thrush NECK: Trachea central, no thyromegaly. LUNGS: Unlabored breathing. Clear to auscultation anteriorly. No wheeze or crackle. HEART: S1, S2, regular rate and rhythm. No loud murmur ABDOMEN: Soft, no tenderness , guarding or rigidity, no organomegaly EXTREMITIES: No edema of feet. SKIN: No rash, no masses palpable. NEUROLOGICAL: The patient is awake, alert, oriented x3, mood and affect normal. Results CBC & Chem 7: 12/01/19 05:11 12/01/19 05:11 Labs: Abnormal Lab Results - Last 24 Hours (Table) 11/29/19 11/29/19 11/29/19 Range/Units 17:35 17:35 17:35 Hgb 10.8 L (11.4-16.0) gm/dL MCHC 30.4 L (31.0-37.0) g/dL RDW 20.3 H (11.5-15.5) % D-Dimer 0.98 H (<0.60) mg/L FEU ABG pCO2 (35-45) mmHg ABG pO2 (83-108) mmHg ABG HCO3 (21-25) mmol/L ABG Total CO2 (19-24) mmol/L ABG O2 Saturation (94-97) % BUN 18 H (7-17) mg/dL Glucose 150 H (74-99) mg/dL POC Glucose (mg/dL) (75-99) mg/dL Ferritin 309.3 H (10.0-291.0) ng/mL C-Reactive Protein 23.2 H (<10.0) mg/L Total Protein 6.1 L (6.3-8.2) g/dL Triglycerides (<150) mg/dL HDL Cholesterol (40-60) mg/dL Procalcitonin (0.02-0.09) ng/mL 11/29/19 11/30/19 11/30/19 Range/Units 17:35 02:11 06:28 Hgb (11.4-16.0) gm/dL MCHC (31.0-37.0) g/dL RDW (11.5-15.5) % D-Dimer (<0.60) mg/L FEU ABG pCO2 (35-45) mmHg ABG pO2 (83-108) mmHg ABG HCO3 (21-25) mmol/L ABG Total CO2 (19-24) mmol/L ABG O2 Saturation (94-97) % BUN (7-17) mg/dL Glucose (74-99) mg/dL POC Glucose (mg/dL) 106 H (75-99) mg/dL Ferritin (10.0-291.0) ng/mL C-Reactive Protein (<10.0) mg/L Total Protein (6.3-8.2) g/dL Triglycerides 280 H (<150) mg/dL HDL Cholesterol 36 L (40-60) mg/dL Procalcitonin 0.10 H (0.02-0.09) ng/mL 11/30/19 11/30/19 11/30/19 Range/Units 11:44 14:11 16:36 Hgb (11.4-16.0) gm/dL MCHC (31.0-37.0) g/dL RDW (11.5-15.5) % D-Dimer (<0.60) mg/L FEU ABG pCO2 52 H (35-45) mmHg ABG pO2 61 L (83-108) mmHg ABG HCO3 32 H (21-25) mmol/L ABG Total CO2 34 H (19-24) mmol/L ABG O2 Saturation 90.8 L (94-97) % BUN (7-17) mg/dL Glucose (74-99) mg/dL POC Glucose (mg/dL) 139 H 326 H (75-99) mg/dL Ferritin (10.0-291.0) ng/mL C-Reactive Protein (<10.0) mg/L Total Protein (6.3-8.2) g/dL Triglycerides (<150) mg/dL HDL Cholesterol (40-60) mg/dL Procalcitonin (0.02-0.09) ng/mL Microbiology - Last 24 Hours (Table) 11/30/19 10:25 Group A Strep Throat Culture - Preliminary Throat Assessment and Plan Assessment: 1- patient presented to hospital with chest pain shortness of breath she did fontana ve very minimal cough patient did not have any fever during this admission her white count is normal no evidence of any lymphopenia Liver enzymes are normal, d-dimer mildly elevated LDH and normal she did have mildly elevated CRP and procalcitonin clinical suspicious is low for covid19 , underlying atypical bacterial pneumonia needs to be ruled out 2- Patient with multiple antibiotic ALLERGIES that would limit the number of antibiotic safe to use (1) Abnormal CT scan, chest Current Visit: Yes Status: Acute Code(s): R93.89 - ABNORMAL FINDINGS ON DX IMAGING OF OTH BODY STRUCTURES SNOMED Code(s): 55841422911379185 (2) Atypical pneumonia Current Visit: Yes Status: Acute Code(s): J18.9 - PNEUMONIA, UNSPECIFIED ORGANISM SNOMED Code(s): 546683527 Plan: 1- await urine for Legionella antigen 2- empirically add Rocephin and doxycycline 3- sputum cultures when available We will follow on clinical condition and cultures to further adjust medication if needed Thank you for this consultation will follow this patient with you
[2019-12-01] MEDS: INSULIN DETEMIR (LEVEMIR) 100 UNIT/ML SYR SQ SCH ×2 (09:00→21:58)
--- NOTE | 2019-12-01 09:07 | P.PN ---
Subjective This is a pleasant 63 years old female with past medical history of chronic asthma, diabetes mellitus, sleep apnea on CPAP, GERD, hearing difficulty and , hypertension, hypothyroidism, sarcoidosis of the lung, gout she is a patient of Dr. Witt. She was recently the hospital for short stay for viral pneumonia. Presents because of chest pain. Patient states that she was sent to the hospital under the recommendation of Dr. Haider. presents because of multiple complaints, she was complaining from sore throat, multiple joint pains, nausea, headache, feeling tired, lower abdominal pain and diarrhea for 2 days Patient says that yesterday she has left chest pain radiating to the left arm with difficulty raising her left arm, the pain was not severe and is better today associated with some tenderness in the sternal area and around the left shoulder but there is no swelling or deformity, patient says that the pain increased with deep breathing Also complaining from mild lower abdominal pain and mild tenderness with no rebound tenderness, several bouts of diarrhea She denies smoking, alcohol or illicit drugs Vitals are stable, she saturating 95% on 2 L oxygen, CBC, BMP, liver enzymes were unremarkable, severe troponins are negative with less than 0.012. D-dimer is elevated at 0.98, as well as [id number] mildly high of 0.10 CTA of the chest. No PE, patchy ground glass interstitial pulmonary infiltrates similar to old exam EKG: Sinus bradycardia at [address]-T changes, QTC 433 12/01/19 Patient was sitting on the side of the bed, she feels better today, her dyspnea is better today, she says that CPAP machine help her however she developed some exertional dyspnea No chest pain, no nausea vomiting, no diarrhea. She still have generalized body aches and joint aches and she has bilateral feet the Vital signs stable, labs including CBC and BMP were unremarkable from today, sugar on the high side to 14-339 but also patient is on steroids Pulmonary infectious disease on the case, currently she remains on Rocephin, doxycycline, dexamethasone and Lovenox 40 mg twice daily. Objective - Vital Signs Vital signs: Vital Signs Temp 98.6 F 12/01/19 03:05 Pulse 55 L 12/01/19 08:16 Resp 16 12/01/19 08:16 BP 154/74 12/01/19 08:16 Pulse Ox 98 12/01/19 08:16 Intake & Output 11/30/19 12/01/19 12/01/19 18:59 06:59 18:59 Other: Voiding Method Toilet Toilet # Voids 4 1 # Bowel Movements 1 - Labs CBC & Chem 7: 12/01/19 05:11 12/01/19 05:11 Labs: Abnormal Lab Results - Last 24 Hours (Table) 11/30/19 11/30/19 11/30/19 Range/Units 11:44 14:11 16:36 Hgb (11.4-16.0) gm/dL Hct (34.0-46.0) % RDW (11.5-15.5) % ABG pCO2 52 H (35-45) mmHg ABG pO2 61 L (83-108) mmHg ABG HCO3 32 H (21-25) mmol/L ABG Total CO2 34 H (19-24) mmol/L ABG O2 Saturation 90.8 L (94-97) % Sodium (137-145) mmol/L Glucose (74-99) mg/dL POC Glucose (mg/dL) 139 H 326 H (75-99) mg/dL C-Reactive Protein (<10.0) mg/L 11/30/19 12/01/19 12/01/19 Range/Units 20:59 05:11 05:11 Hgb 10.5 L (11.4-16.0) gm/dL Hct 33.5 L (34.0-46.0) % RDW 19.8 H (11.5-15.5) % ABG pCO2 (35-45) mmHg ABG pO2 (83-108) mmHg ABG HCO3 (21-25) mmol/L ABG Total CO2 (19-24) mmol/L ABG O2 Saturation (94-97) % Sodium 136 L (137-145) mmol/L Glucose 203 H (74-99) mg/dL POC Glucose (mg/dL) 339 H (75-99) mg/dL C-Reactive Protein 22.2 H (<10.0) mg/L 12/01/19 Range/Units 06:30 Hgb (11.4-16.0) gm/dL Hct (34.0-46.0) % RDW (11.5-15.5) % ABG pCO2 (35-45) mmHg ABG pO2 (83-108) mmHg ABG HCO3 (21-25) mmol/L ABG Total CO2 (19-24) mmol/L ABG O2 Saturation (94-97) % Sodium (137-145) mmol/L Glucose (74-99) mg/dL POC Glucose (mg/dL) 214 H (75-99) mg/dL C-Reactive Protein (<10.0) mg/L Microbiology - Last 24 Hours (Table) 11/29/19 17:35 Blood Culture - Preliminary Blood No Growth after 24 hours 11/30/19 10:25 Group A Strep Throat Culture - Preliminary Throat Assessment and Plan Assessment: Chest pain, unlikely cardiac causes. Consult Possible viral infection could be gastroenteritis or systemic viral infection, also from the suspicion of viral pneumonitis , rule out covert Bilateral feet. Diabetes mellitus Hypertension GERD/asthma Recent history of bilateral pneumonia Osteoarthritisstatus post knee and hip arthroplasty Sleep apnea on CPAP/BiPAP Hypothyroidism History of sarcoidosis Plan: This is a pleasant 63 years old female who presents with bilateral infections, possible viral pneumonitis. Rule out covert. Pulmonary on the case. Infectious disease on the case. Chest pain resolved. Continue with antibiotics and steroids and Lovenox as per ID and pulmonary team recommendation. We'll check Doppler of the lower extremity to rule out DVT Labs and medication were reviewed.. Continue same treatment. Continue with symptomatic treatment. Resume home medication. Monitor lytes and vitals. DVT and GI prophylaxis. Further recommendations of the clinical course of the patient DVT prophylaxis: Subcutaneous heparin GI Prophylaxis: Pepcid
[2019-12-01] MEDS: GABAPENTIN 300 MG CAP PO SCH ×2 (10:04→21:54)
[2019-12-01] MEDS: FENOFIBRATE 54 MG TAB PO SCH (10:04)
[2019-12-01] MEDS: allopurinoL 100 MG TAB PO SCH ×2 (10:04→21:56)
[2019-12-01] MEDS: HYDROXYCHLOROQUINE SULFATE 200 MG TAB PO SCH ×2 (10:04→22:01)
[2019-12-01] MEDS: ASPIRIN 81 MG PO SCH (10:04)
[2019-12-01] MEDS: atenoloL 50 MG TAB PO SCH ×2 (10:04→21:56)
[2019-12-01] MEDS: amLODIPine 10 MG TAB PO SCH (10:04)
[2019-12-01] MEDS: DOXYCYCLINE 100 MG CAP PO SCH ×2 (10:04→21:56)
[2019-12-01] MEDS: dexAMETHasone 2 MG TAB PO SCH (10:04)
[2019-12-01] MEDS: ENOXAPARIN 40 MG/0.4 ML SYRINGE SQ SCH ×2 (10:07→21:57)
[2019-12-01] MEDS: metFORMIN 500 MG TAB PO SCH ×2 (10:07→17:59)
[2019-12-01] MEDS: FAMOTIDINE 20 MG TAB PO SCH ×2 (10:07→21:54)
--- NOTE | 2019-12-01 11:34 | US ---
EXAMINATION TYPE: US venous doppler duplex LE DATE OF EXAM: 12/01/2019 10:01 AM COMPARISON: NONE CLINICAL HISTORY: Rule out DVT. right knee pain SIDE PERFORMED: bilateral TECHNIQUE: The lower extremity deep venous system is examined utilizing real time linear array sonog little with graded compression, doppler sonography and color-flow sonography. VESSELS IMAGED: External Iliac Vein (EIV) Common Femoral Vein Deep Femoral Vein Greater Saphenous Vein * Femoral Vein Popliteal Vein Small Saphenous Vein * Proximal Calf Veins (* superficial vessels) Technical limitations due to patient's body habitus Right Leg: No evidence of DVT as visualized Left Leg: No evidence of DVT as visualized IMPRESSION: 1. Limited exam demonstrates no diagnostic evidence of DVT.
--- NOTE | 2019-12-01 11:35 | P.PN ---
Subjective HISTORY OF PRESENTING ILLNESS This is a pleasant 63-year-old female past medical history significant for coronary artery disease status post PCI, sarcoidosis, hypertension, diabetes mellitus, asthma, obstructive sleep apnea and she is deaf. She is follows in the office with Dr. Braxton. Patient was seen and examined sitting up at the bed. Yard Jockey is at the bedside performing sign language. Overall the patient states she is feeling much better. She has no further achiness or discomfort in her chest. Breathing is stable. Blood pressure 154/74 heart rate 55 afebrile and maintaining oxygen saturation on room air. PHYSICAL EXAMINATION CONSTITUTIONAL: No apparent distress. HEENT: Head is normocephalic. Pupils are equal, round. Sclerae anicteric. Mucous membranes of the mouth are moist. No JVD. No carotid bruit. CHEST EXAMINATION: Lungs are clear to auscultation. No chest wall tenderness is noted on palpation or with deep breathing. HEART EXAMINATION: Regular rate and rhythm. S1, S2 heard. No murmurs, gallops or rub. EXTREMITIES: 2+ peripheral pulses, no lower extremity edema and no calf tenderness. ASSESSMENT Chest pain, atypical for angina. Likely related to pulmonary process. An acute coronary event has been ruled out. History of coronary artery disease status post PCI of the circumflex artery in 2018 Hypertension Diabetes mellitus Obstructive sleep apnea PLAN Stable from a cardiac perspective. Nurse Practitioner note has been reviewed, I agree with a documented findings and plan of care. Patient was seen and examined. Objective - Vital Signs Vital signs: Vital Signs Temp 98.6 F 12/01/19 03:05 Pulse 55 L 12/01/19 08:16 Resp 16 12/01/19 08:16 BP 154/74 12/01/19 08:16 Pulse Ox 98 12/01/19 08:16 Intake & Output 11/30/19 12/01/19 12/01/19 18:59 06:59 18:59 Other: Voiding Method Toilet Toilet # Voids 4 1 # Bowel Movements 1 - Labs CBC & Chem 7: 12/01/19 05:11 12/01/19 05:11 Labs: Abnormal Lab Results - Last 24 Hours (Table) 11/30/19 11/30/19 11/30/19 Range/Units 11:44 14:11 16:36 Hgb (11.4-16.0) gm/dL Hct (34.0-46.0) % RDW (11.5-15.5) % ABG pCO2 52 H (35-45) mmHg ABG pO2 61 L (83-108) mmHg ABG HCO3 32 H (21-25) mmol/L ABG Total CO2 34 H (19-24) mmol/L ABG O2 Saturation 90.8 L (94-97) % Sodium (137-145) mmol/L Glucose (74-99) mg/dL POC Glucose (mg/dL) 139 H 326 H (75-99) mg/dL C-Reactive Protein (<10.0) mg/L 11/30/19 12/01/19 12/01/19 Range/Units 20:59 05:11 05:11 Hgb 10.5 L (11.4-16.0) gm/dL Hct 33.5 L (34.0-46.0) % RDW 19.8 H (11.5-15.5) % ABG pCO2 (35-45) mmHg ABG pO2 (83-108) mmHg ABG HCO3 (21-25) mmol/L ABG Total CO2 (19-24) mmol/L ABG O2 Saturation (94-97) % Sodium 136 L (137-145) mmol/L Glucose 203 H (74-99) mg/dL POC Glucose (mg/dL) 339 H (75-99) mg/dL C-Reactive Protein 22.2 H (<10.0) mg/L 12/01/19 Range/Units 06:30 Hgb (11.4-16.0) gm/dL Hct (34.0-46.0) % RDW (11.5-15.5) % ABG pCO2 (35-45) mmHg ABG pO2 (83-108) mmHg ABG HCO3 (21-25) mmol/L ABG Total CO2 (19-24) mmol/L ABG O2 Saturation (94-97) % Sodium (137-145) mmol/L Glucose (74-99) mg/dL POC Glucose (mg/dL) 214 H (75-99) mg/dL C-Reactive Protein (<10.0) mg/L Microbiology - Last 24 Hours (Table) 11/29/19 17:35 Blood Culture - Preliminary Blood No Growth after 24 hours 11/30/19 10:25 Group A Strep Throat Culture - Preliminary Throat
[2019-12-01 11:42] LABS: Glucose,Whole Blood 233 mg/dL (75-99)
[2019-12-01 12:49] LABS: Ferritin 347.4 ng/mL (10.0-291.0)
[2019-12-01 17:04] LABS: Glucose,Whole Blood 332 mg/dL (75-99)
--- NOTE | 2019-12-01 17:28 | PN ---
PROGRESS NOTE DATE OF SERVICE: 12/01/2019 REASON FOR FOLLOWUP: Pneumonia. INTERVAL HISTORY: The patient is currently afebrile. The patient is breathing more comfortably. The patient denies having any chest pain. She did have some cough, not bringing up any sputum. No vomiting or any diarrhea. PHYSICAL EXAMINATION: Blood pressure is 154/74 with a pulse of 55, temperature of 98.6. She is 98% on room air. General description is a middle-aged female lying in bed in no distress. RESPIRATORY SYSTEM: Unlabored breathing with decreased intensity of breath sounds. No wheeze. HEART: S1, S2. Regular rate and rhythm. ABDOMEN: Soft. No tenderness. LABS: Hemoglobin is 10.5, white count 7.2, BUN of 17, creatinine 0.61. Urine for Legionella antigen is negative. DIAGNOSTIC IMPRESSION AND PLAN: Patient admitted to hospital with shortness of breath and cough with abnormal CT showing bilateral infiltrates, concern for possible atypical pneumonia. Clinically not behaving as viral pneumonia. COVID-19 is negative. Patient is currently covered with Rocephin and doxycycline; to continue for a short course and monitor clinical course closely. MMODL / IJN: [id number] /
[2019-12-01] MEDS: ATORVASTATIN 40 MG TAB PO SCH (21:56)
[2019-12-01] MEDS: AMITRIPTYLINE HCL 25 MG TAB PO SCH (21:57)
[2019-12-01 22:01] LABS: Glucose,Whole Blood 273 mg/dL (75-99)
[2019-12-01] MEDS: BACLOFEN 10 MG TAB PO SCH (22:01)
[2019-12-01] MEDS: LATANOPROST 0.005% OPHTH DROPS 2.5 ML BTL BOTH EYES SCH (22:02)
[2019-12-02 07:02] LABS: Glucose,Whole Blood 129 mg/dL (75-99)
[2019-12-02] MEDS: LEVOTHYROXINE 100 MCG TAB PO SCH (07:07)
[2019-12-02] MEDS: oxyCODONE-APAP 10-325MG 1 EACH TAB PO PRN (07:08)
[2019-12-02 07:12] LABS: C Reactive Protein 8.7 mg/L (<10.0)
[2019-12-02] MEDS: INSULIN ASPART (NovoLOG) 100 UNIT/ML VIAL SQ SCH (08:10)
[2019-12-02] MEDS: DOXYCYCLINE 100 MG CAP PO SCH (08:22)
[2019-12-02] MEDS: FAMOTIDINE 20 MG TAB PO SCH (08:22)
[2019-12-02] MEDS: FENOFIBRATE 54 MG TAB PO SCH (08:22)
[2019-12-02] MEDS: BACLOFEN 10 MG TAB PO SCH (08:23)
[2019-12-02] MEDS: amLODIPine 10 MG TAB PO SCH (08:23)
[2019-12-02] MEDS: GABAPENTIN 300 MG CAP PO SCH (08:23)
[2019-12-02] MEDS: metFORMIN 500 MG TAB PO SCH (08:23)
[2019-12-02] MEDS: allopurinoL 100 MG TAB PO SCH (08:23)
[2019-12-02] MEDS: dexAMETHasone 2 MG TAB PO SCH (08:23)
[2019-12-02] MEDS: INSULIN DETEMIR (LEVEMIR) 100 UNIT/ML SYR SQ SCH (08:24)
[2019-12-02] MEDS: HYDROXYCHLOROQUINE SULFATE 200 MG TAB PO SCH (08:24)
[2019-12-02] MEDS: ASPIRIN 81 MG PO SCH (08:24)
[2019-12-02] MEDS: atenoloL 50 MG TAB PO SCH (08:24)
[2019-12-02] MEDS: ENOXAPARIN 40 MG/0.4 ML SYRINGE SQ SCH (08:25)
[2019-12-02 08:32] LABS: Glucose,Whole Blood 161 mg/dL (75-99)
[2019-12-02 09:46] VITALS: BP 155/65; PULSE 58; RESP 18; TEMP 97.8
[2019-12-02 11:38] LABS: Glucose,Whole Blood 189 mg/dL (75-99)
[2019-12-02 11:51] LABS: Ferritin 320.5 ng/mL (10.0-291.0)
--- NOTE | 2019-12-02 12:11 | XR ---
EXAMINATION TYPE: XR chest 1V portable DATE OF EXAM: 12/02/2019 COMPARISON: 11/29/2019 HISTORY: Cough possible pneumonia TECHNIQUE: Single frontal view of the chest is obtained. FINDINGS: Heart is enlarged and stable. Chronic changes involving the AC joints are noted. Mild coar sened interstitium with no pneumothorax or sizable pleural effusion. IMPRESSION: Cardiomegaly. Interstitium is slightly prominent could be on the basis of reduced inspir ation correlate clinically to exclude a bronchitis or interstitial pneumonitis.
--- NOTE | 2019-12-02 12:50 | P.PN ---
Subjective Progress Note Date: 12/02/19 Principal diagnosis: Atypical pneumonia. This is a pleasant 63-year-old female patient who has history of diabetes mellitus, hypertension, hypothyroidism, acid reflux disease, multiple orthopedic surgeries, hearing disorder/deafness. She also has a history of sarcoidosis and obstructive sleep apnea and follows with Dr. Haider in our office for the same. She was recently hospitalized here with bilateral interstitial pneumonia with diffuse groundglass changes. Bacterial pneumonia was felt less likely. Sarcoidosis less likely. Consider viral pneumonia however the alston virus CoVID 19 infection was negative. She subsequently recovered and was discharged home on Ceftin and azithromycin on 11/25/2019. She represented here to the emergency room yesterday with complaints of increasing shortness of breath, body aches, left chest discomfort left arm discomfort, nausea, vomiting, diarrhea. Chest x-ray revealed no acute pulmonary disease. CT angiogram ruled out pul monary embolism. However there was some patchy groundglass interstitial pulmonary infiltrates similar to previous CAT scan. Interstitial fibrosis versus congestive heart failure. Influenza screen negative. Group A rapid strep test negative. White count 8.6. Hemoglobin 10.8. D-dimer 0.98. Sodium 137. Potassium 4.6. Creatinine 0.78. Ferritin 309. C-reactive protein 23. LDH 373. Troponins negative 3. Pro-calcitonin 0.10. Second alston virus screen pending. She's been initiated on Augmentin. She is on hydroxychloroquine for her sarcoidosis. She was interviewed utilizing an [employer] rpreter. Symptoms as noted above. Reevaluated today on 12/02/19, patient is feeling much better, breathing a lot easier, she is saturating 98% on room air. No cough no wheezing no shortness of breath no chest pain. Chest x-ray showed cardiomegaly, otherwise unremarkable. Objective - Vital Signs Vital signs: Vital Signs Temp 97.8 F 12/02/19 09:00 Pulse 58 L 12/02/19 09:00 Resp 18 12/02/19 09:00 BP 155/65 12/02/19 09:00 Pulse Ox 98 12/02/19 09:00 Intake & Output 12/01/19 12/02/19 12/02/19 18:59 06:59 18:59 Intake Total 100 640 Output Total 400 Balance 100 240 Intake: Oral 100 640 Output: Urine 400 Other: Voiding Method Toilet Toilet Toilet # Voids 2 2 # Bowel Movements 1 - Exam GENERAL EXAM: Alert, pleasant 63-year-old female patient, on room air. HEAD: Normocephalic. EYES: Normal reaction of pupils, equal size. NOSE: Clear with pink turbinates. THROAT: No erythema or exudates. NECK: No masses, no JVD. CHEST: No chest wall deformity. LUNGS: Equal air entry, clear throughout no crackles or rhonchi or wheezes. CVS: S1 and S2 normal with no audible murmur, regular rhythm. ABDOMEN: No hepatosplenomegaly, normal bowel sounds, no guarding or rigidity. SPINE: No scoliosis or deformity SKIN: No rashes CENTRAL NERVOUS SYSTEM: No focal deficits, tone is normal in all 4 extremities. EXTREMITIES: There is no peripheral edema. No clubbing, no cyanosis. Peripheral pulses are intact. - Labs CBC & Chem 7: 12/01/19 05:11 12/01/19 05:11 Labs: Abnormal Lab Results - Last 24 Hours (Table) 12/01/19 12/01/19 12/01/19 Range/Units 05:11 17:02 22:00 POC Glucose (mg/dL) 332 H 273 H (75-99) mg/dL Ferritin 347.4 H (10.0-291.0) ng/mL 12/02/19 12/02/19 12/02/19 Range/Units 06:32 07:00 08:30 POC Glucose (mg/dL) 129 H 161 H (75-99) mg/dL Ferritin 320.5 H (10.0-291.0) ng/mL 12/02/19 Range/Units 11:36 POC Glucose (mg/dL) 189 H (75-99) mg/dL Ferritin (10.0-291.0) ng/mL Microbiology - Last 24 Hours (Table) 11/30/19 10:25 Group A Strep Throat Culture - Final Throat 11/29/19 17:35 Blood Culture - Preliminary Blood No Growth after 48 hours Assessment and Plan Assessment: Impression: Atypical pneumonia, clinically significantly improved, hence would suggest continue oral antibiotics/doxycycline twice a day for the next 7 days. Consider discharging the patient home today and follow up on outpatient basis with Dr. Haider. Time with Patient: Less than 30
--- NOTE | 2019-12-02 13:35 | PN ---
PROGRESS NOTE DATE OF SERVICE: 12/02/2019 REASON FOR FOLLOWUP: Possible pneumonia. INTERVAL HISTORY: Patient is currently afebrile. Patient is breathing more comfortably. Denies having any chest pain. Minimal cough. No nausea. No abdominal pain. No diarrhea. She is currently 98% on room air. PHYSICAL EXAMINATION: Blood pressure 155/65 with a pulse of 58, temperature 97.8. She is 98% on room air. GENERAL DESCRIPTION: The patient is a middle-aged female up in the bed in no distress. Respiratory system: Unlabored breathing, decreased intensity of breath sounds. No wheeze. Heart S1, S2. Regular rate and rhythm. Abdomen soft, no tenderness. LABS: Hemoglobin is 10.5, white count 7.2, BUN of 17, creatinine 0.61. DIAGNOSTIC IMPRESSION AND PLAN: Patient admitted to the hospital with difficulty in breathing and cough with interstitial infiltrate possible atypical pneumonia. Patient clinically responding to doxycycline to continue for about a week and close outpatient followup. MMODL / IJN: [id number] /
--- NOTE | 2019-12-03 02:24 | P.DS ---
Providers Date of admission: 12/01/19 08:47 Attending physician: Christiano Scott MD Consults: 11/29/19 21:09 Consult Physician Urgent Consulting Provider: [facility] Consult Reason/Comments: Chest pain Do you want consulting provider notified?: Yes 11/30/19 07:55 Consult Physician Urgent Consulting Provider: Devan Mathew Consult Reason/Comments: Abnormal CT of the chest, sore throat, diarrhea Do you want consulting provider notified?: Yes 11/30/19 11:01 Consult Physician Routine Consulting Provider: Kandace Noriega Consult Reason/Comments: suspected COVID Do you want consulting provider notified?: Yes Primary care physician: Jaswant Witt Hospital Course: Diagnoses: Atypical pneumonia Chest pain, secondary to pneumonia, improved Diabetes mellitus Hypertension GERD/asthma Recent history of bilateral pneumonia Osteoarthritisstatus post knee and hip arthroplasty Sleep apnea on CPAP/BiPAP Hypothyroidism History of sarcoidosis Hospital course: This is a pleasant 63 years old female with past medical history of chronic asthma, diabetes mellitus, sleep apnea on CPAP, GERD, hearing difficulty and , hypertension, hypothyroidism, sarcoidosis of the lung, gout. she is a p atient of Dr. Witt. She was recently the hospital for short stay for viral pneumonia. Presents because of chest pain. CTA of the chest. No PE, patchy ground glass interstitial pulmonary infiltrates similar to old exam. Govid-19 is suspected that this came back negative. Patient found to have atypical pneumonia responded to antibiotics. Patient has been evaluated by infectious disease and pulmonary service who cleared her for discharge on 7 days of the doxycycline On the day of discharge patient was so happy a pleasant, she was dressed up, moving in the hallway with no difficulty, breathing is back to normal and saturating 96 on room air, no chest pain or cough. No dyspnea. No change in urine or bowel habits. No fever Problems and management plan were discussed with the patient and he verbalized understanding and acceptance Patient was found stable and can be discharged home however he needs follow-up as an outpatient. Patient was instructed to follow up with PCP within one week and patient agrees. Patient agrees with the appointments made for the patient with Dr. 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 Haider on 12/21 Gen: patient is a AAOx3, no distress CVS: S1-S2, RRR, no murmur Lungs: B/L CTA, no wheezing Abdomen: soft, no distention, no tenderness, positive bowel sounds Extremity: no leg edema or induration Time spent more than 35 minutes Plan - Discharge Summary New Discharge Prescriptions: New Atorvastatin [Lipitor] 40 mg PO HS #30 tab Nitroglycerin Sl Tabs [Nitrostat] 0.4 mg SUBLINGUAL Q5M PRN #20 tab PRN Reason: Chest Pain Doxycycline [Vibramycin] 100 mg PO BID 7 Days #14 cap Continue Potassium Chloride [Klor-Con 20] 20 meq PO DAILY PRN PRN Reason: "WHEN TAKING WATER PILL" Allopurinol [Zyloprim] 100 mg PO BID Gabapentin 600 mg PO BID@0900,2100 Latanoprost Ophth [Xalatan 0.005%] 1 drops BOTH EYES HS INSULIN LISPRO (HumaLOG) [humaLOG] 30 units SQ TID-W/MEALS INSULIN LISPRO (HumaLOG) [humaLOG] See Protocol SQ TID-W/MEALS Insulin Glargine [Lantus] 80 unit SQ BID oxyCODONE-APAP 10-325MG [Percocet 10-325 mg] 1 tab PO TID Hydroxychloroquine Sulfate [Plaquenil] 200 mg PO BID Levothyroxine Sodium [Synthroid] 200 mcg PO DAILY@0700 Magnesium Oxide 400 mg PO DAILY Ergocalciferol (Vitamin D2) [Vitamin D2] 50,000 unit PO Q7D Vit C/Ascorb Sod/Multivit-Min [Emergen-C 500 mg Chewable Tab] 1,000 mg PO DAILY Gabapentin 1,200 mg PO DAILY@1400 metFORMIN HCL 1,000 mg PO BID #0 Fenofibrate [Lofibra] 54 mg PO DAILY #30 tab Levalbuterol Hfa Inhaler [Xopenex Hfa Inhaler] 1 puff INHALATION RT-QID PRN PRN Reason: Shortness Of Breath Amitriptyline HCl 25 mg PO HS Aspirin 325 mg PO DAILY 30 Days #30 tab Ondansetron [Zofran ODT] 4 mg PO Q8HR PRN #15 tab PRN Reason: Nausea Bumetanide [BUMEX] 0.5 mg PO BID PRN PRN Reason: Edema Baclofen 10 mg PO TID amLODIPine [Norvasc] 10 mg PO DAILY Omeprazole [PriLOSEC] 40 mg PO BID atenoloL [Tenormin] 50 mg PO BID Discontinued Cetirizine HCl [Zyrtec] 10 mg PO BID Meloxicam 15 mg PO DAILY Azithromycin [Zithromax] 500 mg PO Q24H #5 tab Cefuroxime Axetil [Ceftin] 500 mg PO BID 7 Days #14 tab Discharge Medication List Allopurinol [Zyloprim] 100 mg PO BID 01/04/15 [History] Gabapentin 600 mg PO BID@0900,2100 01/04/15 [History] Potassium Chloride [Klor-Con 20] 20 meq PO DAILY PRN 01/04/15 [History] Latanoprost Ophth [Xalatan 0.005%] 1 drops BOTH EYES HS 06/28/15 [History] INSULIN LISPRO (HumaLOG) [humaLOG] 30 units SQ TID-W/MEALS 11/17/15 [History] INSULIN LISPRO (HumaLOG) [humaLOG] See Protocol SQ TID-W/MEALS 01/07/16 [History] Hydroxychloroquine Sulfate [Plaquenil] 200 mg PO BID 01/29/17 [History] Insulin Glargine [Lantus] 80 unit SQ BID 01/29/17 [History] oxyCODONE-APAP 10-325MG [Percocet 10-325 mg] 1 tab PO TID 01/29/17 [History] Levothyroxine Sodium [Synthroid] 200 mcg PO DAILY@0700 03/26/17 [History] Ergocalciferol (Vitamin D2) [Vitamin D2] 50,000 unit PO Q7D 01/16/18 [History] Gabapentin 1,200 mg PO DAILY@1400 01/16/18 [History] Magnesium Oxide 400 mg PO DAILY 01/16/18 [History] Vit C/Ascorb Sod/Multivit-Min [Emergen-C 500 mg Chewable Tab] 1,000 mg PO DAILY 01/16/18 [History] metFORMIN HCL 1,000 mg PO BID #0 01/18/18 [Rx] Fenofibrate [Lofibra] 54 mg PO DAILY #30 tab 01/19/18 [Rx] Amitriptyline HCl 25 mg PO HS 01/31/19 [History] Levalbuterol Hfa Inhaler [Xopenex Hfa Inhaler] 1 puff INHALATION RT-QID PRN 01/31/19 [History] Aspirin 325 mg PO DAILY 30 Days #30 tab 02/02/19 [Rx] Ondansetron [Zofran ODT] 4 mg PO Q8HR PRN #15 tab 04/25/19 [Rx] Baclofen 10 mg PO TID 11/23/19 [History] Bumetanide [BUMEX] 0.5 mg PO BID PRN 11/23/19 [History] Omeprazole [PriLOSEC] 40 mg PO BID 11/23/19 [History] amLODIPine [Norvasc] 10 mg PO DAILY 11/23/19 [History] atenoloL [Tenormin] 50 mg PO BID 11/23/19 [History] Atorvastatin [Lipitor] 40 mg PO HS #30 tab 12/02/19 [Rx] Doxycycline [Vibramycin] 100 mg PO BID 7 Days #14 cap 12/02/19 [Rx] Nitroglycerin Sl Tabs [Nitrostat] 0.4 mg SUBLINGUAL Q5M PRN #20 tab 12/02/19 [Rx] Follow up Appointment(s)/Referral(s): Isa Braxton MD [STAFF PHYSICIAN] - 1 Week Jaswant Witt DO [Primary Care Provider] - 12/05/19 2:20 pm (Call from parking lot when you arrive to let them know you are there) Allan Haider MD [STAFF PHYSICIAN] - 12/22/19 1:00 pm Patient Instructions/Handouts: Chest Pain (DC), Pneumonia (DC) Activity/Diet/Wound Care/Special Instructions: Heart healthy diet Activity is limited till you see your doctor Discharge Disposition: HOME SELF-CARE
== END 2019-12-02 14:46 | disposition home or self-care (01) | DRG 194 ==
LOC: EC 16:22 → 3NCARDOBS 21:09 → OBSVTOIN 12-01 08:47
PROVIDERS: ADMIT Internal Medicine; ATTEND Internal Medicine
DX: J18.9 Pneumonia, unspecified organism (principal); J84.9 Interstitial pulmonary disease, unspecified; I11.9 Hypertensive heart disease without heart failure; D86.0 Sarcoidosis of lung; E11.9 Type 2 diabetes mellitus without complications; D50.9 Iron deficiency anemia, unspecified; Z79.4 Long term (current) use of insulin; Z20.828 Contact with and (suspected) exposure to other viral communicable diseases; J45.909 Unspecified asthma, uncomplicated; I25.10 Atherosclerotic heart disease of native coronary artery without angina pectoris; M10.9 Gout, unspecified; G47.33 Obstructive sleep apnea (adult) (pediatric); E03.9 Hypothyroidism, unspecified; R19.7 Diarrhea, unspecified; R00.1 Bradycardia, unspecified; M91.10 Juvenile osteochondrosis of head of femur [Legg-Calve-Perthes], unspecified leg; K21.9 Gastro-esophageal reflux disease without esophagitis; H91.90 Unspecified hearing loss, unspecified ear; M19.90 Unspecified osteoarthritis, unspecified site; Z79.890 Hormone replacement therapy; Z79.1 Long term (current) use of non-steroidal anti-inflammatories (NSAID); Z79.82 Long term (current) use of aspirin; Z79.891 Long term (current) use of opiate analgesic; Z79.899 Other long term (current) drug therapy; Z86.19 Personal history of other infectious and parasitic diseases; Z90.49 Acquired absence of other specified parts of digestive tract; Z87.19 Personal history of other diseases of the digestive system; Z90.710 Acquired absence of both cervix and uterus; Z87.42 Personal history of other diseases of the female genital tract; Z96.642 Presence of left artificial hip joint; Z96.651 Presence of right artificial knee joint; Z90.722 Acquired absence of ovaries, bilateral; Z98.1 Arthrodesis status; Z98.61 Coronary angioplasty status; Z87.891 Personal history of nicotine dependence; Z98.890 Other specified postprocedural states; Z88.1 Allergy status to other antibiotic agents; Z88.5 Allergy status to narcotic agent; Z91.013 Allergy to seafood; Z88.8 Allergy status to other drugs, medicaments and biological substances; Z91.018 Allergy to other foods; Z91.048 Other nonmedicinal substance allergy status; Z82.49 Family history of ischemic heart disease and other diseases of the circulatory system; Z83.3 Family history of diabetes mellitus; Z80.49 Family history of malignant neoplasm of other genital organs; Z83.79 Family history of other diseases of the digestive system; Z84.1 Family history of disorders of kidney and ureter; Z82.3 Family history of stroke
CPT/HCPCS: 36415; 36600; 71045; 71275; 80048; 80053; 80061; 82728; 82805; 83605; 83615; 83735; 84145; 84484; 85025; 85379; 85610; 85730; 86140; 86769; 87040; 87081; 87430; 87449; 87502; 93005; 93970; 94660; 96374; 96375; 99285

== ENCOUNTER → 2019-12-06 | Outpatient (CLI) | payer MEDICARE, BC ==
--- NOTE | 2019-12-06 17:13 | US ---
EXAMINATION TYPE: US kidneys/renal and bladder DATE OF EXAM: 12/06/2019 COMPARISON: US CLINICAL HISTORY: N30.20 chronic urinary tract infection. Diabetic; pt is deaf; feels urgency to void but no fluid is seen in bladder. Technique: Real-time sector scanning sonography is performed. Kidneys are poorly seen due to body h abitus. EXAM MEASUREMENTS: Right Kidney: 11.4 x 6.5 x 5.0 cm Left Kidney: 11.0 x 4.6 x 5.5 cm Post Void Residual Volume: bladder is empty on survey Right Kidney: No hydronephrosis or masses seen Left Kidney: No hydronephrosis or masses seen Bladder: no fluid seen at bladder area There is no evidence for hydronephrosis at this point in time. No nephrolithiasis is seen. No samara s are identified. IMPRESSION: 1. Normal renal ultrasound. 2. Exam is limited due to body habitus.
== END | disposition home or self-care (01) ==
LOC: RADUSWWP 12:59
PROVIDERS: ATTEND Urology
DX: N30.20 Other chronic cystitis without hematuria (principal); Z88.5 Allergy status to narcotic agent; Z88.6 Allergy status to analgesic agent; Z88.8 Allergy status to other drugs, medicaments and biological substances
CPT/HCPCS: 76770

== ENCOUNTER → 2019-12-22 | Outpatient (CLI) | payer MEDICARE, BC ==
[2019-12-23 01:09] LABS: C Reactive Protein 2.6 mg/dL (0.0-0.8)
== END | disposition home or self-care (01) ==
LOC: LABWHC1 14:28
PROVIDERS: ATTEND Internal Medicine Critical Care Medicine
DX: J95.851 Ventilator associated pneumonia (principal)
CPT/HCPCS: 36415; 82164; 85652; 86038; 86140; 86160; 86431

== ENCOUNTER → 2019-12-27 | Outpatient (CLI) | payer MEDICARE, BC ==
--- NOTE | 2019-12-27 13:36 | CT ---
EXAMINATION TYPE: CT chest wo con DATE OF EXAM: 12/27/2019 COMPARISON: Prior CT November 09, 2012. Most recent chest x-ray 5 days ago HISTORY: pneumonitis CT DLP: 557.6 mGycm. Automated Exposure Control for Dose Reduction was Utilized. TECHNIQUE: CT scan of the thorax is performed without IV contrast. FINDINGS: LUNGS: Respiratory motion artifact but good aeration of the lung bases. Mild linear scarring in the l ower lungs. Lower lung groundglass opacity favoring mild alveolar edema and/or atelectatic change. No suspicious consolidation. No concerning nodules or masses. No bronchiectasis. No significant honeyco mbing. MEDIASTINUM: Lack of IV contrast is noted to limit evaluation for mediastinal and especially hilar ad enopathy. There are no definitive greater than 1 cm hilar or mediastinal lymph nodes. No pericardia l effusion is seen. Cardiomegaly redemonstrated. Coronary artery calcification again seen which is noted marked underlying coronary artery disease. OTHER: Hepatomegaly is suspected. Liver low densities consistent with diffuse fatty infiltration. Cho lecystectomy clips are noted. Cortical thinning of both kidneys. Slight underlying scoliotic curvatur e with multilevel spurring and disc space narrowing in the thoracic spine. Anterior fusion plate lowe r cervical spine is noted on localizer. IMPRESSION: Chronic changes and cardiomegaly without suspicious focal consolidation or groundglass op acity. Perhaps mild underlying alveolar edema could reflect product of early or mild CHF exacerbation . Correlate clinically.
== END | disposition home or self-care (01) ==
LOC: RADCTMAIN 12:55
PROVIDERS: ATTEND Internal Medicine Critical Care Medicine
DX: I51.7 Cardiomegaly (principal); R91.8 Other nonspecific abnormal finding of lung field; Z88.6 Allergy status to analgesic agent; Z88.8 Allergy status to other drugs, medicaments and biological substances
CPT/HCPCS: 71250

== ENCOUNTER 2020-03-07 08:53 | Day surgery (SDC) | payer MEDICARE, BC ==
[2020-03-06 13:46] VITALS: BMI 41.9
[~2020-03-07 08:53] MED LIST changes: -IODINE/POTASS IOD (LUGOLS) 8 ML BTL TOPICAL ONE; +LACTATED RINGERS 1,000 ML IV SCH
[2020-03-07 09:22] VITALS: TEMP 97.3
[2020-03-07 09:30] LABS: Glucose,Whole Blood 114 mg/dL (75-99)
[2020-03-07] MEDS ORDERED: LIDOCAINE 1% (10MG/ML) FOR IV START INTRADERMA ONE (09:30)
[2020-03-07] MEDS ORDERED: LIDOCAINE 1% INJ 10MG/ML (20 ML MDV) ONE (09:41)
[2020-03-07] MEDS ORDERED: PROPOFOL 10 MG/ML 20 ML VIAL IV ONE (09:41)
--- NOTE | 2020-03-07 10:12 | P.PCN ---
Date of Procedure: 03/07/20 Description of Procedure: BRIEF HISTORY: Patient is a 64-year-old female presenting for elevated EGD for evaluation of anemia. Patient has been following with the hematology service and has an iron deficiency anemia. Prior endoscopic evaluation in 2016 with EGD and colonoscopy significant for gastritis and gastric polyps and a normal colonoscopy. Repeat EGD in 2017 with gastritis and a small hiatal hernia. She denies any signs or symptoms of GI bleeding. PROCEDURE PERFORMED: Esophagogastroduodenoscopy with biopsy. PREOPERATIVE DIAGNOSIS: Anemia. ESTIMATED BLOOD LOSS: Minimal. IV sedation per anesthesia. PROCEDURE: After informed consent was obtained, the patient was brought into the endoscopy unit. IV sedation was administered by Anesthesia under continuous monitoring. Initially the Olympus GIF-190 video endoscope was inserted into the mouth. Esophagus intubated without any difficulty. It was gradually advanced into the stomach and duodenum and carefully examined. The bulb and the second part of the duodenum appeared normal, with biopsies taken to rule out celiac sprue. The scope at this time was withdrawn to the stomach, adequately insufflated with air, and upon careful examination, mucosa of the antrum, body, cardia and the fundus appeared normal, except for some mild scattered erythema in the antrum and body suggestive of mild gastritis with biopsies of antrum and body taken. There was an area with spontaneous bleeding in the gastric antrum, prepyloric r egion) treated with gold probe ablation with hemostasis achieved . The scope was then withdrawn into the esophagus. The GE junction was located at 38 cm from the incisors and biopsied . The esophagus appeared normal. There were no erosions or ulcerations seen and the patient tolerated the procedure well. IMPRESSION: 1. Mild gastritis. 2. Biopsies taken of the duodenum, antrum and body and GE junction. 3. Area of spontaneous bleeding in the gastric antrum treated with gold probe ablation. RECOMMENDATIONS: The findings of this examination were discussed with the patient. Okay to resum e diet. Okay to resume medications. Continue omeprazole twice daily. Continue follow-up with hematology service and iron supplementation as needed.
[2020-03-07] MEDS ORDERED: ONDANSETRON 4 MG/2 ML VIAL ONE (10:22)
[2020-03-07] MEDS ORDERED: ONDANSETRON 4 MG/2 ML VIAL IVP ONE (10:25)
[2020-03-07 10:30] VITALS: RESP 16
[2020-03-07 10:54] VITALS: BP 103/74; PULSE 78
== END 2020-03-07 11:06 | disposition home or self-care (01) ==
LOC: ORWHC2ENDO 08:53
PROVIDERS: ATTEND Internal Medicine
DX: K29.51 Unspecified chronic gastritis with bleeding (principal); K21.00 Gastro-esophageal reflux disease with esophagitis, without bleeding; D50.9 Iron deficiency anemia, unspecified; I20.9 Angina pectoris, unspecified; I10 Essential (primary) hypertension; J45.909 Unspecified asthma, uncomplicated; G47.33 Obstructive sleep apnea (adult) (pediatric); D86.9 Sarcoidosis, unspecified; E11.9 Type 2 diabetes mellitus without complications; E07.9 Disorder of thyroid, unspecified; M10.9 Gout, unspecified; Z87.19 Personal history of other diseases of the digestive system; Z98.1 Arthrodesis status; Z98.890 Other specified postprocedural states; Z90.710 Acquired absence of both cervix and uterus; Z90.49 Acquired absence of other specified parts of digestive tract; Z88.8 Allergy status to other drugs, medicaments and biological substances; Z91.09 Other allergy status, other than to drugs and biological substances; Z88.6 Allergy status to analgesic agent; Z88.5 Allergy status to narcotic agent; Z91.013 Allergy to seafood; Z91.018 Allergy to other foods; E66.01 Morbid (severe) obesity due to excess calories; Z87.01 Personal history of pneumonia (recurrent); Z68.41 Body mass index [BMI] 40.0-44.9, adult; Z79.899 Other long term (current) drug therapy; Z79.890 Hormone replacement therapy; Z79.4 Long term (current) use of insulin; Z79.891 Long term (current) use of opiate analgesic; Z79.82 Long term (current) use of aspirin; Z96.651 Presence of right artificial knee joint; Z91.89 Other specified personal risk factors, not elsewhere classified
CPT/HCPCS: 88305; 43239; 43255; J2405; J2001; J2704

== ENCOUNTER → 2020-09-24 | Outpatient (CLI) | payer MEDICARE, BC ==
--- NOTE | 2020-09-24 12:51 | XR ---
EXAMINATION TYPE: XR chest 2V DATE OF EXAM: 09/24/2020 COMPARISON: Chest x-ray 12/02/2019, 06/12/2020 HISTORY: Preop, sarcoidosis TECHNIQUE: Frontal and lateral views of the chest are obtained. FINDINGS: There is no focal air space opacity, pleural effusion, or pneumothorax seen. The cardiac silhouette size is stable, enlarged. The osseous structures are intact, postop changes are again no laura to the cervical spine, distal right clavicle has been resected, thoracic spondylosis is present. There are prominent lung volumes with flattening of the hemidiaphragms, correlate for possible COPD. IMPRESSION: No acute cardiopulmonary process. Additional findings above.
== END | disposition home or self-care (01) ==
LOC: RADXRYALE 08:56
PROVIDERS: ATTEND Family Medicine
DX: Z01.818 Encounter for other preprocedural examination (principal); D86.9 Sarcoidosis, unspecified
CPT/HCPCS: 71046

== ENCOUNTER → 2021-04-18 | Outpatient (CLI) | payer MEDICARE, BC ==
--- NOTE | 2021-04-18 14:32 | XR ---
Lumbosacral spine HISTORY: M5450,[id number] LBP,DDD 5 views of lumbosacral spine Bone mineralization is reduced. Lumbar vertebral bodies show preserved height and alignment on the la teral view. Loss of disc height is present at intervertebral levels, suspect vacuum phenomenon L4-5. There is multilevel spondylosis. Sclerosis is present in the posterior elements. Atherosclerotic calc ifications are present in the aorta iliac distribution. No evident spondylolysis. Postop change noted to the right hip. There is a mild levoscoliosis centered at L3. Surgical clips are present right upp er quadrant. IMPRESSION: Osteopenia, degenerative disc disease and facet arthropathy.
== END | disposition home or self-care (01) ==
LOC: RADXRYALE 11:31
PROVIDERS: ATTEND Family Medicine
DX: M51.36 Other intervertebral disc degeneration, lumbar region (principal); M47.816 Spondylosis without myelopathy or radiculopathy, lumbar region; M85.88 Other specified disorders of bone density and structure, other site
CPT/HCPCS: 72110

== ENCOUNTER → 2021-04-30 | Outpatient (CLI) | payer MEDICARE, BC ==
--- NOTE | 2021-04-30 20:47 | CT ---
EXAMINATION TYPE: CT abdomen pelvis w con DATE OF EXAM: 04/30/2021 COMPARISON: CT 04/25/2019 HISTORY: abdominal pain right lower quadrant, hx of hernia CT DLP: 1917.3 mGycm Automated exposure control for dose reduction was used. TECHNIQUE: Helical acquisition of images from the lung bases through the pelvis have been completed following oral and intravenous contrast. CONTRAST: Performed with Oral Contrast and with IV Contrast, patient injected with 100 mL of Isovue 300. FINDINGS: The heart is borderline enlarged. Soft tissue attenuation along anterior abdominal wall is present similar to prior exam, correlate to exclude cellulitis LUNG BASES: Mosaic perfusion present at the lung bases can be seen in such entities as COPD, correlat e. AORTA: No significant abnormality is appreciated. LIVER/GB: Liver shows low attenuation likely due to hepatic steatosis, the liver is enlarged as on pr ior exam. Gallbladder is surgically absent. PANCREAS: No significant abnormality is seen. SPLEEN: Splenomegaly is again seen.. ADRENALS: No significant abnormality is seen. KIDNEYS: No significant interval change is seen. REPRODUCTIVE ORGANS: Not seen BOWEL: No significant abnormality is seen. FREE AIR: No Free Air visible. ASCITES: None visible. PELVIC ADENOPATHY: None visualized. RETROPERITONEAL ADENOPATHY: No Retroperitoneal Adenopathy visible. URINARY BLADDER: No significant abnormality is seen. OSSEOUS STRUCTURES: Streak artifact due to patient's hip prostheses limits evaluation in the pelvis. There is some atrophy of the paraspinal musculature greater on the right than on the left over the r egion of the sacrum and lower lumbar spine, associated fatty replacement. Degenerative disc disease p resent in the lumbar spine, question of partial laminectomy to the right and midline at the L4-5 leve l, correlate with appropriate history. IMPRESSION: THERE IS MARKED HEPATOMEGALY, HEPATIC STEATOSIS, SPLENOMEGALY IS PRESENT ON PRIOR. THERE ARE SOME LIMITATIONS THE EXAM. CARDIOMEGALY. CORRELATE FOR CELLULITIS ADDITIONAL FINDINGS ABOVE..
== END | disposition home or self-care (01) ==
LOC: RADCTMAIN 14:54
PROVIDERS: ATTEND Family Medicine
DX: K43.9 Ventral hernia without obstruction or gangrene (principal); R16.0 Hepatomegaly, not elsewhere classified; K76.0 Fatty (change of) liver, not elsewhere classified; R16.2 Hepatomegaly with splenomegaly, not elsewhere classified
CPT/HCPCS: 82565; 84520; 74177; 36415; Q9967

== ENCOUNTER → 2021-10-07 | Outpatient (CLI) | payer MEDICARE, BC ==
--- NOTE | 2021-10-08 08:56 | MM ---
Reason for Exam: Screening (asymptomatic). Last mammogram was performed 5 year(s) and 11 month(s) ago. Patient History: Menarche at age 31. First Full-Term at age 22. Left ovary removed at age 49. Right ovary removed at age 50. Hysterectomy at age 32. 06/21/2006, Benign Core Biopsy on the right side. Risk Values: [place] 5 year model risk: 1.5%. NCI Lifetime model risk: 6.5%. Film Views: Bilateral CC views were taken. Bilateral MLO views were taken. Prior Study Comparison: 03/14/2008 Screening Mammogram, [place]. 06/16/2010 Screening Mammogram, [place]. 10/24/2015 Bilateral Screening Mammogram, [facility]. Tissue Density: The breast tissue is heterogeneously dense. This may lower the sensitivity of mammography. Findings: Analyzed By CAD. There are benign-appearing calcifications. No dominant mass or architectural distortion. Previous biopsy clip markers are suggested. Overall Assessment: Benign, BI-RAD 2 Management: Screening Mammogram of both breasts in 1 year. A clinical breast exam by your physician is recommended on an annual basis and results should be correlated with mammographic findings. Electronically signed and approved by: Nico Dennis M.D. Radiologis
== END | disposition home or self-care (01) ==
LOC: RADMAMWWP 07:03
PROVIDERS: ATTEND Family Medicine
DX: Z12.31 Encounter for screening mammogram for malignant neoplasm of breast (principal); Z90.721 Acquired absence of ovaries, unilateral
CPT/HCPCS: 77063; 77067

== ENCOUNTER → 2021-10-09 | Outpatient (CLI) | payer MEDICARE, BC ==
[2021-10-09 22:29] LABS: African American GFR (CKD) 78.9 (60.0-200.0); Anion Gap 11.3 mmol/L (10.00-18.00); Blood Urea Nitrogen 19.1 mg/dL (9.0-27.0); Carbon Dioxide 29.7 mmol/L (20.0-27.5); HCT 40.6 % (37.2-46.3); HGB 12.3 g/dL (12.0-15.0); MCH 27.3 pg (27.0-32.0); MCHC 30.3 g/dL (32.0-37.0); Mean Platelet Volume 12.5 fL (9.5-12.2); NRBC Per 100 WBC 0 /100 WBCS (0.0-0.0); Platelet Count 247 X 10*3/uL (140-440); Potassium 4.8 mmol/L (3.5-5.5); RBC 4.51 X 10*6/uL (4.10-5.20); RDW 13.3 % (11.5-14.5); WBC 11.09 X 10*3/uL (4.50-10.00)
== END | disposition home or self-care (01) ==
LOC: LABPAT 13:49
PROVIDERS: ATTEND Internal Medicine Interventional Cardiology
DX: Z01.812 Encounter for preprocedural laboratory examination (principal); I25.10 Atherosclerotic heart disease of native coronary artery without angina pectoris
CPT/HCPCS: 80051; 82565; 84520; 85027

== ENCOUNTER → 2021-10-21 | Day surgery (SDC) | payer MEDICARE, BC ==
[2021-10-20 14:18] VITALS: BMI 39.9
[~2021-10-21] MED LIST changes: +ALPRAZolam 0.25 MG TAB PO PRN; +ALPRAZolam 0.5 MG TAB PO PRN; +ASPIRIN 325 MG TAB PO STA; +ATORVASTATIN 80 MG TAB PO STA; +HEPARIN SODIUM,PORCINE 10,000 UNIT in SODIUM CHLORIDE 0.9% 1,000 ML IRRIGATION PRN; +HEPARIN SODIUM,PORCINE 2,500 UNIT in SODIUM CHLORIDE 0.9% 250 ML IRRIGATION PRN; +IOPAMIDOL-370 50ML BTL INJ ONE; -LACTATED RINGERS 1,000 ML IV SCH; +LIDOCAINE 1% INJ 10MG/ML (20 ML MDV) SQ ONE; +MIDAZOLAM 2 MG/2 ML VIAL IV ONE; +NITROGLYCERIN SL TABS 0.4 MG TAB SUBLINGUAL PRN; +SODIUM CHLORIDE 0.9% 1,000 ML IV SCH; +SODIUM CHLORIDE 0.9% 1,000 ML in EMPTY BAG 1 BAG IV SCH
[2021-10-21 07:29] LABS: Glucose,Whole Blood 148 mg/dL (75-99)
[2021-10-21 07:36] VITALS: TEMP 98.1
--- NOTE | 2021-10-21 08:20 | P.CARDCATH ---
Description of Procedure: History: Patient was referred for cardiac catheterization to evaluate for CAD. This patient presented with symptoms suggestive of unstable angina had previous intervention of mid circumflex after large OM branch. LAD and dominant RCA did not have significant disease. The PCI of circumflex was performed with a drug- eluting stent in December 2017. Because of symptoms strongly suggestive unstable angina I advised a cardiac catheterization. It is very difficult to get a detailed history from the patient because she is hard of hearing and sign language with the mask and lipreading was difficult however we had a lot of communication back and forth with her sister and eventually after due discussion she decided to proceed with coronary angiography. Her medical therapy was optimized. She has multiple comorbid conditions in the form of CAD hypertension hyperlipidemia type 2 diabetes and obesity Procedure Details: Left heart catheterization and coronary angiography The risks, benefits, complications, treatment options, and expected outcomes were discussed with the patient. The patient and/or family concurred with the proposed plan, giving informed consent. Patient was brought to the label rewinder after IV hydration was begun and oral premedication was given. Patient was further sedated with midazolam. Patient was prepped and draped in the usual manner. Under strict aseptic precautions and local anesthesia a 6 Tristanian introducer was placed in the right femoral artery. Using a JL 4.0 and a JR 4/0 catheters I performed coronary angiography and the same JR catheter was used to check LV pressures and LV gram was not performed. Moderate conscious sedation time was [20] minutes. Patient's oxygen saturation hemodynamics and EKG were monitored closely. After the procedure was completed the sheaths and catheters were all removed. Hemostasis was achieved with Angio-Seal device. Findings: Hemodynamics: [The left ventricular end-diastolic pressure was 18 mmHg with no gradient across aortic valve] Left Main: [Normal no significant disease bifurcates into LAD and circumflex] LAD: [Good caliber good distribution vessel that runs along the anterior wall gives off septal and diagonal branches and distally it comes over the apex to supply the inferoapical portion of the left ventricle. Is is a large distribut ion vessel has no significant disease. Has minor irregularities of no more than 30-40%.] CIRC: [This is a nondominant vessel that was stented before in the midportion after the origin of the large obtuse minor branch. The stented area is widely patent and the rest of circumflex has minor irregularities it's a good distribution obtuse marginal branch with a narrowing of no more than 30-35%.] RCA: [Dominant vessel no significant disease and distally bifurcates into PDA and PLV both of it supplies a sizable amount of myocardium. Distal RCA has some 35-40% narrowing. No significant disease] LV: [Not performed] Closure Device: [Angio-Seal] Complications: [None] Estimated Blood Loss: Minimal Impression: [Noncritical CAD with widely patent mid circumflex that was stented in 2018. She has a right dominant system mildly elevated filling pressures and no gradient. Left main LAD and RCA which is dominant artery of significant disease. No more than 30-40% narrowing] Pre Procedure Diagnosis: [Obstructive CAD with history of prior circumflex PCI] Final Post Procedure Diagnosis: [Noncritical obstructive CAD with patent circumflex stent] Recommendation: [Continued medical therapy with risk factor modification and in view of some diastolic failure consider adding Aldactone 25 mg daily and a smaller dose of Bumex if necessary which I will arrange as outpatient. I discussed the findings in detail with the patient talk to her through an science interpreter and also spoke to her sister. She will be discharged later on today and I will see her in the office in one week] Complications: None; patient tolerated the procedure well. Disposition: Extended stay unit- hemodynamically stable. Condition: Stable Discharge Disposition: Discharge patient home later on today.
[2021-10-21 08:37] VITALS: PULSE 52; RESP 14
[2021-10-21 14:42] VITALS: BP 132/63
== END ==
LOC: CATHCVL 06:39
PROVIDERS: ATTEND Internal Medicine Interventional Cardiology
DX: I25.10 Atherosclerotic heart disease of native coronary artery without angina pectoris (principal); I10 Essential (primary) hypertension; E78.5 Hyperlipidemia, unspecified; E11.9 Type 2 diabetes mellitus without complications; H91.93 Unspecified hearing loss, bilateral; E66.9 Obesity, unspecified; Z68.41 Body mass index [BMI] 40.0-44.9, adult; Z20.822 Contact with and (suspected) exposure to COVID-19; Z95.5 Presence of coronary angioplasty implant and graft; Z79.899 Other long term (current) drug therapy; Z79.4 Long term (current) use of insulin; Z79.890 Hormone replacement therapy; Z79.84 Long term (current) use of oral hypoglycemic drugs; Z79.82 Long term (current) use of aspirin; Z79.02 Long term (current) use of antithrombotics/antiplatelets; Z88.5 Allergy status to narcotic agent; Z88.8 Allergy status to other drugs, medicaments and biological substances
CPT/HCPCS: 93458; 87635; C1760; C1769 ×3; C1894; J2250; J2001; Q9967

== ENCOUNTER 2021-11-07 06:22 | Day surgery (SDC) | payer MEDICARE, BC ==
[2021-11-06 10:48] VITALS: BMI 41.1
[~2021-11-07 06:22] MED LIST changes: -ALPRAZolam 0.25 MG TAB PO PRN; -ALPRAZolam 0.5 MG TAB PO PRN; -ASPIRIN 325 MG TAB PO STA; -ATORVASTATIN 80 MG TAB PO STA; -HEPARIN SODIUM,PORCINE 10,000 UNIT in SODIUM CHLORIDE 0.9% 1,000 ML IRRIGATION PRN; -HEPARIN SODIUM,PORCINE 2,500 UNIT in SODIUM CHLORIDE 0.9% 250 ML IRRIGATION PRN; -IOPAMIDOL-370 50ML BTL INJ ONE; +LACTATED RINGERS 1,000 ML IV SCH; -LIDOCAINE 1% INJ 10MG/ML (20 ML MDV) SQ ONE; -MIDAZOLAM 2 MG/2 ML VIAL IV ONE; -NITROGLYCERIN SL TABS 0.4 MG TAB SUBLINGUAL PRN; -SODIUM CHLORIDE 0.9% 1,000 ML IV SCH; -SODIUM CHLORIDE 0.9% 1,000 ML in EMPTY BAG 1 BAG IV SCH
[2021-11-07 06:57] VITALS: TEMP 97.4
[2021-11-07 07:19] LABS: Glucose,Whole Blood 140 mg/dL (70-110)
[2021-11-07] MEDS ORDERED: PROPOFOL 10 MG/ML 20 ML VIAL IV ONE (07:29)
--- NOTE | 2021-11-07 07:53 | P.PCN ---
Date of Procedure: 11/07/21 Procedure(s) Performed: Brief history: Patient is a pleasant 65-year-old white female scheduled for an elective upper endoscopy as well as colonoscopy as a part of evaluation of long-standing history of GERD and screening for colon cancer. Procedure performed: Esophagogastroduodenoscopy with biopsy Colonoscopy Preoperative diagnosis: GERD Screening for colon cancer Anesthesia: MAC Procedure: After informed consent was obtained from the patient was brought into the endoscopy unit and IV sedation was administered by anesthesia under continuous monitoring. Initially upper endoscopy was done. The Olympus GF 160 video endoscope was inserted inserted into the mouth and esophagus intubated without any difficulty and was gradually advanced into the stomach and duodenum and carefully examined. The bulb and second part of the duodenum appeared normal. The scope was then withdrawn into the stomach adequately insufflated with air and upon careful examination the antrum and body, diffuse gastritis and biopsies were done from this area. There were 2 small polyps noted in the gastric antrum which were biopsied. Rest of the cardia and fundus appeared normal. The scope was then withdrawn into the esophagus. The GE junction was located at 40 cm to the incisors. It appeared regular with no erythema erosions or ulcerations. Rest of the esophagus appeared normal. Patient tolerated the procedure well. At this time the patient continued to remain sedation. Initial digital rectal examination was normal. Olympus CF 160 video colonoscope was then inserted into the rectum and gradually advanced to the cecum without any difficulty. Careful examination was performed as the scope was gradually being withdrawn. The prep was excellent. The cecum, ascending colon, transverse colon, descending colon, sigmoid colon and rectum appeared normal. Retroflexion was performed in the rectum and no lesions were noted. Patient tolerated the procedure well. Impression: 1. Upper endoscopy revealed mild diffuse gastritis and small gastric polyps status post biopsy 2. Colonoscopy was within normal limits with no evidence of colorectal neoplasia. Recommendations: Findings of this examination were discussed with the patient as well as her family. She was advised to follow with the biopsy results. She will continue with Protonix 40 mg in the morning and Pepcid at bedtime and follow antireflux measures. Recommend repeat screening colonoscopy in 10 years.
[2021-11-07 07:59] VITALS: RESP 16
[2021-11-07 08:14] LABS: Glucose,Whole Blood 130 mg/dL (70-110)
[2021-11-07 08:30] VITALS: BP 158/76; PULSE 49
== END 2021-11-07 08:53 | disposition home or self-care (01) ==
LOC: ORWHC2ENDO 06:22
PROVIDERS: ATTEND Internal Medicine Gastroenterology
DX: Z12.11 Encounter for screening for malignant neoplasm of colon (principal); K29.50 Unspecified chronic gastritis without bleeding; K31.7 Polyp of stomach and duodenum; K21.00 Gastro-esophageal reflux disease with esophagitis, without bleeding; I25.10 Atherosclerotic heart disease of native coronary artery without angina pectoris; J45.909 Unspecified asthma, uncomplicated; G47.33 Obstructive sleep apnea (adult) (pediatric); E11.9 Type 2 diabetes mellitus without complications; E03.9 Hypothyroidism, unspecified; D86.9 Sarcoidosis, unspecified; Z88.3 Allergy status to other anti-infective agents; Z88.5 Allergy status to narcotic agent; Z88.8 Allergy status to other drugs, medicaments and biological substances; Z91.018 Allergy to other foods; Z91.09 Other allergy status, other than to drugs and biological substances; Z88.6 Allergy status to analgesic agent; Z79.4 Long term (current) use of insulin; Z79.890 Hormone replacement therapy; Z79.899 Other long term (current) drug therapy; Z79.82 Long term (current) use of aspirin; Z79.1 Long term (current) use of non-steroidal anti-inflammatories (NSAID); Z87.891 Personal history of nicotine dependence; Z80.49 Family history of malignant neoplasm of other genital organs; Z82.49 Family history of ischemic heart disease and other diseases of the circulatory system; Z83.3 Family history of diabetes mellitus; Z84.1 Family history of disorders of kidney and ureter; Z83.79 Family history of other diseases of the digestive system; Z82.3 Family history of stroke
CPT/HCPCS: 88305; 43239; J2704; G0121; 45378

== ENCOUNTER → 2021-12-16 | Outpatient (CLI) | payer MEDICARE, BC ==
[2021-12-16 23:37] LABS: African American GFR (CKD) 96.3 (60.0-200.0); Anion Gap 10.9 mmol/L (10.00-18.00); BUN/Creat Ratio 18.87 Ratio (12.00-20.00); Blood Urea Nitrogen 14.4 mg/dL (9.0-27.0); Calcium 9.5 mg/dL (8.7-10.3); Carbon Dioxide 29.2 mmol/L (20.0-27.5); Non-African American GFR(CKD) 83.1 (60.0-200.0); Potassium 4.6 mmol/L (3.5-5.5)
== END | disposition home or self-care (01) ==
LOC: LABWHC1 15:56
PROVIDERS: ATTEND Internal Medicine Interventional Cardiology
DX: I25.10 Atherosclerotic heart disease of native coronary artery without angina pectoris (principal); E11.9 Type 2 diabetes mellitus without complications
CPT/HCPCS: 36415; 80048

== ENCOUNTER → 2022-02-06 | Outpatient (CLI) | payer MEDICARE, BC ==
--- NOTE | 2022-02-06 08:25 | MR ---
EXAMINATION TYPE: MR lumbar spine wo/w con DATE OF EXAM: 02/06/2022 COMPARISON: Lumbar spine x-ray April 18, 2021 HISTORY: Sharp low back pain TECHNIQUE: Multiplanar, multisequence images of the lumbar spine is performed without and with IV contrast, util izing 10 mL intravenous Gadavist FINDINGS: Sagittal images of the lumbar spine show vertebral body heights and alignment to appear sat isfactory. Multilevel disc desiccation with moderate to advanced disc space narrowing and heterogeneo us motor type I endplate changes at L2-L3 level. Moderate to advanced disc space narrowing with vacuu m disc phenomenon at L3-L4 and L4-L5 levels. The conus medullaris is slightly high in position endin g mid T12 level. No abnormal signal noted. Some enhancement of the anterior L2-L3 disc and adjacent e ndplates noted. Some increased signal noted on the STIR images. Axial images show T12-L1 level to appear within normal limits. Axial images at L1-L2 show tiny left paracentral disc protrusion mildly effacing the anterior thecal sac. Patent Bilateral neural foramina. Axial images at L2-L3 level show right-sided disc enhancement axial image 17 along with moderate broa d-based disc bulge mildly effacing the anterior thecal sac. Mild facet arthropathy on the right. Mild left-sided inferior neural foraminal narrowing due to foraminal disc protrusion sagittal image 4. Axial images at L3-L4 level show mild to moderate facet arthropathy and ligamentum flavum hypertrophy with right-sided posterolateral thecal sac effacement. There is mild/moderate broad disc bulge mildl y effaces the anterior thecal sac. There is mild to moderate right-sided anterior inferior neural for aminal narrowing sagittal image 11. Axial images at L4-L5 level show moderate left facet arthropathy and ligamentum flavum hypertrophy ef facing posterior lateral thecal sac. There is left foraminal/lateral disc protrusion causing mild lef t-sided inferior neural foraminal narrowing. Axial images at the L5-S1 level show increased epidural fat. There is tiny central disc protrusion. B ilateral neural foramina are patent. Oews-hy-wloijdbs facet arthropathy and ligamentum flavum hypertr ophy is seen bilaterally. There are circumaortic left renal vein which is normal variant. IMPRESSION: Multilevel degenerative changes in the lumbar spine as detailed above. One must consider a focal discitis/osteomyelitis centered at the L2-L3 disc space given above findings. Clinical correl ation advised. A Yellow level critical message alert has been initiated for Jaswant Witt DO via the [employer] Critical Results System on 02/06/2022 5:22 AM. This message alert has been sent to Jaswant barron DO via the preferences provided by the clinician for the receipt of Radiology Critical Findings. Message ID [id number].
== END | disposition home or self-care (01) ==
LOC: RADMRIMAIN 06:15
PROVIDERS: ATTEND Family Medicine
DX: M51.26 Other intervertebral disc displacement, lumbar region (principal)
CPT/HCPCS: 72158; A9585

== ENCOUNTER → 2022-02-13 | Outpatient (CLI) | payer MEDICARE, BC ==
--- NOTE | 2022-02-13 14:25 | NM ---
EXAMINATION TYPE: NM bone 3 phase DATE OF EXAM: 02/13/2022 COMPARISON: MRI 02/07/2020 HISTORY: osteomyelitis Triple phase bone scintigraphy was performed following the injection of 22.7 mCi Tc 99m MDP. Immedia te images and 5 hours post injection images acquired. FINDINGS: A triple phase imaging is limited lumbar spine. Overall appearance of the vasculature. Multiple image s demonstrate no suspicious uptake. Delayed images: Only the lower thoracic and lumbosacral spine. Mild uptake involving the lower thoracic spine and more moderate uptake involving the mid and lower l umbar spine. IMPRESSION: 1. Abnormal uptake is seen at the proximal level of the abnormality seen by MRI. The finding is nonsp ecific by bone scan. As noted by prior MRI discitis would be in the differential diagnosis.
== END | disposition home or self-care (01) ==
LOC: RADNMMAIN 07:27
PROVIDERS: ATTEND Family Medicine
DX: R93.7 Abnormal findings on diagnostic imaging of other parts of musculoskeletal system (principal); M46.26 Osteomyelitis of vertebra, lumbar region
CPT/HCPCS: 78315; A9503

== ENCOUNTER → 2022-03-11 | Outpatient (CLI) | payer MEDICARE, BC ==
[2022-03-11 09:07] VITALS: BP 129/62; PULSE 72; RESP 16; TEMP 97.9
--- NOTE | 2022-03-11 13:57 | P.PAINPG ---
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 Pt states her pain level is currently at /10 in intensity, intermittent, localized in the , sharp in character w shooting towards the BLEs, L>R. Pain is provoked by standing/ walking for periods of 10 min or more. Pain is alleviated w meds (Mobic, Oxy, Neurontin, Baclofen), use of a walker for ambulation, PT in Jan 2022 which provoked pain, home stretching as tolerated, heat, topicals, laying supine w LEs elevated, repositioning and rest. PMH: Asthma, Angina, Diabetes Mellitus, GERD, Hearing Disorder / Deafness, Hypertension, OA, Sleep Apnea/CPAP/BIPAP, Thyroid Disorder, Sarcoidosis, Gout, Iron Deficiency Anemia PSH: Cholecystectomy, Heart Catheterization (2017, 2019) w stent (2018) placement, Hysterectomy Oophorectomy, L Hip Arthroscopy, Bone Graft & Replacement, R Knee Replacement, R Shoulder Surgery, L Knee Arthroscopy x2, C4- C6 Decompression/ Fusion, EGD/ Colonoscopy (2019, 2021) SH: +Cannabis, Hx of 2 pack/ yr tobacco use, No ETOH abuse. and living w spouse. Use of a walker for ambulation. FH: Fa- CHF/ CAD/ DM/ Liver Disease CRF. Mo- Cervical CA/ CVA. All: See list Meds: See list REVIEW OF ORGAN SYSTEMS: CONSTITUTIONAL: No fevers or chills. No recent weight loss. NEUROLOGICAL: + numbness and tingling along the distal extremities. No seizure disorders or headaches. MUSCULOSKELETAL: + pain PSYCHIATRIC: Denies current depression or suicidal th oughts. Physical Examinations : Constitutional : Cooperative , not in acute distress . Neurologic : Cranial nerve II to XII intact. No focal neurological deficits. Psychiatric : alert & oriented x 3. Matching mood & appropriate affect. Judgment & insight intact. Musculoskeletal : Cervical Spine Motor strength in the deltoid and biceps: Normal right side. Normal Left side Motor strength biceps and the wrist extensors: Normal right side . Normal left side Motor strength in the triceps muscle: Normal right side. Normal left side Deep tendon reflexes: Normal at the biceps. Normal at Brachioradialis. Normal at triceps Vertebral body tenderness to deep palpation over Cervical facet loading test: positive bilaterally Spurling test: positive bilaterally Neck distraction test: positive bilaterally Mickey sign: positive bilaterally Lumbar spine Motor strength lower extremities ,thigh and legs 5/5 Right side , 5/5 Left side Deep tendon reflexes : Normal Knee Jerk. Normal Ankle Jerk Vertebral body tenderness over Lumbar facet Loading Test: positive Right / positive Left over BL L4-L5, L5-S1, L>R Range of motion of the lumbar spine Flexion 30 degrees, extension 10 degrees Straight Leg Raise test: Left/ Right positive at degree Fadia test: positive right / positive left. Severe tenderness over the Sacroiliac joint on the Right / Left sides Gaenslen test: positive bilaterally Seated flexion test: positive bilaterally. Sacral spine : Severe tenderness over the Sacroiliac joint: right side / left side Range of motion: Flexion of the lumbar spine <60 degrees Range of motion: Extension of the lumbar spine <20 degrees Gaenslen's Test positive Juan's Test positive Fadia test: positive right side / left side Thigh Thrust Test Sacral Thrust Test Imaging: MRI of the lumbar spine from 02/06/22 reviewed Assessment/ Plan : Lumbar DDD, lumbar spondylosis, lumbar disc herniation Recommendation of BL MBB L4-L5, L5-S1 #1. Patient may need a series of injections, up until RFA, for optimal pain relief. Risks, benefits of procedure discussed and patient verbalized understanding. Admits to aspirin or anti- coagulant use or medical history of diabetes. Protocol for discontinuation/ continuation of medications jp procedure discussed. All questions answered. I have spent greater than 30 minutes on patient care today. Dr Alexander was available by phone for the evaluation of this patient. The time was used to review the medical records including relevant urine studies and Prescription history (MAPs), review of the available imaging, evaluation and examination of the patient, coordination of care with the medical staff and if applicable referring physicians, as well as creation of the medical record PQRS Narrative: Smoking Status Former smoker Home Medications: Ambulatory Orders Potassium Chloride [Klor-Con 20] 20 meq PO DAILY PRN 01/04/15 allopurinoL [Zyloprim] 100 mg PO BID 01/04/15 INSULIN LISPRO (HumaLOG) [humaLOG] 45 - 65 units SQ TID-W/MEALS PRN 01/07/16 Hydroxychloroquine Sulfate [Plaquenil] 200 mg PO BID 01/29/17 Insulin Glargine [Lantus Vial] 80 unit SQ BID 01/29/17 oxyCODONE-APAP 10-325MG [Percocet 10-325 mg] 1 tab PO TID PRN 01/29/17 Levothyroxine Sodium [Synthroid] 200 mcg PO DAILY 03/26/17 Ergocalciferol (Vitamin D2) [Vitamin D2] 50,000 unit PO FR 01/16/18 Gabapentin 600 mg PO TID 01/16/18 Magnesium Oxide 400 mg PO DAILY 01/16/18 Amitriptyline HCl 25 mg PO HS 01/31/19 Levalbuterol Hfa Inhaler [Xopenex Hfa Inhaler] 2 puff INHALATION RT-QID PRN 01/31/19 Baclofen 10 mg PO TID 11/23/19 Bumetanide [BUMEX] 0.5 mg PO BID PRN 11/23/19 amLODIPine [Norvasc] 10 mg PO QAM 11/23/19 Biotin 5,000 mcg SUBLINGUAL DAILY 01/18/20 Cetirizine HCl [Zyrtec] 10 mg PO BID 03/06/20 Meloxicam 15 mg PO DAILY 03/06/20 Ondansetron [Zofran ODT] 8 mg PO Q8HR PRN 03/06/20 atenoloL 50 mg PO BID 03/06/20 Clopidogrel [Plavix] 75 mg PO HS 10/09/21 Cranberry Fruit Concentrate [Azo Cranberry] 500 mg PO DAILY 10/09/21 Fluticasone/Vilanterol [Breo Ellipta 200-25 Mcg Inhaler] 1 inhalation INHALATION DAILY 10/09/21 Nitroglycerin Sl Tabs [Nitrostat] 0.4 mg SUBLINGUAL Q5M PRN 10/09/21 Pantoprazole [Protonix] 40 mg PO DAILY 10/09/21 Diclofenac Sodium [Voltaren Arthritis Pain 1% Gel] 1 applic TOPICAL BID 10/20/21 Famotidine [Pepcid] 40 mg PO HS 10/20/21 Fenofibrate [Lofibra] 54 mg PO DAILY 10/20/21 Promethazine 6.25MG/5Ml [Phenergan Syrup] 6.25 mg PO TID PRN 10/20/21 Ascorbic Acid/Multivit-Min [Emergen-C 1,000 mg Packet] 1,000 mg PO DAILY 11/06/21 Aspirin [Adult Low Dose Aspirin EC] 81 mg PO DAILY 11/06/21 Cyanocobalamin/Cobamamide [Vitamin B-12 5,000 Mcg Tab Sl] 1 tab SUBLINGUAL DAILY 11/06/21 Latanoprost/Pf [Latanoprost 0.005% Eye Drop] 1 drop BOTH EYES HS 11/06/21 Prevagen Brain Support 1 dose PO DAILY 11/06/21 Spironolactone [Aldactone] 25 mg PO DAILY 11/06/21 metFORMIN HCL [Glucophage] 1,000 mg PO AC-BID 11/06/21 Spironolactone 25 mg PO DAILY 02/12/22 Controlled Substance Measures - Controlled Substance Measures Is patient prescribed a controlled substance at discharge?: No
== END ==
LOC: PNWHC3 08:03
PROVIDERS: ATTEND Specialist
DX: M51.36 Other intervertebral disc degeneration, lumbar region (principal); M47.896 Other spondylosis, lumbar region
CPT/HCPCS: 99211

== ENCOUNTER → 2022-03-26 | Outpatient (CLI) | payer MEDICARE, BC ==
[2022-03-26 13:48] LABS: African American GFR (CKD) >90 (>60 ml/min/1.73 sqM); Blood Urea Nitrogen 16 mg/dL (7-17); Non-African American GFR(CKD) 87 (>60 ml/min/1.73 sqM)
--- NOTE | 2022-03-26 14:39 | CT ---
EXAMINATION TYPE: CT angio chest DATE OF EXAM: 03/26/2022 2:21 PM COMPARISON: 12/27/2019 HISTORY: Sarcoidosis CT DLP: 525 mGycm Automated exposure control for dose reduction was used. CONTRAST: CTA scan of the thorax is performed without and with IV Contrast, patient injected with 100 ml mL of Isovue 370, pulmonary embolism protocol. . FINDINGS: LUNGS: Scattered bilateral groundglass changes are seen. There is no pleural effusion or pneumothor ax seen. The tracheobronchial tree is patent. MEDIASTINUM: There is satisfactory enhancement of the pulmonary artery and its branches, there is no CT evidence for pulmonary embolism. There is dense coronary artery calcification. Are no greater marilynn n 1 cm hilar or mediastinal lymph nodes. No pericardial effusion is seen. Coronary artery calcifica tion noted and there is mild cardiomegaly. Maximal dimension of the thoracic aorta is 3.7 cm compatib le with mild ectasia. There is ectasia of the origin of the brachiocephalic artery measuring a diamet er of 1.4 cm OTHER: Hypertrophic and degenerative changes of the spine. IMPRESSION: 1. Thoracic aorta measures a maximal dimension of 3.7 cm compatible with ectasia. 2. Cardiomegaly with dense coronary artery calcification which can be a marker for coronary artery at herosclerotic changes and disease. 3. Scattered bilateral groundglass and densities may be on the basis of respiratory motion artifact w hich is felt most likely. Correlate clinically to exclude a mild pneumonitis. 4. Ectasia or mild aneurysmal dilation of the proximal brachiocephalic artery
== END | disposition home or self-care (01) ==
LOC: RADCTMAIN 12:30
PROVIDERS: ATTEND Internal Medicine Critical Care Medicine
DX: I25.10 Atherosclerotic heart disease of native coronary artery without angina pectoris (principal); J98.4 Other disorders of lung; D86.9 Sarcoidosis, unspecified
CPT/HCPCS: 82565; 84520; 71275; 36415; Q9967

== ENCOUNTER → 2022-04-01 | Outpatient (CLI) | payer MEDICARE, BC ==
--- NOTE | 2022-04-01 14:17 | CT ---
EXAMINATION TYPE: CT abdomen pelvis w con CT DLP: 2108.6 mGycm, Automated exposure control for dose reduction was used. DATE OF EXAM: 04/01/2022 1:56 PM COMPARISON: CT abdomen pelvis most recent from 04/30/2021 CLINICAL INDICATION:Female, 66 years old with history of RLQ abd tenderness R10.813; RLQ pain TECHNIQUE: Axial CT of the abdomen and pelvis. Sagittal and coronal reformats were created on a [employer] workstation. Contrast used:70 mL of Isovue 300 with IV Contrast, Oral contrast used: with Oral Contrast FINDINGS: LOWER CHEST: Unremarkable ABDOMEN LIVER: Diffusely hypoattenuating parenchyma. GALLBLADDER AND BILE DUCTS: Unremarkable. PANCREAS: Unremarkable. SPLEEN: Unremarkable. ADRENAL GLANDS: Unremarkable. KIDNEYS AND URETERS: No evidence of hydronephrosis or renal calculus. The distal ureters are not eval uated secondary to streak artifact. PELVIS Streak artifact from hip prostheses limits evaluation of the pelvis. BLADDER: Unremarkable REPRODUCTIVE: Unremarkable. ABDOMEN & PELVIS STOMACH AND BOWEL: No evidence of bowel obstruction. There is a large stool burden throughout the col on most pronounced in the cecum and transverse colon. The appendix is not definitively visualized. PERITONEUM: No evidence of pneumoperitoneum or free fluid. VASCULATURE: No evidence of aortic aneurysm. MUSCULOSKELETAL: No acute osseous abnormalities, bilateral hip arthroplasty changes with hardware in appropriate position and appears intact. Atrophy changes of the left iliopsoas muscle on the left. Mu ltilevel disc degeneration changes are seen throughout the spine. LYMPH NODES: No gross evidence for lymphadenopathy. SOFT TISSUE/ABDOMINAL WALL: Similar right anterior lower abdomen subcutaneous thickening of the skin. Findings communicated to the office of Dr. Jaswant Witt DO on 04/01/2022 2:[address] Darrell Alvarenga. IMPRESSION: 1. No definitive evidence for acute intra-abdominal process. Note that the pelvis is suboptimally ev aluated given streak artifact from hip prostheses. The appendix is not definitively visualized but is felt to be in the left lower quadrant given position of cecum. No evidence of obstructive uropathy. 2. Large stool burden throughout the colon predominantly involving the cecum and ascending colon and transverse colon.
== END | disposition home or self-care (01) ==
LOC: RADCTMAIN 11:04
PROVIDERS: ATTEND Family Medicine
DX: R10.813 Right lower quadrant abdominal tenderness (principal); R19.5 Other fecal abnormalities
CPT/HCPCS: 82565; 84520; 74177; 36415; Q9967

== ENCOUNTER 2022-04-15 23:21 | Observation (INO) | payer MEDICARE, BC ==
[2022-04-15] MEDS ORDERED: SODIUM CHLORIDE 0.9% 1,000 ML IV STA (23:39)
[2022-04-15] MEDS ORDERED: ALTEPLASE IV STA (23:41)
[2022-04-15] MEDS ORDERED: ALTEPLASE BOLUS 1 MG/1 ML SYRINGE IV STA ×2 (23:41→23:46)
[2022-04-15 23:44] LABS: Glucose,Whole Blood 89 mg/dL (70-110)
[2022-04-15] MEDS ORDERED: ALTEPLASE 81 MG in EMPTY BAG 1 BAG IV STA (23:47)
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
[2022-04-15 23:59] LABS: Basophils # (A) 0.1 k/uL (0-0.2); Basophils % (A) 1 %; Eosinophils # (A) 0.6 k/uL (0-0.7); Eosinophils % (A) 5 %; HCT 39.7 % (34.0-46.0); HGB 13.5 gm/dL (11.4-16.0); Lymphocytes # (A) 4.4 k/uL (1.0-4.8); Lymphocytes % (A) 36 %; MCV 88.3 fL (80.0-100.0); Mean Platelet Volume 10.3; Monocytes # (A) 0.4 k/uL (0-1.0); Monocytes % (A) 4 %; Neutrophils # (A) 6.4 k/uL (1.3-7.7); Neutrophils % (A) 53 %; Platelet Count 201 k/uL (150-450); RDW 13.6 % (11.5-15.5); WBC 12.1 k/uL (3.8-10.6)
[2022-04-16 00:07] LABS: INR 0.9 (<1.2); Partial Thromboplastin Time 22.4 sec (22.0-30.0); Prothrombin Time 9.5 sec (9.0-12.0)
[2022-04-16 00:09] LABS: Albumin 4.5 g/dL (3.5-5.0); Calcium 9.5 mg/dL (8.4-10.2); Potassium 4.9 mmol/L (3.5-5.1); Total Bilirubin 0.2 mg/dL (0.2-1.3); Total Protein 6.7 g/dL (6.3-8.2)
--- NOTE | 2022-04-16 00:13 | CT ---
EXAMINATION TYPE: CT brain wo con for TPA DATE OF EXAM: 04/16/2022 COMPARISON: 03/26/2017 HISTORY: CODE STROKE CT DLP: 1169.3 mGycm Automated exposure control for dose reduction was used. There is mild cerebral cortical atrophy. There is no mass effect or midline shift. No sign of intracr anial hemorrhage. Calvarium is intact. Sella turcica is normal. Skull base is intact. IMPRESSION: Mild atrophy. No acute intracranial abnormality. No change.
--- NOTE | 2022-04-16 00:22 | CT ---
EXAMINATION TYPE: CT angio head neck DATE OF EXAM: 04/16/2022 COMPARISON: 02/01/2019 HISTORY: STROKE CT DLP: 1727.6 mGycm Automated exposure control for dose reduction was used. CONTRAST: Performed with IV Contrast, patient injected with 65 mL of Isovue 370. Images obtained from the aortic arch to the vertex of the brain with the IV contrast. There are Three -D postprocessed images. There is arterial flow in both subclavian arteries. There is arterial flow in the common internal and external carotid arteries bilaterally. There is plaque formation at the carotid artery bifurcations. There is luminal narrowing less than 20%. There is arterial flow in both vertebral arteries. There is arterial flow in the vertebral basilar artery system. No evidence of carotid or vertebral ar yanira aneurysm or dissection. No mass effect. There is arterial flow in the anterior middle and posterior cerebral arteries bilaterally. No evidenc e of intracranial aneurysm or neovascularity. No mass effect. There is normal enhancement of the veno us sinuses. No evidence of intracranial hemodynamic arterial stenosis. IMPRESSION: Negative CT angiogram of the neck. Negative CT angiogram of the brain. No evidence of hemodynamic matthew nosis. Minimal plaque at the carotid artery bifurcations. No adverse change compared to old exam.
[2022-04-16] MEDS ORDERED: ASPIRIN 325 MG TAB PO STA (00:25)
[2022-04-16] MEDS ORDERED: MORPHINE SULFATE 4 MG/ML SYRINGE IVP STA (00:26)
[2022-04-16] MEDS: SODIUM CHLORIDE 0.9% 1,000 ML IV SCH ×2 (00:36→14:39)
[2022-04-16] MEDS ORDERED: SODIUM CHLORIDE 0.9% 50 ML MINI-BAG IV ONE (00:42)
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
[2022-04-16] MEDS ORDERED: ONDANSETRON 4 MG/2 ML VIAL IVP STA (03:21)
[2022-04-16] MEDS ORDERED: ONDANSETRON 4 MG/2 ML VIAL IVP PRN (03:21)
[2022-04-16] MEDS: ATORVASTATIN 80 MG TAB PO SCH ×2 (03:27→20:39)
[2022-04-16 04:09] LABS: Appearance,Urine Clear (Clear); Bacteria,Urine Rare /hpf; Bilirubin,Urine Negative (Negative); Blood,Urine Negative (Negative); Color,Urine Yellow; Glucose,Urine (UA) Negative (Negative); Hyaline Casts,Urine 3 /lpf (0-2); Ketones,Urine Negative (Negative); Leukocyte Esterase,Urine Moderate (Negative); Nitrite,Urine Negative (Negative); Protein,Urine Trace (Negative); RBC,Urine 2 /hpf (0-5); Squamous Epithelial Cell,Urine 1 /hpf (0-4); Urobilinogen,Urine <2.0 mg/dL (<2.0); WBC,Urine 9 /hpf (0-5)
[2022-04-16 04:20] LABS: Specific Gravity,Urine >1.050 (1.001-1.035)
[2022-04-16] MEDS: MORPHINE SULFATE 4 MG/ML SYRINGE IV PRN ×2 (09:03→13:09)
[2022-04-16 09:17] LABS: Glucose,Whole Blood 83 mg/dL (70-110)
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
[2022-04-16] MEDS ORDERED: ALBUTEROL NEBULIZED 2.5 MG/3 ML INHALATION PRN (14:59)
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
[2022-04-16 17:16] LABS: Glucose,Whole Blood 157 mg/dL (70-110)
[2022-04-16] MEDS: BACLOFEN 10 MG TAB PO SCH ×2 (17:42→20:39)
[2022-04-16] MEDS: INSULIN ASPART (NovoLOG) 100 UNIT/ML VIAL SQ SCH (17:42)
[2022-04-16] MEDS: HEPARIN SODIUM,PORCINE/PF 5,000 UNIT/0.5 ML SYRINGE SQ SCH (17:43)
[2022-04-16] MEDS: oxyCODONE-APAP 10-325MG 1 EACH TAB PO PRN (18:53)
[2022-04-16] MEDS ORDERED: LEVALBUTEROL 45 MCG INHALATION PRN ×2 (20:13→21:00)
[2022-04-16] MEDS: HYDROXYCHLOROQUINE SULFATE 200 MG TAB PO SCH (20:38)
[2022-04-16 20:39] LABS: Glucose,Whole Blood 188 mg/dL (70-110)
[2022-04-16] MEDS: allopurinoL 100 MG TAB PO SCH (20:39)
[2022-04-16] MEDS: GABAPENTIN 300 MG CAP PO SCH (20:39)
[2022-04-16] MEDS: atenoloL 50 MG TAB PO SCH (20:39)
[2022-04-16] MEDS: CIPROFLOXACIN-DEXAMETH 0.3-0.1% DROPS 7.5 ML BTL LEFT EAR SCH (20:39)
[2022-04-16] MEDS: LORATADINE 10 MG TAB PO SCH (20:39)
[2022-04-16] MEDS ORDERED: AMITRIPTYLINE HCL 25 MG TAB PO SCH (21:00)
[2022-04-16] MEDS ORDERED: CLOPIDOGREL 75 MG TAB PO SCH (21:00)
[2022-04-16] MEDS ORDERED: LATANOPROST 0.005% OPHTH DROPS 2.5 ML BTL BOTH EYES SCH (21:00)
[2022-04-16] MEDS ORDERED: FAMOTIDINE 20 MG TAB PO SCH (21:00)
[2022-04-17] MEDS: HEPARIN SODIUM,PORCINE/PF 5,000 UNIT/0.5 ML SYRINGE SQ SCH ×2 (01:09→08:16)
[2022-04-17] MEDS: oxyCODONE-APAP 10-325MG 1 EACH TAB PO PRN (03:05)
[2022-04-17 06:17] LABS: Glucose,Whole Blood 183 mg/dL (70-110)
[2022-04-17] MEDS: INSULIN ASPART (NovoLOG) 100 UNIT/ML VIAL SQ SCH ×2 (06:24→11:40)
[2022-04-17] MEDS ORDERED: LEVOTHYROXINE 100 MCG TAB PO SCH (06:30)
[2022-04-17] MEDS ORDERED: PANTOPRAZOLE 40 MG TABLET PO SCH (07:30)
[2022-04-17] MEDS: GABAPENTIN 300 MG CAP PO SCH (08:16)
[2022-04-17] MEDS: BACLOFEN 10 MG TAB PO SCH (08:16)
[2022-04-17] MEDS: allopurinoL 100 MG TAB PO SCH (08:17)
[2022-04-17] MEDS: atenoloL 50 MG TAB PO SCH (08:19)
[2022-04-17] MEDS: CIPROFLOXACIN-DEXAMETH 0.3-0.1% DROPS 7.5 ML BTL LEFT EAR SCH (08:23)
[2022-04-17] MEDS: HYDROXYCHLOROQUINE SULFATE 200 MG TAB PO SCH (08:31)
[2022-04-17] MEDS: LORATADINE 10 MG TAB PO SCH (08:31)
[2022-04-17] MEDS ORDERED: ASPIRIN 81 MG PO SCH (09:00)
[2022-04-17] MEDS ORDERED: SPIRONOLACTONE 25 MG TAB PO SCH (09:00)
[2022-04-17] MEDS ORDERED: ASPIRIN 325 MG TAB PO SCH (09:00)
[2022-04-17] MEDS ORDERED: amLODIPine 10 MG TAB PO SCH (09:00)
--- NOTE | 2022-04-17 09:15 | CA ---
Transthoracic Echo Report Name: Ruth Odonnell Age: 66 Gender: F : 1955 Exam Date: 04/16/2022 13:51 Exam Location: [facility] Ht (in): 65 Wt (lb): 251 Ordering Physician: Ronn Simms DO Attending/Referring Phys: [id number], Demi [place] Fiordaliza Cornejo, PORFIRIO Procedure CPT: Indications: Thrombus Cardiac Hx: Technical Quality: Technically difficult study Contrast 1: Total Dose (mL): Contrast 2: Total Dose (mL): MEASUREMENTS (Male / Female) Normal Values 2D ECHO LV Diastolic Diameter PLAX 5.3 cm 4.2 - 5.9 / 3.9 - 5.3 cm LV Systolic Diameter PLAX 3.7 cm IVS Diastolic Thickness 0.9 cm 0.6 - 1.0 / 0.6 - 0.9 cm LVPW Diastolic Thickness 1.2 cm 0.6 - 1.0 / 0.6 - 0.9 cm LV Relative Wall Thickness 0.4 RV Internal Dim ED PLAX 3.4 cm LA Systolic Diameter LX 4.0 cm 3.0 - 4.0 / 2.7 - 3.8 cm M-MODE Aortic Root Diameter MM 3.3 cm LA Systolic Diameter MM 3.8 cm LA Ao Ratio MM 1.2 MV E Point Septal Separation 0.7 cm DOPPLER MV Area PHT 2.9 cm??? Mitral E Point Velocity 84.8 cm/s Mitral A Point Velocity 74.2 cm/s Mitral E to A Ratio 1.1 MV Deceleration Time 262.9 ms TR Peak Velocity 241.9 cm/s TR Peak Gradient 23.4 mmHg Right Ventricular Systolic Press 27.7 mmHg FINDINGS Left Ventricle Mildly increased posterior wall thickness. Left ventricular ejection fraction is estimated at 50%. Mildly increased left ventricular wall thickness. Right Ventricle Normal right ventricular size and function. Right ventricular systolic pressure within normal limits. Right Atrium Normal right atrial size. Left Atrium Mildly increased left atrial diameter. Mitral Valve Structurally normal mitral valve. Mild mitral regurgitation. Aortic Valve Trileaflet aortic valve. Aortic valve sclerosis. Tricuspid Valve Structurally normal tricuspid valve. Mild tricuspid regurgitation. Pulmonic Valve Pulmonic valve not well visualized. Pericardium Echo free space anterior to the right ventricle likely represents a fat pad. Aorta Aortic root and proximal ascending aorta not well visualized. CONCLUSIONS LVH with low normal LV systolic function Previewed by: Dr. Joseph Ac MD (Electronically Signed) Final Date: 17 April 2022 09:14
[2022-04-17 10:55] LABS: Chol/HDL Ratio 4.21 Ratio; LDL Cholesterol,Calculated 75.8 mg/dL (0.0-131.0)
[2022-04-17 11:31] VITALS: BP 131/78; PULSE 54; RESP 18; TEMP 97.7
[2022-04-17 11:37] LABS: Glucose,Whole Blood 161 mg/dL (70-110)
--- NOTE | 2022-04-17 11:51 | MR ---
EXAMINATION TYPE: MR brain wo/w con DATE OF EXAM: 04/17/2022 COMPARISON: Prior MRI brain 2018. CT brain 2 days ago. HISTORY: Left sided weakness TECHNIQUE: Multiplanar, multisequence images of the brain and brainstem is performed without and with IV contras t, utilizing 11 mL intravenous Gadavist . Acoustic nerve disorder protocol as requested. FINDINGS: Diffusion weighted images demonstrate no evidence of a recent infarct or other diffusion ab normality. There is mild ventricular and sulcal prominence. Scattered small areas of T2 hyperintensi ty throughout the superficial, deep, and periventricular white matter are redemonstrated. Approximate ly 50 scattered lesions are again seen. T2 Star weighted images show no suspicious intraparenchymal b lood product. Midline structures demonstrate normal morphology. The craniocervical junction appears within normal limits. Normal vascular flow voids are redemonstrated. The visualized sinuses are clear and the globe s are intact. No suspicious fluid signal in the mastoid air cells bilaterally. The internal vestibulocochlear compl ex remain asymmetric with more visualization of the right-sided semicircular canals without obvious e nhancing mass seen in the internal auditory canals bilaterally. This has similar appearance to [address] [place] [address] shows similar finding with poorly visualized right-sided cochlear aperture along with vestibular aqueduct and semicircular canals. 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 Correlate clinically. Finding could be congenital an etiology ve rsus product of remote infection. No abnormal enhancing masses are noted. There is mild diffuse cereb ral atrophy and moderate chronic small vessel ischemic change redemonstrated.
[2022-04-17] MEDS ORDERED: GABAPENTIN 400 MG CAP PO SCH (13:30)
--- NOTE | 2022-04-17 15:41 | P.PN ---
Subjective Progress Note Date: 04/17/22 The patient is seen at bedside and feels doing better. But continues to have numbness over the left V2. Otherwise no other neurological issues. I used the reagent tender via computer system since patient is deaf. Objective - Vital Signs Vital signs: Vital Signs Temp 97.7 F 04/17/22 11:30 Pulse 54 L 04/17/22 11:30 Resp 18 04/17/22 11:30 BP 131/78 04/17/22 11:30 Pulse Ox 95 04/17/22 11:30 FiO2 Intake & Output 04/16/22 04/17/22 04/17/22 18:59 06:59 18:59 Intake Total 118 Balance 118 Weight 113.852 kg Intake: Oral 118 Other: # Voids 3 - Exam Exam was assisted by reagent tender since patient is deaf (bilaterally). GENERAL: The patient is sitting on a couch and is not in acute distress. NEUROLOGICAL: Higher mental function: The patient is awake, alert, oriented to self, place and time. Patient is following simple commands. Communicates sign language with issues. No neglect. Cranial nerves: The pupils are round, equal and reactive to light and accommodation. Visual stokes are full to confrontation throughout. Extraocular movement is intact no nystagmus is noted. Facial sensation is decreased to tor ch over V2 distribution over left side to touch. The facial strength is normal throughout. Patient is deaf. Tongue is midline and moved [id number] without any difficulty. Shoulder shrug is normal bilaterally. Motor: The strength is left lower is 5- throughout (baseline). Normal tone and bulk. Cerebellum: Normal finger to nose bilaterally. Sensation: Sensation is decrease to touch over the left side to touch. Reflexes (right/left): 1+ throughout. Plantars are mute bilaterally. Some other workup during his hospital visit consisted of: Lipid panel is triglyceride of 227, cholesterol is 159, LDL 75 and HDL is 37. Hemoglobin A1c 7.2 TSH is 3.260. 2-D echo was reported as left ventricular hypertrophy with low normal left ventricular systolic function. Left atrium is mildly increased left atrial diameter. Urinalysis seems possible suggestive of urinary tract infection. CT of the head is reported as mild atrophy. No acute intracranial abnormality. No change. CT angiography of the head and neck was reported as negative CT angiography of the neck. Negative seated atrophy of the brain. No evidence of hemodynamic stenosis. Minimal plaque at the carotid artery bifurcation. No adverse changes compared to old exam. 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 Correlate clinically. Finding could be congenital in etiology versus product of a remote infection. No abnormal enhancement mass are noted. There is mild diffuse cerebral atrophy and moderate chronic small vessel ischemic changes redemonstrated. I personally reviewed the MRI and there is no acute subacute ischemia and there is no mass effect that was able to appreciate. - Labs CBC & Chem 7: 04/15/22 23:47 04/15/22 23:47 Labs: Abnormal Lab Results - Last 24 Hours (Table) 04/16/22 04/16/22 04/17/22 Range/Units 17:13 20:38 06:14 POC Glucose (mg/dL) 157 H 188 H 183 H (70-110) mg/dL Hemoglobin A1c (0.0-6.0) % Triglycerides (0.00-149.00) mg/dL VLDL Cholesterol, Calc (5.00-40.00) mg/dL HDL Cholesterol (40.00-60.00) mg/dL 04/17/22 04/17/22 04/17/22 Range/Units 07:44 07:44 11:35 POC Glucose (mg/dL) 161 H (70-110) mg/dL Hemoglobin A1c 7.2 H (0.0-6.0) % Triglycerides 227.00 H (0.00-149.00) mg/dL VLDL Cholesterol, Calc 45.40 H (5.00-40.00) mg/dL HDL Cholesterol 37.80 L (40.00-60.00) mg/dL Assessment and Plan Assessment: Acute left sided weakness with numbness (left upper and lower extremity weakness and numbness with facial numbness) that improved only to involve left V2 and seems probable TIA. MRI Brain is negative for stroke or mass. 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 Recommend dual antiplatelets for 21 days and after 21 days. Plavix but continue aspirin. Continue lipitor 80mg secondary stroke prophylaxis. From a neurology perspective can decrease Lipitor to 40 mg daily at bedtime. Routine EEG for patient myoclonic jerks: I feel mostly due to polypharamcy and not seizure: Preliminary report is normal. For hypertriglyceridemia I highly recommend the to pursue a fasting lipid panel if it continues to have hypertriglyceridemia then recommend starting the patient on fibrate. On cardiac monitoring PT OT and OFFAL ROLLER are consulted Recommend ENT evaluation and if non-as an inpatient consider outpatient We'll defer the rest of the medical management to the primary team For DVT prophylaxis start the patient on subcu heparin 5000 units every 8 hours Recommend the patient to follow-up with neurologist as outpatient within 1-2 weeks. The plan is discussed with patient with help of reagent tender. Also discussed with primary team. No additional neurological work-up. Please notify neurology team if any further concerns. Time with Patient: Less than 30
--- NOTE | 2022-04-17 21:36 | EEG ---
ELECTROENCEPHALOGRAM REPORT CLINICAL HISTORY: This is a 66-year-old woman with myoclonic jerk. The video EEG is obtained to evaluate for seizure epileptiform activity. RELEVANT MEDICATIONS: Gabapentin and baclofen. EEG TYPE: A routine 21-channel EEG was performed with video using the 10/20 electrode placement system. DESCRIPTION: Wakefulness and drowsiness are obtained. During awake state, the posterior- dominant rhythm consists of [id number] voltage of 8.5 to 9.5 hertz activity that is well modulated and well sustained. There is no physiological stage 2 sleep architecture seen. There is no focal slowing. INTERICTAL AND ICTAL: None. ACTIVATION PROCEDURE: Photic stimulation did not evoke a posterior driving response. There is no abnormality during the photic stimulation. Hyperventilation is not performed. CLINICAL INTERPRETATION: This is a normal routine EEG. There is no focal slowing, epileptiform discharges or seizure on the EEG. A normal routine EEG does not exclude underlying epilepsy. Clinical correlation is recommended. HUGO / JOE: [id number] / [id number]
--- NOTE | 2022-04-18 09:49 | P.DS ---
Providers Date of admission: 04/16/22 00:25 Expected date of discharge: 04/18/22 Attending physician: Luis Perez MD Consults: 04/16/22 00:25 Consult Physician Routine Consulting Provider: Syed Bonner Consult Reason/Comments: cva Do you want consulting provider notified?: Yes Primary care physician: [facility] Course: 66-year-old female with a PMH of deafness (since age 5 after an episode of encephalitis), type II DM, COPD, hypertension, hyperlipidemia, hypothyroidism who presents to the emergency room with complaints of left-sided weakness and numbness. The patient states that she initially noticed the left earache 3 days ago, although did not pay much attention to it as it was mild. At 8 PM earlier tonight, she suddenly developed left facial numbness with blurred vision and a diffuse mild headache. The symptoms were shortly followed by left arm weakness as well as bilateral lower extremity weakness. In the ED, her vital signs are stable. CBC showed a leukocytosis of 12.1. CMP showed BUN of 26. Troponin was less than 0.012, EKG showing sinus bradycardia with PVC. Urinalysis showed moderate leukocyte esterase. CT brain negative. CTA head and neck negative. Patient was admitted for further management of symptoms. When evaluated she reports resolution of her left-sided weakness. Continues to complain of left blurry vision. Complains of left ear pain. She was seen by neuro, was started on full dose ASA, resumed on Plavix and started on lipitor. Telemetry monitoring was negative. MRI brain showed no acute stroke. Echocardiogram with low normal ef, no valvular abnormalities. Patient also had some jerking movement/myoclonus which neurologist attributed to polypharmacy. EEG was done and that did not show any epileptiform discharges. A1c 7.2. Admission she was also diagnosed with otitis externa, was treated with ciprodex otic BID. Her symptoms are currently resolved except for some left facial numbness. She was cleared by neurology for discharge. She'll be discharged home in stable condition.. Patient was seen and examined in [id number] on the day of discharge 04/17. Patient Condition at Discharge: Fair Plan - Discharge Summary Discharge Rx Participant: No New Discharge Prescriptions: New Ciprofloxacin-Dexameth [Ciprodex Otic Susp] 4 drops LEFT EAR BID 7 Days #30 ml Atorvastatin [Lipitor] 80 mg PO HS 30 Days #30 tab Aspirin 325 mg PO DAILY 90 Days #90 tab Continue Potassium Chloride [Klor-Con 20] 20 meq PO DAILY PRN PRN Reason: "WHEN TAKING WATER PILL" allopurinoL [Zyloprim] 100 mg PO BID INSULIN LISPRO (HumaLOG) [humaLOG] 45 - 65 units SQ AC-TID oxyCODONE-APAP 10-325MG [Percocet 10-325 mg] 1 tab PO TID Hydroxychloroquine Sulfate [Plaquenil] 200 mg PO BID Levothyroxine Sodium [Synthroid] 200 mcg PO DAILY Magnesium Oxide 400 mg PO DAILY Gabapentin 600 mg PO BID Levalbuterol Hfa Inhaler [Xopenex Hfa Inhaler] 2 puff INHALATION RT-QID PRN PRN Reason: Shortness Of Breath Amitriptyline HCl 25 mg PO HS Bumetanide [BUMEX] 0.5 mg PO BID PRN PRN Reason: Edema amLODIPine [Norvasc] 10 mg PO QAM Biotin 5,000 mcg SUBLINGUAL DAILY atenoloL 50 mg PO BID Cetirizine HCl [Zyrtec] 10 mg PO BID Meloxicam 15 mg PO DAILY Nitroglycerin Sl Tabs [Nitrostat] 0.4 mg SUBLINGUAL Q5M PRN PRN Reason: Chest Pain Pantoprazole [Protonix] 40 mg PO DAILY Prevagen Brain Support 1 dose PO DAILY Spironolactone 25 mg PO DAILY Cranberry Fruit Concentrate [Azo Cranberry] 500 mg PO DAILY Fluticasone/Vilanterol [Breo Ellipta 200-25 Mcg Inhaler] 1 puff INHALATION RT-DAILY Clopidogrel [Plavix] 75 mg PO HS Diclofenac Sodium [Voltaren Arthritis Pain 1% Gel] 1 applic TOPICAL BID PRN PRN Reason: Pain Famotidine [Pepcid] 40 mg PO HS Fenofibrate [Lofibra] 54 mg PO DAILY metFORMIN HCL [Glucophage] 1,000 mg PO BID Cyanocobalamin/Cobamamide [Vitamin B-12 5,000 Mcg Tab Sl] 1 tab SUBLINGUAL DAILY Aspirin [Adult Low Dose Aspirin EC] 81 mg PO DAILY Latanoprost/Pf [Latanoprost 0.005% Eye Drop] 1 drop BOTH EYES HS Ascorbic Acid/Multivit-Min [Emergen-C 1,000 mg Packet] 1,000 mg PO DAILY Baclofen 10 mg PO TID Gabapentin 1,200 mg PO PC-LUNCH Insulin Glargine,Hum.rec.anlog [Lantus Solostar Pen] 64 unit SQ BID Ondansetron Odt [Zofran ODT] 4 mg PO TID PRN PRN Reason: Nausea No Action Ergocalciferol [Vitamin D2 (1250 Mcg = 21354 Iu)] 1,250 mcg PO Q7D Discharge Medication List Potassium Chloride [Klor-Con 20] 20 meq PO DAILY PRN 01/04/15 [History] allopurinoL [Zyloprim] 100 mg PO BID 01/04/15 [History] INSULIN LISPRO (HumaLOG) [humaLOG] 45 - 65 units SQ AC-TID 01/07/16 [History] Hydroxychloroquine Sulfate [Plaquenil] 200 mg PO BID 01/29/17 [History] oxyCODONE-APAP 10-325MG [Percocet 10-325 mg] 1 tab PO TID 01/29/17 [History] Levothyroxine Sodium [Synthroid] 200 mcg PO DAILY 03/26/17 [History] Gabapentin 600 mg PO BID 01/16/18 [History] Magnesium Oxide 400 mg PO DAILY 01/16/18 [History] Amitriptyline HCl 25 mg PO HS 01/31/19 [History] Levalbuterol Hfa Inhaler [Xopenex Hfa Inhaler] 2 puff INHALATION RT-QID PRN 01/31/19 [History] Bumetanide [BUMEX] 0.5 mg PO BID PRN 11/23/19 [History] amLODIPine [Norvasc] 10 mg PO QAM 11/23/19 [History] Biotin 5,000 mcg SUBLINGUAL DAILY 01/18/20 [History] Cetirizine HCl [Zyrtec] 10 mg PO BID 03/06/20 [History] Meloxicam 15 mg PO DAILY 03/06/20 [History] atenoloL 50 mg PO BID 03/06/20 [History] Clopidogrel [Plavix] 75 mg PO HS 10/09/21 [History] Cranberry Fruit Concentrate [Azo Cranberry] 500 mg PO DAILY 10/09/21 [History] Fluticasone/Vilanterol [Breo Ellipta 200-25 Mcg Inhaler] 1 puff INHALATION RT- DAILY 10/09/21 [History] Nitroglycerin Sl Tabs [Nitrostat] 0.4 mg SUBLINGUAL Q5M PRN 10/09/21 [History] Pantoprazole [Protonix] 40 mg PO DAILY 10/09/21 [History] Diclofenac Sodium [Voltaren Arthritis Pain 1% Gel] 1 applic TOPICAL BID PRN 10/20/21 [History] Famotidine [Pepcid] 40 mg PO HS 10/20/21 [History] Fenofibrate [Lofibra] 54 mg PO DAILY 10/20/21 [History] Ascorbic Acid/Multivit-Min [Emergen-C 1,000 mg Packet] 1,000 mg PO DAILY 11/06/21 [History] Aspirin [Adult Low Dose Aspirin EC] 81 mg PO DAILY 11/06/21 [History] Cyanocobalamin/Cobamamide [Vitamin B-12 5,000 Mcg Tab Sl] 1 tab SUBLINGUAL DAILY 11/06/21 [History] Latanoprost/Pf [Latanoprost 0.005% Eye Drop] 1 drop BOTH EYES HS 11/06/21 [History] Prevagen Brain Support 1 dose PO DAILY 11/06/21 [History] metFORMIN HCL [Glucophage] 1,000 mg PO BID 11/06/21 [History] Baclofen 10 mg PO TID 04/16/22 [History] Ergocalciferol [Vitamin D2 (1250 Mcg = 27306 Iu)] 1,250 mcg PO Q7D 04/16/22 [ History] Gabapentin 1,200 mg PO PC-LUNCH 04/16/22 [History] Insulin Glargine,Hum.rec.anlog [Lantus Solostar Pen] 64 unit SQ BID 04/16/22 [History] Ondansetron Odt [Zofran ODT] 4 mg PO TID PRN 04/16/22 [History] Spironolactone 25 mg PO DAILY 04/16/22 [History] Aspirin 325 mg PO DAILY 90 Days #90 tab 04/17/22 [Rx] Atorvastatin [Lipitor] 80 mg PO HS 30 Days #30 tab 04/17/22 [Rx] Ciprofloxacin-Dexameth [Ciprodex Otic Susp] 4 drops LEFT EAR BID 7 Days #30 ml 04/17/22 [Rx] Follow up Appointment(s)/Referral(s): Syed Bonner MD [STAFF PHYSICIAN] - 1 Week (follow-up within 1-2 weeks) Angelito Jones MD [STAFF PHYSICIAN] - 1 Week (Office is closed. Please make appoitment with ENT.) Jaswant Witt DO [Primary Care Provider] - 1-2 days (Office is closed. Please make follow up. ) Patient Instructions/Handouts: Ciprofloxacin/Dexamethasone (Into the ear), Transient Ischemic Attack (GEN) Discharge Disposition: HOME SELF-CARE
== END 2022-04-17 16:16 | disposition home or self-care (01) ==
LOC: EC 23:21 → 3SCARD 04-16 00:25
PROVIDERS: ADMIT Internal Medicine; ATTEND Internal Medicine
DX: I63.9 Cerebral infarction, unspecified (principal); H60.92 Unspecified otitis externa, left ear; R82.90 Unspecified abnormal findings in urine; R94.4 Abnormal results of kidney function studies; D72.829 Elevated white blood cell count, unspecified; I25.10 Atherosclerotic heart disease of native coronary artery without angina pectoris; E11.9 Type 2 diabetes mellitus without complications; E78.00 Pure hypercholesterolemia, unspecified; I10 Essential (primary) hypertension; K21.9 Gastro-esophageal reflux disease without esophagitis; G47.30 Sleep apnea, unspecified; D50.9 Iron deficiency anemia, unspecified; E03.9 Hypothyroidism, unspecified; J44.9 Chronic obstructive pulmonary disease, unspecified; H91.3 Deaf nonspeaking, not elsewhere classified; E78.1 Pure hyperglyceridemia; Z86.61 Personal history of infections of the central nervous system; Z96.643 Presence of artificial hip joint, bilateral; Z96.651 Presence of right artificial knee joint; Z98.1 Arthrodesis status; Z79.899 Other long term (current) drug therapy; Z79.4 Long term (current) use of insulin; Z79.890 Hormone replacement therapy; Z79.1 Long term (current) use of non-steroidal anti-inflammatories (NSAID); Z79.82 Long term (current) use of aspirin; Z79.84 Long term (current) use of oral hypoglycemic drugs; Z88.1 Allergy status to other antibiotic agents; Z88.5 Allergy status to narcotic agent; Z82.3 Family history of stroke; Z83.3 Family history of diabetes mellitus; Z82.49 Family history of ischemic heart disease and other diseases of the circulatory system
CPT/HCPCS: 96372 ×2; 96376; 96361; 96374; 96375; 99291; 36415; 94760 ×2; 95819; 93005; 93306; 80061; 80053; 84443; 84484; 85025; 85610; 85730; 81001; 83036; 70496; 70450; 70498; 70553; G0378 ×2; J2270; J2405; Q9967; J1644 ×2; A9585

== ENCOUNTER 2022-10-12 22:15 | Emergency (ER) | payer MEDICARE, BC ==
[2022-10-12 22:33] VITALS: PULSE 58; RESP 20; TEMP 97.8
[2022-10-13] MEDS ORDERED: SODIUM CHLORIDE 0.9% 500 ML 250 ML IV STA (01:00)
[2022-10-13 01:36] VITALS: BP 122/62
[2022-10-13 02:01] LABS: Basophils % (A) 0 %; Eosinophils # (A) 0.3 k/uL (0-0.7); Eosinophils % (A) 3 %; HCT 36.4 % (34.0-46.0); HGB 12.3 gm/dL (11.4-16.0); Lymphocytes # (A) 3.4 k/uL (1.0-4.8); Lymphocytes % (A) 29 %; MCH 30.5 pg (25.0-35.0); MCHC 33.7 g/dL (31.0-37.0); MCV 90.6 fL (80.0-100.0); Mean Platelet Volume 9.2; Monocytes # (A) 0.4 k/uL (0-1.0); Monocytes % (A) 3 %; Neutrophils # (A) 7.4 k/uL (1.3-7.7); Neutrophils % (A) 63 %; Platelet Count 188 k/uL (150-450); RBC 4.02 m/uL (3.80-5.40); RDW 13.6 % (11.5-15.5); WBC 11.7 k/uL (3.8-10.6)
[2022-10-13 02:11] LABS: ALT 24 U/L (4-34); AST 34 U/L (14-36); African American GFR (CKD) 43 (>60 ml/min/1.73 sqM); Albumin 4.1 g/dL (3.5-5.0); Alkaline Phosphatase 85 U/L (38-126); Anion Gap 12 mmol/L; Blood Urea Nitrogen 28 mg/dL (7-17); Calcium 8.7 mg/dL (8.4-10.2); Carbon Dioxide 30 mmol/L (22-30); Chloride 91 mmol/L (98-107); Glucose 237 mg/dL (74-99); Magnesium 1.3 mg/dL (1.6-2.3); Non-African American GFR(CKD) 37 (>60 ml/min/1.73 sqM); Potassium 4.7 mmol/L (3.5-5.1); Sodium 133 mmol/L (137-145); Total Bilirubin 0.3 mg/dL (0.2-1.3); Total Protein 6.1 g/dL (6.3-8.2)
[2022-10-13 02:16] LABS: INR 0.9 (<1.2); Partial Thromboplastin Time 23.8 sec (22.0-30.0); Prothrombin Time 9.6 sec (9.0-12.0)
[2022-10-13 02:27] LABS: Amorphous Sediment,Urine Rare /hpf; Appearance,Urine Cloudy (Clear); Bacteria,Urine Many /hpf; Bilirubin,Urine Negative (Negative); Blood,Urine Negative (Negative); Color,Urine Light Yellow; Glucose,Urine (UA) Negative (Negative); Hyaline Casts,Urine 19 /lpf (0-2); Ketones,Urine Negative (Negative); Leukocyte Esterase,Urine Large (Negative); Mucus,Urine Rare /hpf; Nitrite,Urine Positive (Negative); Protein,Urine Negative (Negative); RBC,Urine 2 /hpf (0-5); Specific Gravity,Urine 1.008 (1.001-1.035); Squamous Epithelial Cell,Urine 2 /hpf (0-4); Urobilinogen,Urine <2.0 mg/dL (<2.0); WBC,Urine 67 /hpf (0-5)
--- NOTE | 2022-10-13 02:56 | XR ---
EXAM: XR Chest, 2 Views CLINICAL HISTORY: ITS.REASON XR Reason: Weakness TECHNIQUE: Frontal and lateral views of the chest. COMPARISON: 03/18/2022 FINDINGS: Lungs: Vascular congestion. Pleural space: Unremarkable. No pneumothorax. No pleural effusions. Heart: Moderate enlargement of cardiac silhouette slightly more prominent than on prior exam. Mediastinum: Unremarkable. Bones/joints: No acute osseous abnormalities. IMPRESSION: 1. Vascular congestion. 2. Moderate enlargement of cardiac silhouette slightly more prominent than on prior exam.
[2022-10-13] MEDS ORDERED: cefTRIAXone IN SWFI 1,000 MG/10 ML SYRINGE IVP STA (03:32)
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
== END 2022-10-13 05:09 | disposition home or self-care (01) ==
LOC: EC 22:15
DX: N39.0 Urinary tract infection, site not specified (principal); E86.0 Dehydration; N17.9 Acute kidney failure, unspecified; R42 Dizziness and giddiness; J45.909 Unspecified asthma, uncomplicated; I25.10 Atherosclerotic heart disease of native coronary artery without angina pectoris; E11.9 Type 2 diabetes mellitus without complications; K21.9 Gastro-esophageal reflux disease without esophagitis; I10 Essential (primary) hypertension; M19.90 Unspecified osteoarthritis, unspecified site; G47.30 Sleep apnea, unspecified; E07.9 Disorder of thyroid, unspecified; Z79.890 Hormone replacement therapy; Z79.4 Long term (current) use of insulin; Z79.84 Long term (current) use of oral hypoglycemic drugs; Z79.1 Long term (current) use of non-steroidal anti-inflammatories (NSAID); Z79.51 Long term (current) use of inhaled steroids; Z79.82 Long term (current) use of aspirin; Z79.899 Other long term (current) drug therapy; Z79.01 Long term (current) use of anticoagulants; Z91.013 Allergy to seafood; Z91.09 Other allergy status, other than to drugs and biological substances; Z91.018 Allergy to other foods; Z88.6 Allergy status to analgesic agent; Z88.8 Allergy status to other drugs, medicaments and biological substances; Z88.1 Allergy status to other antibiotic agents
CPT/HCPCS: 36415; 93005; 83880; 80053; 83605; 83735; 84484; 85025; 85610; 85730; 81001; 71046; 99285; 96374; 96361 ×2; J0696

== ENCOUNTER → 2022-10-12 | Outpatient (CLI) | payer MEDICARE, BC ==
[2022-10-13 02:02] LABS: ALT 25 U/L; AST 32 U/L; Albumin 4.5 d/dL; Alkaline Phosphatase 100 U/L; BUN/Creat Ratio 16.43 Ratio; Calcium 9.6 mg/dL; Carbon Dioxide 29.2 mmol/L; Chloride 95 mmol/L; Globulin 1.8 d/dL; Glucose 125 mg/dL; Sodium 139 mmol/L; Total Bilirubin <0.2 mg/dL; Total Protein 6.3 d/dL
== END | disposition home or self-care (01) ==
LOC: LABWHC1 14:23
PROVIDERS: ATTEND Internal Medicine Cardiovascular Disease
DX: I11.9 Hypertensive heart disease without heart failure (principal); I25.119 Atherosclerotic heart disease of native coronary artery with unspecified angina pectoris; I70.0 Atherosclerosis of aorta; E78.2 Mixed hyperlipidemia; D86.9 Sarcoidosis, unspecified; I50.9 Heart failure, unspecified
CPT/HCPCS: 36415; 80053

== ENCOUNTER 2022-10-26 14:29 | Emergency (ER) | payer MEDICARE, BC ==
[2022-10-26 14:40] VITALS: RESP 18; TEMP 97.8
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
[2022-10-26 15:59] LABS: Basophils # (A) 0.1 k/uL (0-0.2); Basophils % (A) 1 %; Eosinophils # (A) 0.4 k/uL (0-0.7); Eosinophils % (A) 3 %; HCT 40.6 % (34.0-46.0); HGB 13.3 gm/dL (11.4-16.0); Lymphocytes # (A) 3.2 k/uL (1.0-4.8); Lymphocytes % (A) 25 %; MCH 29.8 pg (25.0-35.0); MCHC 32.8 g/dL (31.0-37.0); MCV 90.7 fL (80.0-100.0); Mean Platelet Volume 8.8; Monocytes # (A) 0.4 k/uL (0-1.0); Monocytes % (A) 3 %; Neutrophils # (A) 8.3 k/uL (1.3-7.7); Neutrophils % (A) 66 %; Platelet Count 217 k/uL (150-450); RBC 4.47 m/uL (3.80-5.40); RDW 13.9 % (11.5-15.5); WBC 12.5 k/uL (3.8-10.6)
--- NOTE | 2022-10-26 16:14 | XR ---
EXAMINATION TYPE: XR chest 2V DATE OF EXAM: 10/26/2022 COMPARISON: 10/14/2019 HISTORY: Shortness of breath TECHNIQUE: Frontal and lateral views of the chest are obtained. FINDINGS: Scattered senescent parenchymal changes noted. Hyperinflation compatible with COPD. No evidence for infiltrate. No evidence for atelectasis. Heart size is stable. Mediastinal structures are stable and grossly unremarkable. No evidence for hilar prominence. Degenerative changes dorsal spine. IMPRESSION: 1. No evidence for acute pulmonary disease.
[2022-10-26 16:18] LABS: ALT 26 U/L (4-34); AST 35 U/L (14-36); African American GFR (CKD) 82 (>60 ml/min/1.73 sqM); Albumin 4.6 g/dL (3.5-5.0); Alkaline Phosphatase 96 U/L (38-126); Anion Gap 13 mmol/L; Blood Urea Nitrogen 27 mg/dL (7-17); Calcium 9.9 mg/dL (8.4-10.2); Carbon Dioxide 26 mmol/L (22-30); Chloride 100 mmol/L (98-107); Glucose 193 mg/dL (74-99); INR 0.9 (<1.2); Magnesium 1.6 mg/dL (1.6-2.3); Non-African American GFR(CKD) 71 (>60 ml/min/1.73 sqM); Partial Thromboplastin Time 21.6 sec (22.0-30.0); Potassium 4.6 mmol/L (3.5-5.1); Prothrombin Time 9.5 sec (9.0-12.0); Sodium 139 mmol/L (137-145); Total Bilirubin 0.3 mg/dL (0.2-1.3); Total Protein 7.1 g/dL (6.3-8.2)
[2022-10-26 19:23] VITALS: BP 119/68; PULSE 61
== END 2022-10-26 19:22 | disposition home or self-care (01) ==
LOC: EC 14:29
DX: J40 Bronchitis, not specified as acute or chronic (principal); E11.9 Type 2 diabetes mellitus without complications; G47.30 Sleep apnea, unspecified; I10 Essential (primary) hypertension; I25.10 Atherosclerotic heart disease of native coronary artery without angina pectoris; K21.9 Gastro-esophageal reflux disease without esophagitis; M19.90 Unspecified osteoarthritis, unspecified site; E07.9 Disorder of thyroid, unspecified; Z79.1 Long term (current) use of non-steroidal anti-inflammatories (NSAID); Z79.82 Long term (current) use of aspirin; Z79.4 Long term (current) use of insulin; Z79.84 Long term (current) use of oral hypoglycemic drugs; Z79.890 Hormone replacement therapy; Z79.899 Other long term (current) drug therapy; Z88.1 Allergy status to other antibiotic agents; Z88.6 Allergy status to analgesic agent; Z88.8 Allergy status to other drugs, medicaments and biological substances; Z90.49 Acquired absence of other specified parts of digestive tract; Z20.822 Contact with and (suspected) exposure to COVID-19; Z91.018 Allergy to other foods
CPT/HCPCS: 36415; 71046; 80053; 83605; 83735; 83880; 84484; 85025; 85379; 85610; 85730; 87040; 87636; 93005; 99285

== ENCOUNTER → 2022-11-06 | Outpatient (CLI) | payer MEDICARE, BC ==
[2022-11-06 08:19] LABS: African American GFR (CKD) >90 (>60 ml/min/1.73 sqM); Blood Urea Nitrogen 20 mg/dL (7-17); Non-African American GFR(CKD) 84 (>60 ml/min/1.73 sqM)
--- NOTE | 2022-11-06 17:41 | CT ---
EXAMINATION TYPE: CT chest wo/w con DATE OF EXAM: 11/06/2022 COMPARISON: 03/26/2010 HISTORY: sarcoid CT DLP: 1057.7 mGycm, Automated exposure control for dose reduction was used. CONTRAST: Performed injected with 80 mL of Isovue 300. TECHNIQUE: Axial images were obtained at 5 mm thick sections. Reconstructed images are reviewed on [employer] computer in the coronal plane. FINDINGS: Portion of the thyroid visualized is normal. No suspicious lung nodules or focal infiltrates are present. No enlarged mediastinal or hilar adenopathy is evident. Couple of shotty lymph nodes are present. Th e ascending aorta diameter at the level of the main pulmonary artery is 3.9 cm. The main pulmonary a rtery diameter at the bifurcation is 3.[address] sections are obtained through the upper abdomen. Abdomen is essentially unremarkable. IMPRESSIONS: 1. No suspicious changes to suggest sarcoidosis
== END | disposition home or self-care (01) ==
LOC: RADCTMAIN 07:32
PROVIDERS: ATTEND Family Medicine
DX: J96.11 Chronic respiratory failure with hypoxia (principal); D86.0 Sarcoidosis of lung
CPT/HCPCS: 82565; 84520; 71270; 36415; Q9967

== ENCOUNTER → 2022-11-20 | Outpatient (CLI) | payer MEDICARE, BC ==
--- NOTE | 2022-11-20 12:35 | FL ---
Fluoroscopy for sniff test INDICATION: Right diaphragm abnormality FINDINGS: Others normal diaphragm motion with quiet breathing. With sniffing there is diminished excursion of t he right diaphragm compared to the left. No paradoxical motion is evident. Fluoroscopy time: 35 seconds. Total dose area product (DAP) in uGy*m?, mGy*cm? (or similar): None Images obtained: One. IMPRESSIONS: 1. There is diminished excursion without paradoxical motion. 2. Mild elevation of the right diaphragm.
== END | disposition home or self-care (01) ==
LOC: RADUSWWP 09:41
PROVIDERS: ATTEND Family Medicine
DX: Q79.1 Other congenital malformations of diaphragm (principal); J96.10 Chronic respiratory failure, unspecified whether with hypoxia or hypercapnia; G45.8 Other transient cerebral ischemic attacks and related syndromes; J84.89 Other specified interstitial pulmonary diseases
CPT/HCPCS: 76000

== ENCOUNTER → 2022-12-17 | Outpatient (CLI) | payer MEDICARE, BC ==
[2022-12-17 17:13] LABS: ALT 29 U/L (8-44); AST 36 U/L (13-35); Albumin 4.5 d/dL (3.8-4.9); Alkaline Phosphatase 105 U/L (41-126); BUN/Creat Ratio 15.33 Ratio (12.00-20.00); Blood Urea Nitrogen 13.8 mg/dL (9.0-27.0); Calcium 9.6 mg/dL (8.7-10.3); Carbon Dioxide 29.4 mmol/L (21.6-31.8); Chloride 96 mmol/L (96-109); Globulin 1.8 d/dL (1.6-3.3); Glucose 269 mg/dL (70-110); Potassium 3.8 mmol/L (3.5-5.5); Sodium 140 mmol/L (135-145); Total Bilirubin 0.2 mg/dL (0.3-1.2); Total Protein 6.3 d/dL (6.2-8.2)
== END | disposition home or self-care (01) ==
LOC: LABWHC1 10:25
PROVIDERS: ATTEND Internal Medicine Cardiovascular Disease
DX: I11.9 Hypertensive heart disease without heart failure (principal); I25.119 Atherosclerotic heart disease of native coronary artery with unspecified angina pectoris; I70.0 Atherosclerosis of aorta; E78.2 Mixed hyperlipidemia; E11.9 Type 2 diabetes mellitus without complications; D86.9 Sarcoidosis, unspecified; G47.33 Obstructive sleep apnea (adult) (pediatric)
CPT/HCPCS: 36415; 80053

== ENCOUNTER → 2023-01-22 | Outpatient (CLI) | payer MEDICARE, BC ==
[2023-01-22 13:42] LABS: NT-Pro-B-Type Natriuretic Pept <20 pg/mL
[2023-01-23 01:29] LABS: BUN/Creat Ratio 22.09 Ratio (12.00-20.00); Blood Urea Nitrogen 24.3 mg/dL (9.0-27.0); Calcium 10.2 mg/dL (8.7-10.3); Carbon Dioxide 31.5 mmol/L (21.6-31.8); Chloride 96 mmol/L (96-109); Glucose 167 mg/dL (70-110); Sodium 141 mmol/L (135-145)
[2023-01-23 03:09] LABS: Immunoglobulin E 10.4 IU/mL (0.00-114.00)
== END | disposition home or self-care (01) ==
LOC: LABWHC1 11:34
PROVIDERS: ATTEND Internal Medicine Cardiovascular Disease
DX: I25.119 Atherosclerotic heart disease of native coronary artery with unspecified angina pectoris (principal); J30.9 Allergic rhinitis, unspecified; I11.9 Hypertensive heart disease without heart failure; E78.2 Mixed hyperlipidemia; I70.0 Atherosclerosis of aorta; D86.0 Sarcoidosis of lung; J84.89 Other specified interstitial pulmonary diseases
CPT/HCPCS: 36415; 80048; 82784; 82785; 83880; 85652; 86140

== ENCOUNTER → 2023-03-16 | Outpatient (CLI) | payer MEDICARE, BC ==
[2023-03-16 10:50] LABS: Basophils # (A) 0.06 X 10*3/uL (0.00-0.10); Basophils % (A) 0.7 %; Eosinophils # (A) 0.38 X 10*3/uL (0.04-0.35); Eosinophils % (A) 4.1 %; HCT 39.5 % (37.2-46.3); HGB 12.2 d/dL (12.0-15.0); Lymphocytes # (A) 3.06 X 10*3/uL (0.90-5.00); Lymphocytes % (A) 33.2 %; MCH 28.3 pg (27.0-32.0); MCHC 30.9 d/dL (32.0-37.0); MCV 91.6 FL (80.0-97.0); Mean Platelet Volume 11.7 FL (9.5-12.2); Monocytes # (A) 0.48 X 10*3/uL (0.20-1.00); Monocytes % (A) 5.2 %; NRBC Per 100 WBC 0 X 10*3/uL (0.00-0.01); Neutrophils # (A) 5.22 X 10*3/uL (1.80-7.70); Neutrophils % (A) 56.6 %; Platelet Count 229 X 10*3/uL (140-440); RBC 4.31 X 10*6/uL (4.10-5.20); WBC 9.22 X 10*3/uL (4.50-10.00)
[2023-03-16 11:18] LABS: Appearance,Urine Clear (Clear); Bilirubin,Urine Negative (Negative); Blood,Urine Negative (Negative); Color,Urine Yellow (Yellow); Ketones,Urine Negative (Negative); Nitrite,Urine Positive (Negative); PH, Urine 5.5; Specific Gravity,Urine 1.026 (1.001-1.030); Urobilinogen,Urine 0.2 E.U./DL
[2023-03-16 11:29] LABS: Bacteria,Urine 3+ (None Seen)
[2023-03-16 11:50] LABS: ALT 26 U/L (8-44); AST 22 U/L (13-35); Albumin 4.3 d/dL (3.8-4.9); Albumin/Globulin Ratio 2.39 Ratio (1.60-3.17); Alkaline Phosphatase 103 U/L (41-126); BUN/Creat Ratio 23.33 Ratio (12.00-20.00); Chloride 99 mmol/L (96-109); Chol/HDL Ratio 3.32 Ratio; Globulin 1.8 d/dL (1.6-3.3); Glucose 144 mg/dL (70-110); LDL Cholesterol,Calculated 35.4 mg/dL (0.0-131.0); Potassium 4.9 mmol/L (3.5-5.5); Sodium 143 mmol/L (135-145); T4, Free (Free Thyroxine) 1.29 ng/dL (0.80-1.80); Total Bilirubin <0.2 mg/dL (0.3-1.2); Total Protein 6.1 d/dL (6.2-8.2)
== END | disposition home or self-care (01) ==
LOC: LABWHC1 07:07
PROVIDERS: ATTEND Family Medicine
DX: E11.42 Type 2 diabetes mellitus with diabetic polyneuropathy (principal); D50.0 Iron deficiency anemia secondary to blood loss (chronic); E03.9 Hypothyroidism, unspecified; E55.9 Vitamin D deficiency, unspecified; E78.2 Mixed hyperlipidemia; G47.00 Insomnia, unspecified
CPT/HCPCS: 36415; 80053; 80061; 81001; 82306; 84439; 84443; 85025

== ENCOUNTER → 2023-05-20 | Outpatient (CLI) | payer MEDICARE, BC ==
--- NOTE | 2023-05-20 19:43 | XR ---
EXAMINATION TYPE: XR knee complete LT DATE OF EXAM: 05/20/2023 COMPARISON: None HISTORY: 67-year-old female [id number], left knee pain TECHNIQUE: 3 views FINDINGS: There is a 1.4 x 0.4 cm focus of calcification/ossification along the inner aspect of the medial femo ral condyle in the expected location of the MCL. There may be a small knee joint effusion. Extensor m echanism appears intact. No acute fracture, subluxation, or dislocation is seen. IMPRESSION: Suspect developing Jen-Stieda. Correlate for any history of previous MCL injury. There may be a small joint effusion. Otherwise, no acute osseous abnormality seen.
== END | disposition home or self-care (01) ==
LOC: RADXRYALE 11:31
PROVIDERS: ATTEND Family Medicine
DX: M25.562 Pain in left knee (principal)

== ENCOUNTER → 2023-05-25 | Outpatient (CLI) | payer MEDICARE, BC ==
--- NOTE | 2023-05-25 18:01 | MR ---
EXAMINATION TYPE: MR knee LT wo con DATE OF EXAM: 05/25/2023 COMPARISON: None HISTORY: Left knee pain. Prior scope done x2. TECHNIQUE: Multiplanar, multisequence imaging of the left knee is performed without IV contrast. FINDINGS: There is no bone contusion or fracture. There is no joint effusion. The medial and lateral collateral ligaments are intact. The cruciate ligaments are intact. There is degenerative change in both the medial lateral menisci. There is an oblique tear of the body and posterior horn of the medial meniscus. An oblique tear of the lateral meniscus is not excluded. There is no significant osteoarthritic change in the joint spaces and articular cartilages are intact . The patellar and quadriceps tendons are intact. IMPRESSION: 1. Medial meniscal tear. 2. probable lateral meniscus tear. 3. No ligamentous injury. 4. No bone contusion, fracture or joint effusion.
== END | disposition home or self-care (01) ==
LOC: RADMRIMAIN 13:05
PROVIDERS: ATTEND Family Medicine
DX: M23.304 Other meniscus derangements, unspecified medial meniscus, left knee (principal); M23.8X2 Other internal derangements of left knee

== ENCOUNTER 2023-06-13 19:38 | Emergency (ER) | payer MEDICARE, BC ==
[2023-06-13 20:00] VITALS: BP 132/69; RESP 18; TEMP 98.3
[2023-06-13 20:09] LABS: Basophils # (A) 0.1 k/uL (0-0.2); Basophils % (A) 0 %; Eosinophils # (A) 0.4 k/uL (0-0.7); Eosinophils % (A) 2 %; HGB 13.7 gm/dL (11.4-16.0); Lymphocytes # (A) 4.9 k/uL (1.0-4.8); Lymphocytes % (A) 30 %; MCHC 32.6 g/dL (31.0-37.0); Mean Platelet Volume 8.6; Monocytes # (A) 0.5 k/uL (0-1.0); Monocytes % (A) 3 %; Neutrophils # (A) 10.4 k/uL (1.3-7.7); Neutrophils % (A) 64 %; Platelet Count 210 k/uL (150-450); RBC 4.89 m/uL (3.80-5.40); RDW 15.2 % (11.5-15.5); WBC 16.3 k/uL (3.8-10.6)
[2023-06-13 20:33] LABS: ALT 27 U/L (4-34); AST 28 U/L (14-36); African American GFR (CKD) >90 (>60 ml/min/1.73 sqM); Albumin 4.3 g/dL (3.5-5.0); Alkaline Phosphatase 130 U/L (38-126); Anion Gap 9 mmol/L; Blood Urea Nitrogen 22 mg/dL (7-17); Calcium 9.7 mg/dL (8.4-10.2); Carbon Dioxide 29 mmol/L (22-30); Chloride 101 mmol/L (98-107); Glucose 118 mg/dL (74-99); Non-African American GFR(CKD) >90 (>60 ml/min/1.73 sqM); Sodium 139 mmol/L (137-145); Total Bilirubin 0.4 mg/dL (0.2-1.3); Total Protein 6.7 g/dL (6.3-8.2)
--- NOTE | 2023-06-13 20:54 | XR ---
EXAMINATION TYPE: XR chest 2V DATE OF EXAM: 06/13/2023 8:10 PM CLINICAL INDICATION:Female, 67 years old with history of cough; [facility] COMPARISON: 10/26/2022 and before TECHNIQUE: XR chest 2V. Frontal and lateral views of the chest.. FINDINGS: Lines/Tubes/Devices: No indwelling lines are seen. Heart/mediastinum: Heart size is normal. Mediastinum appears normal. Pulmonary vascularity: Not increased, Lungs/Pleura: Slightly coarsened appearance of the interstitium, similar to prior exams. There is no evidence of pleural effusion, focal consolidation, or pneumothorax. Musculoskeletal: No acute osseous abnormality demonstrated in the limits of the exam. There is fixat ion hardware in the lower cervical spine. Mild thoracic spondylosis. Other findings: None. IMPRESSION: No acute cardiopulmonary abnormality.
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
[2023-06-13] MEDS: IPRATROPIUM 0.5 MG/2.5 ML NEBU INHALATION STA (21:32)
[2023-06-13 21:50] VITALS: PULSE 79
== END 2023-06-13 22:13 | disposition home or self-care (01) ==
LOC: EC 19:38
DX: R06.00 Dyspnea, unspecified (principal); E11.9 Type 2 diabetes mellitus without complications; J45.909 Unspecified asthma, uncomplicated; I25.10 Atherosclerotic heart disease of native coronary artery without angina pectoris; K21.9 Gastro-esophageal reflux disease without esophagitis; I10 Essential (primary) hypertension; E07.9 Disorder of thyroid, unspecified; G47.30 Sleep apnea, unspecified; Z79.84 Long term (current) use of oral hypoglycemic drugs; Z79.899 Other long term (current) drug therapy; Z20.822 Contact with and (suspected) exposure to COVID-19; Z79.4 Long term (current) use of insulin; Z79.890 Hormone replacement therapy; Z79.02 Long term (current) use of antithrombotics/antiplatelets; Z88.5 Allergy status to narcotic agent; Z88.1 Allergy status to other antibiotic agents; Z88.8 Allergy status to other drugs, medicaments and biological substances
CPT/HCPCS: 36415; 71046; 80053; 83880; 85025; 85379; 87636; 94640; 99285

== ENCOUNTER 2023-07-26 18:52 | Emergency (ER) | payer MEDICARE, BC ==
[2023-07-26 19:29] VITALS: TEMP 99
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
[2023-07-26] MEDS: MORPHINE SULFATE 4 MG/ML SYRINGE IVP STA ×2 (20:31→21:49)
[2023-07-26] MEDS: SODIUM CHLORIDE 0.9% 500 ML 500 ML IV STA (20:31)
[2023-07-26 20:46] LABS: Basophils # (A) 0.1 k/uL (0-0.2); Basophils % (A) 1 %; Eosinophils # (A) 0.4 k/uL (0-0.7); Eosinophils % (A) 3 %; HCT 41.2 % (34.0-46.0); HGB 13.4 gm/dL (11.4-16.0); Lymphocytes # (A) 3.8 k/uL (1.0-4.8); Lymphocytes % (A) 31 %; MCH 27.6 pg (25.0-35.0); MCHC 32.5 g/dL (31.0-37.0); Mean Platelet Volume 9.3; Monocytes # (A) 0.5 k/uL (0-1.0); Monocytes % (A) 4 %; Neutrophils # (A) 7.3 k/uL (1.3-7.7); Neutrophils % (A) 59 %; Platelet Count 228 k/uL (150-450); RBC 4.85 m/uL (3.80-5.40); RDW 15.5 % (11.5-15.5); WBC 12.3 k/uL (3.8-10.6)
[2023-07-26 22:09] LABS: ALT 26 U/L (4-34); AST 34 U/L (14-36); African American GFR (CKD) >90 (>60 ml/min/1.73 sqM); Albumin 4.7 g/dL (3.5-5.0); Alkaline Phosphatase 140 U/L (38-126); Anion Gap 12 mmol/L; Blood Urea Nitrogen 19 mg/dL (7-17); C Reactive Protein 1.7 mg/dL (<1.0); Calcium 9.8 mg/dL (8.4-10.2); Carbon Dioxide 29 mmol/L (22-30); Chloride 98 mmol/L (98-107); Glucose 198 mg/dL (74-99); Non-African American GFR(CKD) 87 (>60 ml/min/1.73 sqM); Potassium 4.6 mmol/L (3.5-5.1); Sodium 139 mmol/L (137-145); Total Bilirubin 0.3 mg/dL (0.2-1.3); Total Protein 7.1 g/dL (6.3-8.2)
[2023-07-26] MEDS: ONDANSETRON 4 MG/2 ML VIAL IVP STA (23:21)
--- NOTE | 2023-07-27 01:16 | CT ---
EXAM: CT Neck With Intravenous Contrast CLINICAL HISTORY: ITS.REASON CT Reason: Hx R TMJ surgery. Screw out of place. TECHNIQUE: Axial computed tomography images of the neck with intravenous contrast. CTDI is 13.8 mGy and DLP is 455.8 mGy-cm. This CT exam was performed using one or more of the following dose reduction techniques: automated exposure control, adjustment of the mA and/or kV according to patient size, and/or use of iterative reconstruction technique. COMPARISON: Comparison made to prior CT angiogram of the neck from April 15, 2022. FINDINGS: Oropharynx: Unremarkable. No significant tonsillar enlargement. No peritonsillar abscess. Hypopharynx: Unremarkable. Larynx: Unremarkable. Normal epiglottis. Trachea: Unremarkable. Retropharyngeal space: Unremarkable. Submandibular/parotid glands: Unremarkable. Glands are normal in size. Thyroid: Unremarkable. No enlarged or calcified nodules. Bones/joints: No acute fracture. There are bilateral mandibular rami surgical screws in place without evidence of surgical hardware complication. Patient is status post anterior cervical fusion of C4-C6 with expected postsurgical changes. Congenitally narrow spinal canal. Soft tissues: Unremarkable. Vasculature: No acute findings. There is a 50% stenosis of the distal left common carotid artery. Lymph nodes: Unremarkable. No lymphadenopathy. Lung apices: Unremarkable as visualized. IMPRESSION: No evidence of acute cervical soft tissue pathology. Bilateral postsurgical changes of the mandible with expected postsurgical changes. Status post anterior fusion of C4-C6 with expected postsurgical changes.
[2023-07-27 02:53] VITALS: BP 122/73; PULSE 66; RESP 18
[2023-07-27 08:50] LABS: Erythrocyte Sedimentation Rate 39 mm/Hr (0-30)
== END 2023-07-27 02:52 | disposition home or self-care (01) ==
LOC: EC 18:52
DX: R51.9 Headache, unspecified (principal); J45.909 Unspecified asthma, uncomplicated; I25.10 Atherosclerotic heart disease of native coronary artery without angina pectoris; E11.9 Type 2 diabetes mellitus without complications; K21.9 Gastro-esophageal reflux disease without esophagitis; I10 Essential (primary) hypertension; E07.9 Disorder of thyroid, unspecified; M10.9 Gout, unspecified; Z79.890 Hormone replacement therapy; Z79.82 Long term (current) use of aspirin; Z79.84 Long term (current) use of oral hypoglycemic drugs; Z79.4 Long term (current) use of insulin; Z79.51 Long term (current) use of inhaled steroids; Z79.02 Long term (current) use of antithrombotics/antiplatelets; Z79.899 Other long term (current) drug therapy; Z88.1 Allergy status to other antibiotic agents; Z88.5 Allergy status to narcotic agent; Z88.6 Allergy status to analgesic agent; Z88.8 Allergy status to other drugs, medicaments and biological substances; Z91.018 Allergy to other foods; Z91.013 Allergy to seafood; Z91.09 Other allergy status, other than to drugs and biological substances
CPT/HCPCS: 99284; 96374; 96375; 96376; 96361 ×2; 36415; 80053; 85652; 85025; 86140; 87636; 70491; J2270; J2405; Q9967

== ENCOUNTER 2023-07-29 22:27 | Inpatient (IN) | payer MEDICARE, BC ==
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
[2023-07-29] MEDS: SODIUM CHLORIDE 0.9% 1,000 ML IV STA (22:47)
[2023-07-29 22:58] LABS: Basophils # (A) 0.1 k/uL (0-0.2); Basophils % (A) 1 %; Eosinophils # (A) 0.3 k/uL (0-0.7); Eosinophils % (A) 3 %; HCT 38.6 % (34.0-46.0); HGB 12.3 gm/dL (11.4-16.0); Lymphocytes # (A) 3.6 k/uL (1.0-4.8); Lymphocytes % (A) 31 %; MCH 27.5 pg (25.0-35.0); Mean Platelet Volume 8.8; Monocytes # (A) 0.4 k/uL (0-1.0); Monocytes % (A) 3 %; Neutrophils # (A) 7.2 k/uL (1.3-7.7); Neutrophils % (A) 61 %; Platelet Count 219 k/uL (150-450); RBC 4.49 m/uL (3.80-5.40); RDW 15.5 % (11.5-15.5); WBC 11.9 k/uL (3.8-10.6)
[2023-07-29 23:26] LABS: ALT 23 U/L (4-34); AST 33 U/L (14-36); African American GFR (CKD) >90 (>60 ml/min/1.73 sqM); Albumin 4.1 g/dL (3.5-5.0); Alkaline Phosphatase 125 U/L (38-126); Anion Gap 11 mmol/L; Blood Urea Nitrogen 20 mg/dL (7-17); Calcium 9.5 mg/dL (8.4-10.2); Carbon Dioxide 29 mmol/L (22-30); Chloride 97 mmol/L (98-107); Creatine Kinase 88 U/L (30-135); Glucose 135 mg/dL (74-99); Non-African American GFR(CKD) 83 (>60 ml/min/1.73 sqM); Potassium 4.2 mmol/L (3.5-5.1); Sodium 137 mmol/L (137-145); Total Bilirubin 0.3 mg/dL (0.2-1.3); Total Protein 6.3 g/dL (6.3-8.2)
--- NOTE | 2023-07-29 23:27 | CT ---
EXAM: CT Angiography Head With Intravenous Contrast CLINICAL HISTORY: ITS.REASON CT Reason: Neuro deficit, acute, stroke suspected TECHNIQUE: Axial computed tomographic angiography images of the head with intravenous contrast. CTDI is 48.4 mGy and DLP is 1142 mGy-cm. This CT exam was performed using one or more of the following dose reduction techniques: automated exposure control, adjustment of the mA and/or kV according to patient size, and/or use of iterative reconstruction technique. MIP reconstructed images were created and reviewed. COMPARISON: CT head 07/09/23; CTA 04/15/22 FINDINGS: Right internal carotid artery: No acute findings. Intracranial segment is patent with no significant stenosis. No aneurysm. Right anterior cerebral artery: Unremarkable. No occlusion or significant stenosis. No aneurysm. Right middle cerebral artery: Unremarkable. No occlusion or significant stenosis. No aneurysm. Right posterior cerebral artery: Unremarkable. No occlusion or significant stenosis. No aneurysm. Right vertebral artery: Unremarkable as visualized. Left internal carotid artery: No acute findings. Intracranial segment is patent with no significant stenosis. No aneurysm. Left anterior cerebral artery: Unremarkable. No occlusion or significant stenosis. No aneurysm. Left middle cerebral artery: Unremarkable. No occlusion or significant stenosis. No aneurysm. Left posterior cerebral artery: Unremarkable. No occlusion or significant stenosis. No aneurysm. Left vertebral artery: Unremarkable as visualized. Basilar artery: Unremarkable. No occlusion or significant stenosis. No aneurysm. IMPRESSION: 1. Patent intracranial circulation. EXAM: CT Angiography Neck With Intravenous Contrast CLINICAL HISTORY: ITS.REASON CT Reason: Neuro deficit, acute, stroke suspected TECHNIQUE: Routine carotid CT angiography protocol was performed with intravenous contrast. NASCET criteria using the distal ICAs for comparison were used for evaluation of stenoses. CTDI is 14.8 mGy and DLP is 574.9 mGy-cm. This CT exam was performed using one or more of the following dose reduction techniques: automated exposure control, adjustment of the mA and/or kV according to patient size, and/or use of iterative reconstruction technique. MIP reconstructed images were created and reviewed. COMPARISON: CTA 04/15/22 FINDINGS: VASCULATURE: Right common carotid artery: Unremarkable. No occlusion or significant stenosis. No dissection. Right internal carotid artery: Calcific plaque proximal right ICA without hemodynamically significant stenosis. No dissection. Right external carotid artery: Unremarkable. No occlusion. Right vertebral artery: Unremarkable. No occlusion or significant stenosis. No dissection. Left common carotid artery: Unremarkable. No occlusion or significant stenosis. No dissection. Left internal carotid artery: Calcific plaque proximal left ICA without hemodynamically significant stenosis. No dissection. Left external carotid artery: Unremarkable. No occlusion. Left vertebral artery: Unremarkable. No occlusion or significant stenosis. No dissection. Aorta: Bovine aortic arch branch anatomy. NECK: Bones/joints: Anterior cervical discectomy and fusion C4-C6. At the level disc, facet, and uncovertebral joint degeneration. No acute osseous abnormality. Soft tissues: Unremarkable. Lung apices: Clear. CAROTID STENOSIS REFERENCE USING NASCET CRITERIA: % ICA stenosis = (1 - narrowest ICA diameter/diameter of distal cervical ICA) x 100. Mild - <50% stenosis. Moderate - 50-69% stenosis. Severe - 70-94% stenosis. Near occlusion - 95-99% stenosis. Occluded - 100% stenosis. IMPRESSION: 1. No dissection, hemodynamically significant stenosis, or occlusion.
--- NOTE | 2023-07-29 23:28 | CT ---
EXAM: CT Head Without Intravenous Contrast CLINICAL HISTORY: ITS.REASON CT Reason: Neuro deficit, acute, stroke suspected TECHNIQUE: Axial computed tomography images of the head/brain without intravenous contrast. CTDI is 24.17 mGy and DLP is 31.1 mGy-cm. This CT exam was performed using one or more of the following dose reduction techniques: automated exposure control, adjustment of the mA and/or kV according to patient size, and/or use of iterative reconstruction technique. COMPARISON: No relevant prior studies available. FINDINGS: Brain: Patchy white matter hypodensity suggesting mild chronic small vessel ischemic change. No hemorrhage. No edema. Verdin-white matter differentiation maintained. Ventricles: Unremarkable. No hydrocephalus. Bones/joints: Unremarkable. No acute fracture. Soft tissues: Unremarkable. Vasculature: Intracranial atherosclerosis. Sinuses: Unremarkable as visualized. No acute sinusitis. Mastoid air cells: Unremarkable as visualized. No mastoid effusion. Orbits: Bilateral lens replacements. IMPRESSION: No acute intracranial process.
[2023-07-29 23:48] LABS: INR 0.8 (<1.2); Partial Thromboplastin Time 24.2 sec (22.0-30.0); Prothrombin Time 9.5 sec (10.0-12.5)
[2023-07-30] MEDS: ONDANSETRON 4 MG/2 ML VIAL IVP STA (00:25)
[2023-07-30] MEDS: ASPIRIN 81 MG PO STA (01:13)
[2023-07-30] MEDS: SODIUM CHLORIDE 0.9% 1,000 ML IV SCH (02:14)
[2023-07-30] MEDS ORDERED: DEXTROSE 50% SYRINGE 50 ML IVP PRN ×2 (02:27)
[2023-07-30] MEDS ORDERED: PANTOPRAZOLE 40 MG TABLET PO SCH (02:30)
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
[2023-07-30] MEDS: ACETAMINOPHEN TAB 500 MG TAB PO STA (03:13)
[2023-07-30 07:26] LABS: Basophils # (A) 0.1 k/uL (0-0.2); Basophils % (A) 1 %; Eosinophils # (A) 0.3 k/uL (0-0.7); Eosinophils % (A) 3 %; HCT 37.8 % (34.0-46.0); HGB 11.8 gm/dL (11.4-16.0); Lymphocytes # (A) 3.6 k/uL (1.0-4.8); Lymphocytes % (A) 35 %; MCH 27.1 pg (25.0-35.0); MCHC 31.2 g/dL (31.0-37.0); MCV 86.9 fL (80.0-100.0); Monocytes # (A) 0.4 k/uL (0-1.0); Monocytes % (A) 4 %; Neutrophils # (A) 5.9 k/uL (1.3-7.7); Neutrophils % (A) 57 %; Platelet Count 207 k/uL (150-450); RBC 4.35 m/uL (3.80-5.40); RDW 15.5 % (11.5-15.5); WBC 10.4 k/uL (3.8-10.6)
[2023-07-30] MEDS: INSULIN ASPART (NovoLOG) 100 UNIT/ML VIAL SQ SCH ×2 (07:43→12:59)
[2023-07-30 07:45] LABS: Glucose,Whole Blood 119 mg/dL (70-110)
[2023-07-30] MEDS: HYDROXYCHLOROQUINE SULFATE 200 MG TAB PO SCH (07:52)
[2023-07-30] MEDS: PANTOPRAZOLE 40 MG TABLET PO SCH (07:52)
[2023-07-30] MEDS: LEVOTHYROXINE 100 MCG TAB PO SCH (07:55)
[2023-07-30] MEDS: ASPIRIN 325 MG TAB PO SCH (07:55)
[2023-07-30 08:10] LABS: ALT 23 U/L (4-34); AST 32 U/L (14-36); African American GFR (CKD) >90 (>60 ml/min/1.73 sqM); Albumin 3.7 g/dL (3.5-5.0); Alkaline Phosphatase 113 U/L (38-126); Anion Gap 8 mmol/L; Blood Urea Nitrogen 18 mg/dL (7-17); Calcium 8.9 mg/dL (8.4-10.2); Carbon Dioxide 30 mmol/L (22-30); Chloride 100 mmol/L (98-107); Glucose 107 mg/dL (74-99); Non-African American GFR(CKD) 84 (>60 ml/min/1.73 sqM); Potassium 4.3 mmol/L (3.5-5.1); Sodium 138 mmol/L (137-145); Total Bilirubin 0.3 mg/dL (0.2-1.3)
[2023-07-30] MEDS: SYMBICORT 160-4.5 MCG INHALER INHALATION SCH (09:14)
[2023-07-30] MEDS: IPRATROPIUM 0.5 MG/2.5 ML NEBU INHALATION SCH (11:14)
[2023-07-30] MEDS ORDERED: NON FORMULARY DRUG (Levalbuterol Hfa Inhaler 200 PUFF/9 GM Inhaler) INHALATION PRN (11:27)
[2023-07-30] MEDS: IPRATROPIUM 0.5 MG/2.5 ML NEBU INHALATION STA (11:38)
[2023-07-30 12:38] LABS: Glucose,Whole Blood 154 mg/dL (70-110)
[2023-07-30] MEDS: GABAPENTIN 300 MG CAP PO SCH (12:47)
[2023-07-30] MEDS: AMOXIC-POT CLAV 875-125MG 1 EACH TAB PO SCH (12:47)
[2023-07-30] MEDS: oxyCODONE-APAP 10-325MG 1 EACH TAB PO SCH (14:44)
[2023-07-30] MEDS: BACLOFEN 10 MG TAB PO SCH (14:45)
[2023-07-30 17:17] LABS: Glucose,Whole Blood 155 mg/dL (70-110)
[2023-07-30 17:26] LABS: Chol/HDL Ratio 3.11 Ratio; LDL Cholesterol,Calculated 45.9 mg/dL (0.0-131.0)
[2023-07-30] MEDS ORDERED: BUDESONIDE 0.5 MG/2 ML NEBU INHALATION SCH (20:00)
[2023-07-30] MEDS: allopurinoL 100 MG TAB PO SCH (20:33)
[2023-07-30] MEDS: FAMOTIDINE 20 MG TAB PO SCH (20:33)
[2023-07-30] MEDS: CLOPIDOGREL 75 MG TAB PO SCH (20:33)
[2023-07-30] MEDS: BUMETANIDE 1 MG TAB PO SCH (20:33)
[2023-07-30] MEDS: BUTALB/APAP/CAFF 50-325-40MG TAB PO PRN (20:34)
[2023-07-30] MEDS: LATANOPROST 0.005% OPHTH DROPS 2.5 ML BTL BOTH EYES SCH (20:34)
[2023-07-30] MEDS: amLODIPine 5 MG TAB PO SCH (20:35)
[2023-07-30 21:00] LABS: Glucose,Whole Blood 275 mg/dL (70-110)
[2023-07-30] MEDS ORDERED: ATORVASTATIN 80 MG TAB PO SCH (21:00)
[2023-07-30] MEDS: INSULIN DETEMIR (LEVEMIR) 100 UNIT/ML SYR SQ SCH (21:25)
[2023-07-30] MEDS: NON FORMULARY DRUG (Levalbuterol Nebulized 1.25 MG/3 ML Ml) INHALATION SCH (21:31)
[2023-07-30] MEDS: TIOTROPIUM INHALATION SCH (21:31)
--- NOTE | 2023-07-30 22:41 | CA ---
Transthoracic Echo Report Name: Ruth Odonnell Age: 67 Gender: F : 1955 Exam Date: 07/30/2023 08:02 Exam Location: [facility] Ht (in): 66 Wt (lb): 230 Ordering Physician: Ronn Simms DO Attending/Referring Phys: [id number], Demi [employer] Mindy Kim RCS Procedure CPT: Indications: Thrombus Cardiac Hx: Technical Quality: Fair Contrast 1: Total Dose (mL): Contrast 2: Total Dose (mL): MEASUREMENTS (Male / Female) Normal Values 2D ECHO LV Diastolic Diameter PLAX 5.1 cm 4.2 - 5.9 / 3.9 - 5.3 cm LV Systolic Diameter PLAX 3.2 cm IVS Diastolic Thickness 1.0 cm 0.6 - 1.0 / 0.6 - 0.9 cm LVPW Diastolic Thickness 0.9 cm 0.6 - 1.0 / 0.6 - 0.9 cm LV Relative Wall Thickness 0.4 RV Internal Dim ED PLAX 3.7 cm LVOT Diameter 2.2 cm LV Diastolic Volume MOD BP 130.5 cm??? 67 - 155 / 56 - 104 cm??? LV Systolic Volume MOD BP 55.2 cm??? 22 - 58 / 19 - 49 cm??? LV Ejection Fraction MOD BP 57.7 % >= 55 % LV Cardiac Index MOD BP 2007.7 cm???/min???m??? LV Diastolic Volume MOD 4C 144.0 cm??? LV Systolic Volume MOD 4C 70.4 cm??? LV Ejection Fraction MOD 4C 51.2 % LV Cardiac Index MOD 4C 1964.4 cm???/min???m??? LV Diastolic Length 4C 9.6 cm LV Systolic Length 4C 8.3 cm LV Diastolic Volume MOD 2C 111.5 cm??? LV Systolic Volume MOD 2C 38.9 cm??? LV Ejection Fraction MOD 2C 65.1 % LV Cardiac Index MOD 2C 1935.6 cm???/min???m??? LV Diastolic Length 2C 9.0 cm LV Systolic Length 2C 7.4 cm LA Volume 49.9 cm??? 18 - 58 / 22 - 52 cm??? LA Volume Index 22.2 cm???/m??? 16 - 28 cm???/m??? DOPPLER AV Peak Velocity 172.3 cm/s AV Peak Gradient 11.9 mmHg AV Mean Velocity 123.9 cm/s AV Mean Gradient 6.7 mmHg AV Velocity Time Integral 38.2 cm LVOT Peak Velocity 136.6 cm/s LVOT Peak Gradient 7.5 mmHg LVOT Velocity Time Integral 31.8 cm LVOT Stroke Volume 118.9 cm??? LVOT Stroke Volume Index 56.0 ml/m??? LVOT Cardiac Index 3170.2 cm???/min???m??? AV Area Cont Eq vti 3.1 cm??? AV Area Cont Eq pk 3.0 cm??? MV Area PHT 4.0 cm??? Mitral E Point Velocity 103.2 cm/s Mitral A Point Velocity 87.2 cm/s Mitral E to A Ratio 1.2 MV Deceleration Time 191.2 ms TR Peak Velocity 246.8 cm/s TR Peak Gradient 24.4 mmHg Right Ventricular Systolic Press 29.4 mmHg PV Peak Velocity 84.7 cm/s PV Peak Gradient 2.9 mmHg FINDINGS Left Ventricle Left ventricular ejection fraction is estimated at 50-55 %. Mildly increased left ventricular systolic volume. No obvious regional wall motion abnormalities. Right Ventricle Mild right ventricular dilatation with normal function. Right ventricular systolic pressure within normal limits. Right Atrium Normal right atrial size. Left Atrium Normal left atrial size. Mitral Valve Structurally normal mitral valve. No mitral stenosis, regurgitation or prolapse. Aortic Valve Trileaflet aortic valve. No aortic valve stenosis or regurgitation. Tricuspid Valve Structurally normal tricuspid valve. No tricuspid stenosis. Trace tricuspid regurgitation. Pulmonic Valve Structurally normal pulmonic valve. No pulmonic stenosis. No pulmonic regurgitation. Pericardium No pericardial effusion. Aorta Normal size aortic root and proximal ascending aorta. CONCLUSIONS Left ventricular ejection fraction is estimated at 50-55 %. No obvious regional wall motion abnormalities. No significant valvular dysfunction Mild RV dilatation. Normal function, RVSP 30 mmHg Previewed by: Dr Mikey Ho (Electronically Signed) Final Date: 30 July 2023 22:40
[2023-07-31] MEDS: BUDESONIDE 0.5 MG/2 ML NEBU INHALATION SCH (04:37)
[2023-07-31] MEDS: IPRATROPIUM BROMIDE 0.06% NASAL SPRAY (15 ML) EA NOSTRIL SCH (05:31)
[2023-07-31 06:09] LABS: Glucose,Whole Blood 127 mg/dL (70-110)
[2023-07-31] MEDS ORDERED: PANTOPRAZOLE 40 MG TABLET PO SCH (09:00)
[2023-07-31] MEDS: ATORVASTATIN 20 MG TAB PO SCH (09:03)
[2023-07-31] MEDS: DAPAGLIFLOZIN PROPANEDIOL 5 MG TABLET PO SCH (09:03)
[2023-07-31] MEDS: LOSARTAN 50 MG TAB PO SCH (09:05)
[2023-07-31] MEDS: MELOXICAM 7.5 MG TAB PO SCH (09:05)
[2023-07-31] MEDS: ASPIRIN 81 MG PO SCH (09:05)
[2023-07-31 11:23] LABS: Glucose,Whole Blood 115 mg/dL (70-110)
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
--- NOTE | 2023-07-31 14:20 | MR ---
EXAMINATION TYPE: MR brain wo con DATE OF EXAM: 07/31/2023 2:04 PM CLINICAL INDICATION:Female, 67 years old with history of cva rule out; PHH, R/O CVA, neuro deficit, f acial numbness, weakness in left hand COMPARISON: CT head 07/29/2023 and 84 TECHNIQUE: Multi planar, multi sequence MR imaging of the brain was performed without contrast per protocol. FINDINGS: No evidence of diffusion restriction to suggest recent infarct. There is mild/moderate generalized brain atrophy and associated prominence of the ventricles/CSF spac es. The major vascular flow voids at the base of the brain are preserved. Scattered focal and some confluent T2 FLAIR white matter signal hyperintensities bilaterally, with a mild/moderate burden of the brain. No extra-axial fluid collections. No midline shift or mass effect. No evidence of microhemorrhages on susceptibility. Midline brain anatomy appears normal. Corpus callosum is unremarkable. There is no cerebellar tonsill ar ectopia. Globes and orbital contents appear unremarkable. There is no abnormal calvarial signal abnormality. M ild nasal septal deviation. No increased T2 signal associated with the paranasal sinuses or mastoids. IMPRESSION: 1. No evidence of intracranial mass, hemorrhage, or acute/subacute infarct. 2. Mild/moderate atrophy. 3. Nonspecific white matter changes, likely secondary to chronic microvascular ischemic changes.
[2023-07-31] MEDS: polyethylene glycoL 3350 17 GM POWD.PACK PO SCH (14:25)
--- NOTE | 2023-07-31 15:12 | P.DS ---
Providers Date of admission: 07/30/23 00:31 Expected date of discharge: 07/31/23 Attending physician: Amanda Louis MD Consults: 07/30/23 00:30 Consult Physician Routine Consulting Provider: Jami Austin Consult Reason/Comments: cva Do you want consulting provider notified?: Yes Primary care physician: [facility] Course: Transient Ischemic Attack Patient deaf since childhood post severe encephalitis Diabetes mellitus Hypertension History of CAD Pulmonary sarcoidosis Hospital Course and Workup: 67 year old female with deafness since age 5 years due to encephilitis , DM , hypertension , history of TIA and CAD s/p stent, sarcoidosis on home oxygen presented for left facial numbness. Blood work unremarkable white count 11.9, hemoglobin 12.3 Sodium 137 potassium 4.2 BUN 20 creatinine [address] of the brain no acute intracranial pathology CT angio of the head and neck no high-grade stenosis or large vessel blockage Echo shows EF 55%, no WMA, no thrombus, no valvular dysfunction, no PFO. MRI Brain, negative for acute hemorrhage, infarct, midline shift. Pt treated with aspirin, plavix, statin. Recommendations on discharge are for increase of crestor to 20mg daily, risk factor optimization - decrease A1c to target range of 7%, weight loss, exercise. She should f/u with PCP. Gen: In NAD, non-toxic HEENT: normocephalic, atraumatic, hearing acuity is intant, mucous membranes moist CVS: perfusing all extremities well, no pitting edema, Respiratory: symmetric chest expansion, no accessory muscle use, GI: soft, NTTP, ND, : no suprapubic tenderness, no CVA tenderness MSK/Derm: no rashes, cyanosis Neuro: CN II-XII intact, no motor weakness, left facial numbness in V2 and V3 distribution of the trigeminal nerve of the left side, but not V1 Psych: cooperative, euthymic mood, judgment and insight is intact Patient Condition at Discharge: Good Plan - Discharge Summary Discharge Rx Participant: No New Discharge Prescriptions: New Aspirin 81 mg PO DAILY #30 tab Continue allopurinoL [Zyloprim] 100 mg PO BID oxyCODONE-APAP 10-325MG [Percocet 10-325 mg] 1 tab PO TID Hydroxychloroquine Sulfate [Plaquenil] 200 mg PO BID Levothyroxine Sodium [Synthroid] 200 mcg PO DAILY Gabapentin 600 mg PO QID Levalbuterol Hfa Inhaler [Xopenex Hfa Inhaler] 2 puff INHALATION RT-QID PRN PRN Reason: Shortness Of Breath Meloxicam 15 mg PO DAILY Ergocalciferol [Vitamin D2 (1250 Mcg = 48221 Iu)] 1,250 mcg PO Q7D amLODIPine [Norvasc] 5 mg PO BID Amoxic-Pot Clav 875-125Mg [Augmentin 875-125] 1 tab PO Q12HR Empagliflozin [Jardiance] 10 mg PO DAILY Fluconazole [Diflucan] 150 mg PO DAILY Insulin Lispro [humaLOG Kwikpen] 45 - 65 unit SQ AC-TID Levalbuterol Nebulized [Xopenex Nebulized] 1.25 mg INHALATION RT-BID Tiotropium 2.5 Mcg/Puff [Spiriva Respimat 2.5 Mcg] 2 puff INHALATION RT-BID Clopidogrel [Plavix] 75 mg PO HS Famotidine [Pepcid] 40 mg PO HS metFORMIN HCL [Glucophage] 1,000 mg PO BID Latanoprost/Pf [Latanoprost 0.005% Eye Drop] 1 drop BOTH EYES HS Baclofen 10 - 20 mg PO TID Insulin Glargine,Hum.rec.anlog [Lantus Solostar Pen] 80 unit SQ BID Budesonide [Pulmicort] 0.5 mg INHALATION RT-BID Bumetanide [BUMEX] 1 mg PO BID Ipratropium [employer] 0.06%Nasal [Atrovent Nasal 0.06%] 2 spray EA NOSTRIL DAILY Losartan Potassium [Cozaar] 100 mg PO DAILY Pantoprazole Sodium [Protonix] 40 mg PO DAILY Changed Rosuvastatin [Crestor] 20 mg PO DAILY #0 Discharge Medication List allopurinoL [Zyloprim] 100 mg PO BID 01/04/15 [History] Hydroxychloroquine Sulfate [Plaquenil] 200 mg PO BID 01/29/17 [History] oxyCODONE-APAP 10-325MG [Percocet 10-325 mg] 1 tab PO TID 01/29/17 [History] Levothyroxine Sodium [Synthroid] 200 mcg PO DAILY 03/26/17 [History] Gabapentin 600 mg PO QID 01/16/18 [History] Levalbuterol Hfa Inhaler [Xopenex Hfa Inhaler] 2 puff INHALATION RT-QID PRN 01/31/19 [History] Meloxicam 15 mg PO DAILY 03/06/20 [History] Clopidogrel [Plavix] 75 mg PO HS 10/09/21 [History] Famotidine [Pepcid] 40 mg PO HS 10/20/21 [History] Latanoprost/Pf [Latanoprost 0.005% Eye Drop] 1 drop BOTH EYES HS 11/06/21 [History] metFORMIN HCL [Glucophage] 1,000 mg PO BID 11/06/21 [History] Baclofen 10 - 20 mg PO TID 04/16/22 [History] Ergocalciferol [Vitamin D2 (1250 Mcg = 03770 Iu)] 1,250 mcg PO Q7D 04/16/22 [History] Insulin Glargine,Hum.rec.anlog [Lantus Solostar Pen] 80 unit SQ BID 04/16/22 [History] Amoxic-Pot Clav 875-125Mg [Augmentin 875-125] 1 tab PO Q12HR 07/30/23 [History] Budesonide [Pulmicort] 0.5 mg INHALATION RT-BID 07/30/23 [History] Bumetanide [BUMEX] 1 mg PO BID 07/30/23 [History] Empagliflozin [Jardiance] 10 mg PO DAILY 07/30/23 [History] Fluconazole [Diflucan] 150 mg PO DAILY 07/30/23 [History] Insulin Lispro [humaLOG Kwikpen] 45 - 65 unit SQ AC-TID 07/30/23 [History] Ipratropium [employer] 0.06%Nasal [Atrovent Nasal 0.06%] 2 spray EA NOSTRIL DAILY 07/30/23 [History] Levalbuterol Nebulized [Xopenex Nebulized] 1.25 mg INHALATION RT-BID 07/30/23 [History] Losartan Potassium [Cozaar] 100 mg PO DAILY 07/30/23 [History] Pantoprazole Sodium [Protonix] 40 mg PO DAILY 07/30/23 [History] Tiotropium 2.5 Mcg/Puff [Spiriva Respimat 2.5 Mcg] 2 puff INHALATION RT-BID 07/30/23 [History] amLODIPine [Norvasc] 5 mg PO BID 07/30/23 [History] Aspirin 81 mg PO DAILY #30 tab 07/31/23 [Rx] Rosuvastatin [Crestor] 20 mg PO DAILY #0 07/31/23 [Rx] Follow up Appointment(s)/Referral(s): Jaswant Witt DO [Primary Care Provider] - 1-2 days Discharge Disposition: HOME SELF-CARE
[2023-07-31 16:42] LABS: Glucose,Whole Blood 112 mg/dL (70-110)
[2023-07-31] MEDS: predniSONE 20 MG TAB PO SCH (17:13)
[2023-07-31] MEDS: methylPREDNISolone SOD SUCCI 125 MG/2 ML VIAL IV STA (17:23)
[2023-07-31 20:31] LABS: Glucose,Whole Blood 216 mg/dL (70-110)
[2023-08-01 06:05] LABS: Glucose,Whole Blood 193 mg/dL (70-110)
[2023-08-01 10:52] LABS: Potassium 4.6 mmol/L (3.5-5.1)
[2023-08-01 10:56] LABS: African American GFR (CKD) >90 (>60 ml/min/1.73 sqM); Anion Gap 11 mmol/L; Blood Urea Nitrogen 19 mg/dL (7-17); C Reactive Protein 1.3 mg/dL (<1.0); Calcium 9.8 mg/dL (8.4-10.2); Carbon Dioxide 25 mmol/L (22-30); Chloride 101 mmol/L (98-107); Glucose 204 mg/dL (74-99); Magnesium 1.9 mg/dL (1.6-2.3); Non-African American GFR(CKD) >90 (>60 ml/min/1.73 sqM); Sodium 137 mmol/L (137-145)
[2023-08-01 11:07] LABS: Basophils % (A) 0 %; Eosinophils # (A) 0.1 k/uL (0-0.7); Eosinophils % (A) 1 %; HCT 41.5 % (34.0-46.0); HGB 13.2 gm/dL (11.4-16.0); Lymphocytes # (A) 2.1 k/uL (1.0-4.8); Lymphocytes % (A) 18 %; MCH 27.3 pg (25.0-35.0); MCHC 31.7 g/dL (31.0-37.0); MCV 86.2 fL (80.0-100.0); Mean Platelet Volume 9.7; Monocytes # (A) 0.5 k/uL (0-1.0); Monocytes % (A) 4 %; Neutrophils # (A) 8.9 k/uL (1.3-7.7); Neutrophils % (A) 77 %; Platelet Count 224 k/uL (150-450); RBC 4.82 m/uL (3.80-5.40); RDW 15.6 % (11.5-15.5); WBC 11.6 k/uL (3.8-10.6)
--- NOTE | 2023-08-01 11:54 | P.PN ---
Subjective Progress Note Date: 07/31/23 Patient was seen for a follow-up. Multiple family members were present including patient's , patient's son, [id number] and patient's sister. Patient's MRI of the brain was negative for any acute stroke. This was informed. Patient was considered ready for discharge, but it appears patient h as still a lot of neurological symptoms that are not explained yet. Patient has developed a headache involving the frontal, right parietal occipital region which she rates 10/10, even at this time. This started on 07/26/2023. She has noticed swelling of the left cheek facial region and num bness of the left side of the face. Patient is complaining of blurred vision in the right eye. She is noticing stiffness in the neck with [id number] movement. Patient was prescribed Fioricet, which only helps for 2 hours and that headache comes back. Patient states she has history of migraines when she was very young, and with her children. She has not had any migraines since then. The weakness in the left side of the body is back to baseline. Objective - Vital Signs Vital signs: Vital Signs Temp 98.1 F 07/31/23 08:40 Pulse 60 07/31/23 11:50 Resp 16 07/31/23 11:50 BP 158/74 07/31/23 11:50 Pulse Ox 96 07/31/23 11:50 FiO2 Intake & Output 07/30/23 07/31/23 07/31/23 18:59 06:59 18:59 Intake Total 360 Balance 360 Intake: Oral 360 Other: Voiding Method Toilet # Voids 2 2 - Exam Patient's mental status is normal. Examination is essentially unchanged. Patient is sitting in the side of the bed. - Labs CBC & Chem 7: 08/01/23 09:46 08/01/23 09:46 Labs: Abnormal Lab Results - Last 24 Hours (Table) 07/30/23 07/30/23 07/30/23 Range/Units 07:09 17:17 20:58 POC Glucose (mg/dL) 155 H 275 H (70-110) mg/dL Hemoglobin A1c (<=6.0) % Triglycerides 232.00 H (0.00-149.00) mg/dL VLDL Cholesterol, Calc 46.40 H (5.00-40.00) mg/dL 07/31/23 07/31/23 07/31/23 Range/Units 06:07 09:24 11:22 POC Glucose (mg/dL) 127 H 115 H (70-110) mg/dL Hemoglobin A1c 7.8 H (<=6.0) % Triglycerides (0.00-149.00) mg/dL VLDL Cholesterol, Calc (5.00-40.00) mg/dL Assessment and Plan Assessment: * Possible stroke/TIA manifesting with left-sided numbness, weakness. Patient has presented with similar symptoms 3 times in the past and each time her MRI of the brain has been negative. Current MRI of the brain also negative for any acute stroke. * New onset headache, involving the frontal, right temporal parietal and occipital region. Exact cause uncertain. Blood pressure is well-controlled. No obvious sinus disease noted on CT/MRI. Patient denies excessive caffeine intake. Patient's ESR was elevated 39, therefore need to rule out temporal arteritis. * History of sarcoidosis, currently in remission. She used to be on high-dose steroids in the past. 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 * Type 2 diabetes * History of glaucoma suspect * Hearing impaired uses sign language * Hypertension * Hypothyroidism Plan: Patient's workup has come back negative including MRI of the brain, echo and CTA. No evidence of acute stroke. Her left facial numbness, left facial swelling, and right sided headache and right blurred vision is of unclear cause. Rule out temporal arteritis, as her ESR was 39 and CRP 1.7 on 07/26/2023. Rule out reactivation of the sarcoid. Doubt migraine headache. We will repeat ESR, CRP, check MASON level, B12, folate. Start prednisone 60 mg daily empirically for now. Watch blood sugars closely. MRI of the brain without contrast, revealed no evidence of intracranial mass, hemorrhage or acute/subacute infarct. Mild to moderate atrophy. Nonspecific white matter changes, likely secondary to chronic microvascular ischemic change. I personally reviewed MRI, agree with the findings. 2-D echo revealed left ventricular EF is estimated 50 to 55%. No obvious regional wall motion abnormalities. No significant valvular dysfunction. Normal left atrial size. CTA head and neck showed: Patent intracranial circulation. No dissection, hemodynamically significant stenosis or occlusion in the neck. Fasting a.m. lipid panel cholesterol 136, LDL 45, HDL 46 and triglycerides 232. Continue Lipitor 20 mg daily. Patient at home on Crestor 10 mg daily. Hemoglobin A1c 7.8. Recommend optimize control of diabetes to target A1c <7.0. Blood pressure is well-controlled. Continue aspirin 81 mg and Plavix 75 mg daily for now. As there is no evidence of new CVA, therefore we will not make any changes in the medication regimen. Patient is presenting with recurrent symptoms of similar semiology. Patient had a normal EEG on 04/17/2022. No need to repeat at this time. Telemetry monitoring rule out any arrhythmia Spent greater than 30 minutes in encounter, including counseling and coordinating care. Discussed with primary physician in detail.
[2023-08-01 12:05] LABS: Glucose,Whole Blood 187 mg/dL (70-110)
[2023-08-01] MEDS: IBUPROFEN 600 MG TAB PO PRN (12:17)
--- NOTE | 2023-08-01 12:18 | P.PN ---
Subjective Progress Note Date: 08/01/23 No new complaints - ongoing right sided headache and left facial weakness with blurry vision of right eye. Gen: In NAD, non-toxic HEENT: normocephalic, atraumatic, hearing acuity is intant, mucous membranes moist CVS: perfusing all extremities well, no pitting edema, Respiratory: symmetric chest expansion, no accessory muscle use, GI: soft, NTTP, ND, : no suprapubic tenderness, no CVA tenderness MSK/Derm: no rashes, cyanosis, right temporal tenderness Neuro: CN II-XII intact, no motor weakness, left facial numbness in V2 and V3 distribution of the trigeminal nerve of the left side, but not V1 Psych: cooperative, euthymic mood, judgment and insight is intact Hospital Course and Workup: 67 year old female with deafness since age 5 years due to encephilitis , DM , hypertension , history of TIA and CAD s/p stent, sarcoidosis on home oxygen presented for left facial numbness. Blood work unremarkable white count 11.9, hemoglobin 12.3 Sodium 137 potassium 4.2 BUN 20 creatinine 0.[address] of the brain no acute intracranial pathology CT angio of the head and neck no high-grade stenosis or large vessel blockage Echo shows EF 55%, no WMA, no thrombus, no valvular dysfunction, no PFO. MRI Brain, negative for acute hemorrhage, infarct, midline shift. Pt treated with aspirin, plavix, statin. Pt noted to have elevated ESR during prior visit - started on IV steroids and followed by prednisone. Vascular surgery consulted for consideration of temporal lobe biopsy Transient Ischemic Attack versus Temporal Arteritis -Prednisone 60mg daily -neurology consult/vascular surgery consult -monitor on telemtry -ESR/CRP pending -MASON level pending to r/o sarcoid involvement -fioricet PRN, ibuprofen PRN -hold home meloxicam -continue home norco, gabapentin -consider tapering baclofen Patient deaf since childhood post severe encephalitis Diabetes mellitus, home insulin + SSI Hypertension History of CAD - continue plavix, hold ASA Pulmonary sarcoidosis Objective - Vital Signs Vital signs: Vital Signs Temp 97.9 F 08/01/23 08:25 Pulse 71 08/01/23 08:25 Resp 16 08/01/23 08:25 BP 133/88 08/01/23 08:25 Pulse Ox 95 08/01/23 08:25 FiO2 Intake & Output 07/31/23 08/01/23 08/01/23 18:59 06:59 18:59 Intake Total 720 Balance 720 Intake: Oral 720 Other: Voiding Method Toilet # Voids 2 1 # Bowel Movements 1 - Labs CBC & Chem 7: 08/01/23 09:46 08/01/23 09:46 Labs: Abnormal Lab Results - Last 24 Hours (Table) 07/31/23 07/31/23 07/31/23 Range/Units 09:24 16:40 20:30 WBC (3.8-10.6) k/uL RDW (11.5-15.5) % Neutrophils # (1.3-7.7) k/uL BUN (7-17) mg/dL Glucose (74-99) mg/dL POC Glucose (mg/dL) 112 H 216 H (70-110) mg/dL Hemoglobin A1c 7.8 H (<=6.0) % C-Reactive Protein (<1.0) mg/dL 08/01/23 08/01/23 08/01/23 Range/Units 06:03 09:46 09:46 WBC 11.6 H (3.8-10.6) k/uL RDW 15.6 H (11.5-15.5) % Neutrophils # 8.9 H (1.3-7.7) k/uL BUN 19 H (7-17) mg/dL Glucose 204 H (74-99) mg/dL POC Glucose (mg/dL) 193 H (70-110) mg/dL Hemoglobin A1c (<=6.0) % C-Reactive Protein 1.3 H (<1.0) mg/dL 08/01/23 Range/Units 11:57 WBC (3.8-10.6) k/uL RDW (11.5-15.5) % Neutrophils # (1.3-7.7) k/uL BUN (7-17) mg/dL Glucose (74-99) mg/dL POC Glucose (mg/dL) 187 H (70-110) mg/dL Hemoglobin A1c (<=6.0) % C-Reactive Protein (<1.0) mg/dL
[2023-08-01] MEDS ORDERED: PHENYLEPHRINE 2.5% OPHTH DRP 2ML BOTH EYES PRN (15:30)
[2023-08-01 16:50] LABS: Glucose,Whole Blood 132 mg/dL (70-110)
[2023-08-01] MEDS: PROPARACAINE 0.5% OPHTH DROPS 15 ML BTL BOTH EYES STA (17:36)
[2023-08-01] MEDS: TROPICAMIDE 1% OPHTH DROPS 2 ML BTL BOTH EYES ONE (17:36)
[2023-08-01 19:48] LABS: Glucose,Whole Blood 204 mg/dL (70-110)
[2023-08-01] MEDS: SENNOSIDES-DOCUSATE SODIUM 1 EACH TAB PO SCH (20:00)
[2023-08-01] MEDS ORDERED: NON FORMULARY DRUG (Levalbuterol Hfa Inhaler 200 PUFF/9 GM Inhaler) INHALATION PRN (23:11)
--- NOTE | 2023-08-02 00:21 | P.PN ---
Subjective Progress Note Date: 08/01/23 Patient was seen for a follow-up. Patient complains of 4/10 headache. Patient states that she woke up this morning at 5 AM with a very severe sharp pain, involving right frontal temporal region, worst headache of life, which she rates 20 on a scale of 1-10. Patient continues to have blurred vision in the right eye. Patient has right eye pain. She still has swelling of the left facial region. After she was given pain medication, Motrin, the pain reduced down to 4/10 after 30 minutes. Patient continues to have right jaw pain still hurting. Patient has developed a headache involving the frontal, right parietal occipital region which she rates 10/10, even at this time. This started on 07/26/2023. She has noticed swelling of the left cheek facial region and numbness of the left side of the face. Patient is complaining of blurred vision in the right eye. She is noticing stiffness in the neck with [id number] movement. Patient was prescribed Fioricet, which only helps for 2 hours and that headache comes back. Patient states she has history of migraines when she was very young, and with her children. She has not had any migraines since then. The weakness in the left side of the body is back to baseline. Objective - Vital Signs Vital signs: Vital Signs Temp 97.9 F 08/01/23 08:25 Pulse 65 08/01/23 11:45 Resp 16 08/01/23 11:45 BP 152/70 08/01/23 11:45 Pulse Ox 94 L 08/01/23 11:45 FiO2 Intake & Output 07/31/23 08/01/23 08/01/23 18:59 06:59 18:59 Intake Total 720 Balance 720 Intake: Oral 720 Other: Voiding Method Toilet # Voids 2 1 # Bowel Movements 1 - Exam Patient's mental status is normal. Examination is essentially unchanged. Patient is sitting in the side of the bed. Her visual acuity is very decrease in the right eye. It is normal in the left eye. She has very questionable swelling of the left cheek. Muscle strength is equal. - Labs CBC & Chem 7: 08/01/23 09:46 08/01/23 09:46 Labs: Abnormal Lab Results - Last 24 Hours (Table) 03/07/31/23 08/01/23 Range/Units 16:40 20:30 06:03 WBC (3.8-10.6) k/uL RDW (11.5-15.5) % Neutrophils # (1.3-7.7) k/uL BUN (7-17) mg/dL Glucose (74-99) mg/dL POC Glucose (mg/dL) 112 H 216 H 193 H (70-110) mg/dL C-Reactive Protein (<1.0) mg/dL 08/01/23 08/01/23 08/01/23 Range/Units 09:46 09:46 11:57 WBC 11.6 H (3.8-10.6) k/uL RDW 15.6 H (11.5-15.5) % Neutrophils # 8.9 H (1.3-7.7) k/uL BUN 19 H (7-17) mg/dL Glucose 204 H (74-99) mg/dL POC Glucose (mg/dL) 187 H (70-110) mg/dL C-Reactive Protein 1.3 H (<1.0) mg/dL Assessment and Plan Assessment: * Possible stroke/TIA manifesting with left-sided numbness, weakness. Patient has presented with similar symptoms 3 times in the past and each time her MRI of the brain has been negative. Current MRI of the brain also negative for any acute stroke. * New onset headache, involving the frontal, right temporal parietal and occipital region. Exact cause uncertain. Blood pressure is well-controlled. No obvious sinus disease noted on CT/MRI. Patient denies excessive caffeine intake. Patient's ESR was elevated 39, therefore need to rule out temporal arteritis. * History of sarcoidosis, currently in remission. She used to be on high-dose steroids in the past. 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 * Type 2 diabetes * History of glaucoma suspect * Hearing impaired uses sign language * Hypertension * Hypothyroidism Plan: Patient's workup has come back negative including MRI of the brain, echo and CTA. No evidence of acute stroke. Her left facial numbness, left facial swelling, and right sided headache and right blurred vision is of unclear cause. Rule out temporal arteritis, as her ESR was 39 and CRP 1.7 on 07/26/2023. Rule out reactivation of the sarcoid. Doubt migraine headache. Repeat ESR, CRP, check MASON level, B12, folate are all still pending. Start prednisone 60 mg daily empirically for now. Watch blood sugars closely. Vascular surgical consultation for possible right temporal artery biopsy. MRI of the brain without contrast, revealed no evidence of intracranial mass, hemorrhage or acute/subacute infarct. Mild to moderate atrophy. Nonspecific white matter changes, likely secondary to chronic microvascular ischemic change. I personally reviewed MRI, agree with the findings. 2-D echo revealed left ventricular EF is estimated 50 to 55%. No obvious reg ional wall motion abnormalities. No significant valvular dysfunction. Normal left atrial size. CTA head and neck showed: Patent intracranial circulation. No dissection, hem odynamically significant stenosis or occlusion in the neck. Fasting a.m. lipid panel cholesterol 136, LDL 45, HDL 46 and triglycerides 232. Continue Lipitor 20 mg daily. Patient at home on Crestor 10 mg daily. Hemoglobin A1c 7.8. Recommend optimize control of diabetes to target A1c <7.0. Blood pressure is well-controlled. Continue aspirin 81 mg and Plavix 75 mg daily for now. As there is no evidence of new CVA, therefore we will not make any changes in the medication regimen. Patient is presenting with recurrent symptoms of similar semiology. Patient had a normal EEG on 04/17/2022. No need to repeat at this time. Telemetry monitoring rule out any arrhythmia Dr. Syed Bonner Will resume neurology service in the morning.
[2023-08-02 06:00] LABS: Glucose,Whole Blood 153 mg/dL (70-110)
[2023-08-02] MEDS: LACTATED RINGERS 1,000 ML IV SCH (06:23)
[2023-08-02] MEDS: BUDESONIDE 0.5 MG/2 ML NEBU INHALATION SCH (07:49)
[2023-08-02] MEDS: TIOTROPIUM INHALATION SCH (07:49)
[2023-08-02] MEDS: NON FORMULARY DRUG (Levalbuterol Nebulized 1.25 MG/3 ML Ml) INHALATION SCH (07:49)
[2023-08-02 08:20] LABS: Erythrocyte Sedimentation Rate 29 mm/Hr (0-30)
[2023-08-02] MEDS: ERGOCALCIFEROL 1,250 MCG (50,000 IU) CAPSULE PO SCH (08:48)
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
--- NOTE | 2023-08-02 10:45 | P.PN ---
Subjective Progress Note Date: 08/02/23 No new complaints - ongoing right sided headache and left facial weakness with blurry vision of right eye, however, pt reported overall profile of pain is improving. Yesterday was mostly pain free. This morning had another severe episode. Gen: In NAD, non-toxic HEENT: normocephalic, atraumatic, hearing acuity is intant, mucous membranes moist CVS: perfusing all extremities well, no pitting edema, Respiratory: symmetric chest expansion, no accessory muscle use, GI: soft, NTTP, ND, : no suprapubic tenderness, no CVA tenderness MSK/Derm: no rashes, cyanosis, right temporal tenderness Neuro: CN II-XII intact, no motor weakness, left facial numbness in V2 and V3 distribution of the trigeminal nerve of the left side, but not V1 Psych: cooperative, euthymic mood, judgment and insight is intact Hospital Course and Workup: 67 year old female with deafness since age 5 years due to encephilitis , DM , hypertension , history of TIA and CAD s/p stent, sarcoidosis on home oxygen presented for left facial numbness. Blood work unremarkable white count 11.9, hemoglobin 12.3 Sodium 137 potassium 4.2 BUN [address] of the brain no acute intracranial pathology CT angio of the head and neck no high-grade stenosis or large vessel blockage Echo shows EF 55%, no WMA, no thrombus, no valvular dysfunction, no PFO. MRI Brain, negative for acute hemorrhage, infarct, midline shift. Pt treated with aspirin, plavix, statin. Pt noted to have elevated ESR during prior visit - started on IV steroids and followed by prednisone. Vascular surgery consulted for consideration of temporal lobe biopsy Temporal Arteritis is highly suspected and is the working diagnosis -Prednisone 60mg daily -neurology consult/vascular surgery consult -monitor on telemtry -ESR is 29, CRP is 1.7 -MASON level pending to r/o sarcoid involvement -fioricet PRN, ibuprofen PRN -hold home meloxicam -continue home norco, gabapentin -consider tapering baclofen Patient deaf since childhood post severe encephalitis Diabetes mellitus, home insulin + SSI Hypertension History of CAD - continue plavix, hold ASA Pulmonary sarcoidosis Dispo: Plan is to discharge patient on treatment for temporal arteritis in next 24-48 hours Objective - Vital Signs Vital signs: Vital Signs Temp 97.5 F L 08/02/23 08:44 Pulse 95 08/02/23 08:44 Resp 16 08/02/23 08:44 BP 105/50 08/02/23 08:44 Pulse Ox 96 08/02/23 08:44 FiO2 Intake & Output 08/01/23 08/02/23 08/02/23 18:59 06:59 18:59 Intake Total 840 240 Balance 840 240 Intake: Oral 840 240 Other: Voiding Method Toilet # Voids 3 2 - Labs CBC & Chem 7: 08/01/23 09:46 08/01/23 09:46 Labs: Abnormal Lab Results - Last 24 Hours (Table) 08/01/23 08/01/23 08/01/23 Range/Units 09:46 09:46 11:57 WBC 11.6 H (3.8-10.6) k/uL RDW 15.6 H (11.5-15.5) % Neutrophils # 8.9 H (1.3-7.7) k/uL BUN 19 H (7-17) mg/dL Glucose 204 H (74-99) mg/dL POC Glucose (mg/dL) 187 H (70-110) mg/dL C-Reactive Protein 1.3 H (<1.0) mg/dL 08/01/23 08/01/23 08/02/23 Range/Units 16:49 19:44 05:58 WBC (3.8-10.6) k/uL RDW (11.5-15.5) % Neutrophils # (1.3-7.7) k/uL BUN (7-17) mg/dL Glucose (74-99) mg/dL POC Glucose (mg/dL) 132 H 204 H 153 H (70-110) mg/dL C-Reactive Protein (<1.0) mg/dL
[2023-08-02 11:56] LABS: Glucose,Whole Blood 301 mg/dL (70-110)
[2023-08-02 16:35] LABS: Glucose,Whole Blood 269 mg/dL (70-110)
--- NOTE | 2023-08-02 17:04 | P.CON ---
Consult Note - . Consult date: 08/02/23 Assessment/Plan:: This is a 67y/o patient who's being using topical glaucoma medication, latanoprost for some time. She has been experiencing some physical discomfort in the eyes for the last month or so. However, in the last few days, especially around the time of admission she has begun to notice increasing blurring of the vision in the right eye. She has a previous history of bilateral cataract in 2017 and subsequent treatment with an epiretinal membrane peel in the later the same year in the left eye. The vision in the left has been somewhat more difficult and slightly distorted. To confuse the situation she was admitted for possible CVA about 5 days ago. This admission was associated with right facial discomfort, and left facial swelling. Subsequent tests did not outright elucidate a jp stroke, but there is a question of possible GCA with a mildly elevated WSR, and elevated C-reactive protein. There is currently plans for a bilateral temporal artery biopsy. With respect to the temporal artery question she has not experienced symptoms of PMR, or focal tenderness on the right side of her head. There is a history of TMJ and apparently surgical correction bilaterally, however, there is some revision required on the left ramus due to an exposure of hardware. This has been a long standing patient for Dr. Masters's for her ophthalmic care. Va: with correction, 20/25 OD, 20/20 OS EOM: full D&V orthophoric Pupils: normal without APD Exernal: symmetrical, atraumatic. Pulses bilaterally in the temporal artery are full without focal tenderness IOP: 15 mm Hg, OU with [place] SLE: not dilated Lid and lashes: mild meibomian gland inspissation & hypertrichosis Conjunctiva: white and quiet, OU Cornea: gnerally clear with poor tear film and mild to moderate superficial punctate stippling, with rapid tear break up time, OU - using fluorescein AC: deep and quiet OU Lens: pseudophakia, OU with intact PC OD, and open PC OS Fundus: 90 D exam Optic nerve: poor view, no hemorrhage Macula: quiet without hemorrhage Vascular: normal A: 1) H16.223: dry eye, with rapid tear break up time, suggestive of glaucoma induced chronic dryness 2) headache, unknown etiology, workup for GCA ongoing. P: recommend follow up for glaucoma with Dr. Masters as is planned in the middle of August. Upon completion of temporal artery biopsy and no pathologic findings, recommend tapering steroids, as long as there are no other indications of ongo ing inflammatory causes, otherwise may aggravate the glaucoma condition she already has. If IOP rises, there will need to be reconsideration of the ongoing therapy for her eyes. The blurring of the vision is most likely related to the dryness of the eyes made worse on admission without topical artificial tears. senior living care may need to adjust therapy to control for this profound problem signs and symptoms of dry eye. Thank you for your kind consultation of this very nice lady.
--- NOTE | 2023-08-02 17:21 | P.PN ---
Subjective Progress Note Date: 08/02/23 I am seeing the patient for the first time during this admission. Please refer to Dr. Austin's notes for further details. Patient is deaf and the and maintenance team leader helps with communication. It seems the patient has history of pulmonary sarcoidosis diagnosed in 2006 and was treated 2009 with steroids and that she's been in remission since then. As she is having headache over the right frontal temporal region and states is more than 10 out of 10 mostly she notices it at the very severe and for 3 minutes and it becomes constant. She does have photophobia. No nausea no vomiting. She feels left side is somewhat minimally weak. She had MRI the brain which was negative for any acute stroke. Dr. Evans recommends ruling out temporal arteritis. Patient feels that the steroids is helping controlling the headache but feels its tapering off and feels the headache is coming back. Feels the headache is associated or tilt currently. Dr. Pathak ophthalmology evaluated the patient and he felt the patient has dry eyes suggestive of glaucoma induced chronic dryness. Objective - Vital Signs Vital signs: Vital Signs Temp 97.8 F 08/02/23 17:05 Pulse 92 08/02/23 17:05 Resp 6 L 08/02/23 17:05 BP 134/65 08/02/23 17:05 Pulse Ox 80 L 08/02/23 17:05 FiO2 Intake & Output 08/01/23 08/02/23 08/02/23 18:59 06:59 18:59 Intake Total 840 240 Balance 840 240 Intake: Oral 840 240 Other: Voiding Method Toilet Toilet # Voids 3 2 2 - Exam General: Sitting up in a chair and is in mild acute distress. Neuro: Is being assisted with her maintenance team leader since is deaf. Patient is awake alert oriented to self place and time. His phone simple commands. He is deaf. Pupils are round equal reactive to light. Visual stokes are full to confrontation. Extraocular movement intact no nystagmus.. Tongue is midline with sites I would then difficulty Motor strength is 5 out of 5 throughout Sensation is normal to touch throughout - Labs CBC & Chem 7: 08/01/23 09:46 08/01/23 09:46 Labs: Abnormal Lab Results - Last 24 Hours (Table) 08/01/23 08/02/23 08/02/23 Range/Units 19:44 05:58 11:55 POC Glucose (mg/dL) 204 H 153 H 301 H (70-110) mg/dL 08/02/23 Range/Units 16:34 POC Glucose (mg/dL) 269 H (70-110) mg/dL Assessment and Plan Assessment: * Patient has presented with similar symptoms 3 times in the past and each time her MRI of the brain has been negative. Current MRI of the brain also negative for any acute stroke. * New onset headache, involving the frontal, right temporal parietal and occipital region. Exact cause uncertain. Blood pressure is well-controlled. No obvious sinus disease noted on CT/MRI. Patient denies excessive caffeine intake. Patient's ESR was minimally elevated 39, Rule out temporal arteritis vs Neurosarcoidosis * History of sarcoidosis, currently in remission. She used to be on high-dose steroids in the past. 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 * Type 2 diabetes * History of glaucoma suspect * Hearing impaired uses sign language * Hypertension * Hypothyroidism Plan: Patient's workup has come back negative including MRI of the brain, echo and CTA. No evidence of acute stroke. Her left facial numbness, left facial swelling, and right sided headache and right blurred vision is of unclear cause. Ophthamology evaluated patient and felt she had dry eyes. Rule out temporal arteritis vs neurosarcoidosis. her ESR was 39 and CRP 1.7 on 07/26/2023. Will obtain MRI Brain w/ Osorio. Repeat ESR 29, B12 449. MASON level, , folate are all still pending per Dr. Austin's request.. On prednisone 60 mg daily empirically for now. Watch blood sugars closely. Vascular surgical consultation for possible right temporal artery biopsy. MRI of the brain without contrast, revealed no evidence of intracranial mass, hemorrhage or acute/subacute infarct. Mild to moderate atrophy. Nonspecific white matter changes, likely secondary to chronic microvascular ischemic change. I personally reviewed MRI, agree with the findings. 2-D echo revealed left ventricular EF is estimated 50 to 55%. No obvious regional wall motion abnormalities. No significant valvular dysfunction. Normal left atrial size. CTA head and neck showed: Patent intracranial circulation. No dissection, hemodynamically significant stenosis or occlusion in the neck. Fasting a.m. lipid panel cholesterol 136, LDL 45, HDL 46 and triglycerides 232. Continue Lipitor 20 mg daily. Patient at home on Crestor 10 mg daily. Hemoglobin A1c 7.8. Recommend optimize control of diabetes to target A1c <7.0. Blood pressure is well-controlled. On Plavix 75 mg daily and per Dr. Austin he recommended to resume ASA 81mg daily. Telemetry monitoring rule out any arrhythmia The plan is discussed with patient and her who is at bedside with help of maintenance team leader. Also discussed plan with primary team. Time with Patient: Less than 30
--- NOTE | 2023-08-02 19:10 | MR ---
EXAMINATION TYPE: MR brain w con DATE OF EXAM: 08/02/2023 COMPARISON: 07/31/2023 HISTORY: Neurosarcoidosis evaluation for right temporal MIRANDA. Abnormal MRI Brain wo TECHNIQUE: Multiplanar, multisequence images of the brain and brainstem is performed without and with IV contras t, utilizing 10.5 mL intravenous Gadavist . Findings: The ventricles, basal cisterns and sulci over the convexities within normal limits and there is no ma ss affect or shift of midline structures. There is moderate multifocal areas of abnormal increased signal intensity in the white matter both ce rebral hemispheres. This is a nonspecific finding most likely reflects chronic ischemic white matter demyelination. Changes from sarcoidosis less likely but not excluded. The posterior fossa including the brainstem, fourth ventricle and cerebellopontine angles appear norm al. Following contrast administration, there is no pathological enhancement throughout the brain parenchy ma.. There is no leptomeningeal enhancement or nodularity. The intraorbital contents appear normal symmetric.There is no optic nerve sheath enhancement. Visualized paranasal sinuses are well aerated. There is mild fluid in left mastoid air cells. IMPRESSION: 1. Moderate multifocal nonspecific white matter changes most likely reflecting chronic ischemic white matter changes. The possibility of sarcoid changes felt to be less likely but not excluded. 2. No mass effect or shift of midline structures. 3. No pathological enhancement throughout the brain parenchyma. 4. Mild fluid in the left mastoid air cells.
[2023-08-02 19:54] LABS: Glucose,Whole Blood 178 mg/dL (70-110)
[2023-08-02] MEDS: bisacodyL 5 MG TABLET.DR PO STA (21:11)
[2023-08-03 05:53] LABS: Glucose,Whole Blood 131 mg/dL (70-110)
[2023-08-03 08:04] LABS: Basophils # (A) 0.1 k/uL (0-0.2); Basophils % (A) 1 %; Eosinophils # (A) 0.2 k/uL (0-0.7); Eosinophils % (A) 1 %; HCT 41.5 % (34.0-46.0); HGB 12.7 gm/dL (11.4-16.0); Lymphocytes # (A) 4.9 k/uL (1.0-4.8); Lymphocytes % (A) 38 %; MCH 26.7 pg (25.0-35.0); MCHC 30.4 g/dL (31.0-37.0); MCV 87.8 fL (80.0-100.0); Mean Platelet Volume 8.9; Monocytes # (A) 0.6 k/uL (0-1.0); Monocytes % (A) 4 %; Neutrophils # (A) 7.1 k/uL (1.3-7.7); Neutrophils % (A) 54 %; Platelet Count 220 k/uL (150-450); RBC 4.73 m/uL (3.80-5.40); RDW 15.8 % (11.5-15.5)
[2023-08-03 08:42] LABS: African American GFR (CKD) >90 (>60 ml/min/1.73 sqM); Anion Gap 9 mmol/L; Blood Urea Nitrogen 19 mg/dL (7-17); Calcium 9.3 mg/dL (8.4-10.2); Carbon Dioxide 31 mmol/L (22-30); Chloride 103 mmol/L (98-107); Glucose 106 mg/dL (74-99); Magnesium 2.1 mg/dL (1.6-2.3); Non-African American GFR(CKD) >90 (>60 ml/min/1.73 sqM); Potassium 3.6 mmol/L (3.5-5.1); Sodium 143 mmol/L (137-145)
--- NOTE | 2023-08-03 10:07 | P.PN ---
Subjective Progress Note Date: 08/03/23 Principal diagnosis: Headache Patient is seen and examined today as a follow-up. developmental mathematics instructor is at bedside. Patient states that her headache improved yesterday afternoon however returned at around 2:30 in the morning. States that it has been significant. She also woke up today and is having the left facial swelling and drooping. Also complains of some balance disturbance which is worse than her normal. Objective - Vital Signs Vital signs: Vital Signs Temp 98.4 F 08/02/23 20:00 Pulse 92 08/03/23 08:20 Resp 16 08/03/23 04:00 BP 139/78 08/03/23 04:00 Pulse Ox 99 08/03/23 04:00 FiO2 21 08/02/23 23:22 Intake & Output 08/02/23 08/03/23 08/03/23 18:59 06:59 18:59 Intake Total 240 Balance 240 Intake: Oral 240 Other: Voiding Method Toilet Toilet # Voids 2 - Exam General appearance: The patient is alert, oriented, appears in no acute distress. HET: Head is normocephalic and atraumatic. Pupils are equal and reactive. Left cheek looks a bit swollen/puffy, left side of mouth appears drooping. Neck: Supple. Heart: Regular. Lungs: Equal expansion, normal respiratory effort. Abdomen: Soft, nontender, nondistended. Extremities: Normal skin color and turgor. Neurological: Alert and oriented x 3. Good strength and tone upper lower extremity. Patient answers questions appropriately, signing appropriately with dining service worker. - Labs CBC & Chem 7: 08/03/23 06:50 08/03/23 06:50 Labs: Abnormal Lab Results - Last 24 Hours (Table) 08/02/23 08/02/23 08/02/23 Range/Units 11:55 16:34 19:52 WBC (3.8-10.6) k/uL MCHC (31.0-37.0) g/dL RDW (11.5-15.5) % Lymphocytes # (1.0-4.8) k/uL Carbon Dioxide (22-30) mmol/L BUN (7-17) mg/dL Glucose (74-99) mg/dL POC Glucose (mg/dL) 301 H 269 H 178 H (70-110) mg/dL 03/26/24 03/26/24 03/26/24 Range/Units 05:51 06:50 06:50 WBC 13.0 H (3.8-10.6) k/uL MCHC 30.4 L (31.0-37.0) g/dL RDW 15.8 H (11.5-15.5) % Lymphocytes # 4.9 H (1.0-4.8) k/uL Carbon Dioxide 31 H (22-30) mmol/L BUN 19 H (7-17) mg/dL Glucose 106 H (74-99) mg/dL POC Glucose (mg/dL) 131 H (70-110) mg/dL Assessment and Plan Assessment: 1. Chronic right frontal and temporal pain/headache 2. Chronic right jaw pain with screw in the right jaw 3. Balance disturbance, left facial droop 4. Diabetes mellitus 5. Hypertension 6. Coronary artery disease status post stenting 7. History of sarcoidosis 8. Encephalitis at age 5, deafness since Plan: 1. Patient will be scheduled for right temporal artery biopsy for this afternoon 2. Keep n.p.o. 3. Continue with recommendations from neurology 4. Continue steroids as ordered per primary medical team 5. Rest of medical management per primary medical team Thank you for this consultation, we will continue to follow. The impression and plan of care has been dictated as directed. Dr. Medeiros I performed a history and examination of this patient, discussed the same with the dictator. I agree with the dictator's note ,documented as a scribe. Any additional findings or plans will be noted.
[2023-08-03 12:01] LABS: Glucose,Whole Blood 188 mg/dL (70-110)
--- NOTE | 2023-08-03 15:12 | P.PN ---
Subjective Progress Note Date: 08/03/23 I am following-up with patient and with help of an intepretor, states has headache that are worse overnight (about 2:30am-4:30am) is when notices worst. She does feel steroids help bring it down to 6-7/10. She feels she is more unsteady walking as if she is drunk for the past couple days. Objective - Vital Signs Vital signs: Vital Signs Temp 98.1 F 08/03/23 09:20 Pulse 67 08/03/23 12:00 Resp 15 08/03/23 12:00 BP 124/65 08/03/23 12:00 Pulse Ox 97 08/03/23 12:00 FiO2 21 08/02/23 23:22 Intake & Output 08/02/23 08/03/23 08/03/23 18:59 06:59 18:59 Intake Total 240 Balance 240 Intake: Oral 240 Other: Voiding Method Toilet Toilet Toilet # Voids 2 3 - Exam General: Sitting up in a chair and is in mild acute distress. Neuro: Is being assisted with her cloth shrinking machine operator helper since is deaf. Patient is awake alert oriented to self place and time. His phone simple commands. He is deaf. Pupils are round equal reactive to light. Visual stokes are full to confrontation. Extraocular movement intact no nystagmus.. Tongue is midline with sites I would then difficulty Motor: Gait is slightly unsteady making turns but not requiring assistance. strength is 5 out of 5 throughout Sensation is normal to touch throughout - Labs CBC & Chem 7: 08/03/23 06:50 08/03/23 06:50 Labs: Abnormal Lab Results - Last 24 Hours (Table) 08/02/23 08/02/23 08/03/23 Range/Units 16:34 19:52 05:51 WBC (3.8-10.6) k/uL MCHC (31.0-37.0) g/dL RDW (11.5-15.5) % Lymphocytes # (1.0-4.8) k/uL Carbon Dioxide (22-30) mmol/L BUN (7-17) mg/dL Glucose (74-99) mg/dL POC Glucose (mg/dL) 269 H 178 H 131 H (70-110) mg/dL 08/03/23 08/03/23 08/03/23 Range/Units 06:50 06:50 11:56 WBC 13.0 H (3.8-10.6) k/uL MCHC 30.4 L (31.0-37.0) g/dL RDW 15.8 H (11.5-15.5) % Lymphocytes # 4.9 H (1.0-4.8) k/uL Carbon Dioxide 31 H (22-30) mmol/L BUN 19 H (7-17) mg/dL Glucose 106 H (74-99) mg/dL POC Glucose (mg/dL) 188 H (70-110) mg/dL Assessment and Plan Assessment: * Patient has presented with similar symptoms 3 times in the past and each time her MRI of the brain has been negative. Current MRI of the brain also negative for any acute stroke. * New onset headache, involving the frontal, right temporal parietal and occipital region. Exact cause uncertain. Blood pressure is well-controlled. No obvious sinus disease noted on CT/MRI. Patient denies excessive caffeine intake. Patient's ESR was minimally elevated 39, Rule out temporal arteritis vs other vasculitis. Neurosarcoidosis on MRI seems unlikely. * Minimal unsteady gait sensation for past couple days * History of sarcoidosis, currently in remission. She used to be on high-dose steroids in the past. 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 * Type 2 diabetes * History of glaucoma suspect * Hearing impaired uses sign language * Hypertension * Hypothyroidism Plan: Patient's workup has come back negative including MRI of the brain, echo and CTA. No evidence of acute stroke. Her left facial numbness, left facial swelling, and right sided headache and right blurred vision is of unclear cause. Ophthamology evaluated patient and felt she had dry eyes. Rule out temporal arteritis vs neurosarcoidosis. her ESR was 39 and CRP 1.7 on 07/26/2023. MRI Brain w/ Osorio: It is reported as moderate multifocal nonspecific white matter changes most likely reflecting chronic ischemic white matter changes. The possibility of sarcoid changes felt to be less likely but not excluded. No mass effect or shift of midline structures. Repeat ESR 29, B12 449, MASON level: 31 (normal). folate are all still pending per Dr. Austin's request.. On prednisone 60 mg daily empirically for now. Watch blood sugars closely. Vascular surgical consultation for possible right temporal artery biopsy. Schedule dtoday in late afternoon. I ordered ЕКАТЕРИНА, anti-dsDNA, SSA, SSB, cANCA and p-ANCA, complement 3/4, Lyme, HIV, Syphilis, Hepatitis panel, RF, VZV and HSV1/2 PCR. For her unsteady gait for past few days, ordered MRI C-spine and thoracic spine w/ and w/o. MRI of the brain without contrast, revealed no evidence of intracranial mass, hemorrhage or acute/subacute infarct. Mild to moderate atrophy. Nonspecific white matter changes, likely secondary to chronic microvascular ischemic change. I personally reviewed MRI, agree with the findings. 2-D echo revealed left ventricular EF is estimated 50 to 55%. No obvious regional wall motion abnormalities. No significant valvular dysfunction. Normal left atrial size. CTA head and neck showed: Patent intracranial circulation. No dissection, hemodynamically significant stenosis or occlusion in the neck. Fasting a.m. lipid panel cholesterol 136, LDL 45, HDL 46 and triglycerides 232. Continue Lipitor 20 mg daily. Patient at home on Crestor 10 mg daily. Hemoglobin A1c 7.8. Recommend optimize control of diabetes to target A1c <7.0. Blood pressure is well-controlled. On Plavix 75 mg daily and per Dr. Austin he recommended to resume ASA 81mg daily. Telemetry monitoring rule out any arrhythmia The plan is discussed with patient and her who is at bedside with help of cloth shrinking machine operator helper. Also discussed plan with primary team. Time with Patient: Less than 30
[2023-08-03 15:34] LABS: Glucose,Whole Blood 238 mg/dL (70-110)
[2023-08-03] MEDS ORDERED: ONDANSETRON 4 MG/2 ML VIAL ONE (15:39)
[2023-08-03] MEDS: ONDANSETRON 4 MG/2 ML VIAL IVP ONE (15:45)
[2023-08-03] MEDS: DEXAMETHASONE SOD PHOSPHATE 4 MG/ML 1 ML VIAL IVP ONE (15:47)
[2023-08-03] MEDS ORDERED: LIDOCAINE 1% INJ 10MG/ML (20 ML MDV) ONE (15:58)
[2023-08-03] MEDS ORDERED: PROPOFOL 10 MG/ML 20 ML VIAL IV ONE (15:58)
[2023-08-03] MEDS ORDERED: ceFAZolin 1 GM/50 ML BAG (PMX) ONE (15:58)
[2023-08-03] MEDS ORDERED: fentaNYL (PF) 50 MCG/ML 2 ML AMP ONE (15:58)
[2023-08-03] MEDS ORDERED: KETAMINE HCL IN 0.9 % NACL 50 MG/5 ML SYRINGE ONE (15:58)
[2023-08-03] MEDS ORDERED: MIDAZOLAM 2 MG/2 ML VIAL ONE (15:58)
[2023-08-03] MEDS ORDERED: GLYCOPYRROLATE 0.2 MG/ML 2 ML VIAL ONE (15:58)
--- NOTE | 2023-08-03 16:20 | P.PN ---
Subjective Progress Note Date: 08/03/23 67 year old female with deafness since age 5 years due to encephilitis, DM, hypertension, history of TIA and CAD s/p stent, sarcoidosis on home oxygen presented for left facial numbness. Blood work unremarkable white count 11.9, hemoglobin 12.3 Sodium 137 potassium 4.2 BUN 20 creatinine 0.[address] of the brain no acute intracranial pathology CT angio of the head and neck no high-grade stenosis or large vessel blockage Echo shows EF 55%, no WMA, no thrombus, no valvular dysfunction, no PFO. MRI Brain, negative for acute hemorrhage, infarct, midline shift. Pt treated with aspirin, plavix, statin. Pt noted to have elevated ESR during prior visit - started on IV steroids and followed by prednisone. Vascular surgery consulted for consideration of temporal lobe biopsy. 08/02 Patient gone for temporal artery biopsy. Discussed with Dr. Bonner, MRI C and T spine ordered along with ЕКАТЕРИНА, Anti DS DNA, c-ANCA, C3, Hep panel, HSV, HIV, Lyme, RF, SSA/SSB, Syphilis, VZV. CBC WBC 13. BMP bicarb 31, BUN 19, glu 106. Mag 2.1. Based on my assessment of this patient, this patient meets a moderate complexity level of care. Patient has an acute diagnosis of headache associated with left facial numbness and headache and unsteady gait that poses a threat to life. Headache Left facial numbness Unsteady gait Leukocytosis due to steroid use MRI negative for CVA. Autoimmune workup ordered along with MRI C and T spine. Plans for temporal artery biopsy today. Continue Fioicet 50-325-40 1 tab PO Q4H PRN. Continue Prednisone 60 mg PO QD. Patient deaf since childhood post severe encephalitis Diabetes mellitus, home insulin + SSI Hypertension History of CAD - continue plavix, hold ASA Pulmonary sarcoidosis CODE STATUS: FULL CODE. DVT Prophylaxis: AC on hold due to biopsy. GI Prophylaxis: Designated medical POA if patient is not able to make medical decisions for themselves: I have reviewed the following leadership development consultant notes: Neuro, Vascular Sx I have reviewed the results of the following tests: CBC, BMP. I have ordered the following tests: As above. I have discussed the care of this patient with the following independent historian: I have independently interpreted the following test below: I have discussed the management of this patient with the following physician: Dr. Bonner. Objective - Vital Signs Vital signs: Vital Signs Temp 98.1 F 08/03/23 09:20 Pulse 70 08/03/23 15:26 Resp 16 08/03/23 15:26 BP 130/60 08/03/23 15:26 Pulse Ox 95 08/03/23 15:26 FiO2 21 08/02/23 23:22 Intake & Output 08/02/23 08/03/23 08/03/23 18:59 06:59 18:59 Intake Total 240 100 Balance 240 100 Intake: IV 100 Oral 240 Other: Voiding Method Toilet Toilet Toilet # Voids 2 3 - Labs CBC & Chem 7: 08/03/23 06:50 08/03/23 06:50 Labs: Abnormal Lab Results - Last 24 Hours (Table) 08/02/23 08/02/23 08/03/23 Range/Units 16:34 19:52 05:51 WBC (3.8-10.6) k/uL MCHC (31.0-37.0) g/dL RDW (11.5-15.5) % Lymphocytes # (1.0-4.8) k/uL Carbon Dioxide (22-30) mmol/L BUN (7-17) mg/dL Glucose (74-99) mg/dL POC Glucose (mg/dL) 269 H 178 H 131 H (70-110) mg/dL 08/03/23 08/03/23 08/03/23 Range/Units 06:50 06:50 11:56 WBC 13.0 H (3.8-10.6) k/uL MCHC 30.4 L (31.0-37.0) g/dL RDW 15.8 H (11.5-15.5) % Lymphocytes # 4.9 H (1.0-4.8) k/uL Carbon Dioxide 31 H (22-30) mmol/L BUN 19 H (7-17) mg/dL Glucose 106 H (74-99) mg/dL POC Glucose (mg/dL) 188 H (70-110) mg/dL 08/03/23 Range/Units 15:32 WBC (3.8-10.6) k/uL MCHC (31.0-37.0) g/dL RDW (11.5-15.5) % Lymphocytes # (1.0-4.8) k/uL Carbon Dioxide (22-30) mmol/L BUN (7-17) mg/dL Glucose (74-99) mg/dL POC Glucose (mg/dL) 238 H (70-110) mg/dL
[2023-08-03] MEDS: LIDOCAINE 1% INJ 10MG/ML (20 ML MDV) SQ ONE (16:25)
--- NOTE | 2023-08-03 17:48 | P.OP ---
Date of Procedure: 08/03/23 Preoperative Diagnosis: Headaches with right-sided head pain, possible temporal arteritis Postoperative Diagnosis: Same Procedure(s) Performed: Right temporal artery biopsy Anesthesia: MAC Surgeon: Fabio Medeiros Estimated Blood Loss (ml): 5 Pathology: other (Right temporal artery) Condition: stable Disposition: PACU Indications for Procedure: 67-year-old female currently being treated in the hospital for headaches who underwent workup for possible temporal arteritis. She had elevated ESR and CRP and was started on steroids which she states had some improvement of her headaches. She presents today for elective temporal artery biopsy to help with definitive diagnosis. Description of Procedure: After written and informed consent was obtained from the patient and all risks, benefits and complications were described the patient was brought to the operative suite and laid in a supine position. The area of the right temporal region was prepped and draped in usual sterile fashion. Timeout was performed normal fashion antibiotics were administered prior to incision. Just anterior to the ear at the hairline a small incision was created with a 15 blade scalpel after local anesthetic was infused overlying the temporal artery. Dissection wa s then carried down to the temporal artery and approximately 2 cm of artery was dissected free in a circumferential manner and suture-ligated with 3-0 silk suture. The specimen was then cut and passed off for pathology. The area was then copiously irrigated and hemostasis was assured with electrocautery and pressure. The incision was then closed in a multilayer fashion with. Skin was cleansed and dressed with glue. Patient tolerated the procedure well and was sent to PACU for recovery.
[2023-08-03 18:10] LABS: Glucose,Whole Blood 200 mg/dL (70-110)
[2023-08-03 18:47] LABS: Hepatitis A Antibody IgM Nonreactive (Nonreactive); Hepatitis B Core IgM Nonreactive (Nonreactive); Hepatitis B Surface Antigen Nonreactive (Nonreactive); Hepatitis C IgG Antibody Nonreactive (Nonreactive)
[2023-08-03 20:04] LABS: Glucose,Whole Blood 297 mg/dL (70-110)
[2023-08-03] MEDS: ARTIFICIAL TEARS-HYPROMELLOSE DROPS 15 ML BTL BOTH EYES PRN (21:15)
[2023-08-04 06:05] LABS: Glucose,Whole Blood 211 mg/dL (70-110)
--- NOTE | 2023-08-04 09:45 | P.PN ---
Subjective Progress Note Date: 08/04/23 Principal diagnosis: Headache Patient is seen and examined today as a follow-up. Yesterday she underwent a right temporal artery biopsy. Today she states headache is somewhat improved. Worst is usually around 2:30 in the morning she did wake up again around 2:00 in the morning with severe headache and states that her body had felt tingly so she did go for a walk around the floor. She does state that the blurred vision in her right eye is improved since she has started her eyedrops. Denies any pain at incision site. Objective - Vital Signs Vital signs: Vital Signs Temp 98.1 F 08/04/23 04:00 Pulse 68 08/04/23 08:28 Resp 19 08/04/23 04:00 BP 114/60 08/04/23 04:00 Pulse Ox 94 L 08/04/23 04:00 FiO2 21 08/02/23 23:22 Intake & Output 08/03/23 08/04/23 08/04/23 18:59 06:59 18:59 Intake Total 350 Output Total 1 Balance 349 Intake: IV 350 Output: Estimated Blood Loss 1 Other: Voiding Method Toilet Toilet # Voids 3 2 - Exam General appearance: The patient is alert, oriented, appears in no acute distress. HET: Head is normocephalic and atraumatic. Pupils are equal and reactive. Rig ht temporal incision well-approximated, clean dry and intact. Neck: Supple. Abdomen: Nondistended. Extremities: Normal skin color and turgor. Neurological: Alert and oriented x 3. Good strength and tone upper lower extremity. Patient answers questions appropriately, signing appropriately with software systems architect. - Labs CBC & Chem 7: 08/03/23 06:50 08/03/23 06:50 Labs: Abnormal Lab Results - Last 24 Hours (Table) 08/01/23 08/03/23 08/03/23 Range/Units 09:46 11:56 15:32 POC Glucose (mg/dL) 188 H 238 H (70-110) mg/dL Folate 40.00 H (4.40-31.00) ng/mL 08/03/23 08/03/23 08/04/23 Range/Units 18:09 20:02 06:00 POC Glucose (mg/dL) 200 H 297 H 211 H (70-110) mg/dL Folate (4.40-31.00) ng/mL Assessment and Plan Assessment: 1. Chronic right frontal and temporal pain/headache status post right temporal artery biopsy 2. Chronic right jaw pain with screw in the right jaw 3. Balance disturbance, left facial droop 4. Diabetes mellitus 5. Hypertension 6. Coronary artery disease status post stenting 7. History of sarcoidosis 8. Encephalitis at age 5, deafness since Plan: 1. Patient is status post temporal artery biopsy 2. No further indication for any vascular surgical intervention. Patient instructed to follow-up with her PCP for biopsy results 3. Continue with recommendations from neurology 4. Rest of medical management per primary medical team Thank you for this consultation, we will sign off at this time. The impression and plan of care has been dictated as directed. Dr. Garza I performed a history and examination of this patient, discussed the same with the dictator. I agree with the dictator's note ,documented as a scribe. Any additional findings or plans will be noted.
--- NOTE | 2023-08-04 11:28 | P.PN ---
Subjective Progress Note Date: 08/04/23 67 year old female with deafness since age 5 years due to encephilitis, DM, hypertension, history of TIA and CAD s/p stent, sarcoidosis on home oxygen presented for left facial numbness. Blood work unremarkable white count 11.9, hemoglobin 12.3 Sodium 137 potassium 4.2 BUN 20 creatinine 0.[address] of the brain no acute intracranial pathology CT angio of the head and neck no high-grade stenosis or large vessel blockage Echo shows EF 55%, no WMA, no thrombus, no valvular dysfunction, no PFO. MRI Brain, negative for acute hemorrhage, infarct, midline shift. Pt treated with aspirin, plavix, statin. Pt noted to have elevated ESR during prior visit - started on IV steroids and followed by prednisone. Vascular surgery consulted for consideration of temporal lobe biopsy. 08/02 Patient gone for temporal artery biopsy. Discussed with Dr. Bonner, MRI C and T spine ordered along with ЕКАТЕРИНА, Anti DS DNA, c-ANCA, C3, Hep panel, HSV, HIV, Lyme, RF, SSA/SSB, Syphilis, VZV. CBC WBC 13. BMP bicarb 31, BUN 19, glu 106. Mag 2.1. 08/03 Patient was seen and examined with the aid of an drop wirer. She underwent temporal artery biopsy yesterday. Reports intense right sided temporal headache and photophobia after procedure. Currently headache is well controlled, dull in nature. No difficulties ambulating with a walker. General: non toxic, no distress, appears at stated age Derm: warm, dry Head: atraumatic, normocephalic, symmetric Eyes: EOMI, no lid lag, anicteric sclera Mouth: no lip lesion, mucus membranes moist Cardiovascular: Good distal perfusion in all 4 extremities Lungs: Breathing comfortably , no accessory muscle use Ext: no gross muscle atrophy, no edema, no contractures : Garza catheter present Neuro: no focal neuro deficits Psych: Alert, oriented, appropriate affect Based on my assessment of this patient, this patient meets a moderate complexity level of care. Patient has an acute diagnosis of headache associated with left facial numbness and headache and unsteady gait that poses a threat to life. Headache Left facial numbness Unsteady gait Leukocytosis due to steroid use MRI negative for CVA. Autoimmune workup ordered along with MRI C and T spine. Awaiting results of temporal artery biopsy. Continue Fioicet 50-325-40 1 tab PO Q4H PRN. Continue Prednisone 60 mg PO QD. Patient deaf since childhood post severe encephalitis Diabetes mellitus, home insulin + SSI Hypertension History of CAD - continue plavix, hold ASA Pulmonary sarcoidosis CODE STATUS: FULL CODE. DVT Prophylaxis: AC on hold due to biopsy. GI Prophylaxis: Designated medical POA if patient is not able to make medical decisions for themselves: I have reviewed the following regional engagement consultant notes: Neuro, Vascular Sx I have reviewed the results of the following tests: I have ordered the following tests: I have discussed the care of this patient with the following independent hist orian: Licensed Pesticide Applicator. I have independently interpreted the following test below: I have discussed the management of this patient with the following physician: Dr. Bonner. Objective - Vital Signs Vital signs: Vital Signs Temp 97.7 F 08/04/23 09:07 Pulse 93 08/04/23 09:07 Resp 15 08/04/23 09:07 BP 128/60 08/04/23 09:07 Pulse Ox 98 08/04/23 09:07 FiO2 21 08/02/23 23:22 Intake & Output 08/03/23 08/04/23 08/04/23 18:59 06:59 18:59 Intake Total 350 540 Output Total 1 Balance 349 540 Intake: IV 350 Oral 540 Output: Estimated Blood Loss 1 Other: Voiding Method Toilet Toilet Toilet # Voids 3 2 - Labs CBC & Chem 7: 08/03/23 06:50 08/03/23 06:50 Labs: Abnormal Lab Results - Last 24 Hours (Table) 08/01/23 08/03/23 08/03/23 Range/Units 09:46 11:56 15:32 POC Glucose (mg/dL) 188 H 238 H (70-110) mg/dL Folate 40.00 H (4.40-31.00) ng/mL 08/03/23 08/03/23 08/04/23 Range/Units 18:09 20:02 06:00 POC Glucose (mg/dL) 200 H 297 H 211 H (70-110) mg/dL Folate (4.40-31.00) ng/mL
[2023-08-04 11:46] LABS: Glucose,Whole Blood 161 mg/dL (70-110)
[2023-08-04 12:48] VITALS: BMI 37.1
[2023-08-04 14:25] LABS: Glucose,Whole Blood 193 mg/dL (70-110)
--- NOTE | 2023-08-04 15:04 | MR ---
EXAMINATION TYPE: MR cspine/tspine wo/w con DATE OF EXAM: 08/04/2023 COMPARISON: HISTORY: Unsteady gait, hx of sarcoidosis CONTRAST: Performed utilizing 10 mL intravenous Gadavist gadolinium contrast. TECHNIQUE: Multiplanar multiecho imaging on a 3.0 Patito magnet is performed through the cervical spin e. FINDINGS: The craniovertebral junction is normal. Vertebral body alignment is normal. Anterior cer vical fusion is present C4-C6. C7-T1: No focal disc herniation or significant disc bulge is evident. No spinal canal stenosis or n eural foraminal stenosis is present. C6-7: No focal disc herniation or significant disc bulge is evident. No spinal canal stenosis or akosua ral foraminal stenosis is present. C5-6: No focal disc herniation or significant disc bulge is evident. No spinal canal stenosis or akosua ral foraminal stenosis is present. C4-5: Broad-based left paracentral disc bulge is present moderate anterior thecal sac compression. Th is comes in close proximation of the spinal cord. No AP spinal canal stenosis present. Neural foramen are patent. C3-4: Small left paracentral protrusion is present which comes in close approximation of the spinal c ord. No AP spinal canal stenosis present. Neural foramen are patent. C2-3: No focal disc herniation or significant disc bulge is evident. No spinal canal stenosis or akosua ral foraminal stenosis is present. Following contrast menstruation, no abnormal enhancement is evident. No signal change within the spin al cord or cord enhancement or expansion is evident. IMPRESSION: 1. Mild disc bulging present at C4-5 left paracentral region without spinal canal stenosis. 2. Postsurgical anterior cervical fusion changes. 3. No suspicious changes for sarcoidosis cervical spine EXAMINATION TYPE: MR cspine/tspine wo/w con DATE OF EXAM: 08/04/2023 COMPARISON: None HISTORY: Unsteady gait, hx of sarcoidosis CONTRAST: Performed utilizing 10 mL intravenous Gadavist gadolinium contrast. TECHNIQUE: Multiplanar, multiecho imaging on a 3.0 Patito magnet is performed through the thoracic spi ne. Spinal cord maintains normal signal through its visualized course. No signal change or cord expansion evident. Vertebral body alignment is normal. Vertebral body heights are preserved. Disc heights are preserved. Disc hydration levels are preserved. No spinal canal stenosis is evident. No suspicious enhancement following contrast administration. IMPRESSION: 1. No acute changes MRI thoracic spine. 2. No suspicious changes for sarcoidosis within the thoracic spine
--- NOTE | 2023-08-04 15:38 | P.PN ---
Subjective Progress Note Date: 08/04/23 I am following-up with patient and she continues to have severe headache that are noticeable at 3:30-4:30am mostly over the right temporal, frontal region but steroids help taper them. She is having headaches since this past . Feels her cheeks are puffy mostly left. Also stated she has been having body jolts for the past 2 years and followed-up with her physician regarding them and did not feel was getting answers. She had temporal biopsy yesterday. Objective - Vital Signs Vital signs: Vital Signs Temp 97.7 F 08/04/23 09:07 Pulse 91 08/04/23 14:29 Resp 15 08/04/23 09:07 BP 144/65 08/04/23 14:29 Pulse Ox 93 L 08/04/23 14:29 FiO2 21 08/02/23 23:22 Intake & Output 08/03/23 08/04/23 08/04/23 18:59 06:59 18:59 Intake Total 350 540 Output Total 1 Balance 349 540 Weight 104.326 kg Intake: IV 350 Oral 540 Output: Estimated Blood Loss 1 Other: Voiding Method Toilet Toilet Toilet # Voids 3 2 2 - Exam General: Sitting up in a chair and is in mild acute distress. Neuro: Is being assisted with her pick up attendant since is deaf. Patient is awake alert oriented to self place and time. Follows simple comman ds. She is deaf. Pupils are round equal reactive to light. Visual stokes are full to confrontation. Extraocular movement intact no nystagmus.. Tongue is midline with side to side without difficulty Motor: Gait is slightly unsteady making turns but not requiring assistance. strength is 5 out of 5 throughout Sensation is normal to touch throughout - Labs CBC & Chem 7: 08/03/23 06:50 08/03/23 06:50 Labs: Abnormal Lab Results - Last 24 Hours (Table) 08/01/23 08/03/23 08/03/23 Range/Units 09:46 15:32 18:09 POC Glucose (mg/dL) 238 H 200 H (70-110) mg/dL Folate 40.00 H (4.40-31.00) ng/mL 08/03/23 08/04/23 08/04/23 Range/Units 20:02 06:00 11:43 POC Glucose (mg/dL) 297 H 211 H 161 H (70-110) mg/dL Folate (4.40-31.00) ng/mL 08/04/23 Range/Units 14:23 POC Glucose (mg/dL) 193 H (70-110) mg/dL Folate (4.40-31.00) ng/mL Assessment and Plan Assessment: This is a 67-year-old woman who presents to the hospital because of the headache for the past close to 1 week over the right temporal frontal region. She also f eels her cheeks are puffed left more than right. * Patient has presented with similar symptoms 3 times in the past and each time her MRI of the brain has been negative. Current MRI of the brain also negative for any acute stroke. * New onset headache, involving the frontal, right temporal parietal and occipital region. Exact cause uncertain. Blood pressure is well-controlled. No obvious sinus disease noted on CT/MRI. Patient denies excessive caffeine intake. Patient's ESR was minimally elevated 39, Rule out temporal arteritis vs other vasculitis. Neurosarcoidosis on MRI seems unlikely. * Minimal unsteady gait sensation for past couple days * History of sarcoidosis, currently in remission. She used to be on high-dose steroids in the past. 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 * Type 2 diabetes * History of glaucoma suspect * Hearing impaired uses sign language * Hypertension * Hypothyroidism Plan: Patient's workup has come back negative including MRI of the brain, echo and CTA. No evidence of acute stroke. Her left facial numbness, left facial swelling, and right sided headache and right blurred vision is of unclear cause. Ophthamology evaluated patient and felt she had dry eyes. Rule out temporal arteritis vs neurosarcoidosis. her ESR was 39 and CRP 1.7 on 07/26/2023. MRI Brain w/ Osorio: It is reported as moderate multifocal nonspecific white matter changes most likely reflecting chronic ischemic white matter changes. The possibility of sarcoid changes felt to be less likely but not excluded. No mass effect or shift of midline structures. Repeat ESR 29, B12 449, MASON level: 31 (normal), folate is 40. On prednisone 60 mg daily empirically for now. Watch blood sugars closely. Had right temporal artery biopsy on 08/03/2023 and pending result. Hepatitis panel is nonreactive. Pending ЕКАТЕРИНА, anti-dsDNA, SSA, SSB, cANCA and p-ANCA, complement 3/4, Lyme, HIV, Syphilis, RF, VZV and HSV1/2 PCR. Will consider lumbar puncture to rule out any SOUND SYSTEM INSTALLER causes of headaches. Placed Plavix on hold. For her unsteady gait for past few days, ordered MRI C-spine and thoracic spine w/ and w/o. MRI of the brain without contrast, revealed no evidence of intracranial mass, hemorrhage or acute/subacute infarct. Mild to moderate atrophy. Nonspecific white matter changes, likely secondary to chronic microvascular ischemic change. I personally reviewed MRI, agree with the findings. 2-D echo revealed left ventricular EF is estimated 50 to 55%. No obvious regional wall motion abnormalities. No significant valvular dysfunction. Normal left atrial size. CTA head and neck showed: Patent intracranial circulation. No dissection, hemodynamically significant stenosis or occlusion in the neck. Fasting a.m. lipid panel cholesterol 136, LDL 45, HDL 46 and triglycerides 232. Continue Lipitor 20 mg daily. Patient at home on Crestor 10 mg daily. Hemoglobin A1c 7.8. Recommend optimize control of diabetes to target A1c <7.0. Blood pressure is well-controlled. On Plavix 75 mg daily and per Dr. Austin he recommended to resume ASA 81mg daily. But is seems the patient has ALLERGIES to celecoxib. I placed Plavix on hold for potential lumbar puncture. Telemetry monitoring rule out any arrhythmia The plan is discussed with patient and her who is at bedside with help of pick up attendant. Also discussed plan with primary team. Time with Patient: Less than 30
[2023-08-04 16:39] LABS: Rheumatoid Factor, Qnt <15 IU/mL (0-15)
[2023-08-04 16:48] LABS: Glucose,Whole Blood 242 mg/dL (70-110)
[2023-08-04 17:06] LABS: Anti-DNA, DS unit <1.0 IU/mL; DNA Double-Stranded Negative (Negative)
[2023-08-04 19:26] LABS: HIV 2 AB Non-Reactive (Non-Reactive); HIV AB P24 Non-Reactive (Non-Reactive); HIV P24 AG Non-Reactive (Non-Reactive)
[2023-08-04 19:59] LABS: Glucose,Whole Blood 88 mg/dL (70-110)
[2023-08-04] MEDS: IPRATROPIUM BROMIDE 0.06% NASAL SPRAY (15 ML) EA NOSTRIL SCH (21:32)
[2023-08-05 05:47] LABS: Glucose,Whole Blood 126 mg/dL (70-110)
[2023-08-05] MEDS: predniSONE 20 MG TAB PO SCH (08:05)
[2023-08-05] MEDS: MAGNESIUM CITRATE 296 ML BOTTLE PO ONE (10:32)
[2023-08-05 11:34] LABS: Glucose,Whole Blood 101 mg/dL (70-110)
[2023-08-05 14:17] LABS: C-ANCA <1:20 Titer (<1:20)
--- NOTE | 2023-08-05 15:33 | P.PN ---
Subjective Progress Note Date: 08/05/23 67 year old female with deafness since age 5 years due to encephilitis, DM, hypertension, history of TIA and CAD s/p stent, sarcoidosis on home oxygen presented for left facial numbness. Blood work unremarkable white count 11.9, hemoglobin 12.3 Sodium 137 potassium 4.2 BUN 20 creatinine 0.[address] of the brain no acute intracranial pathology CT angio of the head and neck no high-grade stenosis or large vessel blockage Echo shows EF 55%, no WMA, no thrombus, no valvular dysfunction, no PFO. MRI Brain, negative for acute hemorrhage, infarct, midline shift. Pt treated with aspirin, plavix, statin. Pt noted to have elevated ESR during prior visit - started on IV steroids and followed by prednisone. Vascular surgery consulted for consideration of temporal lobe biopsy. 08/02 Patient gone for temporal artery biopsy. Discussed with Dr. Bonner, MRI C and T spine ordered along with ЕКАТЕРИНА, Anti DS DNA, c-ANCA, C3, Hep panel, HSV, HIV, Lyme, RF, SSA/SSB, Syphilis, VZV. CBC WBC 13. BMP bicarb 31, BUN 19, glu 106. Mag 2.1. 08/03 Patient was seen and examined with the aid of an city planning engineer. She underwent temporal artery biopsy yesterday. Reports intense right sided temporal headache and photophobia after procedure. Currently headache is well controlled, dull in nature. No difficulties ambulating with a walker. 08/04: Patient seen and examined at bedside. No acute events overnight. Continues to have right-sided headache, 7 out of 10, also has some numbness tingling throughout her body General: non toxic, no distress, appears at stated age Derm: warm, dry Head: atraumatic, normocephalic, symmetric Eyes: EOMI, no lid lag, anicteric sclera Mouth: no lip lesion, mucus membranes moist Cardiovascular: Good distal perfusion in all 4 extremities Lungs: Breathing comfortably , no accessory muscle use Ext: no gross muscle atrophy, no edema, no contractures : Garza catheter present Neuro: no focal neuro deficits Psych: Alert, oriented, appropriate affect Based on my assessment of this patient, this patient meets a moderate complexity level of care. Patient has an acute diagnosis of headache associated with left facial numbness and headache and unsteady gait that poses a threat to life. Sudden onset Headache Left facial numbness Unsteady gait Leukocytosis due to steroid use - Discussed management with neuro, discontinued Fioricet, continue prednisone 60 daily, LP pending, trial of magnesium sulfate - MRI no lesions, Awaiting results of temporal artery biopsy. Constipation Given mag citrate Chronic: Patient deaf since childhood post severe encephalitis Diabetes mellitus, home insulin + SSI, monitor for hypoglycemia Hypertension History of CAD - continue plavix, hold ASA Pulmonary sarcoidosis COPD Chronic pain Dyslipidemia CODE STATUS: FULL CODE. DVT Prophylaxis: AC on hold due to biopsy. Objective - Vital Signs Vital signs: Vital Signs Temp 97.9 F 08/05/23 12:00 Pulse 73 08/05/23 12:00 Resp 16 08/05/23 12:00 BP 125/65 08/05/23 12:00 Pulse Ox 94 L 08/05/23 12:00 FiO2 28 08/05/23 01:16 Intake & Output 08/04/23 08/05/23 08/05/23 18:59 06:59 18:59 Intake Total 780 Balance 780 Weight 104.326 kg Intake: Oral 780 Other: Voiding Method Toilet Toilet Toilet # Voids 2 5 - Labs CBC & Chem 7: 08/03/23 06:50 08/03/23 06:50 Labs: Abnormal Lab Results - Last 24 Hours (Table) 08/04/23 08/05/23 Range/Units 16:43 05:46 POC Glucose (mg/dL) 242 H 126 H (70-110) mg/dL
[2023-08-05] MEDS: BUMETANIDE 1 MG TAB PO SCH (16:06)
--- NOTE | 2023-08-05 16:45 | P.PN ---
Subjective Progress Note Date: 08/05/23 I am following-up with patient and she is accompanied with her sister, and cardiopulmonary specialist. She continues to have severe headache over the right temporal right. Orbital frontal region and she feels onset is overnight increased 2:30 to 4:30 AM. And she feels her gait is unsteady. She feels the steroids is helping with a headache compared to initial presentation. Objective - Vital Signs Vital signs: Vital Signs Temp 97.9 F 08/05/23 12:00 Pulse 73 08/05/23 12:00 Resp 16 08/05/23 12:00 BP 125/65 08/05/23 12:00 Pulse Ox 94 L 08/05/23 12:00 FiO2 28 08/05/23 01:16 Intake & Output 08/04/23 08/05/23 08/05/23 18:59 06:59 18:59 Intake Total 780 Balance 780 Weight 104.326 kg Intake: Oral 780 Other: Voiding Method Toilet Toilet Toilet # Voids 2 5 - Exam General: Sitting up in a chair and is in mild acute distress. Neuro: Is being assisted with her cardiopulmonary specialist since is deaf. Patient is awake alert oriented to self place and time. Follows simple commands. She is deaf. Pupils are round equal reactive to light. Visual stokes are full to confrontation. Extraocular movement intact no nystagmus.. Tongue is midline with side to side without difficulty Motor: Gait is slightly unsteady making turns but not requiring assistance. strength is 5 out of 5 throughout Sensation is normal to touch throughout - Labs CBC & Chem 7: 08/03/23 06:50 08/03/23 06:50 Labs: Abnormal Lab Results - Last 24 Hours (Table) 08/04/23 08/05/23 Range/Units 16:43 05:46 POC Glucose (mg/dL) 242 H 126 H (70-110) mg/dL Assessment and Plan Assessment: This is a 67-year-old woman who presents to the hospital because of the headache for the past close to 1 week over the right temporal frontal region. She also feels her cheeks are puffed left more than right. * Patient has presented with similar symptoms 3 times in the past and each time her MRI of the brain has been negative. Current MRI of the brain also nega tive for any acute stroke. * New onset headache, involving the frontal, right temporal parietal and occipital region. Exact cause uncertain. Blood pressure is well-controlled. No obvious sinus disease noted on CT/MRI. Patient denies excessive caffeine intake. Patient's ESR was minimally elevated 39, Rule out temporal arteritis vs other vasculitis. Neurosarcoidosis on MRI seems unlikely. * Minimal unsteady gait sensation for past couple days * History of sarcoidosis, currently in remission. She used to be on high-dose steroids in the past. 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 * Type 2 diabetes * History of glaucoma suspect * Hearing impaired uses sign language * Hypertension * Hypothyroidism Plan: Patient's workup has come back negative including MRI of the brain, echo and CTA. No evidence of acute stroke. Her left facial numbness, left facial swelling, and right sided headache and right blurred vision is of unclear cause. Ophthamology evaluated patient and felt she had dry eyes. Rule out temporal arteritis vs neurosarcoidosis. her ESR was 39 and CRP 1.7 on 07/26/2023. MRI Brain w/ Osorio: It is reported as moderate multifocal nonspecific white matter changes most likely reflecting chronic ischemic white matter changes. The possibility of sarcoid changes felt to be less likely but not excluded. No mass effect or shift of midline structures. Repeat ESR 29, B12 449, MASON level: 31 (normal), folate is 40. On prednisone 60 mg daily empirically for now. Watch blood sugars closely. Had right temporal artery biopsy on 08/03/2023 and pending result. Hepatitis panel is nonreactive. ЕКАТЕРИНА: anti-dsDNA , SSA, SSB, cANCA and p-ANCA, RF, Lyme, syphilis are negative. HIV is nonreactive. Complement 3 is normal. VZV and HSV1/2 PCR are pending. Also complent 4 is pending. Will consider lumbar puncture to rule out any FREIGHT BREAKER causes of headaches. Placed Plavix on hold and will be on hold for total of 5 days prior to lumbar puncture. Schedule for possible LP this Wednesday. I stopped Fioricet since it can cause vasoconstriction to avoid any stroke. I started the patient on magnesium sulfate 1 mg once IV to help with the headache. For her unsteady gait for past few days, ordered MRI C-spine and thoracic spine w/ and w/o: There is no acute process. No suspicious for sarcoidosis within the cervical or thoracic MRI of the brain without contrast, revealed no evidence of intracranial mass, hemorrhage or acute/subacute infarct. Mild to moderate atrophy. Nonspecific white matter changes, likely secondary to chronic microvascular ischemic change. I personally reviewed MRI, agree with the findings. 2-D echo revealed left ventricular EF is estimated 50 to 55%. No obvious regional wall motion abnormalities. No significant valvular dysfunction. Normal left atrial size. CTA head and neck showed: Patent intracranial circulation. No dissection, hemodynamically significant stenosis or occlusion in the neck. Fasting a.m. lipid panel cholesterol 136, LDL 45, HDL 46 and triglycerides 232. Continue Lipitor 20 mg daily. Patient at home on Crestor 10 mg daily. Hemoglobin A1c 7.8. Recommend optimize control of diabetes to target A1c <7.0. Blood pressure is well-controlled. On Plavix 75 mg daily and per Dr. Austin he recommended to resume ASA 81mg daily. But is seems the patient has ALLERGIES to celecoxib. I placed Plavix on hold for potential lumbar puncture. Telemetry monitoring rule out any arrhythmia The plan is discussed with patient and her , sister who are at bedside. Also discussed plan with primary team. I spend a total of 45 minutes with care of patient. Time with Patient: Greater than 30
[2023-08-05 17:10] LABS: Glucose,Whole Blood 245 mg/dL (70-110)
[2023-08-05] MEDS: MAGNESIUM SULFATE-D5W PMX 1 GM in DEXTROSE/WATER 1 100ML.BAG IVPB ONE (17:11)
[2023-08-05 19:49] LABS: Glucose,Whole Blood 197 mg/dL (70-110)
[2023-08-06 05:37] LABS: Glucose,Whole Blood 123 mg/dL (70-110)
[2023-08-06] MEDS: BUMETANIDE 1 MG TAB PO SCH (08:22)
[2023-08-06] MEDS: predniSONE 20 MG TAB PO SCH (08:24)
[2023-08-06 10:18] LABS: V. zoster Source Blood - Plasma; Varicella zoster Virus by PCR Not detected (Not detected)
[2023-08-06 11:20] LABS: HCT 36.2 % (37.2-46.3); HGB 11.3 g/dL (12.0-15.0); MCH 27.2 pg (27.0-32.0); MCHC 31.2 g/dL (32.0-37.0); MCV 87.2 FL (80.0-97.0); Mean Platelet Volume 11.8 FL (9.5-12.2); NRBC Per 100 WBC 0 X 10*3/uL (0.00-0.01); Platelet Count 192 X 10*3/uL (140-440); RBC 4.15 X 10*6/uL (4.10-5.20); RDW 15.9 % (11.5-14.5); WBC 14.12 X 10*3/uL (4.50-10.00)
[2023-08-06 11:26] LABS: BUN/Creat Ratio 27.43 Ratio (12.00-20.00); Blood Urea Nitrogen 19.2 mg/dL (9.0-27.0); Calcium 9.1 mg/dL (8.7-10.3); Carbon Dioxide 33.6 mmol/L (21.6-31.8); Chloride 101 mmol/L (96-109); Glucose 103 mg/dL (70-110); Sodium 145 mmol/L (135-145)
[2023-08-06 11:32] LABS: Glucose,Whole Blood 104 mg/dL (70-110)
[2023-08-06 11:52] LABS: Basophils # (M) 0 X 10*3/uL (0.00-0.10); Eosinophils # (M) 0 X 10*3/uL (0.04-0.35); Lymphocytes # (M) 5.93 X 10*3/uL (0.90-5.00); Monocytes # (M) 0.28 X 10*3/uL (0.20-1.00); Neutrophils # (M) 7.91 X 10*3/uL (1.80-7.70); Neutrophils % (M) 56 %; Nucleated Red Blood Cells 1 /100 WBCS; RBC Morphology Normal (Normal)
--- NOTE | 2023-08-06 13:32 | P.PN ---
Subjective Progress Note Date: 08/06/23 I am following-up with patient and she feels the Magnesium Sulfate has helped yesterday but overnight headache peaked again then is coming down to 6-7/10. Overnight is goes above 10/10. Otherwise no additional neurological issues. Objective - Vital Signs Vital signs: Vital Signs Temp 97.6 F 08/06/23 07:19 Pulse 70 08/06/23 09:35 Resp 17 08/06/23 08:00 BP 153/80 08/06/23 07:19 Pulse Ox 100 08/06/23 09:28 FiO2 28 08/06/23 01:18 Intake & Output 08/05/23 08/06/23 08/06/23 18:59 06:59 18:59 Other: Voiding Method Toilet Toilet # Voids 1 1 # Bowel Movements 2 - Exam General: Sitting up in a chair and is in mild acute distress. Neuro: Is being assisted with her foreign language interpreter since is deaf. Patient is awake alert oriented to self place and time. Follows simple commands. She is deaf. Pupils are round equal reactive to light. Visual stokes are full to confrontation. Extraocular movement intact no nystagmus.. Tongue is midline with side to side without difficulty Motor: Gait is slightly unsteady making turns but not requiring assistance. strength is 5 out of 5 throughout Sensation is normal to touch throughout - Labs CBC & Chem 7: 08/06/23 07:07 08/06/23 07:07 Labs: Abnormal Lab Results - Last 24 Hours (Table) 08/05/23 08/05/23 08/06/23 Range/Units 17:09 19:47 05:35 WBC (4.50-10.00) X 10*3/uL Hgb (12.0-15.0) g/dL Hct (37.2-46.3) % MCHC (32.0-37.0) g/dL RDW (11.5-14.5) % Lymphocytes # (Manual) (0.90-5.00) X 10*3/uL Eosinophils # (Manual) (0.04-0.35) X 10*3/uL Carbon Dioxide (21.6-31.8) mmol/L BUN/Creatinine Ratio (12.00-20.00) Ratio POC Glucose (mg/dL) 245 H 197 H 123 H (70-110) mg/dL 08/06/23 08/06/23 Range/Units 07:07 07:07 WBC 14.12 H (4.50-10.00) X 10*3/uL Hgb 11.3 L (12.0-15.0) g/dL Hct 36.2 L (37.2-46.3) % MCHC 31.2 L (32.0-37.0) g/dL RDW 15.9 H (11.5-14.5) % Lymphocytes # (Manual) 5.93 H (0.90-5.00) X 10*3/uL Eosinophils # (Manual) 0 L (0.04-0.35) X 10*3/uL Carbon Dioxide 33.6 H (21.6-31.8) mmol/L BUN/Creatinine Ratio 27.43 H (12.00-20.00) Ratio POC Glucose (mg/dL) (70-110) mg/dL Assessment and Plan Assessment: This is a 67-year-old woman who presents to the hospital because of the headache for the past close to 1 week over the right temporal frontal region. She also feels her cheeks are puffed left more than right. * Patient has presented with similar symptoms 3 times in the past and each time her MRI of the brain has been negative. Current MRI of the brain also negative for any acute stroke. * New onset headache, involving the frontal, right temporal parietal and occipital region. Exact cause uncertain. Blood pressure is well-controlled. No obvious sinus disease noted on CT/MRI. Patient denies excessive caffeine intake. Patient's ESR was minimally elevated 39, Rule out temporal arteritis vs other vasculitis. Neurosarcoidosis on MRI seems unlikely. * Minimal unsteady gait sensation for past couple days * History of sarcoidosis, currently in remission. She used to be on high-dose steroids in the past. 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 * Type 2 diabetes * History of glaucoma suspect * Hearing impaired uses sign language * Hypertension * Hypothyroidism Plan: Patient's workup has come back negative including MRI of the brain, echo and CTA. No evidence of acute stroke. Her left facial numbness, left facial swelling, and right sided headache and right blurred vision is of unclear cause. Ophthamology evaluated patient and felt she had dry eyes. Rule out temporal arteritis vs neurosarcoidosis. her ESR was 39 and CRP 1.7 on 07/26/2023. MRI Brain w/ Osorio: It is reported as moderate multifocal nonspecific white matter changes most likely reflecting chronic ischemic white matter changes. The possibility of sarcoid changes felt to be less likely but not excluded. No mass effect or shift of midline structures. Repeat ESR 29, B12 449, MASON level: 31 (normal), folate is 40. On prednisone 60 mg daily empirically for now. Watch blood sugars closely. Had right temporal artery biopsy on 08/03/2023 and pending result. Hepatitis panel is nonreactive. ЕКАТЕРИНА: anti-dsDNA , SSA, SSB, cANCA and p-ANCA, RF, Lyme, syphilis are negative. HIV is nonreactive. Complement 3 is normal. VZV and HSV1/2 PCR are pending. Also complent 4 is pending. Will consider lumbar puncture to rule out any SOLAR ENERGY CONSULTANT AND DESIGNER causes of headaches. Placed Plavix on hold and will be on hold for total of 5 days prior to lumbar puncture. Schedule for possible LP this Wednesday. I stopped Fioricet since it can cause vasoconstriction to avoid any stroke. Will given another magnesium sulfate 1 mg once IV to help with the headache. For her unsteady gait for past few days, ordered MRI C-spine and thoracic spine w/ and w/o: There is no acute process. No suspicious for sarcoidosis within the cervical or thoracic I will get a repeat CTA head and neck to assess if any constriction or beading not seen on initial CTA. MRI of the brain without contrast, revealed no evidence of intracranial mass, hemorrhage or acute/subacute infarct. Mild to moderate atrophy. Nonspecific white matter changes, likely secondary to chronic microvascular ischemic change. I personally reviewed MRI, agree with the findings. 2-D echo revealed left ventricular EF is estimated 50 to 55%. No obvious regional wall motion abnormalities. No significant valvular dysfunction. Normal left atrial size. CTA head and neck showed: Patent intracranial circulation. No dissection, hemodynamically significant stenosis or occlusion in the neck. Fasting a.m. lipid panel cholesterol 136, LDL 45, HDL 46 and triglycerides 232. Continue Lipitor 20 mg daily. Patient at home on Crestor 10 mg daily. Hemoglobin A1c 7.8. Recommend optimize control of diabetes to target A1c <7.0. Blood pressure is well-controlled. On Plavix 75 mg daily and per Dr. Austin he recommended to resume ASA 81mg daily. But is seems the patient has ALLERGIES to celecoxib. I placed Plavix on hold for potential lumbar puncture. Telemetry monitoring rule out any arrhythmia The plan is discussed with patient using help of foreign language interpreter. Also discussed plan with primary team. Time with Patient: Less than 30
[2023-08-06] MEDS: MAGNESIUM SULFATE-D5W PMX 1 GM in DEXTROSE/WATER 1 100ML.BAG IVPB ONE (13:50)
--- NOTE | 2023-08-06 14:55 | P.PN ---
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 Blood work unremarkable white count 11.9, hemoglobin 12.3 Sodium 137 potassium 4.2 BUN 20 creatinine 0.[address] of the brain no acute intracranial pathology CT angio of the head and neck no high-grade stenosis or large vessel blockage Echo shows EF 55%, no WMA, no thrombus, no valvular dysfunction, no PFO. MRI Brain, negative for acute hemorrhage, infarct, midline shift. Pt treated with aspirin, plavix, statin. Pt noted to have elevated ESR during prior visit - started on IV steroids and followed by prednisone. Vascular surgery consulted for consideration of temporal lobe biopsy. 08/02 Patient gone for temporal artery biopsy. Discussed with Dr. Bonner, MRI C and T spine ordered along with ЕКАТЕРИНА, Anti DS DNA, c-ANCA, C3, Hep panel, HSV, HIV, Lyme, RF, SSA/SSB, Syphilis, VZV. CBC WBC 13. BMP bicarb 31, BUN 19, glu 106. Mag 2.1. 08/03 Patient was seen and examined with the aid of an manager solution. She underwent temporal artery biopsy yesterday. Reports intense right sided temporal headache and photophobia after procedure. Currently headache is well controlled, dull in nature. No difficulties ambulating with a walker. 08/04: Patient seen and examined at bedside. No acute events overnight. Continues to have right-sided headache, 7 out of 10, also has some numbness tingling throughout her body 08/05: Patient seen and examined at bedside. No acute events overnight. Headache improved after magnesium sulfate. Had bowel movement with mag citrate. General: non toxic, no distress, appears at stated age Derm: warm, dry Head: atraumatic, normocephalic, symmetric Eyes: EOMI, no lid lag, anicteric sclera Mouth: no lip lesion, mucus membranes moist Cardiovascular: Good distal perfusion in all 4 extremities Lungs: Breathing comfortably , no accessory muscle use Ext: no gross muscle atrophy, no edema, no contractures : Garza catheter present Neuro: no focal neuro deficits Psych: Alert, oriented, appropriate affect Based on my assessment of this patient, this patient meets a moderate complexity level of care. Patient has an acute diagnosis of headache associated with left facial numbness and headache and unsteady gait that poses a threat to life. Sudden onset Headache Left facial numbness Unsteady gait Leukocytosis due to steroid use - Discussed management with neuro, continue prednisone 60 daily, another of 1 g of magnesium sulfate, pending LP - MRI no lesions, Awaiting results of temporal artery biopsy. Constipation, resolved Chronic: Patient deaf since childhood post severe encephalitis Diabetes mellitus, home insulin + SSI, monitor for hypoglycemia Hypertension History of CAD - continue plavix, hold ASA Pulmonary sarcoidosis COPD Chronic pain Dyslipidemia CODE STATUS: FULL CODE. DVT Prophylaxis: AC on hold due to biopsy. Objective - Vital Signs Vital signs: Vital Signs Temp 98 F 08/06/23 13:26 Pulse 75 08/06/23 13:26 Resp 16 08/06/23 13:26 BP 137/72 08/06/23 13:26 Pulse Ox 90 L 08/06/23 13:26 FiO2 28 08/06/23 01:18 Intake & Output 08/05/23 08/06/23 08/06/23 18:59 06:59 18:59 Other: Voiding Method Toilet Toilet # Voids 1 1 # Bowel Movements 2 - Labs CBC & Chem 7: 08/06/23 07:07 08/06/23 07:07 Labs: Abnormal Lab Results - Last 24 Hours (Table) 08/05/23 08/05/23 08/06/23 Range/Units 17:09 19:47 05:35 WBC (4.50-10.00) X 10*3/uL Hgb (12.0-15.0) g/dL Hct (37.2-46.3) % MCHC (32.0-37.0) g/dL RDW (11.5-14.5) % Lymphocytes # (Manual) (0.90-5.00) X 10*3/uL Eosinophils # (Manual) (0.04-0.35) X 10*3/uL Carbon Dioxide (21.6-31.8) mmol/L BUN/Creatinine Ratio (12.00-20.00) Ratio POC Glucose (mg/dL) 245 H 197 H 123 H (70-110) mg/dL 08/06/23 08/06/23 Range/Units 07:07 07:07 WBC 14.12 H (4.50-10.00) X 10*3/uL Hgb 11.3 L (12.0-15.0) g/dL Hct 36.2 L (37.2-46.3) % MCHC 31.2 L (32.0-37.0) g/dL RDW 15.9 H (11.5-14.5) % Lymphocytes # (Manual) 5.93 H (0.90-5.00) X 10*3/uL Eosinophils # (Manual) 0 L (0.04-0.35) X 10*3/uL Carbon Dioxide 33.6 H (21.6-31.8) mmol/L BUN/Creatinine Ratio 27.43 H (12.00-20.00) Ratio POC Glucose (mg/dL) (70-110) mg/dL
[2023-08-06] MEDS: LIDOCAINE 1% INJ 10MG/ML (20 ML MDV) ONE (17:02)
[2023-08-06 17:06] LABS: Glucose,Whole Blood 123 mg/dL (70-110)
--- NOTE | 2023-08-06 17:20 | P.PN ---
Progress Note - Text Progress Note Date: 08/06/23 PROCEDURE: LUMBAR PUNCTURE Date: 08/06/2023 Time: 05:05PM Indication: HEADACHE. R/O CONE CHOCOLATE DIPPER INFLAMMATION Attending : Dr. Syed Bonner and assisted by Dr. Vishnu Pichardo The procedure was described to the patient in the presence of above and spanish interpreter/translator. All the indications and potential side effects of the procedure were discussed in details (including but not limited to risk of bleeding, infection, nerve injury and post LP headache). Patient was understanding, agreeable and all questions were answered. The patient was placed in the Left lateral decubitus position in a semi- position. The area was cleansed and draped in usual sterile fashion. 1% lidocaine was used anesthetize the surrounding skin area. A 3.5-inch spinal needle was placed in the L3-L4 interspace. Clear cerebral spinal fluid was obtained and the opening pressure was noted to be 22cm H2O. Four tubes were filled with 3-4 mL of CSF in each. The patient tolerate the procedure well. Estimated Blood Loss: Very minimal I was present for entire procedure as well as Dr. Pichardo.
[2023-08-06] MEDS: SODIUM CHLORIDE 0.9% 1,000 ML IV SCH (17:55)
[2023-08-06 18:37] LABS: Glucose,CSF 82 mg/dL (40-70); Total Protein,CSF 43 mg/dL (12-60)
[2023-08-06 19:10] LABS: Appearance,CSF Clear; CSF Tube Number 4; CSF Tube Volume 2.5; Nucleated Cells, CSF 2 u/L (0-5); Red Blood Cell,CSF 0 u/L (0-10)
[2023-08-06 19:34] LABS: Glucose,Whole Blood 90 mg/dL (70-110)
[2023-08-06 21:16] LABS: Glucose,Whole Blood 157 mg/dL (70-110)
[2023-08-07 06:18] LABS: Glucose,Whole Blood 122 mg/dL (70-110)
[2023-08-07 09:04] VITALS: BP 132/70; RESP 16; TEMP 97.7
[2023-08-07 09:07] LABS: Basophils # (A) 0.1 k/uL (0-0.2); Basophils % (A) 1 %; Eosinophils # (A) 0.2 k/uL (0-0.7); Eosinophils % (A) 2 %; HCT 41.2 % (34.0-46.0); HGB 12.5 gm/dL (11.4-16.0); Hypochromasia Moderate; Lymphocytes # (A) 5.8 k/uL (1.0-4.8); Lymphocytes % (A) 39 %; MCH 27.4 pg (25.0-35.0); MCHC 30.4 g/dL (31.0-37.0); Mean Platelet Volume 9.5; Monocytes # (A) 0.5 k/uL (0-1.0); Monocytes % (A) 3 %; Neutrophils % (A) 54 %; Platelet Count 208 k/uL (150-450); RBC 4.58 m/uL (3.80-5.40); RDW 15.5 % (11.5-15.5); WBC 14.8 k/uL (3.8-10.6)
[2023-08-07 09:41] LABS: African American GFR (CKD) >90 (>60 ml/min/1.73 sqM); Anion Gap 8 mmol/L; Blood Urea Nitrogen 20 mg/dL (7-17); Calcium 9.2 mg/dL (8.4-10.2); Carbon Dioxide 33 mmol/L (22-30); Chloride 100 mmol/L (98-107); Glucose 167 mg/dL (74-99); Non-African American GFR(CKD) >90 (>60 ml/min/1.73 sqM); Sodium 141 mmol/L (137-145)
[2023-08-07 11:39] LABS: Glucose,Whole Blood 78 mg/dL (70-110)
[2023-08-07] MEDS: MAGNESIUM SULFATE-D5W PMX 1 GM in DEXTROSE/WATER 1 100ML.BAG IVPB ONE (11:54)
--- NOTE | 2023-08-07 11:54 | P.DS ---
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 Blood work unremarkable white count 11.9, hemoglobin 12.3 Sodium 137 potassium 4.2 BUN 20 creatinine 0.[address] of the brain no acute intracranial pathology CT angio of the head and neck no high-grade stenosis or large vessel blockage Echo shows EF 55%, no WMA, no thrombus, no valvular dysfunction, no PFO. MRI Brain, negative for acute hemorrhage, infarct, midline shift. Pt treated with aspirin, plavix, statin. Pt noted to have elevated ESR during prior visit - started on IV steroids and followed by prednisone. Vascular surgery consulted for consideration of temporal lobe biopsy. Pathology was negative. MRI C and T spine unremarkable. MRI w/wo contrast moderate multifocal white matter changes. LP was done showed 2 WBCx and 82 glucose. RF, ЕКАТЕРИНА, ANCA, SS Ab, DS DNA, C3, Hep panel, Lyme, Syphilis, HSV, HIV, VZV negative. 08/06 Patient was seen and examined with Dr. Bonner. 08/17 headache. Plans to discharge the patient home on Mag ox 400 mg PO QD. Continue ASA, Plavix and Crestor. Discontinue Prednisone. Advised follow up with headache specialist in the outpatient setting referral to be given by PCP. All questions answered by Dr. Bonner at bedside with plastics process hand and . General: non toxic, no distress, appears at stated age Derm: warm, dry Head: atraumatic, normocephalic, symmetric Eyes: EOMI, no lid lag, anicteric sclera Mouth: no lip lesion, mucus membranes moist Cardiovascular: Good distal perfusion in all 4 extremities Lungs: Breathing comfortably , no accessory muscle use Ext: no gross muscle atrophy, no edema, no contractures Neuro: no focal neuro deficits Psych: Alert, oriented, appropriate affect Discharge Diagnosis: Headache Left facial numbness Unsteady gait Leukocytosis due to steroid use Patient deaf since childhood post severe encephalitis Diabetes mellitus, home insulin + SSI Hypertension History of CAD - continue plavix, hold ASA Pulmonary sarcoidosis This complex discharge took 35 minutes to complete. Patient Condition at Discharge: Good Plan - Discharge Summary Discharge Rx Participant: No New Discharge Prescriptions: New Magnesium Oxide [Mag-Ox] 400 mg PO DAILY #30 tablet Aspirin 81 mg PO DAILY #30 tab Continue allopurinoL [Zyloprim] 100 mg PO BID oxyCODONE-APAP 10-325MG [Percocet 10-325 mg] 1 tab PO TID Hydroxychloroquine Sulfate [Plaquenil] 200 mg PO BID Levothyroxine Sodium [Synthroid] 200 mcg PO DAILY Gabapentin 600 mg PO QID Levalbuterol Hfa Inhaler [Xopenex Hfa Inhaler] 2 puff INHALATION RT-QID PRN PRN Reason: Shortness Of Breath Meloxicam 15 mg PO DAILY Ergocalciferol [Vitamin D2 (1250 Mcg = 96471 Iu)] 1,250 mcg PO Q7D amLODIPine [Norvasc] 5 mg PO BID Amoxic-Pot Clav 875-125Mg [Augmentin 875-125] 1 tab PO Q12HR Empagliflozin [Jardiance] 10 mg PO DAILY Fluconazole [Diflucan] 150 mg PO DAILY Insulin Lispro [humaLOG Kwikpen] 45 - 65 unit SQ AC-TID Levalbuterol Nebulized [Xopenex Nebulized] 1.25 mg INHALATION RT-BID Tiotropium 2.5 Mcg/Puff [Spiriva Respimat 2.5 Mcg] 2 puff INHALATION RT-BID Clopidogrel [Plavix] 75 mg PO HS Famotidine [Pepcid] 40 mg PO HS metFORMIN HCL [Glucophage] 1,000 mg PO BID Latanoprost/Pf [Latanoprost 0.005% Eye Drop] 1 drop BOTH EYES HS Baclofen 10 - 20 mg PO TID Insulin Glargine,Hum.rec.anlog [Lantus Solostar Pen] 80 unit SQ BID Budesonide [Pulmicort] 0.5 mg INHALATION RT-BID Bumetanide [BUMEX] 1 mg PO BID Ipratropium Harleigh 0.06%Nasal [Atrovent Nasal 0.06%] 2 spray EA NOSTRIL DAILY Losartan Potassium [Cozaar] 100 mg PO DAILY Pantoprazole Sodium [Protonix] 40 mg PO DAILY Changed Rosuvastatin [Crestor] 20 mg PO DAILY #0 Discharge Medication List allopurinoL [Zyloprim] 100 mg PO BID 01/04/15 [History] Hydroxychloroquine Sulfate [Plaquenil] 200 mg PO BID 01/29/17 [History] oxyCODONE-APAP 10-325MG [Percocet 10-325 mg] 1 tab PO TID 01/29/17 [History] Levothyroxine Sodium [Synthroid] 200 mcg PO DAILY 03/26/17 [History] Gabapentin 600 mg PO QID 01/16/18 [History] Levalbuterol Hfa Inhaler [Xopenex Hfa Inhaler] 2 puff INHALATION RT-QID PRN 01/31/19 [History] Meloxicam 15 mg PO DAILY 03/06/20 [History] Clopidogrel [Plavix] 75 mg PO HS 10/09/21 [History] Famotidine [Pepcid] 40 mg PO HS 10/20/21 [History] Latanoprost/Pf [Latanoprost 0.005% Eye Drop] 1 drop BOTH EYES HS 11/06/21 [History] metFORMIN HCL [Glucophage] 1,000 mg PO BID 11/06/21 [History] Baclofen 10 - 20 mg PO TID 04/16/22 [History] Ergocalciferol [Vitamin D2 (1250 Mcg = 67794 Iu)] 1,250 mcg PO Q7D 04/16/22 [History] Insulin Glargine,Hum.rec.anlog [Lantus Solostar Pen] 80 unit SQ BID 04/16/22 [History] Amoxic-Pot Clav 875-125Mg [Augmentin 875-125] 1 tab PO Q12HR 07/30/23 [History] Budesonide [Pulmicort] 0.5 mg INHALATION RT-BID 07/30/23 [History] Bumetanide [BUMEX] 1 mg PO BID 07/30/23 [History] Empagliflozin [Jardiance] 10 mg PO DAILY 07/30/23 [History] Fluconazole [Diflucan] 150 mg PO DAILY 07/30/23 [History] Insulin Lispro [humaLOG Kwikpen] 45 - 65 unit SQ AC-TID 07/30/23 [History] Ipratropium Harleigh 0.06%Nasal [Atrovent Nasal 0.06%] 2 spray EA NOSTRIL DAILY 07/30/23 [History] Levalbuterol Nebulized [Xopenex Nebulized] 1.25 mg INHALATION RT-BID 07/30/23 [History] Losartan Potassium [Cozaar] 100 mg PO DAILY 07/30/23 [History] Pantoprazole Sodium [Protonix] 40 mg PO DAILY 07/30/23 [History] Tiotropium 2.5 Mcg/Puff [Spiriva Respimat 2.5 Mcg] 2 puff INHALATION RT-BID 07/30/23 [History] amLODIPine [Norvasc] 5 mg PO BID 07/30/23 [History] Aspirin 81 mg PO DAILY #30 tab 07/31/23 [Rx] Rosuvastatin [Crestor] 20 mg PO DAILY #0 07/31/23 [Rx] Magnesium Oxide [Mag-Ox] 400 mg PO DAILY #30 tablet 08/07/23 [Rx] Follow up Appointment(s)/Referral(s): Fabio Medeiros DO [STAFF PHYSICIAN] - 1 Week Jaswant Witt DO [Primary Care Provider] - 1-2 days Activity/Diet/Wound Care/Special Instructions: Please obtain a referral for headache Neurologist from your PCP. Discharge Disposition: HOME SELF-CARE
--- NOTE | 2023-08-07 12:33 | CT ---
EXAMINATION TYPE: CT angio head neck CT DLP: 562.8 mGycm, Automated exposure control for dose reduction was used. DATE OF EXAM: 08/06/2023 12:16 PM COMPARISON: 07/29/2023. CLINICAL INDICATION:Female, 67 years old with history of headache. 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 Axi al images are supplemented with 3D reconstructions and MIP images which were post-processed at an in dependent workstation. NASCET criteria used. Contrast used:65 mL of Isovue 370 with IV Contrast, Oral contrast used: None. FINDINGS: CTA HEAD: No evidence of acute intracranial hemorrhage, mass effect, or midline shift. The ventricles, sulci, a nd cisterns are unremarkable. The visualized portions of the internal carotid arteries, middle cerebral arteries, anterior cerebral arteries, and posterior cerebral arteries are patent. Atherosclerosis of the intracranial internal c arotid arteries without significant narrowing. The basilar and vertebral arteries are patent. CTA NECK: Right Carotid System: The common carotid and external carotid arteries are patent. There is less than 25% stenosis at the c arotid bifurcation secondary to calcified/noncalcified plaque. The rest of the internal carotid arter y is patent. Left Carotid System: The common carotid and external carotid arteries are patent. There is less than 50% stenosis at the c arotid bifurcation secondary to calcified/noncalcified plaque. The rest of the internal carotid arter y is patent. Vertebral arteries are patent without evidence hemodynamically significant stenosis. There is a three-vessel aortic arch. The origins of the great vessels are patent. No evidence of hemo dynamically significant stenosis. Post surgical changes the spine with hardware at C4-C5 and C6 with fusion of the vertebral bodies. IMPRESSION: No change from 07/29/2023. 1. No evidence of dissection of the cervical internal carotid arteries or vertebral arteries or any e vidence of significant stenosis at the carotid bifurcations. 2. No evidence of intracranial high-grade stenosis or intracranial aneurysm.
[2023-08-07 13:09] VITALS: PULSE 81
[2023-08-07] MEDS: ASPIRIN 81 MG PO SCH (14:02)
--- NOTE | 2023-08-07 15:14 | P.PN ---
Subjective Progress Note Date: 08/07/23 I am following with patient and is accompanied with her and an interpretor. She feels headache is improving today compared to past several days. Feels headache is 5/10. Denies any new neurological issues. Objective - Vital Signs Vital signs: Vital Signs Temp 97.7 F 08/07/23 07:31 Pulse 81 08/07/23 12:36 Resp 16 08/07/23 07:31 BP 132/70 08/07/23 07:31 Pulse Ox 96 08/07/23 07:31 FiO2 28 08/06/23 01:18 Intake & Output 08/06/23 08/07/23 08/07/23 18:59 06:59 18:59 Intake Total 100 Balance 100 Intake: Intake, IV Titration 100 Amount Magnesium Sulfate-D5w Pmx 100 1 gm In Dextrose/Water 1 100ml.bag @ 100 mls/hr IVPB ONCE ONE Rx#: [id number] Other: Voiding Method Toilet Toilet # Voids 2 6 - Exam General: Sitting up in a bed and is in mild acute distress. Neuro: Is being assisted with her woods superintendent since is deaf. Patient is awake alert oriented to self place and time. Follows simple commands. She is deaf. Pupils are round equal reactive to light. Visual stokes are full to confrontation. Extraocular movement intact no nystagmus.. Tongue is midline with side to side without difficulty Motor: Gait is slightly unsteady making turns but not requiring assistance. strength is 5 out of 5 throughout Sensation is normal to touch throughout - Labs CBC & Chem 7: 08/07/23 08:19 08/07/23 08:19 Labs: Abnormal Lab Results - Last 24 Hours (Table) 08/06/23 08/06/23 08/06/23 Range/Units 07:07 16:57 17:05 WBC (3.8-10.6) k/uL MCHC (31.0-37.0) g/dL Neutrophils # (1.3-7.7) k/uL Neutrophils # (Manual) 7.91 H (1.80-7.70) X 10*3/uL Lymphocytes # (1.0-4.8) k/uL Carbon Dioxide (22-30) mmol/L BUN (7-17) mg/dL Glucose (74-99) mg/dL POC Glucose (mg/dL) 123 H (70-110) mg/dL Magnesium (1.6-2.3) mg/dL CSF Glucose 82 H (40-70) mg/dL 08/06/23 08/07/23 08/07/23 Range/Units 21:15 06:16 08:19 WBC 14.8 H (3.8-10.6) k/uL MCHC 30.4 L (31.0-37.0) g/dL Neutrophils # 8.0 H (1.3-7.7) k/uL Neutrophils # (Manual) (1.80-7.70) X 10*3/uL Lymphocytes # 5.8 H (1.0-4.8) k/uL Carbon Dioxide (22-30) mmol/L BUN (7-17) mg/dL Glucose (74-99) mg/dL POC Glucose (mg/dL) 157 H 122 H (70-110) mg/dL Magnesium (1.6-2.3) mg/dL CSF Glucose (40-70) mg/dL 08/07/23 08/07/23 Range/Units 08:19 08:19 WBC (3.8-10.6) k/uL MCHC (31.0-37.0) g/dL Neutrophils # (1.3-7.7) k/uL Neutrophils # (Manual) (1.80-7.70) X 10*3/uL Lymphocytes # (1.0-4.8) k/uL Carbon Dioxide 33 H (22-30) mmol/L BUN 20 H (7-17) mg/dL Glucose 167 H (74-99) mg/dL POC Glucose (mg/dL) (70-110) mg/dL Magnesium 2.4 H (1.6-2.3) mg/dL CSF Glucose (40-70) mg/dL Microbiology - Last 24 Hours (Table) 08/06/23 17:00 CSF Gram Stain - Preliminary Cerebral Spinal Fluid Assessment and Plan Assessment: This is a 67-year-old woman who presents to the hospital because of the headache for the past close to 1 week over the right temporal frontal region. She also feels her cheeks are puffed left more than right. * Patient has presented with similar symptoms 3 times in the past and each time her MRI of the brain has been negative. Current MRI of the brain also negative for any acute stroke. * New onset headache, involving the frontal, right temporal parietal and occipital region. Exact cause uncertain. Blood pressure is well-controlled. No obvious sinus disease noted on CT/MRI. Patient denies excessive caffeine intake. Patient's ESR was minimally elevated 39, Biopsy rule out active temporal arteritis. Neurosarcoidosis on MRI seems unlikely---headache is improving * Minimal unsteady gait sensation for past couple days * History of sarcoidosis, currently in remission. She used to be on high-dose steroids in the past. 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 * Type 2 diabetes * History of glaucoma suspect * Hearing impaired uses sign language * Hypertension * Hypothyroidism Plan: Patient's workup has come back negative including MRI of the brain, echo and CTA. No evidence of acute stroke. Her left facial numbness, left facial swelling, and right sided headache and right blurred vision is of unclear cause. Ophthamology evaluated patient and felt she had dry eyes. her ESR was 39 and CRP 1.7 on 07/26/2023. MRI Brain w/ Osorio: It is reported as moderate multifocal nonspecific white matter changes most likely reflecting chronic ischemic white matter changes. The possibility of sarcoid changes felt to be less likely but not excluded. No mass effect or shift of midline structures. Repeat ESR 29, B12 449, MASON level: 31 (normal), folate is 40. On prednisone 60 mg daily empirically for now. Watch blood sugars closely. Will discontinue steroids since no evidence of vasculitis. Had right temporal artery biopsy on 08/03/2023 and no active vasculitis. Hepatitis panel is nonreactive. ЕКАТЕРИНА: anti-dsDNA , SSA, SSB, cANCA and p-ANCA, RF, Lyme, syphilis are negative. HIV is nonreactive. Complement 3 is normal. VZV is negative. HSV1/2 PCR is not detected. Also complent 4 is pending. CSF study on 08/06/2023: Opening pressure is 22cm H2O, clear, colorless, rbc 0, nucleated cell 2, glucose is 82 (40-70), protein is 43. The glucose is slightly elevated and possible due to her receiving steroid. I stopped Fioricet since it can cause vasoconstriction to avoid any stroke. Will given another magnesium sulfate 1 mg once IV to help with the headache. Today is third day and feels there is improvement after this regimen. Will discharge patient with Magnesium 500mg bid. For her unsteady gait for past few days, ordered MRI C-spine and thoracic spine w/ and w/o: There is no acute process. No suspicious for sarcoidosis within the cervical or thoracic Repeat CTA of head and neck is reported as no change from 07/29/2023. No significant stenosis or aneurysm. MRI of the brain without contrast, revealed no evidence of intracranial mass, hemorrhage or acute/subacute infarct. Mild to moderate atrophy. Nonspecific white matter changes, likely secondary to chronic microvascular ischemic change. I personally reviewed MRI, agree with the findings. 2-D echo revealed left ventricular EF is estimated 50 to 55%. No obvious regional wall motion abnormalities. No significant valvular dysfunction. Normal left atrial size. CTA head and neck showed: Patent intracranial circulation. No dissection, hemodynamically significant stenosis or occlusion in the neck. Fasting a.m. lipid panel cholesterol 136, LDL 45, HDL 46 and triglycerides 232. Continue Lipitor 20 mg daily. Patient at home on Crestor 10 mg daily. Hemoglobin A1c 7.8. Recommend optimize control of diabetes to target A1c <7.0. Blood pressure is well-controlled. On Plavix 75 mg daily and per Dr. Austin he recommended to resume ASA 81mg daily. She states she is on ASA for her heart and Plavix for stroke. Will resume both. Recommend to follow-up with neurologist for further recommendation of antiplatelets. Telemetry monitoring rule out any arrhythmia Upon discharge, recommend the patient to follow-up with headache specialist as outpatient but in mean time until obtain appointment to follow-up with general neurologist. The plan is discussed with patient and her using help of woods superintendent. Also discussed plan with primary team and her nurse. There is no further neurological work-up. Patient is clear from neurological perspective. Time with Patient: Less than 30
[2023-08-09 15:05] LABS: IgG - CSF 0.8 mg/dL (0.0 - 3.4); IgG/Albumin Index (CSF) 0.44 (0.00 - 0.77); Immunoglobulin G 437 mg/dL (700 - 1600)
[2023-08-09] MEDS ORDERED: CLOPIDOGREL 75 MG TAB PO SCH (21:00)
== END 2023-08-07 14:26 | disposition home or self-care (01) | DRG 517 ==
LOC: EC 22:27 → 3SCARD 07-30 00:31 → 4SSUR 08-04 18:35
PROVIDERS: ADMIT Internal Medicine; ATTEND Internal Medicine
PROC: 03BS0ZX Excision of Right Temporal Artery, Open Approach, Diagnostic (ICD-10-PCS; principal; 2023-08-03 07:30)
DX: M31.6 Other giant cell arteritis (principal); H91.90 Unspecified hearing loss, unspecified ear; E11.9 Type 2 diabetes mellitus without complications; E03.9 Hypothyroidism, unspecified; Z79.890 Hormone replacement therapy; I10 Essential (primary) hypertension; H53.8 Other visual disturbances; R53.1 Weakness; R68.84 Jaw pain; H40.9 Unspecified glaucoma; Z96.1 Presence of intraocular lens; Z79.4 Long term (current) use of insulin; Z79.899 Other long term (current) drug therapy; D72.829 Elevated white blood cell count, unspecified; T38.0X5A Adverse effect of glucocorticoids and synthetic analogues, initial encounter; X58.XXXA Exposure to other specified factors, initial encounter; D86.0 Sarcoidosis of lung; D86.89 Sarcoidosis of other sites; I07.1 Rheumatic tricuspid insufficiency; E78.5 Hyperlipidemia, unspecified; G89.29 Other chronic pain; I25.10 Atherosclerotic heart disease of native coronary artery without angina pectoris; K59.00 Constipation, unspecified; J44.89 Other specified chronic obstructive pulmonary disease; L68.9 Hypertrichosis, unspecified; M19.90 Unspecified osteoarthritis, unspecified site; M32.9 Systemic lupus erythematosus, unspecified; R29.810 Facial weakness; Z79.02 Long term (current) use of antithrombotics/antiplatelets; Z79.1 Long term (current) use of non-steroidal anti-inflammatories (NSAID); Z79.82 Long term (current) use of aspirin; Z79.84 Long term (current) use of oral hypoglycemic drugs; Z86.61 Personal history of infections of the central nervous system; Z86.73 Personal history of transient ischemic attack (TIA), and cerebral infarction without residual deficits; Z90.710 Acquired absence of both cervix and uterus; Z95.5 Presence of coronary angioplasty implant and graft; Z96.641 Presence of right artificial hip joint; Z82.49 Family history of ischemic heart disease and other diseases of the circulatory system; Z98.42 Cataract extraction status, left eye; Z98.41 Cataract extraction status, right eye
CPT/HCPCS: 36415; 70450; 70496; 70498; 70551; 70552; 72156; 72157; 80048; 80053; 80061; 80074; 82040; 82042; 82164; 82550; 82607; 82746; 82784; 82945; 83036; 83735; 83873; 83916; 84157; 84484; 85025; 85610; 85652; 85730; 86038; 86140; 86160; 86225; 86235; 86255; 86431; 86618; 86780; 87070; 87205; 87390; 87529; 87798; 88305; 89050; 93005; 93306; 94640; 94760; 96361; 96374; 99291

== ENCOUNTER → 2023-08-17 | Outpatient (CLI) | payer MEDICARE, BC ==
--- NOTE | 2023-08-17 11:28 | XR ---
EXAMINATION TYPE: XR foot complete LT DATE OF EXAM: 08/17/2023 COMPARISON: NONE HISTORY: Pain TECHNIQUE: Three views are submitted. FINDINGS: Mild first MTP joint arthropathy. There is mild first tarsometatarsal joint arthropathy and a subtle hallux valgus deformity. Mild DIP joint arthropathy of all digits and there is a subtle hammertoe def ormity of the fifth digit. Soft tissue ossification or calcifications noted. There is a small spur involving the Achilles insert ion. Tiny bony densities adjacent to the cuboid and fifth metatarsal. Bone island noted within the ta mike. IMPRESSION: 1. There are tiny bony densities too small to characterize adjacent to the cuboid and fifth metatarsa l on the lateral margin of the foot. Correlate with point tenderness to exclude tiny chip fracture.
== END | disposition home or self-care (01) ==
LOC: RADXRYALE 10:52
PROVIDERS: ATTEND Family Medicine
DX: M79.672 Pain in left foot (principal); M85.9 Disorder of bone density and structure, unspecified

== ENCOUNTER → 2023-10-01 | Outpatient (CLI) | payer MEDICARE, BC ==
[2023-10-01 15:00] LABS: Basophils # (A) 0.05 X 10*3/uL (0.00-0.10); Basophils % (A) 0.6 %; Eosinophils # (A) 0.35 X 10*3/uL (0.04-0.35); Eosinophils % (A) 4.1 %; HCT 41.3 % (37.2-46.3); HGB 12.8 g/dL (12.0-15.0); Lymphocytes # (A) 3.05 X 10*3/uL (0.90-5.00); MCH 28.1 pg (27.0-32.0); MCV 90.8 FL (80.0-97.0); Monocytes % (A) 5.9 %; NRBC Per 100 WBC 0 X 10*3/uL (0.00-0.01); Neutrophils # (A) 4.49 X 10*3/uL (1.80-7.70); Platelet Count 196 X 10*3/uL (140-440); RBC 4.55 X 10*6/uL (4.10-5.20); RDW 16.5 % (11.5-14.5); WBC 8.47 X 10*3/uL (4.50-10.00)
[2023-10-01 15:31] LABS: ALT 23 U/L (8-44); AST 22 U/L (13-35); Albumin 4.6 g/dL (3.8-4.9); Albumin/Globulin Ratio 2.42 Ratio (1.60-3.17); Alkaline Phosphatase 127 U/L (41-126); BUN/Creat Ratio 22.78 Ratio (12.00-20.00); Blood Urea Nitrogen 20.5 mg/dL (9.0-27.0); Calcium 9.8 mg/dL (8.7-10.3); Carbon Dioxide 31.2 mmol/L (21.6-31.8); Chloride 97 mmol/L (96-109); Chol/HDL Ratio 3.29 Ratio; Creatine Kinase 102 U/L (26-186); Globulin 1.9 g/dL (1.6-3.3); Glucose 153 mg/dL (70-110); LDL Cholesterol,Calculated 39.2 mg/dL (0.0-131.0); Potassium 4.4 mmol/L (3.5-5.5); Sodium 142 mmol/L (135-145); Total Bilirubin <0.2 mg/dL (0.3-1.2); Total Protein 6.5 g/dL (6.2-8.2)
[2023-10-01 19:22] LABS: Microalbumin Creatinine Ratio <11 mg/g Cr (0-30)
== END | disposition home or self-care (01) ==
LOC: LABWHC1 09:02
PROVIDERS: ATTEND Family Medicine
DX: I12.9 Hypertensive chronic kidney disease with stage 1 through stage 4 chronic kidney disease, or unspecified chronic kidney disease (principal); J84.89 Other specified interstitial pulmonary diseases; E78.2 Mixed hyperlipidemia; E03.9 Hypothyroidism, unspecified; E11.65 Type 2 diabetes mellitus with hyperglycemia; E11.22 Type 2 diabetes mellitus with diabetic chronic kidney disease; N18.9 Chronic kidney disease, unspecified; R82.90 Unspecified abnormal findings in urine; Z79.4 Long term (current) use of insulin
CPT/HCPCS: 36415; 80053; 80061; 82043; 82306; 82550; 82570; 84443; 85025; 87086

== ENCOUNTER → 2023-11-10 | Outpatient (CLI) | payer MEDICARE, BC ==
--- NOTE | 2023-11-10 12:16 | XR ---
EXAMINATION TYPE: XR foot complete LT DATE OF EXAM: 11/10/2023 COMPARISON: NONE HISTORY: 08/17/2023 TECHNIQUE: Three views are submitted. FINDINGS: The osseous structures are intact. There is no acute fracture or dislocation. Mild first and AP gregory int arthropathy. No erosive changes. Generalized demineralization. Tiny bony density adjacent to the head and base of the fifth metatarsal appears chronic and stable compared to prior. Calcaneal spur no laura. Vascular calcification. IMPRESSION: 1. No acute fracture.
== END | disposition home or self-care (01) ==
LOC: RADXRYALE 11:52
PROVIDERS: ATTEND Physician Assistant Medical
DX: M79.672 Pain in left foot (principal)

== ENCOUNTER 2023-11-12 04:16 | Emergency (ER) | payer MEDICARE, BC ==
[2023-11-12 04:23] VITALS: TEMP 98
[2023-11-12] MEDS: MORPHINE SULFATE 4 MG/ML SYRINGE IVP STA (04:59)
[2023-11-12] MEDS: SODIUM CHLORIDE 0.9% 500 ML 500 ML IV STA (04:59)
[2023-11-12] MEDS: ONDANSETRON 4 MG/2 ML VIAL IVP STA (05:05)
[2023-11-12 05:23] LABS: Basophils # (A) 0.1 k/uL (0-0.2); Basophils % (A) 1 %; Eosinophils # (A) 0.4 k/uL (0-0.7); Eosinophils % (A) 3 %; HCT 40.9 % (34.0-46.0); HGB 13.6 gm/dL (11.4-16.0); Lymphocytes # (A) 2.4 k/uL (1.0-4.8); Lymphocytes % (A) 22 %; MCH 29.8 pg (25.0-35.0); MCHC 33.1 g/dL (31.0-37.0); MCV 89.8 fL (80.0-100.0); Mean Platelet Volume 9.1; Monocytes # (A) 0.5 k/uL (0-1.0); Monocytes % (A) 5 %; Neutrophils # (A) 7.3 k/uL (1.3-7.7); Neutrophils % (A) 67 %; Platelet Count 200 k/uL (150-450); RBC 4.55 m/uL (3.80-5.40); WBC 10.8 k/uL (3.8-10.6)
[2023-11-12 05:33] LABS: ALT 28 U/L (4-34); AST 43 U/L (14-36); African American GFR (CKD) >90 (>60 ml/min/1.73 sqM); Albumin 4.4 g/dL (3.5-5.0); Alcohol <10 mg/dL; Alkaline Phosphatase 132 U/L (38-126); Anion Gap 6 mmol/L; Blood Urea Nitrogen 20 mg/dL (7-17); Calcium 9.2 mg/dL (8.4-10.2); Carbon Dioxide 33 mmol/L (22-30); Chloride 97 mmol/L (98-107); Glucose 212 mg/dL (74-99); Non-African American GFR(CKD) 81 (>60 ml/min/1.73 sqM); Sodium 136 mmol/L (137-145); Total Bilirubin 0.5 mg/dL (0.2-1.3); Total Protein 6.6 g/dL (6.3-8.2)
[2023-11-12 05:40] LABS: INR 0.8 (<1.2); Prothrombin Time 9.5 sec (10.0-12.5)
[2023-11-12 06:09] LABS: Potassium 4.6 mmol/L (3.5-5.1)
[2023-11-12 06:27] LABS: Appearance,Urine Clear (Clear); Bacteria,Urine Rare /hpf; Bilirubin,Urine Negative (Negative); Blood,Urine Negative (Negative); Color,Urine Colorless; Glucose,Urine (UA) 4+ (Negative); Hyaline Casts,Urine 1 /lpf (0-2); Ketones,Urine Negative (Negative); Leukocyte Esterase,Urine Moderate (Negative); Mucus,Urine Rare /hpf; Nitrite,Urine Negative (Negative); Protein,Urine Negative (Negative); RBC,Urine 1 /hpf (0-5); Specific Gravity,Urine 1.014 (1.001-1.035); Squamous Epithelial Cell,Urine 1 /hpf (0-4); Urobilinogen,Urine <2.0 mg/dL (<2.0); WBC,Urine 13 /hpf (0-5)
--- NOTE | 2023-11-12 06:30 | XR ---
EXAM: XR Pelvis, 1 or 2 Views CLINICAL HISTORY: ITS.REASON XR Reason: Trauma TECHNIQUE: Frontal view of the pelvis. COMPARISON: No relevant prior studies available. FINDINGS: Limitations: Underpenetrated technique limit evaluation. Bones/joints: Status post bilateral hip arthroplasty. No dislocation. No gross displaced fracture. Soft tissues: Unremarkable. IMPRESSION: 1. No gross displaced fracture on this single frontal view. 2. Status post bilateral hip arthroplasty
[2023-11-12 06:32] LABS: Amphetamine Screen,Urine Not Detected (NotDetected); Barbiturate Screen,Urine Not Detected (NotDetected); Benzodiazepines Screen,Urine Not Detected (NotDetected); Cocaine Screen,Urine Not Detected (NotDetected); Methadone Screen, Urine Not Detected (NotDetected); Opiate Screen,Urine Detected (NotDetected); Oxycodone Screen, Urine Detected (NotDetected); Phencyclidine Screen,Urine Not Detected (NotDetected); Tricyclic Antidepressant,Urine Not Detected (NotDetected); Urn Cannabinoid Scrn Not Detected (NotDetected)
--- NOTE | 2023-11-12 07:01 | XR ---
EXAM: XR Chest, 1 View CLINICAL HISTORY: ITS.REASON XR Reason: trauma TECHNIQUE: Frontal view of the chest. COMPARISON: 06/13/23 FINDINGS: Lungs: No dense consolidation. Pleural space: Unremarkable. No pneumothorax. Heart: Cardiovascular silhouette, upper limits of normal. This is likely accentuated by low lung volume. Mediastinum: Unremarkable. Normal mediastinal contour. Bones/joints: Widened right acromioclavicular distance, unchanged and likely chronic. No acute fracture. IMPRESSION: 1. No gross acute pulmonary disease. 2. Low lung volume.
--- NOTE | 2023-11-12 07:03 | XR ---
EXAM: XR Left Shoulder Complete, 2 or More Views CLINICAL HISTORY: ITS.REASON XR Reason: fall, pain TECHNIQUE: Two or more views of the left shoulder. COMPARISON: No relevant prior studies available. FINDINGS: Bones/joints: Degenerative change about the acromioclavicular joint. Transscapular Y view is suboptimal due to underpenetrated technique. No dislocation. No displaced fracture. Soft tissues: Unremarkable. IMPRESSION: 1. No gross acute bony abnormality. 2. Further management based on clinical findings
--- NOTE | 2023-11-12 07:20 | XR ---
EXAM: XR Left Foot Complete, 3 or More Views CLINICAL HISTORY: ITS.REASON XR Reason: fall, pain TECHNIQUE: Frontal, and lateral views of the left foot. COMPARISON: No relevant prior studies available. FINDINGS: Bones/joints: Narrowing of the first MTP joint. No dislocation. No gross displaced fracture. Mild diffuse demineralization of the bones which limited evaluation. Soft tissues: Unremarkable. No radiopaque foreign body. IMPRESSION: 1. No gross acute bony abnormality. 2. If symptoms persist, consider further evaluation with MR to exclude occult injury.
--- NOTE | 2023-11-12 07:21 | XR ---
EXAM: XR Left Knee, 3 Views CLINICAL HISTORY: ITS.REASON XR Reason: fall, pain TECHNIQUE: Three views of the left knee. COMPARISON: No relevant prior studies available. FINDINGS: Bones/joints: Unremarkable. No acute fracture. No dislocation. Soft tissues: Unremarkable. IMPRESSION: No acute bony abnormality.
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
--- NOTE | 2023-11-12 07:34 | CT ---
EXAM: CT Head Without Intravenous Contrast CLINICAL HISTORY: ITS.REASON CT Reason: trauma TECHNIQUE: Axial computed tomography images of the head/brain without intravenous contrast. CTDI is 15 mGy and DLP is 500 mGy-cm. This CT exam was performed using one or more of the following dose reduction techniques: automated exposure control, adjustment of the mA and/or kV according to patient size, and/or use of iterative reconstruction technique. COMPARISON: 07/29/23 FINDINGS: Brain: Unremarkable. No significant white matter disease. No acute intracranial hemorrhage or mass effect. Ventricles: Unremarkable. No ventriculomegaly. Bones/joints: Unremarkable. No acute fracture. Soft tissues: Unremarkable. Sinuses: Unremarkable as visualized. No acute sinusitis. Mastoid air cells: Unremarkable as visualized. No mastoid effusion. Other findings: Mild atrophy. IMPRESSION: 1. No acute intracranial abnormality. 2. Mild atrophy. EXAM: CT Cervical Spine Without Intravenous Contrast CLINICAL HISTORY: ITS.REASON CT Reason: trauma TECHNIQUE: Axial computed tomography images of the cervical spine without intravenous contrast. CTDI is 10.8 mGy and DLP is 218.6 mGy-cm. This CT exam was performed using one or more of the following dose reduction techniques: automated exposure control, adjustment of the mA and/or kV according to patient size, and/or use of iterative reconstruction technique. COMPARISON: 07/26/23 FINDINGS: Vertebrae: Straightening of the normal cervical lordosis which may reflect postsurgical change or spasm. Mild anterior displacement of C3 with respect to C4 likely degenerative change. This is stable. Discs/spinal canal/neural foramina: Plate and screws anterior to C4-C6 status post discectomy and fusion. This is unchanged. Degenerative endplate changes at multiple levels in the cervical spine, again seen. Soft tissues: Unremarkable. IMPRESSION: 1. No acute bony abnormality. Stable exam. 2. Status post anterior discectomy and fusion at C4-C6. 3. Degenerative changes
--- NOTE | 2023-11-12 07:44 | CT ---
EXAMINATION TYPE: CT facial bones wo con DATE OF EXAM: 11/12/2023 COMPARISON: None HISTORY: 67-year-old female pain after FALL TECHNIQUE: Contiguous axial scanning of the facial bones without IV contrast. Coronal and sagittal reconstructions performed. CT DLP: 569.3 mGycm Automated exposure control for dose reduction was used. FINDINGS: We note screws near the angle of the mandible on both sides. Otherwise, mandible and TMJs are intact. Pterygoid plates and zygomatic arches are intact. Facial bones, nasal bones, as well as the orbits and globes appear intact. Leftward nasal septal emeka ation. Paranasal sinuses well pneumatized. IMPRESSION: NO ACUTE FACIAL BONE FRACTURE SEEN. SOME FIXATION SCREWS NOTED ON EITHER SIDE AT THE MANDIBULAR ANGLE .
--- NOTE | 2023-11-12 07:49 | CT ---
EXAMINATION TYPE: CT thoracic spine wo con DATE OF EXAM: 11/12/2023 COMPARISON: None HISTORY: 67-year-old female with pain after FALL TECHNIQUE: Contiguous axial scanning of the thoracic spine without IV contrast. Coronal and sagittal reconstructions performed. CT DLP: 1941 mGycm Automated exposure control for dose reduction was used. FINDINGS: Moderate to advanced assessment with degenerative change C7-T1 and T1-T2. Mild degenerative disc dise ase elsewhere throughout the thoracic spine. Scattered mild to moderate facet arthropathy. Trace grade 1 anterolisthesis at T2-T3. Remaining alignment is maintained. Vertebral body heights are preserved. By CT, no evident canal compromise is seen. Incidental mosaic attenuation throughout the lungs suggests small airways disease. IMPRESSION: 1. MODERATE SPONDYLOTIC CHANGE CERVICOTHORACIC JUNCTION AND UPPER THORACIC SPINE. DEGENERATIVE GRADE 1 ANTEROLISTHESIS T2-T3. 2. MILD DEGENERATIVE CHANGES ELSEWHERE IN THE THORACIC SPINE. NO VERTEBRAL COMPRESSION COLLAPSE OR MA LALIGNMENT.
[2023-11-12 08:08] VITALS: BP 132/72; PULSE 66; RESP 17
[2023-11-12] MEDS: DEXAMETHASONE SOD PHOSPHATE 4 MG/ML 1 ML VIAL IVP STA (08:09)
== END 2023-11-12 08:34 | disposition home or self-care (01) ==
LOC: EC 04:16
DX: S46.019A Strain of muscle(s) and tendon(s) of the rotator cuff of unspecified shoulder, initial encounter (principal); R07.89 Other chest pain; Z88.6 Allergy status to analgesic agent; Z88.1 Allergy status to other antibiotic agents; Z88.8 Allergy status to other drugs, medicaments and biological substances; Z90.49 Acquired absence of other specified parts of digestive tract; Z91.048 Other nonmedicinal substance allergy status; Z91.013 Allergy to seafood; W19.XXXA Unspecified fall, initial encounter
CPT/HCPCS: 36415; 93005; 80053; 84484; 85025; 85610; 85730; 81001; 80306; 72170; 73020; 73560; 73620; 71045; 72128; 72125; 70486; 70450; 99285; 96374; 96375 ×2; 96361 ×2; G0480; J2270; J1100; J2405; 80320

== ENCOUNTER 2023-12-19 14:58 | Emergency (ER) | payer MEDICARE, BC | END 2023-12-19 16:00 | disposition left against medical advice (07) | LOC: EC 14:58 | DX: Z53.21 Procedure and treatment not carried out due to patient leaving prior to being seen by health care provider (principal) | CPT/HCPCS: 99499 ==

== ENCOUNTER → 2024-02-08 | Outpatient (CLI) | payer MEDICARE, BC ==
[2024-02-08 14:01] LABS: INR 0.9 (<1.2); Partial Thromboplastin Time 23.1 sec (22.0-30.0)
--- NOTE | 2024-02-08 16:57 | XR ---
EXAMINATION TYPE: XR chest 2V DATE OF EXAM: 02/08/2024 1:50 PM CLINICAL INDICATION: Female, 68 years old with history of Z01.818 PRE OP; COMPARISON: Chest radiographs from 11/12/2023 TECHNIQUE: XR chest 2V Frontal view of the chest. FINDINGS: Lungs/Pleura: There is no evidence of pleural effusion, focal consolidation, or pneumothorax. Pulmonary vascularity: Unremarkable. Heart/mediastinum: Cardiomediastinal silhouette is unremarkable. Musculoskeletal: No acute osseous pathology. IMPRESSION: No acute cardiopulmonary disease/process. [facility], , 02/08/2024 4:54 PM
[2024-02-08 20:29] LABS: Appearance,Urine Clear (Clear); Bilirubin,Urine Negative (Negative); Blood,Urine Negative (Negative); Color,Urine Yellow (Yellow); Ketones,Urine Negative (Negative); Nitrite,Urine Negative (Negative); Specific Gravity,Urine 1.011 (1.001-1.030); Urobilinogen,Urine 0.2 E.U./DL
[2024-02-08 20:38] LABS: Basophils # (A) 0.06 X 10*3/uL (0.00-0.10); Basophils % (A) 0.6 %; Eosinophils # (A) 0.29 X 10*3/uL (0.04-0.35); Eosinophils % (A) 2.8 %; HCT 40.9 % (37.2-46.3); HGB 13.2 g/dL (12.0-15.0); Lymphocytes # (A) 2.12 X 10*3/uL (0.90-5.00); Lymphocytes % (A) 20.3 %; MCH 29.1 pg (27.0-32.0); MCHC 32.3 g/dL (32.0-37.0); MCV 90.3 FL (80.0-97.0); Mean Platelet Volume 11.9 FL (9.5-12.2); Monocytes # (A) 0.56 X 10*3/uL (0.20-1.00); Monocytes % (A) 5.4 %; NRBC Per 100 WBC 0 X 10*3/uL (0.00-0.01); Neutrophils # (A) 7.38 X 10*3/uL (1.80-7.70); Neutrophils % (A) 70.4 %; Platelet Count 222 X 10*3/uL (140-440); RBC 4.53 X 10*6/uL (4.10-5.20); RDW 14.2 % (11.5-14.5); WBC 10.46 X 10*3/uL (4.50-10.00)
[2024-02-08 21:19] LABS: BUN/Creat Ratio 22.33 Ratio (12.00-20.00); Blood Urea Nitrogen 20.1 mg/dL (9.0-27.0); Calcium 9.9 mg/dL (8.7-10.3); Carbon Dioxide 30.4 mmol/L (21.6-31.8); Chloride 96 mmol/L (96-109); Glucose 114 mg/dL (70-110); Potassium 4.5 mmol/L (3.5-5.5); Sodium 141 mmol/L (135-145)
== END | disposition home or self-care (01) ==
LOC: LABPAT 12:33
PROVIDERS: ATTEND Orthopaedic Surgery Orthopaedic Surgery of the Spine
DX: Z01.818 Encounter for other preprocedural examination
CPT/HCPCS: 36415; 71046; 80048; 81003; 85025; 85610; 85730; 86850; 86900; 86901; 87070

== ENCOUNTER 2024-02-16 06:32 | Day surgery (SDC) | payer MEDICARE, BC ==
[~2024-02-16 06:32] MED LIST changes: -LACTATED RINGERS 1,000 ML IV SCH; +LIDOCAINE 1% (10MG/ML) FOR IV START INTRADERMA PRN; +MIDAZOLAM 2 MG/2 ML VIAL IV PRN
[2024-02-16] MEDS: ONDANSETRON 4 MG/2 ML VIAL IVP ONE (07:30)
[2024-02-16] MEDS: LACTATED RINGERS 1,000 ML IV SCH (07:30)
[2024-02-16 07:32] LABS: Glucose,Whole Blood 168 mg/dL (70-110)
[2024-02-16] MEDS: IV FLUID CONTINUATION 1,000 ML IV ONE ×3 (07:33→12:55)
[2024-02-16] MEDS ORDERED: PROPOFOL 10 MG/ML 20 ML VIAL IV ONE (07:40)
[2024-02-16] MEDS ORDERED: fentaNYL (PF) 50 MCG/ML 2 ML AMP ONE (07:40)
[2024-02-16] MEDS ORDERED: LIDOCAINE 1% INJ 10MG/ML (20 ML MDV) ONE (07:40)
[2024-02-16] MEDS ORDERED: ROCURONIUM 10 MG/ML (5 ML VIAL) IV ONE (07:40)
[2024-02-16] MEDS ORDERED: NEOSTIGMINE 1 MG/ML 10 ML VIAL ONE (07:40)
[2024-02-16] MEDS ORDERED: PHENYLEPHRINE-0.9% NACL SYG 1,000 MCG/10 ML SYRINGE ONE (07:40)
[2024-02-16] MEDS ORDERED: GLYCOPYRROLATE 0.2 MG/ML 2 ML VIAL ONE (07:40)
[2024-02-16] MEDS ORDERED: ACETAMINOPHEN IV (For NPO) 1,000 MG/100 ML VIAL ONE (07:40)
[2024-02-16] MEDS ORDERED: DEXAMETHASONE SOD PHOSPHATE 10 MG/ML 1 ML VIAL ONE (07:40)
[2024-02-16] MEDS: ceFAZolin 1,000 MG in SODIUM CHLORIDE 0.9% IRRIGATIO 1,000 ML IRRIGATION PRN (07:40)
[2024-02-16] MEDS: LIDOCAINE 2% (PF) 20 MG/ML 10 ML AMP SQ ONE (08:06)
[2024-02-16] MEDS: BUPIVACAINE (PF) 0.25% 30 ML VIAL SQ ONE (08:06)
[2024-02-16] MEDS: LIDOCAINE 1% INJ 10MG/ML (10 ML MDV) SQ ONE (08:06)
--- NOTE | 2024-02-16 09:46 | P.OP ---
Date of Procedure: 02/16/24 Preoperative Diagnosis: Spinal stenosis C6-7, herniated close pulposis C6-7, right upper extremity colopathy, history of prior anterior cervical fusion C4-5-6 with retained hardware, degenerative disc disease C6-7 Postoperative Diagnosis: Same Anesthesia: GETA Pathology: none sent Condition: stable Disposition: PACU Description of Procedure: BRIEF OPERATIVE NOTE Preoperative Diagnosis:Spinal stenosis C6-7, herniated close pulposis C6-7, right upper extremity colopathy, history of prior anterior cervical fusion C4-5-6 with retained hardware, degenerative disc disease C6-7 Postoperative Diagnosis:Spinal stenosis C6-7, herniated close pulposis C6-7, right upper extremity colopathy, history of prior anterior cervical fusion C4-5-6 with retained hardware, degenerative disc disease C6-7 Procedure: Anterior cervical decompression with discectomy and fusion C6-7 Placement of interbody stand-alone peek graft C6-7 Use of local autogenous bone graft C6-7 Surgeon: Dr. Fajardo [employer] Officer: Davy MCCRARY who is present throughout the entire the case persistence during positioning, dissection, exposure, visualization, and all crucial elements of the case as well as closure. Anesthesia: General anesthesia per Dr. Price Estimated blood loss: Approximately 75 cc Complications: None apparent Components implanted: Stand-alone 6 mm Crowley anterior cervical graft with local autogenous bone graft and DBX bone putty with 212 mm screws Disposition: To recovery room in good stable condition. OPERATIVE INDICATIONS The patient has had long history of issues in their neck and upper extremities. Many years ago she had been through anterior cervical decompression with discectomy and fusion at C4-5 and 6 and had good results with this and was happy with the results. However over the past year she has been having increasing pain at her neck and her upper extremities particular to the right side. She was found to have adjacent level degeneration above and below her prior fusion with a per primary issues and stenosis at C6-7 below her prior fusion. Her findings correlated well with her neck and upper extremity symptoms. The patient has been through conservative treatment. We discussed various treatment options including surgery, and the patient wishes to proceed with surgery We discussed the risk, patient's alternatives and benefits of surgery including but not limited to, risk of bleeding risk of infection, risk of need for further surgery, risk of decreased, loss of motion, muscle function, malunion nonunion, hardware failure, nerve damage, paralysis, heart attack, and . OPERATIVE SUMMARY After discussing all the risks, patient alternatives and benefits at length, the patient elected to proceed with surgical intervention, signed informed consent, and presented for their procedure. The patient was seen and examined in the preoperative holding area and the surgical site was marked. The patient was given antibiotics and brought to the operating room. The patient was positioned on the operating room table in a supine position being careful to pad any bony prominences and pressure points. The patient was sedated and intubated by anesthesia in standard fashion. Once the airway and C- spine were stabilized the patient's arms were padded and tucked at her side, with her shoulders gently taped. The head was placed in a donut pad with the neck in good neutral alignment and position. We were careful to maintain the patient's cervical spine and good neutral alignment and position throughout. The patient was prepped and draped in a normal standard fashion. An appropriate timeout and keystone protocol performed. We were able to proceed with the surgery. The local wound area was infiltrated with local anesthetic. An incision was made transversely approximately 2-1/2 cm over the appropriate levels below her prior incision site on the right over C6-7. Dissection was t aken down subcutaneously to the level of the platysma which was split in line with its fibers. Dissection was taken with a carotid approach, with the trachea and esophagus medial and the carotid sheath laterally. We dissected down to the anterior surface of the vertebral bodies. I was able to easily identify the inferior aspect of the established plate and it was evaluated and found to be stable. There was some bony overgrowth and osteophytic spurring which had to be removed to easily access the disc. Intraoperative x-ray was taken which showed a marker at the appropriate level. With the appropriate level positively confirmed, we were able to proceed with discectomy at the appropriate levels at C6-7. All of the operative levels were exposed appropriately. The patient had all their twitches back, and there was no evidence of recurrent laryngeal issue. The wound was copiously irrigated and suctioned dry as had been done periodically throughout the case. At the appropriate level/levels of C6-7, I established an annulotomy with an 11 blade scalpel. A discectomy was performed with a combination of pituitary rongeurs, curettes, a high-speed bur, and Kerrison rongeurs. There were large posterior osteophytes which were removed as well to help with the decompression centrally and at the bilateral neural foramen the posterior longitudinal ligament was taken down as were any posterior osteophytes. This gave good central and bilateral foraminal decompression. There is no evidence of any dural tear or leak. The endplates were prepared with a high-speed bur. With the endplates in good parallel position, I was able to size for the appropriate size interbody graft. The wound was irrigated and suctioned dry. I chose to use a stand-alone chest peek graft as I was going to be able to see keep the prior hardware intact without having to remove it. The graft was prepared and malleted into position. It had good alignment and position with the anterior surface flush with the anterior surface of the vertebral bodies. With the grafts intact, I was able to use the appropriate insertion jig to establish all holes at C6 and C7 and place screws into the vertebral bodies of C6 and C7 appropriately through the plate and into the graft and into the vertebral bodies with good stability. Imaging was taken which showed good alignment and position with excellent bony purchase. The screws were under the locking device appropriately. The construct was checked and found to be stable. Intraoperative x-ray was taken which showed good alignment and position of the implants at the appropriate levels. There was no evidence of any dural tear or leak. Good hemostasis was maintained. The wound was copiously irrigated and suctioned dry as had been done periodically throughout the case. The platysma was closed with absorbable suture. The subcutaneous tissue was closed. The subcuticular tissue was closed with absorbable suture. The wound was cleaned and dried and dressed appropriately. A soft cervical collar was placed appropriately. The patient was woken up by anesthesia, extubated, transferred back gently to their hospital bed and brought to the recovery room in good stable condition. The patient will be admitted to the hospital for appropriate postoperative care, medical management and monitoring. We will continue to follow them closely about the postoperative course.
[2024-02-16 10:10] LABS: Glucose,Whole Blood 185 mg/dL (70-110)
--- NOTE | 2024-02-16 10:25 | XR ---
EXAMINATION TYPE: XR cervical spine 1V DATE OF EXAM: 02/16/2024 COMPARISON: 06/06/2019 HISTORY: 68-year-old female herniated nucleus pulposus C6-C7, needle placement TECHNIQUE: Single intraoperative crosstable lateral view FINDINGS: The patient is intubated. Patient's C4-C6 ACDF hardware is noted. Metal needle placed just below the ACDF hardware at the anterior C6-C7 level. The patient's shoulders obscure detail in visual ization. IMPRESSION: The patient's shoulders obscure detailed visualization. Metal needle estimated at the anterior C6-C7 level. [facility], , 02/16/2024 10:22 AM
[2024-02-16] MEDS: droPERidol 5 MG/2 ML VIAL IVP ONE (11:07)
[2024-02-16] MEDS: fentaNYL (PF) 50 MCG/ML 2 ML AMP IVP PRN (11:07)
--- NOTE | 2024-02-16 11:12 | XR ---
EXAMINATION TYPE: XR cervical spine 1V DATE OF EXAM: 02/16/2024 COMPARISON: Earlier today HISTORY: 68 year-old female post hardware placement TECHNIQUE: Crosstable intraoperative lateral view FINDINGS AND IMPRESSION: Patient remains intubated. Patient's C4-C6 ACDF is again visualized. The low er portion of the hardware is obscured by the patient's shoulders and overlying leads. There may be e xtension down to the C7 level now. [facility], , 02/16/2024 11:09 AM
[2024-02-16] MEDS ORDERED: BACLOFEN 10 MG TAB PO PRN (12:07)
[2024-02-16] MEDS: SODIUM CHLORIDE 0.9% 1,000 ML IV SCH ×2 (12:46→18:23)
[2024-02-16] MEDS: DEXAMETHASONE SOD PHOSPHATE 4 MG/ML 1 ML VIAL IV ONE (13:32)
[2024-02-16] MEDS ORDERED: LEVALBUTEROL INHALATION PRN (13:48)
[2024-02-16] MEDS ORDERED: DEXTROSE 50% SYRINGE 50 ML IVP PRN ×2 (13:51)
[2024-02-16] MEDS ORDERED: ONDANSETRON 4 MG/2 ML VIAL IVP PRN (15:08)
[2024-02-16] MEDS ORDERED: BENZOCAINE/MENTHOL LOZENG 1 EACH LOZENGE MUCOUS MEM PRN (15:08)
[2024-02-16] MEDS ORDERED: CYCLOBENZAPRINE 10 MG TAB PO PRN (15:08)
[2024-02-16] MEDS: oxyCODONE-APAP 10-325MG 1 EACH TAB PO PRN (15:13)
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
[2024-02-16 16:45] LABS: Glucose,Whole Blood 286 mg/dL (70-110)
[2024-02-16] MEDS: DILTIAZEM 125 MG in SODIUM CHLORIDE 0.9% 100 ML IV SCH (16:47)
[2024-02-16 17:01] LABS: HCT 39.4 % (34.0-46.0); HGB 12.9 gm/dL (11.4-16.0); MCH 29.9 pg (25.0-35.0); MCHC 32.7 g/dL (31.0-37.0); MCV 91.5 fL (80.0-100.0); Mean Platelet Volume 8.6; Platelet Count 214 k/uL (150-450); RBC 4.31 m/uL (3.80-5.40); RDW 13.9 % (11.5-15.5); WBC 14.9 k/uL (3.8-10.6)
[2024-02-16] MEDS: oxyCODONE-APAP 10-325MG 1 EACH TAB PO SCH (17:08)
[2024-02-16 17:13] LABS: African American GFR (CKD) >90 (>60 ml/min/1.73 sqM); Anion Gap 9 mmol/L; Blood Urea Nitrogen 24 mg/dL (7-17); Carbon Dioxide 23 mmol/L (22-30); Chloride 102 mmol/L (98-107); Glucose 289 mg/dL (74-99); Magnesium 1.1 mg/dL (1.6-2.3); Non-African American GFR(CKD) 86 (>60 ml/min/1.73 sqM); Potassium 5.5 mmol/L (3.5-5.1); Sodium 134 mmol/L (137-145)
[2024-02-16] MEDS: BACLOFEN 10 MG TAB PO SCH (17:18)
[2024-02-16] MEDS: DILTIAZEM DRIP BOLUS FROM BAG 1 MG SOLN IV ONE (18:13)
[2024-02-16] MEDS: metFORMIN 500 MG TAB PO SCH (18:21)
[2024-02-16] MEDS: GABAPENTIN 300 MG CAP PO SCH (18:21)
[2024-02-16] MEDS: ACETAMINOPHEN TAB 325 MG TAB PO SCH (18:21)
[2024-02-16] MEDS: MAGNESIUM SULFATE-D5W PMX 1 GM in DEXTROSE/WATER 1 100ML.BAG IVPB SCH (18:21)
[2024-02-16] MEDS: INSULIN ASPART (NovoLOG) 100 UNIT/ML VIAL SQ SCH (18:22)
[2024-02-16 20:10] LABS: Glucose,Whole Blood 306 mg/dL (70-110)
[2024-02-16] MEDS: IPRATROPIUM 0.5 MG/2.5 ML NEBU INHALATION SCH (20:33)
[2024-02-16] MEDS: BUDESONIDE 0.5 MG/2 ML NEBU INHALATION SCH (20:33)
[2024-02-16 21:33] VITALS: RESP 18
[2024-02-16] MEDS: amLODIPine 5 MG TAB PO SCH (21:40)
[2024-02-16] MEDS: allopurinoL 100 MG TAB PO SCH (21:40)
[2024-02-16] MEDS: CLOPIDOGREL 75 MG TAB PO SCH (21:40)
[2024-02-16] MEDS: METOPROLOL TARTRATE 25 MG TAB PO SCH (21:41)
[2024-02-16] MEDS: FAMOTIDINE 20 MG TAB PO SCH (21:41)
[2024-02-16] MEDS: BUMETANIDE 1 MG TAB PO SCH (21:42)
[2024-02-16] MEDS: HYDROXYCHLOROQUINE SULFATE 200 MG TAB PO SCH (21:58)
[2024-02-16] MEDS: INSULIN DETEMIR (LEVEMIR) 100 UNIT/ML SYR SQ SCH (21:58)
[2024-02-17 05:30] VITALS: BP 122/58; TEMP 97.6
[2024-02-17 05:59] LABS: Glucose,Whole Blood 185 mg/dL (70-110)
[2024-02-17] MEDS: LEVOTHYROXINE 100 MCG TAB PO SCH (06:25)
[2024-02-17] MEDS: PANTOPRAZOLE 40 MG TABLET PO SCH (06:25)
[2024-02-17 06:26] LABS: HCT 35.6 % (34.0-46.0); HGB 11.4 gm/dL (11.4-16.0); Hypochromasia Slight; MCH 29.6 pg (25.0-35.0); MCV 92.6 fL (80.0-100.0); Mean Platelet Volume 8.7; Platelet Count 189 k/uL (150-450); RBC 3.84 m/uL (3.80-5.40); RDW 13.9 % (11.5-15.5); WBC 11.6 k/uL (3.8-10.6)
[2024-02-17 07:51] LABS: African American GFR (CKD) >90 (>60 ml/min/1.73 sqM); Anion Gap 9 mmol/L; Blood Urea Nitrogen 23 mg/dL (7-17); Calcium 8.8 mg/dL (8.4-10.2); Carbon Dioxide 24 mmol/L (22-30); Chloride 103 mmol/L (98-107); Glucose 186 mg/dL (74-99); Magnesium 2.3 mg/dL (1.6-2.3); Non-African American GFR(CKD) >90 (>60 ml/min/1.73 sqM); Potassium 4.6 mmol/L (3.5-5.1); Sodium 136 mmol/L (137-145)
[2024-02-17] MEDS: ATORVASTATIN 40 MG TAB PO SCH (09:18)
[2024-02-17] MEDS: LOSARTAN 50 MG TAB PO SCH (09:18)
[2024-02-17] MEDS: DAPAGLIFLOZIN PROPANEDIOL 5 MG TABLET PO SCH (09:18)
[2024-02-17] MEDS: MAGNESIUM OXIDE 400 MG TAB PO SCH (09:18)
[2024-02-17] MEDS: ASPIRIN 81 MG PO SCH (10:37)
--- NOTE | 2024-02-17 10:50 | P.DS ---
Providers Date of admission: 02/16/2024 Expected date of discharge: 02/17/24 Attending physician: Tavon Fajardo Consults: 02/16/24 12:09 Consult Physician Urgent Consulting Provider: Vishnu Pichardo Consult Reason/Comments: medical management Do you want consulting provider notified?: Yes 02/16/24 16:12 Consult Physician Urgent Consulting Provider: Mikey Ho Consult Reason/Comments: atrial fib/flutter with RVR Do you want consulting provider notified?: Yes Primary care physician: Jaswant Witt - Discharge Diagnosis(es) (1) S/P cervical spinal fusion Current Visit: Yes Status: Acute (2) H/O cervical spinal arthrodesis Current Visit: Yes Status: Acute (3) Herniated nucleus pulposus, C6-7 Current Visit: Yes Status: Acute (4) Cervical stenosis of spinal canal Current Visit: Yes Status: Acute (5) Degenerative cervical disc Current Visit: Yes Status: Acute (6) Radiculopathy affecting upper extremity Current Visit: Yes Status: Acute (7) Heart disease Current Visit: Yes Status: Acute (8) Type 2 diabetes mellitus Current Visit: Yes Status: Acute (9) Hypertension Current Visit: Yes Status: Acute (10) Hypothyroidism Current Visit: Yes Status: Acute (11) Lung disease Current Visit: Yes Status: Acute (12) Obesity Current Visit: Yes Status: Acute Hospital Course: This is a pleasant 68-year-old female who presented with C6-7 spinal stenosis and herniated nucleus pulposus, right upper extremity radiculopathy, C6-7 degenerative disc disease, and history of previous fusion with retained hardware at C4-5 and C5-6 who failed outpatient conservative therapy. She was admitted for a C6-7 anterior cervical decompression and fusion. The patient tolerated the procedure well and did well postoperatively. Patient was having some difficulty from a cardiac standpoint and was transferred to selective care. There was some question to atrial fibrillation. She has been seen by cardiology this morning who does not feel the patient has atrial fibrillation and she is cleared for discharge from a cardiac standpoint. She has been started on Lopressor. They are planning for follow-up evaluation by her mud mixer operator in the outpatient setting. Patient states her upper extremity symptoms have significantly improved. She has good range of motion of her bilateral upper extremities. She is very happy with her progress. Her pain has been controlled oral medications. She is eating and voiding without any significant difficulty. Patient is hearing impaired. There is an transit mixer operator in the room today. Condition on day of discharge stable. Patient was cleared preoperatively for surgery by Dr. Witt. Patient currently denies any nausea, vomiting, fever, or chills. Patient may shower Optifoam dressing intact. Patient may remove Optifoam dressing in 3 days and shower without a dressing at that time. Patient should refrain from driving until at least after their first follow-up appointment in the office. Patient should avoid excessive neck flexion, extension, rotation, and lateral sidebending; no overhead lifting; no lifting greater than 10 pounds. She may utilize her soft cervical collar for comfort and support as needed. We did discuss patient must be cleared by medicine prior to discharge home today. Patient's other medical no sees include hypertension, lung disease, type 2 diabetes, heart disease, and hypothyroidism. Patient takes Percocet 10 mg / 325 mg 3 times daily in the outpatient setting. She may resume this medication as prescribed. We would not plan to prescribe a different narcotic pain medication. She may resume her other previously prescribed home medications, including baclofen for muscle spasm, while avoiding anti-inflammatory medications over the next 6 weeks postoperatively. Physical Exam on day of discharge: Patient is awake, alert, and oriented 3 Vital signs stable Good chest excursion with deep inspiration and expiration Full range of motion of the cervical spine with adequate flexion, extension, and bilateral rotation Buckle Inspector strength, thumb strength, interosseous strength, biceps strength, triceps strength, and shoulder strength positive sustained bilaterally Soft cervical collar intact Incision is clean, dry, and intact; no erythema, purulence, or signs of infection Optifoam dressing intact Procedures: C6-7 anterior cervical decompression and fusion Patient Condition at Discharge: Stable Plan - Discharge Summary Discharge Rx Participant: No New Discharge Prescriptions: New Metoprolol Tartrate [Lopressor] 12.5 mg PO HS 30 Days #30 tab Metoprolol Tartrate [Lopressor] 25 mg PO DAILY 30 Days #30 tab Continue allopurinoL [Zyloprim] 100 mg PO BID oxyCODONE-APAP 10-325MG [Percocet 10-325 mg] 1 tab PO TID Hydroxychloroquine Sulfate [Plaquenil] 200 mg PO BID Levothyroxine Sodium [Synthroid] 200 mcg PO DAILY Gabapentin 600 mg PO QID Levalbuterol Hfa Inhaler [Xopenex Hfa Inhaler] 2 puff INHALATION RT-QID PRN PRN Reason: Shortness Of Breath Meloxicam 15 mg PO DAILY Ergocalciferol [Vitamin D2 (1250 Mcg = 60183 Iu)] 1,250 mcg PO Q7D amLODIPine [Norvasc] 5 mg PO BID Empagliflozin [Jardiance] 10 mg PO DAILY Fluconazole [Diflucan] 150 mg PO DAILY Insulin Lispro [humaLOG Kwikpen] 45 - 65 unit SQ AC-TID Tiotropium 2.5 Mcg/Puff [Spiriva Respimat 2.5 Mcg] 2 puff INHALATION RT-BID Magnesium Oxide [Mag-Ox] 400 mg PO DAILY #30 tablet Clopidogrel [Plavix] 75 mg PO HS Famotidine [Pepcid] 40 mg PO HS metFORMIN HCL [Glucophage] 1,000 mg PO BID Baclofen 10 - 20 mg PO TID Insulin Glargine,Hum.rec.anlog [Lantus Solostar Pen] 80 unit SQ BID Budesonide [Pulmicort] 0.5 mg INHALATION RT-BID Bumetanide [BUMEX] 1 mg PO BID Losartan Potassium [Cozaar] 100 mg PO DAILY Pantoprazole Sodium [Protonix] 40 mg PO DAILY Aspirin 81 mg PO DAILY #30 tab Rosuvastatin [Crestor] 20 mg PO DAILY #0 Discharge Medication List allopurinoL [Zyloprim] 100 mg PO BID 01/04/15 [History] Hydroxychloroquine Sulfate [Plaquenil] 200 mg PO BID 01/29/17 [History] oxyCODONE-APAP 10-325MG [Percocet 10-325 mg] 1 tab PO TID 01/29/17 [History] Levothyroxine Sodium [Synthroid] 200 mcg PO DAILY 03/26/17 [History] Gabapentin 600 mg PO QID 01/16/18 [History] Levalbuterol Hfa Inhaler [Xopenex Hfa Inhaler] 2 puff INHALATION RT-QID PRN 01/31/19 [History] Meloxicam 15 mg PO DAILY 03/06/20 [History] Clopidogrel [Plavix] 75 mg PO HS 10/09/21 [History] Famotidine [Pepcid] 40 mg PO HS 10/20/21 [History] metFORMIN HCL [Glucophage] 1,000 mg PO BID 11/06/21 [History] Baclofen 10 - 20 mg PO TID 04/16/22 [History] Ergocalciferol [Vitamin D2 (1250 Mcg = 18968 Iu)] 1,250 mcg PO Q7D 04/16/22 [History] Insulin Glargine,Hum.rec.anlog [Lantus Solostar Pen] 80 unit SQ BID 04/16/22 [History] Budesonide [Pulmicort] 0.5 mg INHALATION RT-BID 07/30/23 [History] Bumetanide [BUMEX] 1 mg PO BID 07/30/23 [History] Empagliflozin [Jardiance] 10 mg PO DAILY 07/30/23 [History] Fluconazole [Diflucan] 150 mg PO DAILY 07/30/23 [History] Insulin Lispro [humaLOG Kwikpen] 45 - 65 unit SQ AC-TID 07/30/23 [History] Losartan Potassium [Cozaar] 100 mg PO DAILY 07/30/23 [History] Pantoprazole Sodium [Protonix] 40 mg PO DAILY 07/30/23 [History] Tiotropium 2.5 Mcg/Puff [Spiriva Respimat 2.5 Mcg] 2 puff INHALATION RT-BID 07/30/23 [History] amLODIPine [Norvasc] 5 mg PO BID 07/30/23 [History] Aspirin 81 mg PO DAILY #30 tab 07/31/23 [Rx] Rosuvastatin [Crestor] 20 mg PO DAILY #0 07/31/23 [Rx] Magnesium Oxide [Mag-Ox] 400 mg PO DAILY #30 tablet 08/07/23 [Rx] Metoprolol Tartrate [Lopressor] 12.5 mg PO HS 30 Days #30 tab 02/17/24 [Rx] Metoprolol Tartrate [Lopressor] 25 mg PO DAILY 30 Days #30 tab 02/17/24 [Rx] Follow up Appointment(s)/Referral(s): Isa Braxton MD [STAFF PHYSICIAN] - 1 Week Jaswant Witt DO [Primary Care Provider] - 1 Week Davy nAn PAC [PHYSICIAN WORK DISTRIBUTOR] - 2 Weeks (Patient may follow-up with Davy Ann PA-C or Dr. Efrain Fajardo at [facility] in 2-3 weeks following discharge. ) Activity/Diet/Wound Care/Special Instructions: Activity: 1. Patient may shower with Optifoam dressing intact. 2. Patient may remove Optifoam dressing in 3 days and shower without a dressing at that time. 3. Patient may wear soft cervical collar for comfort support as needed. 4. Patient should refrain from driving until at least after their first follow- up appointment in the office. 5. Patient should avoid excessive cervical flexion, extension, and side bending; avoid overhead lifting; no lifting greater than 10 pounds 6. Take medications as prescribed 7. Patient should avoid anti-inflammatory medications over the next 6 weeks postoperatively 8. Do not soak in tub Diet: Heart healthy and carb consistent diet. Avoid salts, or foods with hidden salts such as canned or boxed foods and frozen dinners. Extra salt makes your heart work harder and traps the fluid in your body for longer. Special Instructions: Take all of your medications as directed and remember to keep all of your doctor's appointments and follow-up as needed. Will need to follow-up outpatient with your PCP-Dr. Witt, mud mixer operator, and orthopedic surgery. Thank you for allowing us to participate in your care, it was truly a pleasure having you for our patient!!! . Discharge Disposition: HOME SELF-CARE
--- NOTE | 2024-02-17 11:34 | CA ---
Transthoracic Echo Report Name: Ruth Odonnell Age: 68 Gender: F : 1955 Exam Date: 02/17/2024 08:25 Exam Location: [facility] Ht (in): 65 Wt (lb): 252 Ordering Physician: Davy Mayer Attending/Referring Phys: Diamond Broker Ashanti Wagner RDCS Procedure CPT: Indications: new onset atrial fib/flutter Cardiac Hx: Technical Quality: Fair Contrast 1: Total Dose (mL): Contrast 2: Total Dose (mL): MEASUREMENTS (Male / Female) Normal Values 2D ECHO LV Diastolic Diameter PLAX 5.2 cm 4.2 - 5.9 / 3.9 - 5.3 cm LV Systolic Diameter PLAX 3.4 cm IVS Diastolic Thickness 0.8 cm 0.6 - 1.0 / 0.6 - 0.9 cm LVPW Diastolic Thickness 1.5 cm 0.6 - 1.0 / 0.6 - 0.9 cm LV Relative Wall Thickness 0.4 RV Internal Dim ED PLAX 2.0 cm LA Systolic Diameter LX 5.0 cm 3.0 - 4.0 / 2.7 - 3.8 cm LV Diastolic Volume MOD BP 66.0 cm??? 67 - 155 / 56 - 104 cm??? LV Systolic Volume MOD BP 30.4 cm??? 22 - 58 / 19 - 49 cm??? LV Ejection Fraction MOD BP 54.0 % >= 55 % LV Cardiac Index MOD BP 864.4 cm???/min???m??? LV Diastolic Volume MOD 4C 78.5 cm??? LV Systolic Volume MOD 4C 33.0 cm??? LV Ejection Fraction MOD 4C 57.9 % LV Cardiac Index MOD 4C 1103.1 cm???/min???m??? LV Diastolic Length 4C 6.6 cm LV Systolic Length 4C 6.3 cm LV Diastolic Volume MOD 2C 55.2 cm??? LV Systolic Volume MOD 2C 23.9 cm??? LV Ejection Fraction MOD 2C 56.7 % LV Cardiac Index MOD 2C 758.3 cm???/min???m??? LV Diastolic Length 2C 6.6 cm LV Systolic Length 2C 5.4 cm LA Volume 72.7 cm??? 18 - 58 / 22 - 52 cm??? LA Volume Index 30.9 cm???/m??? 16 - 28 cm???/m??? M-MODE Aortic Root Diameter MM 3.1 cm LA Systolic Diameter MM 3.8 cm LA Ao Ratio MM 1.2 AV Cusp Separation MM 2.2 cm DOPPLER AV Peak Velocity 188.5 cm/s AV Peak Gradient 14.2 mmHg MV Area PHT 3.4 cm??? Mitral E Point Velocity 126.4 cm/s Mitral A Point Velocity 87.4 cm/s Mitral E to A Ratio 1.4 MV Deceleration Time 222.4 ms TR Peak Velocity 188.5 cm/s TR Peak Gradient 14.2 mmHg Right Ventricular Systolic Press 19.2 mmHg FINDINGS Left Ventricle Left ventricular ejection fraction is estimated at 55-60 %. Moderately increased posterior wall thickness. Left ventricular cavity size at the upper limits of normal. Normal left ventricular systolic function with no obvious regional wall motion abnormalities. Right Ventricle Normal right ventricular size and function. Right ventricular systolic pressure within normal limits. Right Atrium Moderate right atrial dilatation. Left Atrium Severely increased left atrial diameter. Mildly increased left atrial volume. Mitral Valve Structurally normal mitral valve. mild mitral regurgitation. No mitral stenosis. Mild mitral annular calcification. Aortic Valve Trileaflet aortic valve. No aortic valve stenosis or regurgitation. Tricuspid Valve Structurally normal tricuspid valve. Mild tricuspid regurgitation. No tricuspid stenosis. Pulmonic Valve Structurally normal pulmonic valve. No pulmonic stenosis. Pericardium No pericardial or pleural effusion. Aorta Normal size aortic root and proximal ascending aorta. CONCLUSIONS 1. Normal left ventricular size and systolic function 2. Mild mitral and tricuspid regurgitation with normal pulmonary pressure. Previewed by: Dr. Faith Green MD (Electronically Signed) Final Date: 17 February 2024 11:33
[2024-02-17 11:56] LABS: Glucose,Whole Blood 112 mg/dL (70-110)
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
[2024-02-17 12:33] VITALS: PULSE 60
--- NOTE | 2024-02-17 13:38 | P.PN ---
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 Patient is currently admitted under orthospine surgery team status post anterior cervical decompression with discectomy and fusion of C6-C7. We were consulted for medical management throughout hospitalization. Physical exam: Patient was seen and fully evaluated at bedside this morning. She was sitting in chair at bedside. She reports feeling great this morning and denies having any pain or complaints. Reports controlled postoperative pain. foreign language interpreter was at bedside and all of patient's and 's questions were answered regarding transient episode of atrial flutter and plans for discharge and recommendations forth going Vital signs reviewed and stable. General: Nontoxic, no distress and appears stated age. Derm: Skin warm and dry, normal coloration for ethnicity. Head: Atraumatic, normocephalic and symmetric. Postop dressing in place to anterior neck with bruising surrounding. Eyes: EOM's intact, no lid lag, and anicteric sclera Mouth: no lip lesions, mucus membranes moist Cardiovascular: Rapid rate and regular rhythm, soft systolic murmur, positive posterior tibial pulses bilaterally, and cap refill < 2 seconds. Lungs: Respirations even, regular, and unlabored on room air. Lungs CTA bilate rally, no rhonchi, no rales, no wheezing, and no accessory muscle usage. Abdominal: soft, nontender to palpation, no guarding, no appreciable organomegaly Ext: ROM intact. No gross muscle atrophy, no edema, no contractures Neuro: Speech clear, face symmetrical and CN II-XII grossly intact with no noted focal neuro deficits Psych: Alert and oriented to person, place, time, and situation. Appropriate and pleasant affect. Assessment and Plan of Care: New onset paroxysmal atrial flutter with RVR, converted back into normal sinus m echanism -Echocardiogram was completed showing a preserved EF of 55 to 60% with mild mitral and tricuspid regurgitation and normal pulmonary pressures. -TSH was normal findings at 1.560. Troponin was negative at less than 0.012. -Cardiology was consulted and discussed case with Dr. Braxton in detail. He was in agreement with metoprolol but recommending decreasing dose to 25 mg each morning and only 12.5 mg nightly. Clearing patient from cardiac perspective recommending outpatient follow-up in their office for event monitor placement. -[id number] score is 7. However, pt not yet started on anticoagulation at this time secondary to undergoing anterior cervical decompression with discectomy and fusion of C6-C7 earlier today. Educational Psychology Teacher recommending event monitor placeme nt for a minimum of 30 days to evaluate if atrial flutter was an isolated episode resulting from anesthesia versus if it is paroxysmal and if reoccurs patient will require long-term anticoagulation. Hypomagnesemia, resolved. -Magnesium was 1.1, patient received 4 g magnesium sulfate IVPB +400 mg Mag-Ox daily and repeat magnesium level stable at 2.3. History of CAD status post stenting Hypertension Hyperlipidemia History of CVA/TIA -Continue cardiac medication regimen with amlodipine 5 mg twice daily, aspirin 81 mg daily, Bumex 1 mg twice daily, Plavix 75 mg nightly, rosuvastatin 20 mg nightly, and losartan 100 mg daily. -Telemetry monitoring. Status post anterior cervical decompression with discectomy and fusion of C6-C7 -Management per primary admitting orthospine surgery team including DVT prophylaxis, pain management, wound/dressing/drain management, and PT/OT. Data and imaging reviewed: -Echocardiogram was completed showing a preserved EF of 55 to 60% with mild mitral and tricuspid regurgitation and normal pulmonary pressures. -TSH was normal findings at 1.560. Troponin was negative at less than 0.012. -Repeat postoperative labs completed and reviewed. CBC showing improvement of leukocytosis with WBC count of 11.6 and postoperative hemoglobin of 11.4. BMP unremarkable with exception of slightly elevated BUN of 23 and blood glucose of 186. Repeat magnesium 2.3.. -Vital signs reviewed and stable. Blood pressure 122/58, heart rate 54, respiratory rate 18, temp 97.6 F, and SpO2 of 94% on room air. Thank you for allowing us to participate in the care of this pleasant patient. Do not hesitate to contact us with questions. Someone can be reached from the [facility] [place] [facility] hospitalist group all hours of the day at [phone] or via perfect serve. Patient was seen independently by Nurse Practitioner. This document was prepared using [employer] dictation software. Please allow for errors in wall scraper while rare they do occur. Patient was seen independently by Davy Mayer NP. I agree with the assessment and plan as above. Objective - Vital Signs Vital signs: Vital Signs Temp 97.6 F 02/17/24 05:00 Pulse 62 02/17/24 08:05 Resp 18 02/17/24 05:00 BP 122/58 02/17/24 05:00 Pulse Ox 94 L 02/17/24 06:00 FiO2 Intake & Output 02/16/24 02/17/24 02/17/24 18:59 06:59 18:59 Intake Total 1051 Output Total 25 Balance 1026 Weight 114.7 kg Intake: IV 1051 Output: Estimated Blood Loss 25 Other: Voiding Method Toilet # Voids 2 - Labs CBC & Chem 7: 02/17/24 05:43 02/17/24 05:43 Labs: Abnormal Lab Results - Last 24 Hours (Table) 02/16/24 02/16/24 02/16/24 Range/Units 10: 14:40 16:27 WBC 14.9 H (3.8-10.6) k/uL Sodium 134 L (137-145) mmol/L Potassium 5.5 H (3.5-5.1) mmol/L BUN 24 H (7-17) mg/dL Glucose 289 H (74-99) mg/dL POC Glucose (mg/dL) 185 H (70-110) mg/dL Magnesium 1.1 L (1.6-2.3) mg/dL 02/16/24 02/16/24 02/17/24 Range/Units 16:44 20:09 05:43 WBC 11.6 H (3.8-10.6) k/uL Sodium (137-145) mmol/L Potassium (3.5-5.1) mmol/L BUN (7-17) mg/dL Glucose (74-99) mg/dL POC Glucose (mg/dL) 286 H 306 H (70-110) mg/dL Magnesium (1.6-2.3) mg/dL 02/17/24 02/17/24 Range/Units 05:43 05:58 WBC (3.8-10.6) k/uL Sodium 136 L (137-145) mmol/L Potassium (3.5-5.1) mmol/L BUN 23 H (7-17) mg/dL Glucose 186 H (74-99) mg/dL POC Glucose (mg/dL) 185 H (70-110) mg/dL Magnesium (1.6-2.3) mg/dL
[2024-02-17] MEDS ORDERED: ASPIRIN 81 MG PO SCH (21:00)
== END 2024-02-17 13:45 | disposition home or self-care (01) ==
LOC: OR 06:32 → 4SSUR 09:31 → 3SCARD 17:23 → OR 02-17 13:45
PROVIDERS: ATTEND Orthopaedic Surgery Orthopaedic Surgery of the Spine
CPT/HCPCS: 72020; 80048; 83735; 84443; 84484; 85027; 93306; 94640

== ENCOUNTER → 2024-03-16 | Outpatient (CLI) | payer MEDICARE, BC ==
--- NOTE | 2024-03-20 10:01 | MM ---
Reason for Exam: Screening (asymptomatic). Last mammogram was performed 2 year(s) and 6 month(s) ago. Patient History: Menarche at age 31. First Full-Term at age 22. Left ovary removed at age 49. Right ovary removed at age 50. Hysterectomy at age 32. 06/21/2006, Benign Core Biopsy on the right side. Risk Values: Savanna 5 year model risk: 1.6%. NCI Lifetime model risk: 5.8%. Prior Study Comparison: 06/16/2010 Screening Mammogram, [place]. 10/24/2015 Bilateral Screening Mammogram, [facility]. 10/07/2021 Bilateral MG 3D screening mammo w/cad, [facility]. Tissue Density: The breasts are heterogeneously dense, which may obscure small masses. Findings: Analyzed By CAD. Right breast: There is no suspicious group of microcalcifications or new suspicious mass. Benign-appearing calcifications right breast. Left breast: There is no suspicious group of microcalcifications or new suspicious mass. Benign-appearing calcifications left breast. Overall Assessment: Benign, BI-RAD 2 Management: Screening Mammogram of both breasts in [address] [facility] will attempt to contact patient to return for supplemental views and ultrasound if indicated. Patient should continue monthly self-breast exams. A clinical breast exam by your physician is recommended on an annual basis. This exam should not preclude additional follow-up of suspicious palpable abnormalities. Note on Savanna scores and lifetime risk: 1. A Savanna score greater than 3% is considered moderate risk. If this is the case, consider specialist referral to assess eligibility for a risk reducing agent. 2. If overall lifetime risk for the development of breast cancer is 20% or higher, the patient may qualify for future screening with alternating mammogram and breast MRI. [facility], , 03/20/2024 9:59 AM. Electronically signed and approved by: Darrell Alvarenga DO
== END | disposition home or self-care (01) ==
LOC: RADMAMWWP 11:18
PROVIDERS: ATTEND Family Medicine
DX: Z12.31 Encounter for screening mammogram for malignant neoplasm of breast (principal); R92.333 Mammographic heterogeneous density, bilateral breasts; Z90.722 Acquired absence of ovaries, bilateral
CPT/HCPCS: 77063; 77067

== ENCOUNTER 2024-05-07 14:03 | Emergency (ER) | payer MEDICARE, BC ==
[2024-05-07 14:50] VITALS: BP 154/53; PULSE 72; RESP 20; TEMP 99
== END 2024-05-07 18:02 | disposition left against medical advice (07) ==
LOC: EC 14:03
DX: Z53.21 Procedure and treatment not carried out due to patient leaving prior to being seen by health care provider (principal)
CPT/HCPCS: 99499

== ENCOUNTER → 2024-06-10 | Outpatient (CLI) | payer MEDICARE, BC ==
--- NOTE | 2024-06-10 15:06 | MR ---
INDICATION: Patient age:Female; 68 years old; Reason for study: G04.90 G81.94 BRAIN WITHOUT CONTRAST; [facility]. COMPARISON: MRI brain 08/02/2023, 07/31/2023, 04/17/2022, 02/01/2019, 10/22/2017, CT brain 04/16/2022. TECHNIQUE: Multi planar, multi sequence imaging was performed through the brain without administratio n of intravenous contrast. FINDINGS: Motion degraded examination. The crowell-white junctions, ventricular system, basal cisterns appear unremarkable. Age-appropriate cer ebral volume. Diffusion-weighted imaging shows no evidence of restricted diffusion to suggest acute/s ubacute infarct. Intracranial arterial flow voids are maintained. Midline structures show no abnormal ity. Similar multifocal areas of increased T2/FLAIR hyperintensity within the subcortical and periven tricular supratentorial white matter. The susceptibility weighted images do not reveal any evidence f or micro-hemorrhage. After administration of gadolinium, no abnormal enhancement is seen. The bone marrow signal is within normal limits. Minimal mucosal thickening of the inferior bilateral maxillary sinuses. Bilateral aphakia. Trace fluid within the inferior left mastoid air cells. IMPRESSION: 1. No evidence of intracranial mass or acute/subacute infarct. 2. Similar moderate nonspecific white matter changes likely reflecting chronic ischemic white matter changes. [facility], , 06/10/2024 3:04 PM
== END | disposition home or self-care (01) ==
LOC: RADMRIMAIN 13:46
PROVIDERS: ATTEND Psychiatry & Neurology Neurology
DX: G04.90 Encephalitis and encephalomyelitis, unspecified (principal); R90.82 White matter disease, unspecified; G81.94 Hemiplegia, unspecified affecting left nondominant side
CPT/HCPCS: 70551

== ENCOUNTER → 2024-07-04 | Outpatient (CLI) | payer MEDICARE, BC ==
[2024-07-05 02:51] LABS: Basophils # (A) 0.09 X 10*3/uL (0.00-0.10); Basophils % (A) 0.8 %; Eosinophils % (A) 2.7 %; HCT 31.4 % (37.2-46.3); Lymphocytes # (A) 2.77 X 10*3/uL (0.90-5.00); Lymphocytes % (A) 25.1 %; MCH 23.7 pg (27.0-32.0); MCHC 28.7 g/dL (32.0-37.0); MCV 82.6 FL (80.0-97.0); Mean Platelet Volume 11.9 FL (9.5-12.2); Monocytes # (A) 0.77 X 10*3/uL (0.20-1.00); NRBC Per 100 WBC 0 X 10*3/uL (0.00-0.01); Neutrophils # (A) 7.04 X 10*3/uL (1.80-7.70); Neutrophils % (A) 63.9 %; Platelet Count 289 X 10*3/uL (140-440); RDW 16.4 % (11.5-14.5); WBC 11.03 X 10*3/uL (4.50-10.00)
[2024-07-05 03:20] LABS: Hepatitis B Surface Antigen Nonreactive (Nonreactive); Hepatitis C IgG Antibody Nonreactive (Nonreactive)
[2024-07-05 03:50] LABS: ALT 19 U/L (8-44); AST 30 U/L (13-35); Albumin/Globulin Ratio 2.11 Ratio (1.60-3.17); Alkaline Phosphatase 110 U/L (41-126); BUN/Creat Ratio 18.38 Ratio (12.00-20.00); Blood Urea Nitrogen 14.7 mg/dL (9.0-27.0); Calcium 9.5 mg/dL (8.7-10.3); Chloride 100 mmol/L (96-109); Globulin 1.9 g/dL (1.6-3.3); Glucose 190 mg/dL (70-110); Potassium 4.1 mmol/L (3.5-5.5); Sodium 142 mmol/L (135-145); Total Bilirubin <0.2 mg/dL (0.3-1.2); Total Protein 5.9 g/dL (6.2-8.2)
== END | disposition home or self-care (01) ==
LOC: LABWHC1 15:48
PROVIDERS: ATTEND Internal Medicine Gastroenterology
DX: R16.0 Hepatomegaly, not elsewhere classified (principal)
CPT/HCPCS: 36415; 80053; 81596; 85025; 86803; 87340

== ENCOUNTER → 2024-07-11 | Outpatient (CLI) | payer MEDICARE, BC ==
[2024-07-11 18:13] LABS: Basophils # (A) 0.06 X 10*3/uL (0.00-0.10); Basophils % (A) 0.5 %; Eosinophils # (A) 0.28 X 10*3/uL (0.04-0.35); Eosinophils % (A) 2.4 %; HCT 30.8 % (37.2-46.3); HGB 8.7 g/dL (12.0-15.0); Lymphocytes # (A) 1.97 X 10*3/uL (0.90-5.00); Lymphocytes % (A) 16.8 %; MCH 23.1 pg (27.0-32.0); MCHC 28.2 g/dL (32.0-37.0); MCV 81.7 FL (80.0-97.0); Mean Platelet Volume 12.3 FL (9.5-12.2); Monocytes # (A) 0.57 X 10*3/uL (0.20-1.00); Monocytes % (A) 4.9 %; NRBC Per 100 WBC 0 X 10*3/uL (0.00-0.01); Neutrophils # (A) 8.81 X 10*3/uL (1.80-7.70); Neutrophils % (A) 75.1 %; Platelet Count 255 X 10*3/uL (140-440); RBC 3.77 X 10*6/uL (4.10-5.20); RDW 16.7 % (11.5-14.5); WBC 11.73 X 10*3/uL (4.50-10.00)
[2024-07-11 18:42] LABS: ALT 17 U/L (8-44); AST 24 U/L (13-35); Alkaline Phosphatase 111 U/L (41-126); Blood Urea Nitrogen 14.4 mg/dL (9.0-27.0); Calcium 9.7 mg/dL (8.7-10.3); Carbon Dioxide 33.5 mmol/L (21.6-31.8); Chloride 101 mmol/L (96-109); Chol/HDL Ratio 3.18 Ratio; Creatine Kinase 102 U/L (26-186); Glucose 143 mg/dL (70-110); LDL Cholesterol,Calculated 29.8 mg/dL (0.0-131.0); Potassium 4.2 mmol/L (3.5-5.5); Sodium 148 mmol/L (135-145); T4, Free (Free Thyroxine) 1.07 ng/dL (0.80-1.80); Total Bilirubin <0.2 mg/dL (0.3-1.2); Uric Acid 4.4 mg/dL (2.9-7.7)
== END | disposition home or self-care (01) ==
LOC: LABWHC1 11:59
PROVIDERS: ATTEND Family Medicine
DX: I10 Essential (primary) hypertension (principal); E78.2 Mixed hyperlipidemia; E55.9 Vitamin D deficiency, unspecified; E03.9 Hypothyroidism, unspecified; E11.22 Type 2 diabetes mellitus with diabetic chronic kidney disease; N18.9 Chronic kidney disease, unspecified; Z79.899 Other long term (current) drug therapy; K21.00 Gastro-esophageal reflux disease with esophagitis, without bleeding; Z79.4 Long term (current) use of insulin
CPT/HCPCS: 36415; 80053; 80061; 82043; 82306; 82550; 82570; 84439; 84443; 84550; 85025

== ENCOUNTER 2024-11-03 12:53 | Day surgery (SDC) | payer OTHER, MEDICARE, BC ==
[2024-11-01 10:40] VITALS: BMI 41.1
[~2024-11-03 12:53] MED LIST changes: +LACTATED RINGERS 1,000 ML IV SCH; -LIDOCAINE 1% (10MG/ML) FOR IV START INTRADERMA PRN; -MIDAZOLAM 2 MG/2 ML VIAL IV PRN
[2024-11-03 13:35] VITALS: RESP 16; TEMP 98.3
[2024-11-03 13:42] LABS: Glucose,Whole Blood 264 mg/dL (70-110)
[2024-11-03] MEDS ORDERED: methylPREDNISolone ACETATE 40 MG/ML 1 ML VIAL ONE (14:17)
[2024-11-03] MEDS ORDERED: IOPAMIDOL M200 10 ML VIAL ONE (14:17)
--- NOTE | 2024-11-03 14:21 | P.PCN ---
Date of Procedure: 11/03/24 Procedure(s) Performed: PREOPERATIVE DIAGNOSIS: 1- Lumbar Degenerative Disc Diseases 2-Lumbar spondylosis with Facet arthropathy without myelopathy. 3-lumbar radiculopathy POSTOPERATIVE DIAGNOSIS: 1-lumbar degenerative disc disease. 2-lumbar spondylosis with facet arthropathy without myelopathy. 3-lumbar radiculopathy PROCEDURE 1. Lumbar epidural steroid injection under fluoroscopic guidance at the L5-S1 level. (Fluoroscopy imaging was available in radiology department) 2. Lumbar epidurogram. ANESTHESIA: Lidocaine 1% 3 and then only. EBL: Minimal PROCEDURE INDICATION: The patient with low back pain and radiculitis symptoms unresponsive to conservative treatment. Fluoroscopy was used to optimize visualization of the needle placement and to maximize safety. PROCEDURE DESCRIPTION / TECHNIQUE: The patient was seen and identified in the preoperative area. Risks, benefits, complications including but not limited to infections ,bleeding ,allergic reaction to the medications ,nerve damage and not complete pain releife , and alternatives were discussed with the patient. The patient agreed to proceed with the procedure and signed the consent, and vital signs were stable. Patient was taken to the OR and time out was completed. The patient was placed in the prone position on procedure table and a pillow was placed under the abdomen to reduce lumbar lordosis. The lumbosacral area was prepped and draped in the usual sterile fashion.ere closely monitored during the procedure. Vital signs was monitered during the entire procedure. Using anterior-posterior fluoroscopy, the L5-S1 interlaminar space was identified and the skin over this site was marked and then infiltrated with 1% lidocaine subcutaneously. Subsequently, a 20-gauge Tuohy epidural needle was inserted and advanced toward the epidural space using the ``Loss of resistance technique and guided by AP and lateral fluoroscopy. The correct needle position in the epidural space was verified with the injection of 2 mL of the water soluble contrast dye Isovue 200 contrast and observing an excellent epidurogram with the epidural spread of the dye, after negative aspiration for blood and CSF and in the absence of paresthesias. Again after negative aspiration, a 6 ml mixture containing 40 mg of Depo-medrol ( Preservetive Free ), and 2 ml of preservative free Normal Saline, and 2 ml of preservative free lidocaine 1% solution was injected and a washout of epidurogram was seen. Needle was withdrawn intact, skin was cleansed, and bandages were applied. COMPLICATIONS: None DISPOSITION / PLANS: The patient was placed in a supine position and transferred to the recovery area in a stable condition for observation. There was no evidence of lower extremity motor or sensory deficit after the procedure. Patient was discharged from the recovery room after meeting discharge criteria. Home discharge instructions were given to the patient by the staff. The patient was reexamined prior to discharge. The patient will schedule a follow up in the clinic in 2-4 weeks. last Dose of Eliquis was taken more than 3 days ago
[2024-11-03 14:38] LABS: Glucose,Whole Blood 257 mg/dL (70-110)
[2024-11-03 14:58] VITALS: BP 152/70; PULSE 87
--- NOTE | 2024-11-05 15:45 | FL ---
EXAMINATION TYPE: FL guided pain mgmt statistic DATE OF EXAM: 11/03/2024 FLUOROSCOPY 3 SEC FLUORO, DAP .[id number] [id number] 1 image is submitted. [facility], Workstation: [email or web address]ANGEL, 11/05/2024 3:42 PM
== END 2024-11-03 15:00 | disposition home or self-care (01) ==
LOC: ORPAIN 12:53
PROVIDERS: ATTEND Specialist
DX: M51.16 Intervertebral disc disorders with radiculopathy, lumbar region (principal); M47.26 Other spondylosis with radiculopathy, lumbar region
CPT/HCPCS: 62323; Q9966; J1010

== ENCOUNTER 2024-11-08 00:28 | Inpatient (IN) | payer MEDICARE, BC ==
[2024-11-08 01:54] LABS: Basophils # (A) 0.06 10*3/uL (0.00-0.10); Basophils % (A) 0.4 %; Eosinophils # (A) 0.20 10*3/uL (0.04-0.35); Eosinophils % (A) 1.5 %; HCT 41.1 % (37.2-46.3); HGB 13.2 g/dL (12.0-15.0); Lymphocytes # (A) 2.73 10*3/uL (0.90-5.00); Lymphocytes % (A) 19.9 %; MCH 27.4 pg (27.0-32.0); MCHC 32.1 g/dL (32.0-37.0); MCV 85.3 fL (80.0-97.0); Monocytes # (A) 0.65 10*3/uL (0.20-1.00); Monocytes % (A) 4.7 %; Neutrophils # (A) 10.00 10*3/uL (1.80-7.70); Neutrophils % (A) 73.1 %; Platelet Count 236 10*3/uL (140-440); RBC 4.82 10*6/uL (4.10-5.20); RDW 19.0 % (11.5-14.5); WBC 13.70 10*3/uL (4.50-10.00)
[2024-11-08 02:28] LABS: ALT 22 U/L (4-34); AST 26 U/L (14-36); African American GFR (CKD) >90 (>60 ml/min/1.73 sqM); Albumin 4.5 g/dL (3.5-5.0); Alkaline Phosphatase 133 U/L (38-126); Anion Gap 12 mmol/L; Blood Urea Nitrogen 28 mg/dL (7-17); Calcium 10.0 mg/dL (8.4-10.2); Carbon Dioxide 29 mmol/L (22-30); Chloride 96 mmol/L (98-107); Glucose 186 mg/dL (74-99); Lipase 131 U/L (23-300); Magnesium 1.9 mg/dL (1.6-2.3); Non-African American GFR(CKD) >90 (>60 ml/min/1.73 sqM); Potassium 4.4 mmol/L (3.5-5.1); Sodium 137 mmol/L (137-145); Total Protein 6.6 g/dL (6.3-8.2)
[2024-11-08 02:34] LABS: NT-Pro-B-Type Natriuretic Pept 62 pg/mL
[2024-11-08 02:38] LABS: INR 0.9 (<1.2); Partial Thromboplastin Time 22.9 sec (22.0-30.0); Prothrombin Time 9.9 sec (10.0-12.5)
[2024-11-08] MEDS: ASPIRIN 81 MG PO STA (02:41)
[2024-11-08] MEDS: NITROGLYCERIN OINT 1 INCH/GM PACKET TOPICAL STA (02:43)
[2024-11-08] MEDS: MORPHINE SULFATE 4 MG/ML SYRINGE IVP STA ×2 (02:45→03:58)
[2024-11-08] MEDS: ONDANSETRON 4 MG/2 ML VIAL IVP STA ×2 (02:45→03:57)
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
[2024-11-08] MEDS ORDERED: HEPARIN SODIUM 1,000 UN/ML (10ML VL) IV PRN (03:17)
--- NOTE | 2024-11-08 03:44 | XR ---
EXAM: XR Chest, 2 Views CLINICAL HISTORY: ITS.REASON XR Reason: Chest Pain TECHNIQUE: Frontal and lateral views of the chest. COMPARISON: 03/18/2022 FINDINGS: Lungs: Unremarkable. No consolidation. Pleural space: Unremarkable. Mediastinum: Mild cardiomegaly. Normal mediastinal contour. Bones/joints: No acute findings. Partially visualized ACDF of lower cervical spine. IMPRESSION: No acute findings.
[2024-11-08] MEDS ORDERED: DEXTROSE 50% SYRINGE 50 ML IVP PRN ×2 (03:47)
[2024-11-08] MEDS: HEPARIN SODIUM 1,000 UN/ML (10ML VL) IV ONE (03:58)
[2024-11-08] MEDS: HEPARIN SOD,PORK IN 0.45% NACL 25,000 UNIT in 0.45% NACL 1 250ML.BAG IV SCH (04:09)
[2024-11-08] MEDS: LIDOCAINE/EPINEPHR/TETRACAINE 5 ML BOTTLE TOPICAL ONE (04:51)
[2024-11-08] MEDS: MORPHINE SULFATE 2 MG/ML SYRINGE IVP PRN (05:16)
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
[2024-11-08] MEDS: LEVOTHYROXINE 100 MCG TAB PO SCH (06:06)
[2024-11-08 07:23] LABS: Glucose,Whole Blood 123 mg/dL (70-110)
[2024-11-08] MEDS ORDERED: REGADENOSON 0.4 MG/5 ML SYRINGE IV PRN (07:45)
[2024-11-08] MEDS ORDERED: AMINOPHYLLINE 500 MG/20 ML VIAL IV PRN (07:45)
[2024-11-08] MEDS ORDERED: CAFFEINE CITRATE 60 MG/3 ML VIAL IV PRN (07:45)
[2024-11-08] MEDS: INSULIN LISPRO (HumaLOG) 100 UNIT/ML 10 mL VL SQ SCH (08:14)
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
[2024-11-08] MEDS: SYMBICORT 160-4.5 MCG INHALER INHALATION SCH (09:34)
[2024-11-08] MEDS: NITROGLYCERIN SL TABS 0.4 MG TAB SUBLINGUAL PRN (09:44)
[2024-11-08] MEDS: DAPAGLIFLOZIN PROPANEDIOL 5 MG TABLET PO SCH (10:37)
[2024-11-08] MEDS: ATORVASTATIN 40 MG TAB PO SCH (10:37)
[2024-11-08] MEDS: DILTIAZEM CD 240 MG CAP.ER.24H PO SCH (10:38)
[2024-11-08] MEDS: LOSARTAN 50 MG TAB PO SCH (10:38)
[2024-11-08] MEDS: LORATADINE 10 MG TAB PO SCH (10:39)
[2024-11-08] MEDS: BUMETANIDE 1 MG TAB PO SCH (10:39)
[2024-11-08] MEDS: HYDROXYCHLOROQUINE SULFATE 200 MG TAB PO SCH (10:39)
[2024-11-08] MEDS ORDERED: [UNRECOGNIZED DRUG - OTHER] INHALATION PRN (11:03)
[2024-11-08] MEDS ORDERED: NON FORMULARY DRUG (Levalbuterol Nebulized 1.25 MG/3 ML Ml) INHALATION PRN (11:03)
[2024-11-08] MEDS ORDERED: LEVALBUTEROL INHALATION PRN (11:03)
--- NOTE | 2024-11-08 12:54 | CA ---
Transthoracic Echo Report Name: Ruth Odonnell Age: 68 Gender: F : 1955 Exam Date: 11/08/2024 12:03 Exam Location: [facility] Ht (in): 66 Wt (lb): 252 Ordering Physician: Shankar Silva MD Attending/Referring Phys: Mail Carrier Technician Bozena Esparza RDCS Procedure CPT: Indications: Chest Pain Cardiac Hx: Technical Quality: Fair Contrast 1: Total Dose (mL): Contrast 2: Total Dose (mL): MEASUREMENTS (Male / Female) Normal Values 2D ECHO LV Diastolic Diameter PLAX 5.4 cm 4.2 - 5.9 / 3.9 - 5.3 cm LV Systolic Diameter PLAX 3.6 cm IVS Diastolic Thickness 1.2 cm 0.6 - 1.0 / 0.6 - 0.9 cm LVPW Diastolic Thickness 1.2 cm 0.6 - 1.0 / 0.6 - 0.9 cm LV Relative Wall Thickness 0.4 RV Internal Dim ED PLAX 3.8 cm LA Systolic Diameter LX 3.7 cm 3.0 - 4.0 / 2.7 - 3.8 cm LV Diastolic Volume MOD BP 126.8 cm??? 67 - 155 / 56 - 104 cm??? LV Systolic Volume MOD BP 54.0 cm??? 22 - 58 / 19 - 49 cm??? LV Ejection Fraction MOD BP 57.4 % >= 55 % LV Cardiac Index MOD BP 1971.9 cm???/min???m??? LV Diastolic Volume MOD 4C 119.6 cm??? LV Systolic Volume MOD 4C 49.2 cm??? LV Ejection Fraction MOD 4C 58.8 % LV Cardiac Index MOD 4C 1905.6 cm???/min???m??? LV Diastolic Length 4C 8.0 cm LV Systolic Length 4C 6.9 cm LV Diastolic Volume MOD 2C 122.1 cm??? LV Systolic Volume MOD 2C 53.5 cm??? LV Ejection Fraction MOD 2C 56.2 % LV Cardiac Index MOD 2C 1857.8 cm???/min???m??? LV Diastolic Length 2C 8.8 cm LV Systolic Length 2C 7.8 cm LA Volume 64.1 cm??? 18 - 58 / 22 - 52 cm??? LA Volume Index 27.1 cm???/m??? 16 - 28 cm???/m??? M-MODE Aortic Root Diameter MM 3.4 cm AV Cusp Separation MM 2.3 cm DOPPLER AV Peak Velocity 205.2 cm/s AV Peak Gradient 16.8 mmHg AV Mean Velocity 137.6 cm/s AV Mean Gradient 8.5 mmHg AV Velocity Time Integral 48.9 cm MV Area PHT 3.6 cm??? Mitral E Point Velocity 108.8 cm/s Mitral A Point Velocity 102.3 cm/s Mitral E to A Ratio 1.1 MV Deceleration Time 210.5 ms TR Peak Velocity 218.1 cm/s TR Peak Gradient 19.0 mmHg Right Ventricular Systolic Press 24.0 mmHg FINDINGS Left Ventricle Left ventricular ejection fraction is estimated at 50-55 %. Mildly increased septal wall thickness. Mildly increased posterior wall thickness. Moderately increased left ventricular diastolic volume. Mildly increased left ventricular systolic volume. Right Ventricle Mild right ventricular dilatation. Right ventricular systolic pressure within normal limits. Right Atrium Normal right atrial size. No right atrial thrombus or mass seen. Left Atrium Moderately increased left atrial volume. Mildly increased left atrial area. No left atrial thrombus or mass present. Mitral Valve Structurally normal mitral valve. Mitral annular calcification. Aortic Valve Trileaflet aortic valve. Mild aortic regurgitation. Aortic valve sclerosis. Tricuspid Valve Structurally normal tricuspid valve. No tricuspid stenosis, regurgitation or prolapse. Pulmonic Valve Structurally normal pulmonic valve. No pulmonic stenosis. No pulmonic regurgitation. Pericardium No pericardial effusion. Aorta Normal size aortic root and proximal ascending aorta. CONCLUSIONS Normal LV function Previewed by: Dr. Quincy Blas MD (Electronically Signed) Final Date: 08 November 2024 12:53
--- NOTE | 2024-11-08 12:55 | CA ---
Lexiscan Nuclear Stress Test Report Name: Ruth Odonnell Exam Date: 11/08/2024 11:41 Exam Location: [facility] Stress Ht (in): 66 Wt (lb): 252 BSA: 2.21 Ordering Phys: Karolyn Garg Referring Phys: KAROLYN GARG,, Technologist: PERCY ELI Age: 68 Gender: F : 1955 Procedure CPT: Indications: Reflex order-Stress test ICD-10 Codes: Patient History: CHEST PAIN, DIFFICULTY IN BREATHING, ANGINA, HTN, DIABETIC, HYPERCHOLESTEROLEMIA, FAMILY HX OF HEART DISEASE, PRIOR HEART CATH WITH STENT Medications: SEE CHART,,,,, Meds past 24 hrs: Pretest Chest Pain: STRESS TEST Lexiscan Protocol Exercise Duration (min:sec): 02:[address] Depressions (mm): Angina Score: Hightower Score: Resting HR (bpm): 61 Peak HR (bpm): 76 Resting BP (mmHg): 125 / 63 Peak BP (mmHg): 125 / 63 MPHR: 154 Target HR: 131 % MPHR: 49 METS: 1.0 Total Dose: Peak Dose: Atropine: Double Product: 9500 BP Response: Stress Termination: INFUSION COMPLETE Stress Symptoms: NO SYMPTOMS Stress Summary: ECG ANALYSIS Resting ECG: Sinus rhythm normal axis normal intervals Stress ECG: Patient was given intravenous Lexiscan as a protocol did not have chest pain or diagnostic ST segment depression CONCLUSIONS Negative stress test by EKG criteria Cardiolite portion of the stress test will be reported separately Dr. Quincy Blas MD (Electronically Signed) Final Date: 08 November 2024 12:54
[2024-11-08 13:08] LABS: Glucose,Whole Blood 135 mg/dL (70-110)
--- NOTE | 2024-11-08 13:08 | NM ---
EXAMINATION TYPE: NM stress lexiscan cardiolite DATE OF EXAM: 11/08/2024 COMPARISON: NONE CLINICAL INDICATION: Female, 68 years old with history of CP; TECHNIQUE: After the intravenous administration of 10.4 mCi Tc 99m Sestamibi - Cardiolite resting SP ECT images acquired 60 minutes post injection. The patient received 0.4mg Lexiscan, 27.7 mCi Tc 99m Sestamibi - Stress images obtained [address] injection FINDINGS: Review of rest images shows prominent attenuation artifact along the anterior wall. This is present t o a lesser degree on stress images. Polar maps suggest reversibility along the mid anterolateral wall and also at the apical inferior wall. Additional defect along the inferior wall that is more pronoun lissette on rest. Gated analysis shows some hypokinesis with an estimated left ventricular ejection fracti on of 41 %. TID is upper limits of normal at 1.05. IMPRESSION: 1. Further workup as clinically indicated; SPECT images and polar maps are demonstrating confounding findings. Polar maps suggest reversibility along the mid anterolateral wall and apical inferior bonds . SPECT images suggest defects (either attenuation artifact versus old infarcts) along the majority o f the anterior wall and mid inferior wall. 2. In addition, estimated LVEF is measured low at 41%. [facility], , 11/08/2024 1:06 PM
[2024-11-08] MEDS: GABAPENTIN 300 MG CAP PO SCH (13:13)
[2024-11-08] MEDS: oxyCODONE-APAP 10-325MG 1 EACH TAB PO PRN (13:14)
[2024-11-08] MEDS: BACLOFEN 10 MG TAB PO SCH (13:14)
[2024-11-08] MEDS ORDERED: ALPRAZolam 0.25 MG TAB PO PRN (13:17)
[2024-11-08] MEDS ORDERED: ALPRAZolam 0.5 MG TAB PO PRN (13:17)
[2024-11-08] MEDS ORDERED: NITROGLYCERIN SL TABS 0.4 MG TAB SUBLINGUAL PRN (13:17)
--- NOTE | 2024-11-08 17:32 | P.PN ---
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 She presented to the emergency department on 11/08/2024 with a chief complaint of chest pain. Patient communicated via ui developer designer at bedside stating she experienced pain to left anterior chest radiating into her back, up into her jaw, left shoulder, and down left arm. Upon arrival to facility, patient underwent evaluation in the emergency department. Vital signs upon arrival show blood pressure 125/77, heart rate 70 temp 98.0 F, and SpO2 of 94% on room air. EKG completed showing normal sinus rhythm at 71 bpm with no significant T wave or ST abnormality showing no signs of acute ischemia upon personal review and interpretation. Chest x-ray completed negative for acute cardiopulmonary process. Labs completed and reviewed. CBC showing leukocytosis with WBC count of 13.70. BMP showing hypochloremia with chloride of 96 and mild prerenal azotemia with BUN of 28. Blood glucose was 186. Calcium 10.0. Magnesium 1.9. Liver profile showing elevated alkaline phosphatase of 133. Troponin was negative at less than 0.012 and proBNP was 62. Lipase normal findings at 131. Patient was started on heparin infusion for unstable angina and admitted under our services with consultation to cardiology. Physical exam: Patient seen fully evaluated at bedside. All communication was completed via ui developer designer at bedside. Patient report she continued to have chest pain throughout the mornings but states having improvement since receiving nitroglycerin sublingually. She denies having any dizziness, lightheadedness, palpitations, shortness of breath, cough or congestion, nausea or vomiting, or any other complaints at this time. Patient awaiting to be taken down for Lexiscan stress test. Vital signs reviewed and stable. General: Nontoxic, no distress and appears stated age. Derm: Skin warm and dry, normal coloration for ethnicity. Head: Atraumatic, normocephalic and symmetric. Patient is deaf and communicates via ui developer designer. Eyes: EOM's intact, no lid lag, and anicteric sclera Mouth: no lip lesions, mucus membranes moist Cardiovascular: regular rate and rhythm with normal S1S2, no murmur, positive posterior tibial pulses bilaterally, and cap refill < 2 seconds. Lungs: Respirations even, regular, and unlabored on room air. Lungs CTA bilaterally, no rhonchi, no rales, no wheezing, and no accessory muscle usage. Abdominal: soft, nontender to palpation, no guarding, no appreciable org anomegaly Ext: ROM intact. No gross muscle atrophy, no edema, no contractures Neuro: face symmetrical and CN II-XII grossly intact with no noted focal neuro deficits Psych: Alert and oriented to person, place, time, and situation. Appropriate and pleasant affect. Assessment and Plan of Care: Unstable angina CAD status post stenting Paroxysmal atrial fibrillation Hypertension Hyperlipidemia -Cardiology consulted, appreciate recommendations -Telemetry monitoring -Troponins trended and all negative at less than 0.012 x 4 draws -Continue low intensity heparin infusion with close monitoring of PTT every 6 hours for goal therapeutic range of 45 to 79 seconds. Currently subtherapeutic at 31.0. -Aspirin 81 mg daily, atorvastatin 40 mg daily, Farxiga 5 mg daily, Cardizem 240 mg daily, and losartan 100 mg daily. -Echocardiogram Insulin-dependent diabetes mellitus with hyperglycemia Patient placed on glycemic protocol with Humalog sliding scale. Hypothyroidism Continue levothyroxine 200 mcg daily. Asthma Pulmonary sarcoidosis Obstructive sleep apnea Continue home bronchodilator management. Provide supplemental oxygen as needed to maintain SpO2 equal to or greater than 90% CODE STATUS: Full code DVT prophylaxis: Heparin Anticipated discharge date: Pending clinical course Anticipated discharge place: Home Patient was seen independently by Nurse Pracitioner. This document was prepared using [employer] dictation software. Please allow for errors in director of housing and energy services, while rare they do occur. Davy Mayer NP rendered care for this patient independently, reviewed the findings and plan as documented in the note above and agree with plan. I did not physically speak with or examine the patient on this date. Objective - Vital Signs Vital signs: Vital Signs Temp 98.2 F 11/08/24 07:15 Pulse 58 L 11/08/24 07:15 Resp 16 11/08/24 07:15 BP 120/70 11/08/24 07:15 Pulse Ox 96 11/08/24 08:50 FiO2 Intake & Output 11/07/24 11/08/24 11/08/24 18:59 06:59 18:59 Weight 114.305 kg - Labs CBC & Chem 7: 11/08/24 01:06 11/08/24 01:06 Labs: Abnormal Lab Results - Last 24 Hours (Table) 11/08/24 11/08/24 11/08/24 Range/Units 01:06 01:06 01:06 WBC 13.70 H (4.50-10.00) 10*3/uL Immature Gran # 0.06 H (0.00-0.04) 10*3/uL Neutrophils # 10.00 H (1.80-7.70) 10*3/uL PT 9.9 L (10.0-12.5) sec Chloride 96 L (98-107) mmol/L BUN 28 H (7-17) mg/dL Glucose 186 H (74-99) mg/dL POC Glucose (mg/dL) (70-110) mg/dL Alkaline Phosphatase 133 H (38-126) U/L 11/08/24 Range/Units 07:20 WBC (4.50-10.00) 10*3/uL Immature Gran # (0.00-0.04) 10*3/uL Neutrophils # (1.80-7.70) 10*3/uL PT (10.0-12.5) sec Chloride (98-107) mmol/L BUN (7-17) mg/dL Glucose (74-99) mg/dL POC Glucose (mg/dL) 123 H (70-110) mg/dL Alkaline Phosphatase (38-126) U/L
[2024-11-08 19:52] LABS: Glucose,Whole Blood 253 mg/dL (70-110)
[2024-11-08] MEDS ORDERED: BUDESONIDE 0.5 MG/2 ML NEBU INHALATION SCH (20:00)
[2024-11-08] MEDS: ONDANSETRON 4 MG/2 ML VIAL IVP PRN (20:49)
[2024-11-08] MEDS: FAMOTIDINE 20 MG TAB PO SCH (20:50)
[2024-11-08] MEDS: INSULIN GLARGINE (LANTUS) 100 UNIT/ML SYR SQ SCH (22:06)
[2024-11-08] MEDS: ACETAMINOPHEN TAB 325 MG TAB PO PRN (22:23)
[2024-11-08] MEDS: GABAPENTIN 300 MG CAP PO STA (23:13)
[2024-11-09] MEDS: SODIUM CHLORIDE 0.9% 1,000 ML in EMPTY BAG 1 BAG IV SCH (00:58)
[2024-11-09 06:11] LABS: Glucose,Whole Blood 199 mg/dL (70-110)
[2024-11-09] MEDS: ATORVASTATIN 80 MG TAB PO ONE (06:28)
[2024-11-09] MEDS: ASPIRIN 325 MG TAB PO ONE (06:30)
[2024-11-09] MEDS: TIOTROPIUM 2.5 MCG INHALER INHALATION SCH (06:37)
[2024-11-09] MEDS ORDERED: HEPARIN SODIUM,PORCINE 10,000 UNIT in SODIUM CHLORIDE 0.9% 1,000 ML IRRIGATION PRN (07:00)
[2024-11-09] MEDS ORDERED: HEPARIN SODIUM,PORCINE (1 ML) 2,500 UNIT in SODIUM CHLORIDE 0.9% 250 ML IRRIGATION PRN (07:00)
[2024-11-09 07:53] LABS: WBC 10.89 X 10*3/uL (4.50-10.00)
[2024-11-09 07:54] LABS: Basophils # (A) 0.04 X 10*3/uL (0.00-0.10); Basophils % (A) 0.4 %; Eosinophils # (A) 0.10 X 10*3/uL (0.04-0.35); Eosinophils % (A) 0.9 %; HCT 40.5 % (37.2-46.3); HGB 12.3 g/dL (12.0-15.0); Immature Grans, Automated 0.40 %; Lymphocytes # (A) 1.89 X 10*3/uL (0.90-5.00); Lymphocytes % (A) 17.4 %; MCH 26.5 pg (27.0-32.0); MCHC 30.4 g/dL (32.0-37.0); MCV 87.3 FL (80.0-97.0); Monocytes # (A) 0.51 X 10*3/uL (0.20-1.00); Monocytes % (A) 4.7 %; NRBC Per 100 WBC 0 X 10*3/uL (0.00-0.01); Neutrophils # (A) 8.31 X 10*3/uL (1.80-7.70); Neutrophils % (A) 76.2 %; Platelet Count 210 X 10*3/uL (140-440); RBC 4.64 X 10*6/uL (4.10-5.20); RDW 19.5 % (11.5-14.5)
[2024-11-09 08:17] LABS: INR 0.93 sec (0.93-1.11); Prothrombin Time 10.5 sec (9.9-11.9)
[2024-11-09 08:23] LABS: Cholesterol 118.00 mg/dL (0.00-200.00); HDL Cholesterol 55.70 mg/dL (40.00-60.00); LDL Cholesterol,Calculated 37.5 mg/dL (0.0-131.0); Triglycerides 124.00 mg/dL (0.00-149.00); VLDL Calculation 24.80 mg/dL (5.00-40.00)
[2024-11-09] MEDS: MAGNESIUM OXIDE 400 MG TAB PO SCH (08:56)
[2024-11-09] MEDS: PANTOPRAZOLE 40 MG TABLET PO SCH (08:57)
[2024-11-09] MEDS: MULTIVITAMINS, THERA 1 EACH TAB PO SCH (08:57)
[2024-11-09 12:41] LABS: Glucose,Whole Blood 208 mg/dL (70-110)
--- NOTE | 2024-11-09 15:53 | P.PN ---
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 She presented to the emergency department on 11/08/2024 with a chief complaint of chest pain. Patient communicated via embroidery designer at bedside stating she experienced pain to left anterior chest radiating into her back, up into her jaw, left shoulder, and down left arm. Upon arrival to facility, patient underwent evaluation in the emergency department. Vital signs upon arrival show blood pressure 125/77, heart rate 70 temp 98.0 F, and SpO2 of 94% on room air. EKG completed showing normal sinus rhythm at 71 bpm with no significant T wave or ST abnormality showing no signs of acute ischemia upon personal review and interpretation. Chest x-ray completed negative for acute cardiopulmonary process. Labs completed and reviewed. CBC showing leukocytosis with WBC count of 13.70. BMP showing hypochloremia with chloride of 96 and mild prerenal azotemia with BUN of 28. Blood glucose was 186. Calcium 10.0. Magnesium 1.9. Liver profile showing elevated alkaline phosphatase of 133. Troponin was negative at less than 0.012 and proBNP was 62. Lipase normal findings at 131. Patient was started on heparin infusion for unstable angina and admitted under our services with consultation to cardiology. Physical exam: Patient seen fully evaluated at bedside. All communication was completed via embroidery designer at bedside. Patient reports she went all night without any episodes of chest pain but states again this morning she had another episode of pain to left anterior chest radiating into her back and left shoulder. Patient reports this pain lasted approximately 20 minutes prior to fully resolving. She is currently awaiting to be taken down for heart catheterization later today. Patient denies having any other needs, questions, concerns, or complaints at this time. Vital signs reviewed and stable. General: Nontoxic, no distress and appears stated age. Derm: Skin warm and dry, normal coloration for ethnicity. Head: Atraumatic, normocephalic and symmetric. Patient is deaf and communicates via embroidery designer. Eyes: EOM's intact, no lid lag, and anicteric sclera Mouth: no lip lesions, mucus membranes moist Cardiovascular: regular rate and rhythm with normal S1S2, no murmur, positive posterior tibial pulses bilaterally, and cap refill < 2 seconds. Lungs: Respirations even, regular, and unlabored on room air. Lungs CTA bilaterally, no rhonchi, no rales, no wheezing, and no accessory muscle usage. Abdominal: soft, nontender to palpation, no guarding, no appreciable organomegaly Ext: ROM intact. No gross muscle atrophy, no edema, no contractures Neuro: face symmetrical and CN II-XII grossly intact with no noted focal neuro deficits Psych: Alert and oriented to person, place, time, and situation. Appropriate and pleasant affect. Assessment and Plan of Care: Unstable angina CAD status post stenting Paroxysmal atrial fibrillation Hypertension Hyperlipidemia -Cardiology discussed plan of care with cardiac YARD OPERATOR. Patient scheduled for heart catheterization later today. -Telemetry monitoring -Troponins trended and all negative at less than 0.012 x 4 draws -Continue low intensity heparin infusion with close monitoring of PTT every 6 hours for goal therapeutic range of 45 to 79 seconds. Currently subtherapeutic at 31.0. -Aspirin 81 mg daily, atorvastatin 40 mg daily, Farxiga 5 mg daily, Cardizem 240 mg daily, and losartan 100 mg daily. -Echocardiogram was completed showing a preserved EF of 50 to 55% with no significant valvular or structural abnormalities reported. -Lexiscan stress test was completed on 11/08/2024 showing demonstration of confounding findings suggestive of reversible ischemia along the mid anterolateral wall and apical wall. Insulin-dependent diabetes mellitus with hyperglycemia Hemoglobin A1c 7.6%. Continue glycemic protocol with Humalog sliding scale. Hypothyroidism Continue levothyroxine 200 mcg daily. Asthma Pulmonary sarcoidosis Obstructive sleep apnea Continue home bronchodilator management. Provide supplemental oxygen as needed to maintain SpO2 equal to or greater than 90% Data and imaging reviewed: Morning labs reviewed. CBC showing leukocytosis with WBC count of 10.89. Coagulation profile normal findings. Blood glucose 191. Hemoglobin A1c 7.6%. Liver profile unremarkable Vital signs reviewed. Blood pressure 144/69, heart rate 66, respiratory rate 16, temp 97.9 F, and SpO2 of 91% on room air. CODE STATUS: Full code DVT prophylaxis: Heparin Anticipated discharge date: Pending clinical course Anticipated discharge place: Home Patient was seen independently by Nurse Pracitioner. This document was prepared using [employer] dictation software. Please allow for errors in ground transportation operator, while rare they do occur. Davy Mayer NP rendered care for this patient independently, reviewed the findings and plan as documented in the note above and agree with plan. I did not physically speak with or examine the patient on this date. Objective - Vital Signs Vital signs: Vital Signs Temp 97.9 F 11/09/24 07:07 Pulse 66 11/09/24 07:07 Resp 16 11/09/24 07:07 BP 144/69 11/09/24 07:07 Pulse Ox 91 L 11/09/24 07:07 FiO2 Intake & Output 11/08/24 11/09/24 11/09/24 18:59 06:59 18:59 Intake Total 179.012 Balance 179.012 Intake: Intake, IV Titration 61.012 Amount Heparin Sod,Pork in 0.45% 61.012 NaCl 25,000 unit In 0.45 % NaCl 1 250ml.bag @ 8.75 UNITS/KG/HR 10.002 mls/ hr IV .Q24H LILY Rx#: [id number] Oral 118 Other: # Voids 2 - Labs CBC & Chem 7: 11/09/24 06:12 11/08/24 01:06 Labs: Abnormal Lab Results - Last 24 Hours (Table) 11/08/24 11/08/24 11/08/24 Range/Units 09:26 13:00 19:50 WBC (4.50-10.00) X 10*3/uL MCH (27.0-32.0) pg MCHC (32.0-37.0) g/dL RDW (11.5-14.5) % Neutrophils # (1.80-7.70) X 10*3/uL APTT 31.0 H (22.0-30.0) sec POC Glucose (mg/dL) 135 H 253 H (70-110) mg/dL Hemoglobin A1c (<=6.0) % 11/09/24 11/09/24 11/09/24 Range/Units 06:10 06:12 06:12 WBC 10.89 H (4.50-10.00) X 10*3/uL MCH 26.5 L (27.0-32.0) pg MCHC 30.4 L (32.0-37.0) g/dL RDW 19.5 H (11.5-14.5) % Neutrophils # 8.31 H (1.80-7.70) X 10*3/uL APTT (22.0-30.0) sec POC Glucose (mg/dL) 199 H (70-110) mg/dL Hemoglobin A1c 7.6 H (<=6.0) %
[2024-11-09] MEDS: LIDOCAINE 1% INJ 10MG/ML (30 ML VIAL-PF) SQ ONE (16:55)
[2024-11-09] MEDS: VERAPAMIL SYRINGE (5 MG/10 ML) INTRAARTER ONE (17:05)
[2024-11-09] MEDS: MIDAZOLAM 2 MG/2 ML VIAL IVP ONE (17:05)
[2024-11-09] MEDS: fentaNYL (PF) 50 MCG/1 ML VIAL IVP ONE (17:05)
[2024-11-09] MEDS: IV FLUID CONTINUATION 1,000 ML IV ONE (17:06)
[2024-11-09] MEDS: HEPARIN SODIUM 1,000 UN/ML (10ML VL) IVP ONE (17:06)
[2024-11-09] MEDS ORDERED: RX INFO: IV CONTRAST WAS GIVEN 1 EACH MISC MISCELLANE PRN (17:40)
[2024-11-09 17:42] LABS: Glucose,Whole Blood 176 mg/dL (70-110)
[2024-11-09] MEDS: IOPAMIDOL-300 100ML BTL INJ ONE (17:43)
--- NOTE | 2024-11-09 17:47 | P.CARDCATH ---
Date of Procedure: 11/09/24 Description of Procedure: DIAGNOSTIC CORONARY ANGIOGRAPHY and LEFT HEART CATH REPORT PROCEDURES PERFORMED: Left heart catheterization Selective coronary angiography Moderate conscious sedation [25] mins [Ultrasound assisted] Right radial access INDICATION: Abnormal stress test BRIEF HPI: History of CAD status post PCI to LCx, also history of type 2 diabetes, obesity, paroxysmal atrial fibrillation presented because of substernal chest pressure. She underwent a Lexiscan nuclear stress test which was abnormal showing reversible perfusion defect in anterolateral wall. For this she was scheduled for a heart catheterization procedure. HbA1c 7.6, LDL 37, HDL 55, TG 124. NT-proBNP 62, CONSENT: I have explained the procedural steps of above-mentioned procedures in layman's terms to the patient. I discussed the risks (including but not limited to stroke, emergent vascular or cardiac surgery or ), benefits and alternative therapies for the above-mentioned procedure. I discussed the risks of sedation/analgesia and blood product administration (if indicated). The patient has indicated understanding and acceptance of these risks. Conscious Sedation: Patient's ECG, heart rate, blood pressure, pulse oximetry were monitored throughout the duration of procedure under my direct supervision. [2] mg Versed and [50] mcg Fentanyl were used for induction of moderate conscious sedation. Total duration of moderate concious sedation [25] minutes. PROCEDURAL DETAILS: Patient was prepped and draped in sterile fashion. 1% lidocaine was infiltrated over the right radial artery. Right radial access was obtained via modified seldinger technique. [Ultrasound was used for radial access]. Medications: 5mg of verapamil was administed in the radial sheet. 6000 units of Heparin was administed once the catheter reached the aortic root Wires and Catheter used: J wire was advanced under fluroscopy to get to aortic root. 5 maltese JR 4 diagnostic catheter was utilized obtain left ventricular pressure and pressure gradint across aortic valve. 5 maltese JR 4 diagnostic catheter was used to selectively engage the right coronary ostium. 5 maltese JL 3.5 diagnostic catheter was utilized to selectively engage the left coronary ostium. Angiographic images were reviewed in detail. Catheter and wire were removed. Radial sheet was flushed. The right radial sheath was removed and a TR band was placed. Patent hemostasis was achieved. The patient tolerated the procedure well. Patient was tr ansported back to the post catheterization holding area in stable condition. TECHNICAL DETAILS Total radiation: 643 mGy Total fluro time: 3.9 minutes Total contrast used: Isovue [60 ml] Complications: [none] Estimated Blood loss: less than 15 ml HEMODYNAMICS: Aortic Pressure: 130/70 mmHg. LV pressure: 132/4 mmHg. LVEDP 8 mmHg. There was no significant gradient across the aortic valve. SELECTIVE CORONARY ARTERIOGRAPHY: LEFT MAIN: The left main is short and large caliber vessel. It bifurcates into the LAD and circumflex. Left main appears angiographically normal. LEFT ANTERIOR DESCENDING CORONARY ARTERY: LAD is a large caliber vessel which wraps around to the apex. Proximal LAD has mild luminal irregularities. Mid LAD has 50 to 60% diffuse disease with eccentric irregular plaque. Distal LAD has mild mid irregularities. LEFT CIRCUMFLEX CORONARY ARTERY: It is nondominant vessel. LCx is large caliber. Proximal LCx is angiographically patent. Mid LCx gives rise to a large OM1 branch and small AV groove branch. OM1 branches angiographically patent. Small AV groove branch has 40% disease in mid segment. There appears to be a prior stent in 1/3 portion of mid LCx prior to OM bifurcation which appears to be widely patent. RIGHT CORONARY ARTERY: Dominant vessel. RCA is large caliber. Ostial RCA appears to have 40-50 % calcific disease. Mid RCA appears to have 50% eccentric calcific disease. Distal RCA has mild irregularities. It gives rise to PDA PL branch which appears angiographically patent. IMPRESSION: 60% diffuse mid LAD disease 50% ostial RCA and mid RCA disease 40% distal LCx disease Normal LVEDP PLAN: Aggressive risk factor modification. Her LDL cholesterol is controlled. Her A1c 7.6. She does have diabetes and hypertension and obesity. I would recommend her to be on SGLT2 and GLP-1 analogs like 100 cc/h for 4 hours Okay to be discharged from cardiac standpoint Follow-up outpatient recommended Add Imdur 15 mg daily to current regimen. She is on Cardizem 240, losartan 100, aspirin, Lipitor 40, Eliquis, Farxiga 10, Bumex 1 daily Performing Physician Mikey Ho MD, [facility], [facility] Thank you for allowing [facility] to participate in this patient's care. Feel free to reach out in case of any followup questions.
[2024-11-09] MEDS: SODIUM CHLORIDE 0.9% 1,000 ML IV SCH (17:50)
[2024-11-09] MEDS: ISOSORBIDE MONONITRATE ER 15 MG TAB PO SCH (18:16)
[2024-11-09 18:24] VITALS: RESP 16
--- NOTE | 2024-11-09 19:02 | P.DS ---
Providers Date of admission: 11/08/24 13:41 Expected date of discharge: 11/09/24 Attending physician: Shankar Silva MD Consults: 11/08/24 03:46 Consult Physician Routine Consulting Provider: Elmo Blanchard Consult Reason/Comments: chest pain Do you want consulting provider notified?: Yes, Notify in am Primary care physician: Jaswant [facility] Hospital Course: Discharge Diagnosis: Unstable angina. Troponins trended and all negative at less than 0.012 x 4 draws. Echocardiogram was completed showing a preserved EF of 50 to 55% with no significant valvular or structural abnormalities reported. Lexiscan stress test was completed on 11/08/2024 showing demonstration of confounding findings suggestive of reversible ischemia along the mid anterolateral wall and apical wall. Cardiac cath completed showing 60% diffuse mid LAD disease and 50% ostial RCA and mid RCA disease with 40% distal left circumflex disease, cardiology recommending aggressive risk factor modification and Imdur 15 mg daily was added to current medication regimen. Patient cleared from cardiac perspective for discharge, she is free from any chest pain/discomfort or any other complaints at this time. Pt is medically optimized for discharge and to follow-up outpatient with PCP in 2 to 3 days and with note specialist in 1 week.. Pt was started on Imdur 15 mg daily, Bumex decreased to 1 mg daily and patient to continue Eliquis 5 mg twice daily, rosuvastatin 20 mg nightly, Jardiance 10 mg daily, Cardizem 240 mg daily, and losartan 100 mg daily. CAD status post stenting Paroxysmal atrial fibrillation Hypertension Hyperlipidemia Insulin-dependent diabetes mellitus with hyperglycemia. Hemoglobin A1c 7.6%. Continue lispro sliding scale, Jardiance, metformin, and encouraged to follow a heart healthy and carb consistent diet to optimize blood glucose levels. Hypothyroidism. Continue levothyroxine 200 mcg daily. 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 She presented to the emergency department on 11/08/2024 with a chief complaint of chest pain. Patient communicated via engineering design supervisor at bedside stating she experienced pain to left anterior chest radiating into her back, up into her jaw, left shoulder, and down left arm. Upon arrival to facility, patient underwent evaluation in the emergency department. Vital signs upon arrival show blood pressure 125/77, heart rate 70 temp 98.0 F, and SpO2 of 94% on room air. EKG completed showing normal sinus rhythm at 71 bpm with no significant T wave or ST abnormality showing no signs of acute ischemia upon personal review and interpretation. Chest x-ray completed negative for acute cardiopulmonary process. Labs completed and reviewed. CBC showing leukocytosis with WBC count of 13.70. BMP showing hypochloremia with chloride of 96 and mild prerenal azotemia with BUN of 28. Blood glucose was 186. Calcium 10.0. Magnesium 1.9. Liver profile showing elevated alkaline phosphatase of 133. Troponin was negative at less than 0.012 and proBNP was 62. Lipase normal findings at 131. Patient was started on heparin infusion for unstable angina and admitted under our services with consultation to cardiology. Troponins trended and all negative at less than 0.012 x 4 draws. Echocardiogram was completed showing a preserved EF of 50 to 55% with no significant valvular or structural abnormalities reported. Lexiscan stress test was completed on 11/08/2024 showing demonstration of confounding findings suggestive of reversible ischemia along the mid anterolateral wall and apical wall. Cardiac cath completed showing 60% diffuse mid LAD disease and 50% ostial RCA and mid RCA disease with 40% distal left circumflex disease, cardiology recommending aggressive risk factor modification and Imdur 15 mg daily was added to current medication regimen. Patient cleared from cardiac pe rspective for discharge, she is free from any chest pain/discomfort or any other complaints at this time. Pt is medically optimized for discharge and to follow- up outpatient with PCP in 2 to 3 days and with note specialist in 1 week.. Pt was started on Imdur 15 mg daily, Bumex decreased to 1 mg daily and patient to continue Eliquis 5 mg twice daily, rosuvastatin 20 mg nightly, Jardiance 10 mg daily, Cardizem 240 mg daily, and losartan 100 mg daily. Physical exam: Vital signs reviewed and stable. General: Nontoxic, no distress and appears stated age. Derm: Skin warm and dry, normal coloration for ethnicity. Head: Atraumatic, normocephalic and symmetric. Patient is deaf and communicates via engineering design supervisor. Eyes: EOM's intact, no lid lag, and anicteric sclera Mouth: no lip lesions, mucus membranes moist Cardiovascular: regular rate and rhythm with normal S1S2, no murmur, positive posterior tibial pulses bilaterally, and cap refill < 2 seconds. Lungs: Respirations even, regular, and unlabored on room air. Lungs CTA bilaterally, no rhonchi, no rales, no wheezing, and no accessory muscle usage. Abdominal: soft, nontender to palpation, no guarding, no appreciable organomegaly Ext: ROM intact. No gross muscle atrophy, no edema, no contractures Neuro: face symmetrical and CN II-XII grossly intact with no noted focal neuro deficits Psych: Alert and oriented to person, place, time, and situation. Appropriate and pleasant affect. A total of 35 minutes of time were spent preparing this complex discharge summary. Pt was discharged on 11/09/2024 at 6:56 PM Patient was seen independently by Nurse Practitioner. This document was prepared using [employer] dictation software. Please allow for errors in fudger while rare they do occur. Davy Mayer NP rendered care for this patient independently, reviewed the findings and plan as documented in the note above. I did not physically speak with or examine the patient on this date. Patient Condition at Discharge: Stable Plan - Discharge Summary Discharge Rx Participant: No New Discharge Prescriptions: New Bumetanide [BUMEX] 1 mg PO DAILY 30 Days #30 tab Isosorbide Mononitrate ER [Imdur] 15 mg PO DAILY 30 Days #30 tab Continue allopurinoL [Zyloprim] 100 mg PO DAILY oxyCODONE-APAP 10-325MG [Percocet 10-325 mg] 1 tab PO 5XD PRN PRN Reason: Pain Hydroxychloroquine Sulfate [Plaquenil] 200 mg PO BID Levothyroxine Sodium [Synthroid] 200 mcg PO DAILY Gabapentin 600 mg PO QID Levalbuterol Hfa Inhaler [Xopenex Hfa Inhaler] 2 puff INHALATION RT-QID PRN PRN Reason: Shortness Of Breath Empagliflozin [Jardiance] 10 mg PO DAILY Insulin Lispro [humaLOG Kwikpen] See Protocol SQ AC-TID Magnesium Oxide [Mag-Ox] 400 mg PO DAILY #30 tablet ondansetron HCL [Zofran] 8 mg PO Q8H PRN PRN Reason: Nausea Apixaban [Eliquis] 5 mg PO BID dilTIAZem HCL [Cardizem CD] 240 mg PO DAILY Levalbuterol Nebulized [Xopenex Nebulized] 1.25 mg INHALATION RT-TID PRN PRN Reason: Dyspnea Cholecalciferol [Vitamin D3 (125 Mcg = 5000 Iu)] 125 mcg PO DAILY Milk Thistle 150 mg PO DAILY Gabapentin 600 mg PO DAILY PRN PRN Reason: Pain Spiriva Respimat 1.25mcg/Acutation 2 puff INHALATION RT-DAILY Famotidine [Pepcid] 40 mg PO HS metFORMIN HCL [Glucophage] 1,000 mg PO BID Baclofen 20 mg PO TID Insulin Glargine,Hum.rec.anlog [Lantus Solostar Pen] 0 - 40 unit SQ BID Budesonide [Pulmicort] 0.5 mg INHALATION RT-BID Losartan Potassium [Cozaar] 100 mg PO DAILY Pantoprazole Sodium [Protonix] 40 mg PO DAILY Cetirizine HCl [Zyrtec] 10 mg PO DAILY Budesonide/Formoterol Fumarate [Breyna 160-4.5 Mcg Inhaler] 2 puff INHALATION RT-BID Rosuvastatin [Crestor] 20 mg PO HS Multivitamins, Thera [Multivitamin (formulary)] 1 tab PO DAILY Biotin/Lutein [Biotin Plus 5,000 Mcg Tablet] 1 each PO DAILY Rimegepant Sulfate [Nurtec Odt] 75 mg PO DAILY PRN PRN Reason: Migraine Headache Ergocalciferol (Vitamin D2) [Drisdol (GEQ) 1,250 MCG (50,000 IU)] 1,250 mcg PO MO Discontinued Meloxicam 15 mg PO DAILY Bumetanide [Bumex] 0.5 mg PO W/SUPPER Bumetanide [BUMEX] 1.5 tab PO DAILY Discharge Medication List allopurinoL [Zyloprim] 100 mg PO DAILY 01/04/15 [History] Hydroxychloroquine Sulfate [Plaquenil] 200 mg PO BID 01/29/17 [History] oxyCODONE-APAP 10-325MG [Percocet 10-325 mg] 1 tab PO 5XD PRN 01/29/17 [History] Levothyroxine Sodium [Synthroid] 200 mcg PO DAILY 03/26/17 [History] Gabapentin 600 mg PO QID 01/16/18 [History] Levalbuterol Hfa Inhaler [Xopenex Hfa Inhaler] 2 puff INHALATION RT-QID PRN 01/31/19 [History] Famotidine [Pepcid] 40 mg PO HS 10/20/21 [History] metFORMIN HCL [Glucophage] 1,000 mg PO BID 11/06/21 [History] Baclofen 20 mg PO TID 04/16/22 [History] Insulin Glargine,Hum.rec.anlog [Lantus Solostar Pen] 0 - 40 unit SQ BID 04/16/22 [History] Budesonide [Pulmicort] 0.5 mg INHALATION RT-BID 07/30/23 [History] Empagliflozin [Jardiance] 10 mg PO DAILY 07/30/23 [History] Insulin Lispro [humaLOG Kwikpen] See Protocol SQ AC-TID 07/30/23 [History] Losartan Potassium [Cozaar] 100 mg PO DAILY 07/30/23 [History] Pantoprazole Sodium [Protonix] 40 mg PO DAILY 07/30/23 [History] Magnesium Oxide [Mag-Ox] 400 mg PO DAILY #30 tablet 08/07/23 [Rx] Apixaban [Eliquis] 5 mg PO BID 11/01/24 [History] Biotin/Lutein [Biotin Plus 5,000 Mcg Tablet] 1 each PO DAILY 11/01/24 [History] Budesonide/Formoterol Fumarate [Breyna 160-4.5 Mcg Inhaler] 2 puff INHALATION RT-BID 11/01/24 [History] Cetirizine HCl [Zyrtec] 10 mg PO DAILY 11/01/24 [History] Cholecalciferol [Vitamin D3 (125 Mcg = 5000 Iu)] 125 mcg PO DAILY 11/01/24 [History] Levalbuterol Nebulized [Xopenex Nebulized] 1.25 mg INHALATION RT-TID PRN 11/01/24 [History] Milk Thistle 150 mg PO DAILY 11/01/24 [History] Multivitamins, Thera [Multivitamin (formulary)] 1 tab PO DAILY 11/01/24 [History] Rosuvastatin [Crestor] 20 mg PO HS 11/01/24 [History] dilTIAZem HCL [Cardizem CD] 240 mg PO DAILY 11/01/24 [History] ondansetron HCL [Zofran] 8 mg PO Q8H PRN 11/01/24 [History] Ergocalciferol (Vitamin D2) [Drisdol (GEQ) 1,250 MCG (50,000 IU)] 1,250 mcg PO MO 11/08/24 [History] Gabapentin 600 mg PO DAILY PRN 11/08/24 [History] Rimegepant Sulfate [Nurtec Odt] 75 mg PO DAILY PRN 11/08/24 [History] Spiriva Respimat 1.25mcg/Acutation 2 puff INHALATION RT-DAILY 11/08/24 [History] Bumetanide [BUMEX] 1 mg PO DAILY 30 Days #30 tab 11/09/24 [Rx] Isosorbide Mononitrate ER [Imdur] 15 mg PO DAILY 30 Days #30 tab 11/09/24 [Rx] Follow up Appointment(s)/Referral(s): Mikey Ho MD [Medical Doctor] - 1 Week Jaswant Witt DO [Primary Care Provider] - 1-2 days Patient Instructions/Handouts: After Radial Heart Catheterization (GEN) Activity/Diet/Wound Care/Special Instructions: Activity: As tolerated. Take breaks as needed. It is important to keep a heart healthy lifestyle. This can improve your long- term health and decrease your risk for heart attacks. Managing your blood cholesterol, blood pressure, weight, and stress. The importance of regular exercise. Diet: Heart healthy and carb consistent diet. Avoid salts, or foods with hidden salts such as canned or boxed foods and frozen dinners. Extra salt makes your heart work harder and traps the fluid in your body for longer. Heart Healty Diets also include eating more plants in your diet. Lots of fruits and vegetables, nuts, beans, legumes, fish, whole grains, plant-based oils. Avoid fried foods and animal fats and processed meats Special Instructions: Statins -A statin medication lowers cholesterol levels in the blood. This helps slow the progression of heart disease. - Please take your statin medication as prescribed by your doctor. -You may be taking one of the following statins: Lipitor (rosuvastatin) Take all other medicines as directed by your doctor. Do not take any extra aspirin or ibuprofen. They can increase your risk of bleeding. Many [id number] drugs contain aspirin. If you are unsure about what the drug contains, check with your pharmacist before taking it. For mild discomfort, you may take plain Tylenol (acetaminophen). Follow dose directions, but do not take more than 4,000 mg of acetaminophen in 24 hours. You will need to follow up with your PCP in 3 days and cardiology in 1 week. Thank you for allowing us to participate in your care, it was truly a pleasure having you for our patient!!! . Discharge Disposition: HOME SELF-CARE
[2024-11-09 20:19] VITALS: TEMP 97.7
[2024-11-09 21:41] VITALS: BP 129/77; PULSE 64
[2024-11-10] MEDS ORDERED: DAPAGLIFLOZIN PROPANEDIOL 10 MG TABLET PO SCH (09:00)
[2024-11-10] MEDS ORDERED: ATORVASTATIN 40 MG TAB PO SCH (09:00)
== END 2024-11-09 22:00 | disposition home or self-care (01) | DRG 287 ==
LOC: EC 00:28 → 6NMEDSUR 04:33 → OBSVTOIN 13:41 → 6NMEDSUR 15:06
PROVIDERS: ADMIT Internal Medicine; ATTEND Internal Medicine
PROC: 4A023N7 Measurement of Cardiac Sampling and Pressure, Left Heart, Percutaneous Approach (ICD-10-PCS; 2024-11-09)
PROC: B2111ZZ Fluoroscopy of Multiple Coronary Arteries using Low Osmolar Contrast (ICD-10-PCS; principal; 2024-11-09 09:35)
DX: I25.110 Atherosclerotic heart disease of native coronary artery with unstable angina pectoris (principal); D86.0 Sarcoidosis of lung; E11.65 Type 2 diabetes mellitus with hyperglycemia; E66.01 Morbid (severe) obesity due to excess calories; E03.9 Hypothyroidism, unspecified; I10 Essential (primary) hypertension; J45.909 Unspecified asthma, uncomplicated; Z68.41 Body mass index [BMI] 40.0-44.9, adult; I48.0 Paroxysmal atrial fibrillation; Z79.4 Long term (current) use of insulin; E78.00 Pure hypercholesterolemia, unspecified; G47.33 Obstructive sleep apnea (adult) (pediatric); E87.8 Other disorders of electrolyte and fluid balance, not elsewhere classified; K21.9 Gastro-esophageal reflux disease without esophagitis; M10.9 Gout, unspecified; M54.9 Dorsalgia, unspecified; R79.89 Other specified abnormal findings of blood chemistry; H91.90 Unspecified hearing loss, unspecified ear; Z79.01 Long term (current) use of anticoagulants; Z79.51 Long term (current) use of inhaled steroids; Z79.84 Long term (current) use of oral hypoglycemic drugs; Z79.890 Hormone replacement therapy; Z79.1 Long term (current) use of non-steroidal anti-inflammatories (NSAID); Z79.899 Other long term (current) drug therapy; Z95.5 Presence of coronary angioplasty implant and graft; Z96.643 Presence of artificial hip joint, bilateral; Z96.651 Presence of right artificial knee joint; Z98.1 Arthrodesis status; Z88.6 Allergy status to analgesic agent; Z88.1 Allergy status to other antibiotic agents; Z88.5 Allergy status to narcotic agent; Z88.8 Allergy status to other drugs, medicaments and biological substances
CPT/HCPCS: 36415; 71046; 78452; 80053; 80061; 83036; 83690; 83735; 83880; 84484; 85025; 85610; 85730; 93005; 93017; 93306; 93458; 94640; 94760; 96374; 96375; 96376; 99291

== ENCOUNTER → 2024-11-30 | Outpatient (CLI) | payer OTHER, MEDICARE, BC ==
[2024-11-30 13:11] VITALS: TEMP 98.3
[2024-11-30 13:20] VITALS: BP 123/64; PULSE 71; RESP 16
--- NOTE | 2024-11-30 15:00 | P.PAINPG ---
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 Pt states she received 0% pain relief s/p procedure. Pt states her pain level is currently at 10 /10 in intensity, intermittent, localized in the lumbar spine, predominantly axial, sharp in character w shooting towards the BLEs, L>R. Pain is provoked by standing/ walking for periods of 10 min or more. Pain is alleviated w physician guided stretches daily since late Aug 2024 till present, medications, use of a walker for ambulation, PT in Jan 2022 which provoked pain, home stretching as tolerated, heat, topicals, laying supine w LEs elevated, repositioning and rest. She will restart PT in Oct 2024. Interventional procedures include C6-C7 ACDF, C4-C6 Decompression/ Fusion, BOOGIE L5-S1 x1 (11/01) Medications include Mobic, Percocet, Neurontin, Baclofen, Eliquis, Hx +Cannabis REVIEW OF ORGAN SYSTEMS: CONSTITUTIONAL: No fevers or chills. No recent weight loss. NEUROLOGICAL: + numbness and tingling along the distal extremities. No seizure disorders or headaches. MUSCULOSKELETAL: + pain PSYCHIATRIC: Denies current depression or suicidal thoughts. Physical Examinations : Constitutional : Cooperative , not in acute distress . Neurologic : Cranial nerve II to XII intact. No focal neurological deficits. Psychiatric : alert & oriented x 3. Matching mood & appropriate affect. Judgment & insight intact. Musculoskeletal : Cervical Spine Motor strength in the deltoid and biceps: Normal right side. Normal Left side Motor strength biceps and the wrist extensors: Normal right side . Normal left side Motor strength in the triceps muscle: Normal right side. Normal left side Deep tendon reflexes: Normal at the biceps. Normal at Brachioradialis. Normal at triceps Vertebral body tenderness to deep palpation over Cervical facet loading test: positive bilaterally Spurling test: positive bilaterally Neck distraction test: positive bilaterally Mickey sign: positive bilaterally Lumbar spine Motor strength lower extremities ,thigh and legs 5/5 Right side , 5/5 Left side Deep tendon reflexes : Normal Knee Jerk. Normal Ankle Jerk Vertebral body tenderness over L5 Lumbar facet Loading Test: positive Right / positive Left over BL L4-L5, L5-S1, L>R Range of motion of the lumbar spine Flexion 30 degrees, extension 10 degrees Straight Leg Raise test: Left/ Right positive at <35 degrees Fadia test: positive right / positive left. Severe tenderness over the Sacroiliac joint on the Right / Left sides Gaenslen test: positive bilaterally Seated flexion test: positive bilaterally. Sacral spine : Severe tenderness over the Sacroiliac joint: right side / left side Range of motion: Flexion of the lumbar spine <60 degrees Range of motion: Extension of the lumbar spine <20 degrees Gaenslen's Test positive Juan's Test positive Fadia test: positive right side / left side Thigh Thrust Test Sacral Thrust Test Imaging: CT non contrast lumbar spine from 09/01/24 reviewed Assessment/ Plan : L2-L5 spondylosis, L3-L5 radiculopathy, L4-S1 facet arthropathy Will follow up w Orthopedic Surgeon to explore additional treatment options. All questions answered. I have spent greater than 30 minutes on patient care today. Dr Alexander was available by phone for the evaluation of this patient. The time was used to review the medical records including relevant urine studies and Prescription history (MAPs), review of the available imaging, evaluation and examination of the patient, coordination of care with the medical staff and if applicable referring physicians, as well as creation of the medical record PQRS Narrative: Smoking Status Former smoker Home Medications: Ambulatory Orders allopurinoL [Zyloprim] 100 mg PO DAILY 01/04/15 Hydroxychloroquine Sulfate [Plaquenil] 200 mg PO BID 01/29/17 oxyCODONE-APAP 10-325MG [Percocet 10-325 mg] 1 tab PO 5XD PRN 01/29/17 Levothyroxine Sodium [Synthroid] 200 mcg PO DAILY 03/26/17 Gabapentin 600 mg PO QID 01/16/18 Levalbuterol Hfa Inhaler [Xopenex Hfa Inhaler] 2 puff INHALATION RT-QID PRN 01/31/19 Famotidine [Pepcid] 40 mg PO HS 10/20/21 metFORMIN HCL [Glucophage] 1,000 mg PO BID 11/06/21 Baclofen 20 mg PO TID 04/16/22 Insulin Glargine,Hum.rec.anlog [Lantus Solostar Pen] 0 - 40 unit SQ BID 04/16/22 Budesonide [Pulmicort] 0.5 mg INHALATION RT-BID 07/30/23 Empagliflozin [Jardiance] 10 mg PO DAILY 07/30/23 Insulin Lispro [humaLOG Kwikpen] See Protocol SQ AC-TID 07/30/23 Losartan Potassium [Cozaar] 100 mg PO DAILY 07/30/23 Pantoprazole Sodium [Protonix] 40 mg PO DAILY 07/30/23 Magnesium Oxide [Mag-Ox] 400 mg PO DAILY #30 tablet 08/07/23 Apixaban [Eliquis] 5 mg PO BID 11/01/24 Biotin/Lutein [Biotin Plus 5,000 Mcg Tablet] 1 each PO DAILY 11/01/24 Budesonide/Formoterol Fumarate [Breyna 160-4.5 Mcg Inhaler] 2 puff INHALATION RT-BID 11/01/24 Cetirizine HCl [Zyrtec] 10 mg PO DAILY 11/01/24 Cholecalciferol [Vitamin D3 (125 Mcg = 5000 Iu)] 125 mcg PO DAILY 11/01/24 Levalbuterol Nebulized [Xopenex Nebulized] 1.25 mg INHALATION RT-TID PRN 11/01/24 Milk Thistle 150 mg PO DAILY 11/01/24 Multivitamins, Thera [Multivitamin (formulary)] 1 tab PO DAILY 11/01/24 Rosuvastatin [Crestor] 20 mg PO HS 11/01/24 dilTIAZem HCL [Cardizem CD] 240 mg PO DAILY 11/01/24 ondansetron HCL [Zofran] 8 mg PO Q8H PRN 11/01/24 Ergocalciferol (Vitamin D2) [Drisdol (GEQ) 1,250 MCG (50,000 IU)] 1,250 mcg PO MO 11/08/24 Gabapentin 600 mg PO DAILY PRN 11/08/24 Rimegepant Sulfate [Nurtec Odt] 75 mg PO DAILY PRN 11/08/24 Spiriva Respimat 1.25mcg/Acutation 2 puff INHALATION RT-DAILY 11/08/24 Bumetanide [BUMEX] 1 mg PO DAILY 30 Days #30 tab 11/09/24 Isosorbide Mononitrate ER [Imdur] 15 mg PO DAILY 30 Days #30 tab 11/09/24 Controlled Substance Measures - Controlled Substance Measures Is patient prescribed a controlled substance at discharge?: No
== END ==
LOC: PNWHC3 12:47
PROVIDERS: ATTEND Specialist
DX: M47.26 Other spondylosis with radiculopathy, lumbar region (principal); Z88.5 Allergy status to narcotic agent; Z88.1 Allergy status to other antibiotic agents; Z88.8 Allergy status to other drugs, medicaments and biological substances; Z91.048 Other nonmedicinal substance allergy status; Z91.013 Allergy to seafood; Z87.891 Personal history of nicotine dependence
CPT/HCPCS: 99211